=== PATIENT | female | born 1965 | race Caucasian/White ===

== ENCOUNTER 2021-01-04 12:08 | Inpatient (IN) | payer OTHER, SELFPAY ==
[2021-01-04] VITALS (13 sets, daily range): BP systolic 118–205; BP diastolic 65–98; PULSE 63–96; RESP 17–22; TEMP 35.6–36.6; O2SAT 94–100; BMI 44.4
--- NOTE | 2021-01-04 | ECHO_ITS ---
Patient Info Name: Romina Dick Age: 55 years : 1965 Gender: Female Ht: 60 in Wt: 230 lbs BSA: 2.17 m2 HR: 67 bpm BP: 139 / 75 mmHg Heart Rhythm: Sinus Rhythm Technical Quality: Fair Exam Date: 01/04/2021 3:13 PM Exam Location: [facility] Patient Status: Inpatient Admit Date: 01/04/2021 Staff Ordering Physician: Kwan Orona DO [employer] Records Clerk: Jerry Hess RDCS Attending Provider: Ana María Sommers PA-C Referring Physician: Yeyo SOLANO; Exam Type: CA echo dop color flow w con Study Info Indications R07.9 - Chest pain, unspecified Complete two-dimensional, color flow and Doppler transthoracic echocardiogram is performed with contrast to opacify the left ventricle and to improve the deliniation of the left ventricle endocardial borders. Contrast/Agitated Saline Contrast/Ag. Saline: Definity Amount: 2.00 ml Administered By: Nohemy Arevalo RN Existing IV Access: Yes History/Risk Factors Chest pain w/ elevated trops; HTN, DM, SOB. Summary 1. Left ventricular chamber dimension is normal. 2. Definity contrast administered improved wall motion interpretation. 3. Basal to mid lateral wall is hypokinetic. 4. Left ventricular systolic function is normal, estimated at 55-60%. 5. The left ventricular diastolic function is abnormal. 6. E/e' 12 is mildly elevated. 7. No pulmonary hypertension, estimated pulmonary arterial systolic pressure is 25 mmHg. Left Ventricle Definity contrast administered improved wall motion interpretation. Basal to mid lateral wall is hypokinetic. E/e' 12 is mildly elevated. Left ventricular chamber dimension is normal. Left ventricular systolic function is normal, estimated at 55-60%. The left ventricular diastolic function is abnormal. Right Ventricle Right ventricular chamber dimension is not well visualized. Left Atria Left atrial chamber dimension is normal. Right Atria Right atrial chamber dimension is normal. Aortic Valve The aortic valve is trileaflet. There is no aortic valve stenosis. There is no aortic valve regurgitation. Pulmonic Valve There is no pulmonic regurgitation. Mitral Valve There is no mitral valve stenosis. There is no mitral valve regurgitation. Tricuspid Valve There is no tricuspid valve regurgitation. No pulmonary hypertension, estimated pulmonary arterial systolic pressure is 25 mmHg. Pericardium/Pleural There is no pericardial effusion. Inferior Vena Cava Normal inferior vena cava with >50% collapse upon inspiration consistent with normal right atrial pressure, 5 mmHg. Aorta The aortic root size at the sinus of Valsalva is normal. Left Ventricular Outflow Tract Name Value Normal LVOT 2D LVOT Diameter 1.81 cm LVOT Doppler LVOT Peak Gradient 5 mmHg LVOT Mean Gradient 2 mmHg LVOT VTI 22.16 cm LVOT VTI/AV VTI Ratio 0.49 LVOT Stroke Volume 57.17 ml LVOT CO 4.
--- NOTE | ~2021-01-04 | XR_ITS ---
EXAMINATION: XR chest 2V 01/04/2021 12:36 INDICATION: Left-sided chest pain PROCEDURE: 2 view chest COMPARISON: No prior studies for comparison. FINDINGS: The lungs are clear. The cardiomediastinal silhouette is within normal limits. There are no pleural effusions. There is no pneumothorax suspected. There are cholecystectomy clips. IMPRESSION: 1: NO ACUTE CARDIOPULMONARY DISEASE. Reviewed, dictated and finalized at location [facility]
--- NOTE | 2021-01-04 12:11 | ECG_ITS ---
Measurements Intervals Ranger Rate: 87 P: 31 NE: 146 QRS: 6 QRSD: 86 T: 84 QT: 360 QTc: 435 Interpretive Statements SINUS RHYTHM LOW QRS VOLTAGE IN PRECORDIAL LEADS NONSPECIFIC ST & T-WAVE ABNORMALITY- HIGH LATERAL LEADS BORDERLINE ECG Electronically Signed On 01-04-2021 12:26:57 VICE PRESIDENT SALES by Kwan Orona D.O.
--- NOTE | 2021-01-04 12:22 | ED.CHESTPAIN ---
HPI - Chest Pain General Chief Complaint: Chest Pain Stated Complaint: chest pain Time Seen by Provider: 01/04/21 12:14 Source: patient Mode of arrival: ambulatory Limitations: no limitations History of Present Illness HPI narrative: Patient is a 55-year-old female complaining of midsternal chest pain, 7 out of 10, radiating to left upper extremity accompanied by shortness of breath started approximately 1 week ago. Patient denies any abdominal pain, nausea, vomiting, diaphoresis, fever or chills. Related Data Allergies Allergy/AdvReac Type Severity Reaction Status Date / Time No Known Allergies Allergy Verified 01/04/21 13:35 Review of Systems Review of Systems: All systems reviewed & are unremarkable except as noted in HPI and below Constitutional: Constitutional: Denies body ache(s), Denies chills, Denies excessive sweating, Denies fatigue, Denies fever(s), Denies headache(s), Denies lethargy, Denies malaise, Denies weakness and Denies weight loss Eyes: Eyes: Denies blurry vision, Denies change in vision and Denies loss of vision ENT: Denies dizziness, Denies ear discharge, Denies headache(s), Denies lip swelling, Denies epistaxis, Denies nasal congestion, Denies neck pain, Denies throat swelling and Denies tongue swelling Cardiovascular: Cardiovascular: Denies diaphoresis, Denies rapid heart rate, Denies edema, Denies irregular heart rhythm, Denies lightheadedness, Denies palpitations, Denies dyspnea and Denies dyspnea on exertion Respiratory: Respiratory: Denies chest congestion, Denies cough, Denies hemoptysis, Denies dyspnea and Denies dyspnea on exertion Gastrointestinal: Gastrointestinal: Denies abdominal pain, Denies melena, Denies hematochezia, Denies diarrhea, Denies nausea, Denies vomiting and Denies hematemesis Musculoskeletal: Musculoskeletal: Denies abnormal gait, Denies deformity, Denies joint swelling, Denies limited range of motion, Denies neck pain and Denies numbness Neurologic: Denies Abnormal speech present, Denies abnormal gait, Denies confusion, Denies dizziness, Denies headache(s), Denies focal weakness, Denies loss of vision, Denies numbness, Denies Other visual disturbances, Denies Sensory deficit (Neuro) and Denies weakness Psychiatric: Psychiatric: Denies confusion, Denies depression, Denies auditory hallucinations, Denies homicidal ideation and Denies suicidal ideation Endocrine: Endocrine: Denies cold intolerance, Denies excessive sweating, Denies fatigue, Denies heat intolerance and Denies palpitations Hematologic/Lymphatic: Hematologic/Lymphatic: Denies easy bleeding and Denies easy bruising Allergic/Immunologic: Allergic/Immunologic: Denies lip swelling, Denies throat swelling and Denies tongue swelling Exam Const: General: cooperative, healthy appearing, comfortable, no acute distress, well developed, alert and awake; No confusion Orientation/consciousness: oriented to person, oriented to place, oriented to time, patient oriented x3 and No confusion Limitations: no limitations HENMT: Head: normal to inspection, normocephalic and atraumatic Ears: hearing grossly normal bilaterally, TM normal on the right and TM normal on the left General nose exam: Normal external nose present, Normal nares present and No nasal discharge present Face and sinus: normal facial exam Mouth: Yes Normal oral and palatal mucosa present, Yes lip normal, Yes tongue normal and Yes oropharynx normal Throat: posterior oropharynx normal, tonsils normal and uvula midline Eyes: General: appearance normal, both eyes and all related structures Pupils: Equal, round and reactive pupils present EOM: EOMs intact bilaterally Neck: Neck: normal visual inspection, full ROM, no lymphadenopathy and no meningeal signs Chest: Chest palpation & inspection: normal inspection of the chest Resp: Effort & Inspection: normal respiratory effort, able to speak in complete sentences, no respiratory distress and not tachypneic Auscultation: cl
[2021-01-04] MEDS: ASPIRIN 81 MG CHEWABLE TABLET 324 MG PO (12:26)
[2021-01-04 13:05] LABS: Basophils Percent Auto 0.4 % (0.2-1.2); Eosinophils Absolute Auto 0.1 K/mm3 (0-0.3); Eosinophils Percent Auto 1.5 % (0-4.4); Hemoglobin 12.4 g/dL (12.0-15.0); Immature Granulocyte Absolute 0.06 K/mm3 (0.00-0.031); Immature Granulocyte Percent A 0.8 % (0-0.5); Lymphocytes Absolute Auto 2.06 K/mm3 (0.9-3.2); Lymphocytes Percent Auto 27.2 % (18.3-44.2); Mean Corpuscular HGB Conc 31.8 g/dl (32-36); Mean Corpuscular Hemoglobin 29.2 pg (26-34); Mean Platelet Volume 11.3 fl (7.4-10.4); Monocytes Absolute Auto 0.6 K/mm3 (0.1-0.6); Monocytes Percent Auto 7.5 % (2.6-8.5); Neutrophils Absolute Auto 4.8 K/mm3 (1.3-6.7); Neutrophils Percent Auto 62.6 % (45.5-73.1); Platelet Count Result 193 k/mm3 (150-375); Red Blood Count 4.24 M/mm3 (4.2-5.4); Red Cell Distribution Width 14.3 % (11.5-14.5); White Blood Count 7.6 K/mm3 (4.5-10.0)
[2021-01-04 13:11] LABS: INR 0.8; Prothrombin Time 11.9 Seconds (11.1-14.7)
[2021-01-04 13:12] LABS: Anion Gap 7 mmol/L (8-16); Blood Urea Nitrogen 12 mg/dL (7-17); Calcium 9.2 mg/dL (8.4-10.2); Carbon Dioxide 33 mmol/L (22-30); Chloride 99 mmol/L (98-107); Estimated CRCL calculation 85 ml/min; Estimated Glomerular Filt Rate > 60; Glucose 228 mg/dL (65-105); Partial Thromboplastin Time 25.3 SECONDS (22.3-36.8); Potassium 3.7 mmol/L (3.4-5.0); Sodium 139 mmol/L (137-145)
[2021-01-04 13:32] LABS: Troponin I 0.054 ng/mL (0.000-0.034)
[2021-01-04] MEDS: ENOXAPARIN 100 MG/ML SYRINGE SUB-Q (13:38)
[2021-01-04] MEDS: NITROGLYCERIN OINTMENT 1 INCH DOSE TRANSDERM (13:52)
--- NOTE | 2021-01-04 14:32 | PM.CNCAR ---
Assessment and Plan Assessment and plan (1) Chest pain: Code(s): R07.9 - Chest pain, unspecified Status: Acute (2) Non-ST elevation AR (NSTEMI): Code(s): I21.4 - Non-ST elevation (NSTEMI) myocardial infarction Status: Acute Assessment and Plan: Chest pain free now with NTG. Aspirin daily, Lovenox 1 mg/kq SQ q 12 hours. Trend troponins. Obtain echo. Start Toprol XL 25 mg daily. Obtain lipid panel. Continue home statin, Irbesartan. Stop Amlodipine unless BP is high despite starting Toprol. Discussed left heart cath with patient including risks/benefits/alternative treatment and she is agreeable for it. Will plan for tomorrow unless becomes clinically or hemodynamically unstable. I will let HCG know as they will perform cath. (3) Hypertension: Code(s): I10 - Essential (primary) hypertension Status: Acute (4) Dyslipidemia: Code(s): E78.5 - Hyperlipidemia, unspecified Status: Acute Assessment and Plan: Continue statin. (5) Diabetes: Code(s): E11.9 - Type 2 diabetes mellitus without complications Status: Acute Assessment and Plan: Management per hospitalist. (6) Obesity: Code(s): E66.9 - Obesity, unspecified Status: Acute (7) MARISELA (obstructive sleep apnea): Code(s): G47.33 - Obstructive sleep apnea (adult) (pediatric) Status: Acute Assessment and Plan: Advised she need to use CPAP regularly for sleep. History of Present Illness History of Present Illness Consult date/time: 01/04/21 14:32 Reason for consult: chest pain. 55 yr old woman presents to ER with chest pains. She has a history of DM type II (requiring insulin), hypertension, dyslipidemia, MARISELA and she uses CPAP occasionally, obesity. Reports that pressure like chest pain started about a week ago and has been happening daily. It radiates to left arm and left side of neck and associated with sob. She went to see her PCP yesterday, Dr. Shine in [place] who did an EKG and referred her to video systems engineer in [place], [place] which she has an appointment for this Saturday. She was given Nitro and her pain subsided. Her BP was over 200 systolic when she arrived to ER but is OK after NTG. She also received Lovenox in ER. She can walk about 1/2 block before she has ERVIN. EKG shows Sinus rhythm with borderline ST-T wave abnormality in high lateral leads. CXR is normal. CBC, BMP, INR are normal. Troponin first one is 0.054 which is slightly elevated. Reason For Visit: chest pain Review of Systems Review of Systems: All systems reviewed & are unremarkable except as noted in HPI and below Constitutional: Constitutional: Reports as per HPI, Denies chills and Denies fatigue Cardiovascular: Cardiovascular: Reports as per HPI, Reports chest pain, Denies leg edema, Denies lightheadedness, Reports dyspnea and Reports dyspnea on exertion Respiratory: Respiratory: Reports as per HPI and Reports dyspnea on exertion Gastrointestinal: Gastrointestinal: Reports as per HPI and Denies abdominal pain Genitourinary: Genitourinary: Reports as per HPI and Denies urinary frequency Meds Home Medications and Allergies Allergies Allergy/AdvReac Type Severity Reaction Status Date / Time No Known Allergies Allergy Verified 01/04/21 13:35 Vital Signs Vital Signs - 24 hr 01/04/21 12:11 01/04/21 12:57 Temperature 97.8 F Pulse Rate 88 67 Respiratory Rate 17 18 Blood Pressure 205/94 H 129/98 H Pulse Oximetry 99 96 Exam Const: General: cooperative, healthy appearing and comfortable Nutritional Appearance: obese Resp: Auscultation: clear to auscultation bilaterally, no crackles, no rales, no rhonchi and no wheezes Cardio: Jugular venous distension: no JVD Rate: regular rate Rhythm: regular rhythm Heart sounds: no murmurs GI: GI Palp: No abdominal tenderness and Yes Soft to palpation Neuro: General: oriented to person, oriented to place and oriented to ti
[2021-01-04 15:13] LABS: Cholesterol 189 mg/dL (0-200); HDL Direct 66 mg/dL; Triglycerides 119 mg/dL (<150)
[2021-01-04 15:24] LABS: LDL Cholesterol Direct 90 mg/dL
[2021-01-04] MEDS: PERFLUTREN LIPID MICROSPHERES 1.5 ML VIAL DILUTED TO 10 ML TOTAL VOLUME IV PUSH (15:34)
[2021-01-04 15:40] LABS: Troponin I 0.072 ng/mL (0.000-0.034)
[2021-01-04] MEDS: METOPROLOL SUCCINATE EXT REL 25 MG TABCR PO (15:40)
--- NOTE | 2021-01-04 16:03 | ADMGEN ---
This patient, Romina Dick, was admitted to IMU Room 206-01 at 1603. Patient/family oriented to hospital policies and general routines including ID bracelet, bed and alarms, visiting hours, pain management, procedures, bathroom and other care routines, personal items, smoking policy, room service/diet, and visiting hours. Information on how to activate the Rapid Response Team has been discussed. Patient/Family are encouraged to report perceived risks to care and to ask questions if they do not understand what they are told or what they should do.
--- NOTE | 2021-01-04 16:53 | ECG_ITS ---
SINUS RHYTHM WITH SHOR TN INTERVAL ATRIAL PREMATURE COMPLEX NONSPECIFIC ST & T-WAVE ABNORMALITY- HIGH LATERAL LEADS BASELINE WANDER- I, II, AVR, V2-V3 BORDERLINE ECG Electronically Signed On 01-04-2021 19:37:18 WELFARE SPECIALIST by Kwan Orona D.O. COMPARED TO ECG 01/04/2021 12:15:50 NO SIGNIFICANT CHANGES MTDD
--- NOTE | 2021-01-04 17:22 | PM.IMHP ---
H&P: HPI History of Present Illness Date/Time: 01/04/21 17:00 Chief Complaint: Chest Pain Narrative: Date of Service/ Time Seen is 01/04/21 at 1700 The collaborating physician for this history and physical is Dr Lianet Arreola. Ms. Dick is a very pleasant 55yo F with history of hypertension, dyslipidemia, insulin-dependent type 2 diabetes mellitus, sleep apnea, and fibromyalgia who presented to the ED for evaluation of chest pain. She described pressure/squeezing pain to her left chest that will radiate to left arm and up to left jaw with associated shortness of breath. She denies nausea, vomiting, or diaphoresis. These pains had been intermittent first starting one week ago, initially lasting around 10 minutes at a time occurring multiple times per day. She cannot identify real relieving or aggravating factors. She saw PCP regarding these symptoms, EKG was obtained, and she was scheduled for cardiology outpatient referral in [place], [place] on Saturday. Yesterday, her episodes of chest pain were increasing in duration and intensity, now lasting around 45 minutes to an hour before subsiding, and PCP advised her to present to ED. She rated her pain 7/10 severity in ED, and now is chest pain free after receiving nitroglycerin. Blood pressures elevated to 205/94 on arrival and have improved now. Troponins are elevated and slightly trending up. Cardiology has been consulted and she has already been seen by both Dr Orona and Dr Parnell prior to my encounter. She has been started on beta blockade and scheduled for left heart catheterization in the morning. She is admitted to the hospitalist service inpatient status for evaluation of chest pain and management of other comorbidities. Review of Systems Review of Systems: Narrative: Chest pain with associated SOB described above, she is having neither at this time and feels improved. She denies nausea, vomiting, or abdominal pain. Denies diarrhea or constipation. Denies cough or exposure to known COVID positive persons. Denies headaches, weakness or vision changes. Twelve systems were reviewed with pertinent positives and negatives as per HPI. Except as documented, all other systems were reviewed and are negative. [facility] Past Medical History Medical History (Updated 01/05/21 @ 05:54 by Ana María Sommers PA-C) Diabetes Dyslipidemia Fibromyalgia Hypertension MARISELA (obstructive sleep apnea) Restless leg syndrome Surgical History Surgical History (Updated 01/05/21 @ 05:37 by Ana María Sommers PA-C) H/O: hysterectomy 1989 Hx of cholecystectomy 1983 Family History Family History (Updated 01/05/21 @ 05:39 by Ana María Sommers PA-C) Mother Heart disease Heart attack in 50s, passed in age 70s. Father Heart disease Heart attacks in early 60s, passed in age 70s. Sibling Lung cancer Brother Social History Social History (Updated 01/05/21 @ 05:41 by Ana María Sommers PA-C) Social History: Ms. Dick is retired from working for [employer] and working in [employer] in the past. She lives at home in [place], [place] with her , Ceferino. She denies alcohol, tobacco, or other substance use. She designates Ceferino to be her surrogate decision maker and wishes to be full code status. Her PCP is Dr Sam Shine in [place], [place]. Smoking status: Never smoker Alcohol intake: never Substance use: never Gender identity (if verbalized by the patient): Female Spiritual care concerns: No Meds Home Medications and Allergies Home Medications Medication Instructions Recorded Confirmed Type amlodipine 5 mg PO DAILY 01/04/21 01/04/21 History duloxetine 60 mg PO DAILY 01/04/21 01/04/21 History empagliflozin [Jardiance] 25 mg PO DAILY 01/04/21 01/04/21 History insulin lispro [Humalog U-100 17 unit SUBCUT TIDWM 01/04/21 01/04/21 History Insulin] omeprazole 40 mg PO BID 01/04/21 01/04/21 History pravastatin 40 mg PO HS 01/04/21 01/04/21 History pregabali
[2021-01-04 17:30] LABS: Glucose Point of Care 86 (65-105)
[2021-01-04 18:21] LABS: Troponin I 0.083 ng/mL (0.000-0.034)
[2021-01-04] MEDS: PREGABALIN (*CRX) 50 MG CAPSULE 200 MG PO (18:25)
--- NOTE | 2021-01-04 19:14 | PM.CNCAR ---
Assessment and Plan Assessment and plan (1) Non-ST elevation ID (NSTEMI): Code(s): I21.4 - Non-ST elevation (NSTEMI) myocardial infarction Status: Acute Assessment and Plan: Patient presents with acute coronary syndrome and non-STEMI. She has been free of discomfort since arrival. She does appear a good candidate for invasive evaluation with cardiac catheterization and possible PCI. Reviewed the procedure with the patient and need for dual anti-platelet therapy if a stent is placed. Patient desires to proceed. 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 Cardiac catheterization is scheduled for around noon on . Additional Plan Thank you for asking us to participate in the care of this nice lady. History of Present Illness History of Present Illness Consult date/time: 01/04/21 19:14 Consult reason: chest pain Reason For Visit: NSTEMI Narrative: 01/04/2021 Romina Dick is a pleasant 55-year-old female admitted with a non-STEMI, whom we were asked to see at the request of Dr. Orona for our opinion about possible cardiac catheterization. The patient has been having chest pain radiating to left arm and neck for about a week. In her trip to the emergency room today. Her chest discomfort was relieved with nitroglycerin and she has been given. She remains pain-free but she has elevated troponins consistent with a non-STEMI. She has hypertension, diabetes and hyperlipidemia. No history of any bleeding or ulcers. She is not anticipating any surgeries in the next few months. Review of Systems Constitutional: Constitutional: Reports no additional constitutional complaints Eyes: Eyes: Reports no additional eye complaints ENT: Denies epistaxis Cardiovascular: Cardiovascular: Reports chest pain and Denies pedal edema Respiratory: Respiratory: Reports dyspnea and Reports dyspnea on exertion Gastrointestinal: Gastrointestinal: Denies melena, Denies hematochezia and Denies vomiting Genitourinary: Genitourinary: Denies hematuria Integumentary/Breasts: Skin/Breast: Denies rash Neurologic: Denies confusion Psychiatric: Psychiatric: Denies no additional psychiatric complaints [facility] Past Medical History Medical History (Updated 01/04/21 @ 19:18 by Claribel Parnell MD) Diabetes Dyslipidemia Hypertension MARISELA (obstructive sleep apnea) Family History Family History (Updated 01/04/21 @ 19:41 by Claribel Parnell MD) Mother Heart disease Heart attack in her early to mid 50's Father Heart disease Heart attacks Social History Social History Smoking status: Never smoker Alcohol intake: never Substance use: never Gender identity (if verbalized by the patient): Female Spiritual care concerns: No Meds Home Medications and Allergies Home Medications Medication Instructions Recorded Confirmed Type amlodipine 5 mg PO DAILY 01/04/21 01/04/21 History duloxetine 60 mg PO DAILY 01/04/21 01/04/21 History empagliflozin [Jardiance] 25 mg PO DAILY 01/04/21 01/04/21 History insulin lispro [Humalog U-100 17 unit SUBCUT TIDWM 01/04/21 01/04/21 History Insulin] omeprazole 40 mg PO BID 01/04/21 01/04/21 History pravastatin 40 mg PO HS 01/04/21 01/04/21 History pregabalin 200 mg PO BID 01/04/21 01/04/21 History ropinirole 0.25 mg PO HS 01/04/21 01/04/21 History Allergies Allergy/AdvReac Type Severity Reaction Status Date / Time No Known Allergies Allergy Verified 01/04/21 13:35 Vital Signs Vital Signs - 24 hr 01/04/21 12:11 01/04/21 12:57 01/04/21 14:50 Temperature 97.8 F Pulse Rate 88 67 67 Respiratory Rate 17 18 18 Blood Pressure 205/94 H 129/98 H 139/71 Pulse Oximetry 99 96 98 01/04/21 15:40 01/04/21 15:49 01/04/21 16:18 Tempera
[2021-01-04 20:24] LABS: Glucose Point of Care 223 (65-105)
[2021-01-04 20:39] LABS: Troponin I 0.071 ng/mL (0.000-0.034)
[2021-01-04] MEDS: rOPINIRole HCL 0.25 MG TABLET PO (21:39)
[2021-01-05] VITALS (34 sets, daily range): BP systolic 109–189; BP diastolic 49–83; PULSE 49–79; RESP 14–20; TEMP 36–36.6; O2SAT 90–100
[2021-01-05 05:27] LABS: Basophils Absolute Auto 0.1 K/mm3 (0.0-0.1); Basophils Percent Auto 0.7 % (0.2-1.2); Eosinophils Absolute Auto 0.1 K/mm3 (0-0.3); Eosinophils Percent Auto 1.8 % (0-4.4); Hematocrit 33.8 % (37.0-47.0); Hemoglobin 10.7 g/dL (12.0-15.0); Immature Granulocyte Absolute 0.03 K/mm3 (0.00-0.031); Immature Granulocyte Percent A 0.4 % (0-0.5); Mean Corpuscular HGB Conc 31.7 g/dl (32-36); Mean Corpuscular Hemoglobin 28.8 pg (26-34); Mean Corpuscular Volume 90.9 fl (80-100); Mean Platelet Volume 11.6 fl (7.4-10.4); Monocytes Absolute Auto 0.7 K/mm3 (0.1-0.6); Monocytes Percent Auto 8.6 % (2.6-8.5); Neutrophils Absolute Auto 3.5 K/mm3 (1.3-6.7); Neutrophils Percent Auto 45.5 % (45.5-73.1); Platelet Count Result 186 k/mm3 (150-375); Red Blood Count 3.72 M/mm3 (4.2-5.4); Red Cell Distribution Width 14.4 % (11.5-14.5); White Blood Count 7.7 K/mm3 (4.5-10.0)
[2021-01-05] MEDS: ACETAMINOPHEN 325 MG TABLET 650 MG PO (05:28)
[2021-01-05 05:36] LABS: Anion Gap 3 mmol/L (8-16); Blood Urea Nitrogen 13 mg/dL (7-17); Calcium 8.5 mg/dL (8.4-10.2); Carbon Dioxide 34 mmol/L (22-30); Chloride 102 mmol/L (98-107); Estimated CRCL calculation 89 ml/min; Estimated Glomerular Filt Rate > 60; Glucose 174 mg/dL (65-105); Magnesium 1.6 mg/dL (1.6-2.3); Sodium 139 mmol/L (137-145)
[2021-01-05] MEDS: ATORVASTATIN 40 MG TABLET 80 MG PO (08:20)
[2021-01-05] MEDS: MAGNESIUM SULF 2 GM/WATER 50ML 2 GM/50 ML BAG IVPB (08:20)
[2021-01-05] MEDS: ASPIRIN 81 MG CHEWABLE TABLET PO (08:20)
[2021-01-05] MEDS: PREGABALIN (*CRX) 50 MG CAPSULE 200 MG PO ×2 (08:20→17:45)
[2021-01-05] MEDS: DULoxetine HCL 60 MG CAPSULE.DR PO (08:20)
[2021-01-05 08:54] LABS: Glucose Point of Care 162 (65-105)
[2021-01-05] MEDS: METOPROLOL SUCCINATE EXT REL 50 MG TABCR PO (08:56)
[2021-01-05] MEDS: IRBESARTAN 150 MG TABLET 300 MG PO (08:56)
--- NOTE | 2021-01-05 10:17 | PM.IMPN ---
Progress Note: A&P Assessment and Plan (1) Non-ST elevation DC (NSTEMI): Code(s): I21.4 - Non-ST elevation (NSTEMI) myocardial infarction Status: Acute Assessment and Plan: Management per cardiology - appreciate recommendations. No further chest pain overnight or this morning. Plan is for cardiac catheterization this afternoon. Metoprolol and aspirin were started. Amlodipine held. She was started on therapeutic lovenox initially which was discontinued in light of cath. (2) Hypertension: Code(s): I10 - Essential (primary) hypertension Status: Chronic Assessment and Plan: Home norvasc stopped in light of new metoprolol added. Appreciate cardiology recommendations. Monitor BP and adjust treatment as needed. (3) Diabetes: Code(s): E11.9 - Type 2 diabetes mellitus without complications Status: Chronic Assessment and Plan: She was told Hgb A1c 13% by her PCP this week. She has continuous glucose monitoring with Dexcom and describes her blood sugars have been in 300s lately. Hold mealtime insulin for now since she is NPO. Monitor accu-cheks q6h while she is NPO and cover with sliding scale. Home Jardiance is nonformulary and will be held. Glucoses will be monitored and treatment adjusted as appropriate. (4) MARISELA (obstructive sleep apnea): Code(s): G47.33 - Obstructive sleep apnea (adult) (pediatric) Status: Chronic Assessment and Plan: Has been wearing CPAP nightly around 7 years per patient. Continue CPAP. (5) Dyslipidemia: Code(s): E78.5 - Hyperlipidemia, unspecified Status: Chronic Assessment and Plan: Continue statin therapy. (6) Restless leg syndrome: Code(s): G25.81 - Restless legs syndrome Status: Acute Assessment and Plan: Continue her home Lyrica and Requip for RLS and fibromyalgia. Stable, no acute issues. Subjective Date/time seen: 01/05/21 0945 Interval history: Ms. Dick is a 55yo F admitted for NSTEMI. She is resting comfortably in bed and denies chest pain or shortness of breath. Was able to rest a bit last night. No acute events overnight. Denies abdominal pain, nausea or vomiting. Review of Systems Review of Systems: All systems reviewed & are unremarkable except as noted in HPI and below Exam Narrative: Exam Narrative: General: Female resting comfortably supine in bed in no acute distress. HEENT: Normocephalic, atraumatic, EOMI, oral mucosa moist. Neck: Supple. Chest: Lungs clear to auscultation KRYSTYNA. Respirations even and nonlabored, tolerating room air. Heart: Rate and rhythm regular with S1 and S2. Abdomen: Soft, nontender, nondistended, bowel sounds present. Skin: Warm, dry without rashes or lesions noted. Extremities: Peripheral pulses intact, no edema. Neurologic: Alert and oriented. No focal neurologic deficits noted. Speech is clear. Objective Data Vital Signs Vital Signs: Last Vital Signs Temp 96.9 F L 01/05/21 08:00 Pulse 65 01/05/21 08:56 Resp 18 01/05/21 08:00 BP 180/80 H 01/05/21 08:00 Pulse Ox 94 01/05/21 08:00 Intake/Output Intake/Output: Intake & Output 01/02/21 01/03/21 01/04/21 01/05/21 23:59 23:59 23:59 23:59 Intake Total 440 300 Balance 440 300 Meds/Results Medications: Active Medications Generic Name Dose Route Start Last Admin Trade Name Freq PRN Reason Stop Dose Admin Acetaminophen 650 mg 01/04/21 13:52 01/05/21 05:28 Acetaminophen 325 Mg Tablet PO 650 mg Q4H PRN Administration Mild Pain (1-3) Al Hydrox/Mg Hydrox/Simethicone 30 ml 01/04/21 13:52 Mag Hydrox/Al Hydrox/Simeth 30 Ml Udc PO Q6H PRN Indigestion Aspirin 81 mg 12/26
--- NOTE | 2021-01-05 10:20 | PM.PNCARD ---
Progress Note: A&P Assessment and Plan (1) Chest pain: Code(s): R07.9 - Chest pain, unspecified Status: Acute (2) Non-ST elevation [place] (NSTEMI): Code(s): I21.4 - Non-ST elevation (NSTEMI) myocardial infarction Status: Acute Assessment and Plan: Chest pain free now with NTG. Aspirin daily, did get Lovenox in ED. Troponins peaked at 0.08. Echo shows normal EF with lateral wall hypokinesis. Increase Toprol XL 50 mg daily. On Atorvastastatin, increase Irbesartan 300 mg daily. Stop Amlodipine unless BP is high despite starting Toprol. Discussed left heart cath with patient including risks/benefits/alternative treatment and she is agreeable for it. Will plan for it later today. (3) Hypertension: Code(s): I10 - Essential (primary) hypertension Status: Chronic Assessment and Plan: High. Increase Irbesartan 300 mg daily and Toprol 50 mg daily. (4) Dyslipidemia: Code(s): E78.5 - Hyperlipidemia, unspecified Status: Chronic Assessment and Plan: Continue statin. (5) Diabetes: Code(s): E11.9 - Type 2 diabetes mellitus without complications Status: Chronic Assessment and Plan: Management per hospitalist. (6) Obesity: Code(s): E66.9 - Obesity, unspecified Status: Acute (7) MARISELA (obstructive sleep apnea): Code(s): G47.33 - Obstructive sleep apnea (adult) (pediatric) Status: Chronic Assessment and Plan: Advised she need to use CPAP regularly for sleep. Subjective Date/time seen: 01/05/21 10:20 Patient did not have any more chest pains overnight. No sob. Exam Const: General: cooperative, healthy appearing and comfortable Nutritional Appearance: obese Resp: Auscultation: clear to auscultation bilaterally, no crackles, no rales, no rhonchi and no wheezes Cardio: Jugular venous distension: no JVD Rate: regular rate Rhythm: regular rhythm Heart sounds: no murmurs GI: GI Palp: No abdominal tenderness and Yes Soft to palpation Neuro: General: oriented to person, oriented to place and oriented to time Extrem: Right lower extremity: no edema Left lower extremity: no edema Objective Data Vital Signs Vital Signs: Vital Signs - 24 hr 01/04/21 12:11 01/04/21 12:57 01/04/21 14:50 Temperature 97.8 F Pulse Rate 88 67 67 Respiratory Rate 17 18 18 Blood Pressure 205/94 H 129/98 H 139/71 Pulse Oximetry 99 96 98 01/04/21 15:40 01/04/21 15:49 01/04/21 16:18 Temperature 96.1 F L Pulse Rate 63 70 76 Respiratory Rate 18 22 H Blood Pressure 118/65 148/79 H Pulse Oximetry 100 100 01/04/21 16:31 01/04/21 17:39 01/04/21 18:42 Temperature 96.7 F L Pulse Rate 67 84 73 Respiratory Rate 20 Blood Pressure 135/66 Pulse Oximetry 96 01/04/21 20:00 01/04/21 22:00 01/04/21 23:30 Temperature Pulse Rate 72 72 76 Respiratory Rate 20 20 Blood Pressure Pulse Oximetry 96 94 01/04/21 23:36 01/05/21 00:00 01/05/21 02:00 Temperature 97.0 F L Pulse Rate 74 72 72 Respiratory Rate 20 18 Blood Pressure 153/72 H Pulse Oximetry 96 95 01/05/21 04:00 01/05/21 04:04 01/05/21 06:00 Temperature 97.9 F Pulse Rate 65 69 74 Respiratory Rate 20 18 Blood Pressure 189/83 H Pulse Oximetry 93 95 01/05/21 08:00 01/05/21 08:56 Temperature 96.9 F L Pulse Rate 65 65 Respiratory Rate 18 Blood Pressure 180/80 H Pulse Oximetry 94 Intake/Output Intake/Output: Intake & Output 01/02/21 01/03/21 01/04/21 01/05/21 23:59 23:59 23:59 23:59 Intake Total 440 300 Balance 440 300 Meds/Results Medications: Active Medications Generic Name Dose Route Start Last Admin Trade Name Freq PRN Reason Stop Dose Admin Acetaminophen 650 mg 01/04/21 13:52 01/05/21 05:28 Acetaminophen 325 Mg Tablet PO 650 mg Q4H PRN Administration Mild Pain (1-3) Al Hydrox/Mg Hydrox/Simethicone 30 ml 01/04/21 13:52 Mag Hydrox/Al Hydrox/Simeth 30 Ml Udc PO Q6H PRN
--- NOTE | 2021-01-05 11:49 | PC.NURSE ---
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
--- NOTE | 2021-01-05 12:04 | WPDMODSED ---
Moderate Sedation Note-Pt Data Patient Data Diagnosis: Chest pain suspected acute coronary syndrome Present Complaint: intermittent chest pain Procedure to be performed/Plan: left heart catheterization Allergies Allergy/AdvReac Type Severity Reaction Status Date / Time No Known Allergies Allergy Verified 01/04/21 13:35 Home Medications Medication Instructions Recorded Confirmed Type amlodipine 5 mg PO DAILY 01/04/21 01/04/21 History duloxetine 60 mg PO DAILY 01/04/21 01/04/21 History empagliflozin [Jardiance] 25 mg PO DAILY 01/04/21 01/04/21 History insulin lispro [Humalog U-100 17 unit SUBCUT TIDWM 01/04/21 01/04/21 History Insulin] omeprazole 40 mg PO BID 01/04/21 01/04/21 History pravastatin 40 mg PO HS 01/04/21 01/04/21 History pregabalin 200 mg PO BID 01/04/21 01/04/21 History ropinirole 0.25 mg PO HS 01/04/21 01/04/21 History Current Medications: Active Medications Acetaminophen (Acetaminophen 325 Mg Tablet) 650 mg PO Q4H PRN PRN Reason: Mild Pain (1-3) Last Admin: 01/05/21 05:28 Dose: 650 mg Documented by: Al Hydrox/Mg Hydrox/Simethicone (Mag Hydrox/Al Hydrox/Simeth 30 Ml Udc) 30 ml PO Q6H PRN PRN Reason: Indigestion Aspirin (Aspirin 81 Mg Chewable Tablet) 81 mg PO DAILY@0800 [facility] Last Admin: 01/05/21 08:20 Dose: 81 mg Documented by: Atorvastatin Calcium (Atorvastatin 40 Mg Tablet) 80 mg PO DAILY [facility] Last Admin: 01/05/21 08:20 Dose: 80 mg Documented by: Dextrose (Dextrose 50% 25 Gm/50 Ml Syringe) 12.5 gm IV PUSH PRN PRN; Protocol PRN Reason: Hypoglycemia Duloxetine HCl (Duloxetine Hcl 60 Mg Capsule.Dr) 60 mg PO DAILY [facility] Last Admin: 01/05/21 08:20 Dose: 60 mg Documented by: Glucagon (Glucagon For Inj 1 Mg Vial) 1 mg IM PRN PRN; Protocol PRN Reason: Hypoglycemia Glucose (Glucose Oral Gel 15 Gm Of Glucse In 37.5 Gm Tube) 15 gm PO PRN PRN; Protocol PRN Reason: Hypoglycemia Dextrose (Dextrose 5% 1,000 Ml) 1,000 mls @ 100 mls/hr IVPB PRN PRN; Protocol PRN Reason: Hypoglycemia Insulin Aspart (Insulin Aspart (*Bkc) 100 Units/Ml) 3 - 6 units SUB-Q Q6H [facility]; Protocol Last Admin: 01/05/21 11:45 Dose: Not Given Documented by: Irbesartan (Irbesartan 150 Mg Tablet) 300 mg PO [facility] Last Admin: 01/05/21 08:56 Dose: 300 mg Documented by: Metoprolol Succinate (Metoprolol Succinate Ext Rel 50 Mg Tabcr) 50 mg PO [facility] Last Admin: 01/05/21 08:56 Dose: 50 mg Documented by: Metoprolol Tartrate (Metoprolol Tartrate Inj 5 Mg/5 Ml Vial) 5 mg IV PUSH Q6HR PRN PRN Reason: Hypertension Nitroglycerin (Nitroglycerin Sl 0.4 Mg Tablet) 0.4 mg SUBLINGUAL Q5MIN PRN PRN Reason: Chest Pain Ondansetron HCl (Ondansetron Inj 4 Mg/2 Ml Vial) 4 mg IV PUSH Q6H PRN PRN Reason: Nausea And Vomiting Pregabalin (Pregabalin (*Crx) 50 Mg Capsule) 200 mg PO BID [facility] Last Admin: 01/05/21 08:20 Dose: 200 mg Documented by: Ropinirole HCl (Ropinirole Hcl 0.25 Mg Tablet) 0.25 mg PO HS [facility] Last Admin: 01/04/21 21:39 Dose: 0.25 mg Documented by: Sedation/Anesthesia: No previous sedation/anesthesia problems (including family history). [facility] Past Medical History Medical History (Updated 01/05/21 @ 05:54 by Ana María Sommers PA-C) Diabetes Dyslipidemia Fibromyalgia Hypertension MARISELA (obstructive sleep apnea) Restless leg syndrome Surgical History Surgical History (Updated 01/05/21 @ 05:37 by Ana María Sommers PA-C) H/O: hysterectomy 1989 Hx of cholecystectomy 1983 Family History Family History (Updated 01/05/21 @ 05:39 by Ana María Sommers PA-C) Mother Heart disease Heart attack in 50s, passed in age 70s. Father Heart disease Heart attacks in early 60s, passed in age 70s. 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 She lives at home in [place], [place] with her
--- NOTE | 2021-01-05 12:39 | ECG_ITS ---
Measurements Intervals [place] Rate: 50 P: 4 TX: 150 QRS: 7 QRSD: 75 T: 81 QT: 460 QTc: 421 Interpretive Statements SINUS BRADYCARDIA INCOMPLETE RIGHT BUNDLE BRANCH BLOCK BORDERLINE ST-T WAVE ABNORMALITY- HIGH LATERAL LEADS BASELINE ARTIFACT- III, AVL, AVF, V4 BORDERLINE ECG Electronically Signed On 01-05-2021 13:13:12 SENIOR PROPERTY MANAGER by Kwan Orona D.O.
--- NOTE | 2021-01-05 12:41 | WPDCARDPROC ---
Cardiac Cath Procedure Note Date of procedure:: 01/05/21 Performing physician:: Clarence Saavedra MD Indication:: acute coronary syndrome Brief clinical history:: this is a 55-year-old woman without prior history of coronary disease presenting with intermittent chest pain modest troponin elevation. Patient is morbidly obese. Procedure Procedure performed:: Left ventriculography coronary angiography PCI(MARION) to circumflex Sedation/Medication given:: fentanyl 50 mg Versed 2 mg case start time 12:09 p.m. case end time 12:36 p.m. sedation provided by Sonja Ramires RN, trained observer Access site:: right femoral artery Estimated blood loss:: 10-15 cc Procedure note:: patient was brought to the cardiac catheterization lab in the postabsorptive state the right femoral triangle was prepared and draped in the usual fashion. Anesthesia was provided with 1% lidocaine infiltrated locally. Using the modified Seldinger technique a 5 English sheath was placed into the right femoral artery. After this left heart catheterization was carried out. A 5 English angled pigtail catheter was used to measure left-sided hemodynamics and to injected LV g in the FAUSTIN projection. After this utilized a 5 English FL4 catheter to engage inject the left coronary artery and then a 5 English JR4 catheter to engage inject the right coronary artery. Following this the cineangiograms were reviewed after this PCI of the circumflex was recommended and carried out as detailed below. Prior to PCI the 5 English sheath was changed over a guidewire for 6 English sheath. Patient was systemically anticoagulated with Angiomax and received 600 mg of clopidogrel orally prior to starting PCI. At the end of the procedure the sheath was sutured in position the catheters were removed she was taken to the holding area for recovery there were no signs of any procedural complications procedure was well tolerated and she left the brush clearing laborer with no evidence of a groin hematoma. Findings:: Hemodynamics: Central aortic pressure is 149/64, left ventricle 150/12 end-diastolic 24. There is no gradient across the aortic valve upon pullback. Left ventricle: The LV is normal in size all segments contract appropriately the global ejection fraction appeared to be 50% by visual estimation left main coronary artery is large and widely patent the left anterior descending is a moderate caliber artery extending down to around the apex the LAD and its branches are smooth and angiographically normal in appearance. The circumflex is a medium caliber vessel giving rise to marginal branches and has a discrete 95% stenosis in the midportion. A very small marginal branch is located at this high-grade stenosis. Right coronary artery is large in caliber dominant to the posterior circulation and smooth and angiographically normal in appearance. Intervention: The left coronary artery was engaged using a 6 English CLS 3.5 guiding catheter. I used a 0.014 BMW coronary guidewire to traverse the lesion in the circumflex and this was done easily. The lesion was pre-dilated using a 2 x 15 mm emerge PTCA balloon at 8 atmospheres. Following this angiographically the lesion was nicely patent but there was a discrete dissection at the site of the high-grade stenosis. After lastly a 3 x 22 mm Orsiro drug-eluting stent was deployed overlapping the site of the original stenosis deployed at 8 atmospheres with an excellent anatomic result. The vessel was widely patent at this point with ED 3 flow no residual stenosis dissection or distal embolization. Conclusion:: 1. Single-vessel coronary artery disease with high-grade 95% stenosis in the medium-sized circumflex. 2. Normal left ventricular systolic function 3. successful revascularization performed using a 3 x 22 mm Orsiro a drug-eluting stent with an excellent anatomical result as described above. Clarence Saavedra MD [facility]
[2021-01-05] MEDS: SODIUM CHLORIDE 0.9% IV 1,000 ML 125 ML IV CONT (14:23)
--- NOTE | 2021-01-05 17:10 | SUR.PHASEII ---
REPORT CALLED TO JENIFER BRUCE IN IMU BY HARMONY De La Rosa RN AT 1650. PT. RETURNED TO IMU 206.1 VIA BED FROM [facility] 4 S/P PHASE II RECOVERY FROM [facility] W/ PCI W/ DR. BHATT. R. GROIN SITE REMAINS SOFT, NONTENDER. NO BLEEDING OR HEMATOMA NOTED. DRESSING C/D/I. R. PEDAL PULSE STRONG. BEDREST CONTINUES UNTIL 2200. R. GROIN SITE VIEWED W/ JENIFER BRUCE ON ARRIVAL TO 206.1. MEAL SERVED.
[2021-01-05 17:53] LABS: Glucose Point of Care 113 (65-105)
[2021-01-05 19:00] LABS: Glucose Point of Care 136 (65-105)
[2021-01-05 20:44] LABS: Glucose Point of Care 252 (65-105)
[2021-01-05] MEDS: rOPINIRole HCL 0.25 MG TABLET PO (20:51)
[2021-01-06] VITALS (8 sets, daily range): BP systolic 138–149; BP diastolic 62–69; PULSE 53–68; RESP 12–18; TEMP 36.5–36.7; O2SAT 93–99
--- NOTE | 2021-01-06 05:11 | ECG_ITS ---
Measurements Intervals [place] Rate: 57 P: 19 NE: 155 QRS: 7 QRSD: 80 T: 92 QT: 452 QTc: 443 Interpretive Statements SINUS BRADYCARDIA LOW QRS VOLTAGE IN PRECORDIAL LEADS BORDERLINE ST-T WAVE ABNORMALITY- HIGH LATERAL LEADS BORDERLINE ECG Electronically Signed On 01-06-2021 10:10:34 BANANA RIPENING ROOM SUPERVISOR by Kwan Orona D.O.
[2021-01-06 05:20] LABS: Basophils Percent Auto 0.5 % (0.2-1.2); Eosinophils Absolute Auto 0.1 K/mm3 (0-0.3); Eosinophils Percent Auto 1.5 % (0-4.4); Hematocrit 35.1 % (37.0-47.0); Immature Granulocyte Absolute 0.04 K/mm3 (0.00-0.031); Immature Granulocyte Percent A 0.5 % (0-0.5); Lymphocytes Absolute Auto 2.97 K/mm3 (0.9-3.2); Lymphocytes Percent Auto 36.8 % (18.3-44.2); Mean Corpuscular HGB Conc 31.3 g/dl (32-36); Mean Corpuscular Hemoglobin 28.6 pg (26-34); Mean Corpuscular Volume 91.4 fl (80-100); Mean Platelet Volume 11.1 fl (7.4-10.4); Monocytes Absolute Auto 0.7 K/mm3 (0.1-0.6); Neutrophils Absolute Auto 4.2 K/mm3 (1.3-6.7); Neutrophils Percent Auto 51.7 % (45.5-73.1); Platelet Count Result 196 k/mm3 (150-375); Red Blood Count 3.84 M/mm3 (4.2-5.4); Red Cell Distribution Width 14.5 % (11.5-14.5); White Blood Count 8.1 K/mm3 (4.5-10.0)
[2021-01-06 05:33] LABS: Anion Gap 0 mmol/L (8-16); Blood Urea Nitrogen 13 mg/dL (7-17); Calcium 8.4 mg/dL (8.4-10.2); Carbon Dioxide 37 mmol/L (22-30); Chloride 102 mmol/L (98-107); Estimated CRCL calculation 89 ml/min; Estimated Glomerular Filt Rate > 60; Glucose 130 mg/dL (65-105); Magnesium 1.8 mg/dL (1.6-2.3); Potassium 3.8 mmol/L (3.4-5.0); Sodium 139 mmol/L (137-145)
--- NOTE | 2021-01-06 08:07 | PM.PNCARD ---
Progress Note: A&P Assessment and Plan (1) Non-ST elevation [place] (NSTEMI): Code(s): I21.4 - Non-ST elevation (NSTEMI) myocardial infarction Status: Acute Assessment and Plan: Left heart cath with Dr. Saavedra 01/05/21 shows LCx 95% stenosis; PCI with MARION to LCx with good results. Troponins peaked at 0.08. Echo shows normal EF with lateral wall hypokinesis. Continue Aspirin daily, Plavix daily,Toprol XL 50 mg daily, Atorvastatin 80, increase Irbesartan 300 mg daily. Stop Amlodipine unless BP is high despite starting Toprol. Will order phase II cardiac rehab at outpatient f/u appointment. May d/c home from cardiology standpoint and f/u with me in 1 week. (2) Hypertension: Code(s): I10 - Essential (primary) hypertension Status: Chronic Assessment and Plan: Stable, fluctuates. (3) Dyslipidemia: Code(s): E78.5 - Hyperlipidemia, unspecified Status: Chronic Assessment and Plan: Continue statin. (4) Diabetes: Code(s): E11.9 - Type 2 diabetes mellitus without complications Status: Chronic Assessment and Plan: Management per hospitalist. (5) Obesity: Code(s): E66.9 - Obesity, unspecified Status: Acute (6) MARISELA (obstructive sleep apnea): Code(s): G47.33 - Obstructive sleep apnea (adult) (pediatric) Status: Chronic Assessment and Plan: Advised she need to use CPAP regularly for sleep. Subjective Date/time seen: 01/06/21 08:07 Denies any more chest pain or sob. Right groin cath access site without pain/tenderness. Exam Const: General: cooperative, healthy appearing and comfortable Nutritional Appearance: obese Resp: Auscultation: clear to auscultation bilaterally, no crackles, no rales, no rhonchi and no wheezes Cardio: Jugular venous distension: no JVD Rate: regular rate Rhythm: regular rhythm Heart sounds: no murmurs GI: GI Palp: No abdominal tenderness and Yes Soft to palpation Neuro: General: oriented to person, oriented to place and oriented to time Extrem: Right lower extremity: no edema Left lower extremity: no edema Other: Right groin without hematoma, tenderness, bruit. Objective Data Vital Signs Vital Signs: Vital Signs - 24 hr 01/05/21 08:56 01/05/21 10:00 01/05/21 11:45 Temperature Pulse Rate 65 61 65 Pulse Rate [Bilateral Pedal (Dorsalis Pedis) Palpation] Respiratory Rate 18 Blood Pressure Pulse Oximetry 94 01/05/21 12:00 01/05/21 12:39 01/05/21 13:00 Temperature 97.2 F L 96.9 F L Pulse Rate 54 L 79 52 L Pulse Rate [Bilateral Pedal (Dorsalis Pedis) Palpation] 51 L Respiratory Rate 16 18 15 Blood Pressure 171/74 H 109/78 148/69 H Pulse Oximetry 93 97 92 01/05/21 13:15 01/05/21 13:30 01/05/21 13:45 Temperature 97.3 F L Pulse Rate 50 L 50 L 50 L Pulse Rate [Bilateral Pedal (Dorsalis Pedis) Palpation] 51 L 51 L 51 L Respiratory Rate 15 15 14 Blood Pressure 140/76 139/61 156/73 H Pulse Oximetry 92 90 100 01/05/21 14:00 01/05/21 14:30 01/05/21 15:00 Temperature Pulse Rate 55 L 52 L 52 L Pulse Rate [Bilateral Pedal (Dorsalis Pedis) Palpation] 55 L 52 L 52 L Respiratory Rate 15 14 16 Blood Pressure 169/70 H 155/71 H 155/70 H Pulse Oximetry 96 96 95 01/05/21 15:25 01/05/21 15:35 01/05/21 15:45 Temperature Pulse Rate 53 L 57 L 54 L Pulse Rate [Bilateral Pedal (Dorsalis Pedis) Palpation] Respiratory Rate 16 16 15 Blood Pressure 139/73 145/73 H 133/70 Pulse Oximetry 95 94 95 01/05/21 15:55 01/05/21 16:00 01/05/21 16:15 Temperature Pulse Rate 50 L 51 L 54 L Pulse Rate [Bilateral Pedal (Dorsalis Pedis) Palpation] Respiratory Rate 14 16 16 Blood Pressure 138/72 117/62 133/63 Pulse Oximetry 93 93 93 01/05/21 16:30 01/05/21 16:45 01/05/21 17:00 Temperature Pulse Rate 51 L 53 L 53 L Pulse Rate [Bilateral Pedal (Dorsalis Pedis) Palpation] Respiratory Rate 16 16 16 Blood Pressure 133/67 135/68 132/69 Pulse Oximetry 92 93 9
[2021-01-06] MEDS: METOPROLOL SUCCINATE EXT REL 50 MG TABCR PO (08:24)
[2021-01-06] MEDS: IRBESARTAN 150 MG TABLET 300 MG PO (08:24)
[2021-01-06] MEDS: PREGABALIN (*CRX) 50 MG CAPSULE 200 MG PO (08:24)
[2021-01-06] MEDS: ASPIRIN 81 MG CHEWABLE TABLET PO (08:24)
[2021-01-06] MEDS: ATORVASTATIN 40 MG TABLET 80 MG PO (08:24)
[2021-01-06] MEDS: DULoxetine HCL 60 MG CAPSULE.DR PO (08:24)
[2021-01-06] MEDS: CLOPIDOGREL BISULFATE 75 MG TABLET PO (08:24)
[2021-01-06 08:49] LABS: Glucose Point of Care 110 (65-105)
--- NOTE | 2021-01-06 11:34 | PM.DS ---
DS: Admitting Diagnosis Admitting Diagnosis Admitting Diagnosis: NSTEMI DS: Discharge Diagnosis Discharge Diagnosis (1) Non-ST elevation [place] (NSTEMI): Code(s): I21.4 - Non-ST elevation (NSTEMI) myocardial infarction Status: Acute Assessment and Plan: Date of Admission 01/04/21 Date of Discharge/DOS 01/06/21 Ms. Dick is a very pleasant 55yo female with history of hypertension, dyslipidemia, insulin-dependent type 2 diabetes mellitus, sleep apnea, fibromyalgia who presented to the ED for evaluation of chest pain. She described a pressure/squeezing to left chest radiating to left arm and up to left neck with associated shortness of breath. On arrival to the ED, she rated her chest pain as 7/10 severity, which resolved after receiving nitroglycerin. Blood pressure was elevated up to 205/94 on arrival and improved with nitroglycerin and initiation of new antihypertensives. Troponins were slightly elevated and trending up, Cardiology was consulted and she was seen by Dr. Orona. She was started on metoprolol and irbesartan, aspirin. She was briefly treated with Lovenox which was then discontinued in light of upcoming left heart catheterization. She underwent left heart catheterization by Dr. Saavedra on 01/05/21 which demonstrated single-vessel coronary disease with high-grade 95% stenosis in the circumflex, revascularization was successful and a drug-eluting stent was placed to the circumflex. She was started on dual anti-platelet therapy with aspirin and Plavix. She tolerated the procedure well and had no further recurrence of chest pain. Blood pressures were improved and stable. She was hemodynamically stable for discharge on 01/06/2021 with instructions to follow-up with Dr. Orona. He mentioned plans for arranging phase II cardiac rehab as an outpatient at her follow-up appointment next week. Medication changes: Her Norvasc was stopped in light of starting new metoprolol succinate 50 mg daily. Her home pravastatin was stopped in light of starting atorvastatin 80 mg daily. She was started on irbesartan 300 mg daily, ASA 81 mg daily, clopidogrel 75 mg daily. She tells me her PCP mentioned her A1c was around 13% last week. She has dex com in place for continuous glucose monitoring. She will continue her home insulin regimen and is encouraged to follow-up with her PCP regarding diabetes management. (2) Hypertension: Code(s): I10 - Essential (primary) hypertension Status: Chronic Assessment and Plan: See medication changes above. (3) Diabetes: Code(s): E11.9 - Type 2 diabetes mellitus without complications Status: Chronic Assessment and Plan: She was told Hgb A1c 13% by her PCP this week. She has continuous glucose monitoring with Dexcom and describes her blood sugars have been in 300s lately. Continue home insulin regimen, follow-up with PCP. (4) MARISELA (obstructive sleep apnea): Code(s): G47.33 - Obstructive sleep apnea (adult) (pediatric) Status: Chronic Assessment and Plan: Has been wearing CPAP nightly around 7 years per patient. Continue CPAP. (5) Dyslipidemia: Code(s): E78.5 - Hyperlipidemia, unspecified Status: Chronic Assessment and Plan: Continue statin therapy. Pravastatin switched to atorvastatin by cardiology. (6) Restless leg syndrome: Code(s): G25.81 - Restless legs syndrome Status: Acute Assessment and Plan: Continue her home Lyrica and Requip for RLS and fibromyalgia. Stable, no acute issues. DS: Summary Hospital Course Hospital Course: See above Time Spent with Patient Time attestation: Total time spent providing and/or coordinating discharge serv
== END 2021-01-06 13:16 | disposition home or self-care (01) | DRG 247 ==
LOC: ANHED 13:44 → ANHIMU 15:23
PROVIDERS: Emergency Medicine; Specialist; Admitting Provider Internal Medicine; Emergency Provider Emergency Medicine; PCP Family Medicine; Visit Provider Physician Assistant
PROC: 4A023N7 Measurement of Cardiac Sampling and Pressure, Left Heart, Percutaneous Approach (ICD-10-PCS; CPT 93452; principal; 2021-01-05 12:00)
PROC: 027034Z Dilation of Coronary Artery, One Artery with Drug-eluting Intraluminal Device, Percutaneous Approach (ICD-10-PCS; CPT 92928; 2021-01-05 12:00)
DX: I21.4 Non-ST elevation (NSTEMI) myocardial infarction (principal); Z68.41 Body mass index [BMI] 40.0-44.9, adult; I25.10 Atherosclerotic heart disease of native coronary artery without angina pectoris; E66.01 Morbid (severe) obesity due to excess calories; I10 Essential (primary) hypertension; E78.5 Hyperlipidemia, unspecified; E11.9 Type 2 diabetes mellitus without complications; G47.33 Obstructive sleep apnea (adult) (pediatric); G25.81 Restless legs syndrome; M79.7 Fibromyalgia; Z28.21 Immunization not carried out because of patient refusal; Z79.4 Long term (current) use of insulin; Z79.899 Other long term (current) drug therapy
CPT/HCPCS: 36415; 71046; 80048; 80061; 82948; 83735; 84484; 85025; 85610; 85730; 93005; 93458; 96372; 96374; 99291; A9270; C1725; C1769; C1874; C1887; C1894; C8929; C9600; G0378; J0583; J1644; J1650; J2250; J3010; J3475; J7030; J7040; Q9957

== ENCOUNTER 2021-02-09 04:05 | Emergency (ER) | payer OTHER, SELFPAY ==
--- NOTE | ~2021-02-09 | XR_ITS ---
EXAMINATION: XR foot LT min 3V DATE: 02/09/2021 04:40 INDICATION: Left foot pain. TECHNIQUE: 4 views of left foot were obtained. COMPARISON: None. FINDINGS: There is moderate hallux valgus. No fracture. There is mild osteoarthritis of first metatar sophalangeal joint and some of the interphalangeal joints and midfoot joints. There are enthesophytes at the posterior and plantar aspects of calcaneal tuberosity. IMPRESSION: 1. Moderate hallux valgus. 2. Mild polyarticular osteoarthritis. Reviewed, dictated and finalized at location A.
--- NOTE | ~2021-02-09 | XR_ITS ---
EXAMINATION: XR ankle LT min 3V DATE: 02/09/2021 04:40 INDICATION: Left ankle pain. Fall. TECHNIQUE: 4 views of left ankle were obtained. COMPARISON: None. FINDINGS: Bone alignment is normal. No acute fracture. There is chronic heterotopic ossification dist al to medial malleolus. The talar dome is normal. There are enthesophytes at the posterior and planta r aspects of calcaneal tuberosity. There is ankle soft tissue swelling. IMPRESSION: 1. No fracture. Reviewed, dictated and finalized at location A. IMPRESSION: 1. No fracture.
[2021-02-09 04:16] VITALS: BP 157/60; PULSE 62; RESP 20; TEMP 36.7; O2SAT 97
[2021-02-09] MEDS: HYDROcodone/acetaminophen (*CRX) 5-325 MG TABLET 1 TAB PO (04:31)
--- NOTE | 2021-02-09 04:43 | ED.GENADULT ---
HPI - General Adult General Chief complaint: Extremity Injury, Lower Stated complaint: GLF 0 - left ankle injury Time Seen by Provider: 02/09/21 04:19 History of Present Illness HPI narrative: Patient is a 56-year-old female that presents to emergency department with chief complaint of ankle pain. Patient reports that she fell down the stairs and twisted her ankle and fell on her ankle. The patient denies head injury denies loss of consciousness. Patient reports she has pain in the ankle with movement. There is also pain reported at the base of the fifth metatarsal. Related Data Home Medications Medication Instructions Recorded Confirmed Jardiance 25 mg PO DAILY 01/04/21 02/06/21 duloxetine 60 mg PO DAILY 01/04/21 02/06/21 insulin lispro [Humalog U-100 17 unit SUBCUT TIDWM 01/04/21 02/06/21 Insulin] omeprazole 40 mg PO BID 01/04/21 02/06/21 pregabalin 200 mg PO BID 01/04/21 02/06/21 ropinirole 0.25 mg PO HS 01/04/21 02/06/21 insulin glargine U-300 conc 300 58 unit SUBCUT DAILY ml 01/16/21 02/06/21 unit/mL (3 mL) subcutaneous pen cholecalciferol (vitamin D3) 50 mcg PO DAILY 02/06/21 02/06/21 [Vitamin D3] exenatide microspheres [Bydureon] 2 mg SUBCUT WEEKLY 02/06/21 02/06/21 Allergies Allergy/AdvReac Type Severity Reaction Status Date / Time No Known Allergies Allergy Verified 02/09/21 04:22 Review of Systems Review of Systems: Narrative: A 10 system review of systems was completed on the patient and is negative except for what is stated in the HPI. Nursing and ancillary documentation was reviewed. [facility] Past Medical History Medical History Diabetes Dyslipidemia Fibromyalgia Hypertension MARISELA (obstructive sleep apnea) Restless leg syndrome Surgical History Surgical History H/O: hysterectomy 1989 Hx of cholecystectomy 1983 Family History Family History Mother Heart disease Heart attack in 50s, passed in age 70s. Hypercholesterolemia Hypertension Cerebrovascular accident Diabetes mellitus Father Heart disease Heart attacks in early 60s, passed in age 70s. 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 She lives at home in [place], [place] with her , Ceferino. She denies alcohol, tobacco, or other substance use. She designates Ceferino to be her surrogate decision maker and wishes to be full code status. Her PCP is Dr Sam Shine in [place], [place]. Smoking status: Never smoker Alcohol intake: never Substance use: never Gender identity (if verbalized by the patient): Female Spiritual care concerns: No Exam Narrative: Exam Narrative: GENERAL: Well-appearing, well-nourished, and in no acute distress. HEAD: Normocephalic, atraumatic. EYES: PERRLA and EOMI. ENT: Nares clear, no rhinorrhea or epistaxis. Mucous membranes moist. NECK: Supple. CHEST: Clear to auscultation. No respiratory distress. HEART: Regular rate and rhythm. No murmur heard. Normal peripheral pulses. ABDOMEN: Soft, nontender, nondistended, normal active bowel sounds. EXTREMITIES: Normal range of motion. No edema. There is tenderness to palpation of the base of the fifth metatarsal there is also tenderness to palpation on the lateral aspect of the left ankle SKIN: Warm, dry, no rash. NEURO: No focal deficits. Alert and oriented x3. PSYCH: Normal mood and affect. Course Vital Signs Vital signs: Vital Signs
== END 2021-02-09 05:40 | disposition home or self-care (01) ==
PROVIDERS: Emergency Provider Emergency Medicine; PCP Family Medicine
DX: S93.402A Sprain of unspecified ligament of left ankle, initial encounter (principal); S96.912A Strain of unspecified muscle and tendon at ankle and foot level, left foot, initial encounter; E78.5 Hyperlipidemia, unspecified; M79.7 Fibromyalgia; E11.9 Type 2 diabetes mellitus without complications; I10 Essential (primary) hypertension; G47.33 Obstructive sleep apnea (adult) (pediatric); G25.81 Restless legs syndrome; Z79.4 Long term (current) use of insulin; W10.9XXA Fall (on) (from) unspecified stairs and steps, initial encounter
CPT/HCPCS: 73610; 73630; 99283; A9270

== ENCOUNTER 2021-04-26 10:30 | Outpatient (RCR) | payer OTHER, SELFPAY ==
[2021-02-06 12:25] VITALS: PULSE 66
--- NOTE | 2021-02-09 14:12 | PCCPR ---
Absent-Pt fell off a step last night. States she went to the ED bc she thought her ankle was broken. They xrayed it and it was just a sprain. She is on crutches bc she cannot put pressure on it. They told her to start walking on it as tolerated. She isn't sure when she will return but will keep us posted. Encouraged her to reach out to her primary for further orders!
--- NOTE | 2021-03-09 10:44 | PCCPR ---
Romina absent today, not feeling well.
--- NOTE | 2021-03-20 10:52 | PCCPR ---
Patient informed us that she'll be absent the week of March 20 - . She'll be visiting her new grand baby.
--- NOTE | 2021-04-10 10:44 | PCCPR ---
Patient unable to make phase II session due to illness.
--- NOTE | 2021-04-13 08:05 | PCCPR ---
Romina absent today, continues to not feel well and now having flare of fibromyalgia. Romina is making an appointment to see her doctor.
--- NOTE | 2021-04-20 10:48 | PCCPR ---
Absent today, not feeling well.
--- NOTE | 2021-05-05 09:43 | PCCPR ---
Addendum entered by Kristie Dc RN 05/10/21 09:48: Thom Vanegas inquiring her plans for return. Original Note: THOM Vanegas inquiring about all week absence Asked she give us an update on her plan for return.
--- NOTE | 2021-05-11 10:52 | PCCPR ---
Romina has not returned our call, reached out to today, left message asking to return our call.
== END 2021-05-15 17:16 | disposition home or self-care (01) ==
LOC: ANHCPREHAB 10:30
PROVIDERS: PCP Family Medicine; Visit Provider Internal Medicine Cardiovascular Disease
DX: Z95.5 Presence of coronary angioplasty implant and graft (principal)
CPT/HCPCS: 93798

== ENCOUNTER 2021-09-01 07:09 | Outpatient (CLI) | payer OTHER, SELFPAY ==
--- NOTE | ~2021-09-01 | CT_ITS ---
EXAMINATION: CTA neck DATE: 09/01/2021 07:37 INDICATION: Occlusion and stenosis of unspecified carotid artery. TECHNIQUE: Computed tomographic angiography (CTA) of the neck was performed with 100 mL Omnipaque-350 intravenous contrast. Automated exposure control and iterative reconstruction technique were employe d. The dose-length product was 464.11 mGy-cm. Maximum intensity projection 3D-reconstructions were cr eated by the technologist on a separate workstation. COMPARISON: None. FINDINGS: There are no pathologically enlarged lymph nodes. The vertebral arteries are codominant. Th ere is plaque in the proximal internal carotid arteries. There is 15% stenosis of the proximal right internal carotid artery relative to normal distal artery lumen diameter (NASCET criteria). There is 4 8% stenosis of the proximal left internal carotid artery relative to normal distal artery lumen diame ter. There is severe cervical spondylosis. IMPRESSION: 1. 15% stenosis of the proximal right internal carotid artery relative to normal distal artery lumen diameter (NASCET criteria). 2. 48% stenosis of the proximal left internal carotid artery relative to normal distal artery lumen d iameter. Reviewed, dictated and finalized at location A. IMPRESSION: 1. 15% stenosis of the proximal right internal carotid artery relative to pieter l distal artery lumen diameter (NASCET criteria). 2. 48% stenosis of the proximal left internal carotid artery relative to normal distal artery lumen diameter.
[2021-09-01 07:33] LABS: Estimated Glomerular Filt Rate > 60
== END 2021-09-01 07:10 | disposition home or self-care (01) ==
LOC: ANHIMG 07:12
PROVIDERS: PCP Family Medicine; Visit Provider Internal Medicine Cardiovascular Disease
DX: I65.23 Occlusion and stenosis of bilateral carotid arteries (principal)
CPT/HCPCS: 70498; Q9967

== ENCOUNTER 2021-09-08 21:34 | Emergency (ER) | payer OTHER, SELFPAY ==
[2021-09-08 21:48] VITALS: BP 129/74; PULSE 95; RESP 18; TEMP 35.9; O2SAT 97
--- NOTE | 2021-09-08 22:07 | PC.NURSE ---
Pt ambulatory toward intake desk and stated I feel like I'm going to pass out. This RN advised pt she might feel better sitting down, as concern for pt fall present if she felt like she was going to pass out . Pt ambualated back to seat unassisted with slow, steady gait.
[2021-09-09 01:07] VITALS: BP 180/82; PULSE 80; RESP 20; O2SAT 95
[2021-09-09] MEDS: oxyCODONE/ACETAMINOPHEN (*CRX) 5-325 MG TABLET 1 TABLET PO (01:09)
[2021-09-09] MEDS: ONDANSETRON HCL ODT 4 MG TABLET PO (01:09)
[2021-09-09] MEDS: LIDOCAINE HCL 2% JELLY 5 ML TUBE 1 APPLIC MUCOUS MEM (01:09)
--- NOTE | 2021-09-09 01:59 | ED.FEMALEGU ---
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 Patient states she started developing wounds due to herpes outbreak 3 days ago. Her doctor prescribed her Valtrex today. She reports she is having severe pain due to lesions. She reports has been been using delsum without relief. She has been taking ibuprofen as . She denies nausea, vomiting or fever. Related Data Home Medications Medication Instructions Recorded Confirmed Jardiance 25 mg PO DAILY 01/04/21 04/17/21 duloxetine 60 mg PO DAILY 01/04/21 04/17/21 insulin lispro [Humalog U-100 17 unit SUBCUT TIDWM 01/04/21 04/17/21 Insulin] omeprazole 40 mg PO BID 01/04/21 04/17/21 pregabalin 200 mg PO BID 01/04/21 04/17/21 ropinirole 0.25 mg PO HS 01/04/21 04/17/21 insulin glargine U-300 conc 300 58 unit SUBCUT DAILY ml 01/16/21 04/17/21 unit/mL (3 mL) subcutaneous pen cholecalciferol (vitamin D3) 50 mcg PO DAILY 02/06/21 04/17/21 [Vitamin D3] exenatide microspheres [Bydureon] 2 mg SUBCUT WEEKLY 02/06/21 04/17/21 rosuvastatin 40 mg tablet 40 mg PO DAILY 04/17/21 04/17/21 Allergies Allergy/AdvReac Type Severity Reaction Status Date / Time metformin AdvReac Diarrhea Verified 09/09/21 01:08 Review of Systems Review of Systems: All systems reviewed & are unremarkable except as noted in HPI and below PMFSH Past Medical History Medical History Diabetes Dyslipidemia Fibromyalgia Hypertension MARISELA (obstructive sleep apnea) Restless leg syndrome Surgical History Surgical History H/O: hysterectomy 1989 Hx of cholecystectomy 1983 Family History Family History Mother Heart disease Heart attack in 50s, passed in age 70s. Hypercholesterolemia Hypertension Cerebrovascular accident Diabetes mellitus Father Heart disease Heart attacks in early 60s, passed in age 70s. 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 She lives at home in [place], [place] with her , Ceferino. She denies alcohol, tobacco, or other substance use. She designates Ceferino to be her surrogate decision maker and wishes to be full code status. Her PCP is Dr Sam Shine in [place], [place]. Smoking status: Never smoker Alcohol intake: never Substance use: never Gender identity (if verbalized by the patient): Female Spiritual care concerns: No Exam Const: General: no acute distress and alert Orientation/consciousness: patient oriented x3 Eyes: EOM: EOMs intact bilaterally Resp: Effort & Inspection: normal respiratory effort and no retractions Auscultation: clear to auscultation bilaterally Cardio: Rate: regular rate Rhythm: regular rhythm Heart sounds: no murmurs GI: GI Palp: Yes Soft to palpation, No Tenderness to palpation present (GI) and No Guarding due to palpation present (GI) Auscultation: normal bowel sounds : External Female Exam: externally tender and lesion Other: multiple ulcerations to vulva /labial, Skin: General skin exam: normal color Neuro: General: patient oriented x3, moves all extremities and CN's II-XI intact bilaterally Psych
[2021-09-09 02:33] VITALS: PULSE 78; RESP 16; O2SAT 98
== END 2021-09-09 02:34 | disposition home or self-care (01) ==
PROVIDERS: Emergency Provider General Practice; PCP Family Medicine
DX: A60.00 Herpesviral infection of urogenital system, unspecified (principal); E11.9 Type 2 diabetes mellitus without complications; E78.5 Hyperlipidemia, unspecified; I10 Essential (primary) hypertension; M79.7 Fibromyalgia; Z79.84 Long term (current) use of oral hypoglycemic drugs; Z79.4 Long term (current) use of insulin; G47.33 Obstructive sleep apnea (adult) (pediatric); G25.81 Restless legs syndrome
CPT/HCPCS: 99283; A9270

== ENCOUNTER 2022-10-01 12:19 | Outpatient (CLI) | payer OTHER, SELFPAY ==
--- NOTE | ~2022-10-01 | MR_ITS ---
EXAMINATION: MR brain/brain stem wo con DATE: 10/01/2022 13:21 INDICATION: Dizziness. TECHNIQUE: Magnetic resonance imaging (MRI) of the brain and brainstem was performed without intraven ous contrast. COMPARISON: Neck CT 09/01/2021 FINDINGS: There is an old lacunar infarct in right thalamus. There are areas of increased T2-weighted signal intensity in the sabrina. There is no intracranial hemorrhage, acute infarction, or abnormal int racranial mass lesion. The ventricles are normal in size. There are likely changes of ocular lens rep lacement surgeries. There is mild mucosal thickening in the paranasal sinuses. The mastoid air cells are normal. IMPRESSION: 1. Old lacunar infarct in right thalamus. 2. Pontine disease, likely chronic small vessel ischemic disease. Reviewed, dictated and finalized at location A. D RECORDER
== END 2022-10-01 12:20 | disposition home or self-care (01) ==
PROVIDERS: PCP Family Medicine; Visit Provider Family Medicine
DX: R42 Dizziness and giddiness (principal)
CPT/HCPCS: 70551

== ENCOUNTER 2022-11-02 07:54 | Outpatient (CLI) | payer OTHER, SELFPAY ==
--- NOTE | ~2022-11-02 | NM_ITS ---
EXAMINATION: NM soni stress w perfusion DATE: 11/02/2022 10:43 INDICATION: Chest pain TECHNIQUE: Rest images were obtained following intravenous administration of 10.9 mCi Tc99m tetrofosm in (Myoview). The patient was infused intravenously with Lexiscan (Regadenoson). Then, 33.58 mCi Tc99 m tetrofosmin (Myoview) was administered intravenously, and stress images were obtained in both supin e and prone positions. Data was reconstructed into short axis and horizontal and vertical long axis S PECT images. Gated SPECT images were also obtained. COMPARISON: None. FINDINGS: Prominent breast attenuation artifact on supine imaging along the anterior wall of the left ventricle which completely normalizes with no perfusion defects evident on the post stress imaging p erformed in prone position. There is no definite reversible or fixed perfusion abnormality to suggest ischemia or infarction. There is normal left ventricular chamber size, wall motion and ejection fra ction. Left ventricular ejection fraction measures 63%. IMPRESSION: 1. Normal myocardial perfusion at rest and during stress. 2. Left ventricular ejection fraction measuring 63%. Reviewed, dictated and finalized at location A. BALL SEWER HAND
--- NOTE | 2022-11-02 08:28 | EST_ITS ---
Patient Info Name: Romina Dick Age: 57 years : 1965 Gender: Female Ht: 62 in Wt: 250 lbs BSA: 2.30 m2 Exam Date: 11/02/2022 8:58 AM Exam Location: [facility] Stress Patient Status: Outpatient Admit Date: 11/02/2022 Staff Ordering Physician: Kwan Orona DO Attending Provider: Kwan Orona DO Exercise Technologist: Radha Romo RDCS Exercise Physician: Kwan Orona DO Exam Type: CA stress soni w NM Study Info Indications R07.9 - Chest pain, unspecified A regadenoson stress test was performed. Summary 1. 1. Negative lexiscan stress test for ischemic ST changes by ECG criteria. 2. 2. Baseline hypertension. 3. 3. Nuclear scan to follow and will be reported separately. Please correlate with it. 4. 4. Patient informed of the above results. Protocol: Lexiscan Stress ECG Details Stage: REST Duration (min): 2 min : 22 sec HR (bpm): 67 SBP (mmHg): 191 DBP (mmHg): 78 Stage: REST Duration (min): 5 min : 13 sec HR (bpm): 64 SBP (mmHg): 191 DBP (mmHg): 78 Stage: STAGE 1 Duration (min): 0 min : 59 sec HR (bpm): 87 SBP (mmHg): 191 DBP (mmHg): 78 Stage: RECOVERY Duration (min): 1 min : 0 sec HR (bpm): 80 SBP (mmHg): 145 DBP (mmHg): 67 Stage: RECOVERY Duration (min): 2 min : 0 sec HR (bpm): 75 SBP (mmHg): 171 DBP (mmHg): 69 Stage: RECOVERY Duration (min): 3 min : 0 sec HR (bpm): 74 SBP (mmHg): 164 DBP (mmHg): 68 Stage: RECOVERY Duration (min): 3 min : 4 sec HR (bpm): 74 SBP (mmHg): 164 DBP (mmHg): 68 Rest HR: 64 bpm Peak HR: 89 bpm Rest Sys BP: 191 mmHg Peak Sys BP: 171 mmHg Max Pred HR: 163 bpm % Max Pred HR: 55 % Target HR: 139 bpm Max RPP: 15,219 bpm*mmHg Termination Reason: Completed protocol Total Time: 1 min : 0 sec Rest Norris BP: 78 mmHg Peak Norris BP: 69 mmHg Total Dose: 0.4 mg Resting ECG Sinus rhythm. Stress ECG No ST changes. Arrhythmias None. Report Signatures
== END 2022-11-02 07:55 | disposition home or self-care (01) ==
LOC: ANHCARD 07:57
PROVIDERS: PCP Family Medicine; Visit Provider Internal Medicine Cardiovascular Disease
DX: R07.9 Chest pain, unspecified (principal)
CPT/HCPCS: 78452; 93017; A9502

== ENCOUNTER 2023-07-31 20:57 | Emergency (ER) | payer OTHER, SELFPAY ==
--- NOTE | ~2023-07-31 | XR_ITS ---
EXAMINATION: XR chest 2V Exam Date/Time: 07/31/2023 21:54 CDT HISTORY: chest pain Comparison: 01/04/2021. RESULT: Lines, tubes, and devices: Surgical clips over the right upper quadrant. Lungs and pleura: Clear. Cardiomediastinal silhouette: Stable. Other: No acute osseous or upper abdominal finding. IMPRESSION: No acute cardiopulmonary process. Reviewed, dictated and finalized at location K.
[2023-07-31 21:37] VITALS: BP 159/85; PULSE 74; RESP 16; TEMP 36.3; O2SAT 97
--- NOTE | 2023-07-31 21:46 | ECG_ITS ---
Measurements Intervals Whigham Rate: 83 P: 22 MO: 150 QRS: -19 QRSD: 76 T: 46 QT: 364 QTc: 429 Interpretive Statements SINUS RHYTHM LOW QRS VOLTAGE IN PRECORDIAL LEADS ANTERIOR INFARCT, AGE INDETERMINATE INFERIOR INFARCT, AGE INDETERMINATE BORDERLINE ST ABNORMALITY- HIGH LATERAL LEADS BASELINE ARTIFACT- I, V6 ABNORMAL ECG COMPARED TO ECG 01/06/2021 09:47:56 SINUS RHYTHM NOW PRESENT MYOCARDIAL INFARCT FINDING NOW PRESENT Electronically Signed On 08-01-2023 7:03:50 CDT by Kwan Orona D.O.
[2023-08-01 00:14] LABS: Basophils Absolute Auto 0.1 K/mm3 (0.0-0.1); Basophils Percent Auto 0.4 % (0.2-1.2); Eosinophils Absolute Auto 0.1 K/mm3 (0-0.3); Eosinophils Percent Auto 1.1 % (0-4.4); Hematocrit 43.7 % (37.0-47.0); Hemoglobin 13.7 g/dL (12.0-15.0); Immature Granulocyte Absolute 0.04 K/mm3 (0.00-0.031); Immature Granulocyte Percent A 0.3 % (0-0.5); Lymphocytes Absolute Auto 2.95 K/mm3 (0.9-3.2); Lymphocytes Percent Auto 24.3 % (18.3-44.2); Mean Corpuscular HGB Conc 31.4 g/dl (32-36); Mean Corpuscular Hemoglobin 28.5 pg (26-34); Mean Platelet Volume 11.2 fl (7.4-10.4); Monocytes Absolute Auto 0.9 K/mm3 (0.1-0.6); Monocytes Percent Auto 7.2 % (2.6-8.5); Neutrophils Absolute Auto 8.1 K/mm3 (1.3-6.7); Neutrophils Percent Auto 66.7 % (45.5-73.1); Platelet Count Result 222 k/mm3 (150-375); White Blood Count 12.1 K/mm3 (4.5-10.0)
[2023-08-01 00:23] LABS: Alanine Aminotransferase 17 U/L (6-35); Albumin Level 4.2 g/dL (3.5-5.1); Alkaline Phosphatase 110 U/L (38-126); Anion Gap 5 mmol/L (8-16); Aspartate Amino Transferase 22 U/L (14-36); Bilirubin,Total 0.5 mg/dL (0.2-1.3); Blood Urea Nitrogen 17 mg/dL (7-17); Calcium 9.1 mg/dL (8.4-10.2); Carbon Dioxide 35 mmol/L (22-30); Chloride 95 mmol/L (98-107); Estimated CRCL calculation 61 ml/min; Estimated Glomerular Filt Rate 51; Glucose 286 mg/dL (65-110); Lipase 82 U/L (23-300); Potassium 3.9 mmol/L (3.4-5.0); Sodium 135 mmol/L (137-145)
[2023-08-01 00:24] LABS: INR 0.9; Prothrombin Time 12.7 Seconds (11.1-14.7)
[2023-08-01 00:25] LABS: Partial Thromboplastin Time 28.9 SECONDS (22.3-36.8)
[2023-08-01 00:35] LABS: Troponin I < 0.012 ng/mL (0.000-0.034)
[2023-08-01 01:50] LABS: Troponin I < 0.012 ng/mL (0.000-0.034)
[2023-08-01 02:09] VITALS: PULSE 66
[2023-08-01 02:13] VITALS: O2SAT 96; O2SAT 97
[2023-08-01 02:16] VITALS: BP 171/74; PULSE 66; RESP 17; O2SAT 97
--- NOTE | 2023-08-01 02:45 | ED.CHESTPAIN ---
HPI - Chest Pain General Chief Complaint: Chest Pain Stated Complaint: i think i am having a heart attack Time Seen by Provider: 08/01/23 02:08 Source: patient and family (significant other) Limitations: no limitations History of Present Illness HPI narrative: Patient presents to the ED complaining of left neck and arm pain. Pain is shooting and started Saturday gradually, history of this pain in the past without a diagnosis. Radiates from the left posterior neck to the left arm along the lateral aspect and into all of her fingers. Hasn't tried anything for the pain, denies history of MRIs. Denies physical therapy. Denies recent injuries, strenuous activity, recent illness, cough, shortness of breath, diarrhea, sore throat, melena, abdominal pain, nausea, vomiting. Patient became concerned today when she gradually developed an intermittent left chest tightness and being that she had a heart attack status post stent one time in the past and it radiated to her neck at that time she sought evaluation. Patient denies anything rapidly getting worse and the pain was present all day. Denies anything making the pains better or worse. Denies urinary incontinence or stool incontinence. Related Data Home Medications Medication Instructions Recorded Confirmed duloxetine 60 mg capsule,delayed 60 mg PO DAILY 01/04/21 06/27/23 release omeprazole 40 mg capsule,delayed 40 mg PO BID 01/04/21 06/27/23 release pregabalin 200 mg capsule 200 mg PO BID 01/04/21 06/27/23 ropinirole 0.25 mg tablet 0.25 mg PO HS 01/04/21 06/27/23 cholecalciferol (vitamin D3) 50 50 mcg PO DAILY 02/06/21 06/27/23 mcg (2,000 unit) capsule (Vitamin D3) rosuvastatin 40 mg tablet 40 mg PO DAILY 04/17/21 06/27/23 Allergies Allergy/AdvReac Type Severity Reaction Status Date / Time metformin AdvReac Diarrhea Verified 08/01/23 02:07 Review of Systems Review of Systems: A 10 system review of systems was completed on the patient and is negative except for what is stated in the HPI. Nursing and ancillary documentation was reviewed. [facility] Past Medical History Medical History Diabetes Dyslipidemia Fibromyalgia Hypertension MARISELA (obstructive sleep apnea) Restless leg syndrome Surgical History Surgical History H/O: hysterectomy 1989 Hx of cholecystectomy 1983 Family History Family History Mother Heart disease Heart attack in 50s, passed in age 70s. Hypercholesterolemia Hypertension Cerebrovascular accident Diabetes mellitus Father Heart disease Heart attacks in early 60s, passed in age 70s. 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 She lives at home in [place], [place] with her , Ceferino. She denies alcohol, tobacco, or other substance use. She designates Ceferino to be her surrogate decision maker and wishes to be full code status. Her PCP is Dr Sam Shine in [place], [place]. Smoking status: Never smoker Alcohol intake: never Substance use: never Lack of Transportation: No Lack of Food: Never True Current Housing: I Have Housing Concerned About Future Housing: No Difficulty Paying Gas/Electric Bills: No Difficulty Paying for Meds: No Currently Unemployed: No Education: High School Diploma/GED Gender identity (if verbalized by the patient): Female Spiritual care concerns: No Comments At time of signature, I have reviewed and agr
[2023-08-01 03:31] VITALS: BP 161/105; PULSE 63; RESP 19; O2SAT 99
[2023-08-01] MEDS: ACETAMINOPHEN 500 MG TABLET 1000 MG PO (03:32)
[2023-08-01] MEDS: diazePAM (*CRX) 5 MG TABLET PO (03:32)
[2023-08-01 03:42] VITALS: BP 161/105; PULSE 63; RESP 13; O2SAT 99
== END 2023-08-01 03:35 | disposition home or self-care (01) ==
LOC: ANHED 08-01 03:02
PROVIDERS: Emergency Medicine; Emergency Provider Student in an Organized Health Care Education/Training Program; PCP Family Medicine
DX: M54.12 Radiculopathy, cervical region (principal); R07.89 Other chest pain; E78.5 Hyperlipidemia, unspecified; E11.9 Type 2 diabetes mellitus without complications; I10 Essential (primary) hypertension; M79.7 Fibromyalgia; G47.33 Obstructive sleep apnea (adult) (pediatric); G25.81 Restless legs syndrome; Z90.49 Acquired absence of other specified parts of digestive tract; Z90.710 Acquired absence of both cervix and uterus; Z79.85 Long-term (current) use of injectable non-insulin antidiabetic drugs; Z79.4 Long term (current) use of insulin; Z79.82 Long term (current) use of aspirin; R94.31 Abnormal electrocardiogram [ECG] [EKG]
CPT/HCPCS: 36415; 71046; 80053; 83690; 84484; 85025; 85610; 85730; 93005; 99284; A9270

== ENCOUNTER 2024-01-15 11:54 | Emergency (ER) | payer MEDICARE, OTHER, SELFPAY ==
--- NOTE | ~2024-01-15 | CT_ITS ---
EXAMINATION: CT ankle RT wo con DATE: 01/15/2024 13:43 INDICATION: Possible avulsion fracture. TECHNIQUE: High resolution computed tomography (CT) of the right ankle was performed without intraven ous contrast. Additional sagittal and coronal reconstructions were performed. Automated exposure cont rol and iterative reconstruction technique were employed. The dose-length product was 450.98 mGy-cm. COMPARISON: Radiographs dated 01/15/2024 FINDINGS: Bone alignment is normal. No fracture. Heterotopic ossicles along the anterior margin of the tip of t he medial malleolus without evident donor site likely sequela of a chronic anterior superior deltoid ligament sprain. Additional tiny chronic corticated heterotopic ossicle along the anterior margin of the thickened anterior talofibular ligament also likely sequela of chronic sprain. There is some over lying subcutaneous edema suggesting recurrent sprain. Mild osteoarthritis at the right ankle and mult iple joints in the mid and hindfoot. No ankle joint effusion. Moderate-sized plantar calcaneal spur w ith tiny enthesophyte and a few tiny enthesopathic ossicles at the calcaneal insertion of the distal Achilles tendon. IMPRESSION: 1. Chronic corticated heterotopic ossicles at the medial lateral malleoli likely sequela of chronic s prain with soft tissue swelling and subcutaneous edema overlying the lateral malleolus suggesting pos sible recurrent sprain. No acute osseous abnormality. 2. Degenerative skeletal changes including mild polyarticular osteoarthritis at the right ankle, mid and hindfoot and posterior calcaneal enthesophytes. Reviewed, dictated and finalized at location A. RVISOR SKI PRODUCTION IMPRESSION: 1. Chronic corticated heterotopic ossicles at the medial lateral malleoli likel y sequela of chronic sprain with soft tissue swelling and subcutaneous edema ov erlying the lateral malleolus suggesting possible recurrent sprain. No acute os seous abnormality. 2. Degenerative skeletal changes including mild polyarticular osteoarthritis at the right ankle, mid and hindfoot and posterior calcaneal enthesophytes.
--- NOTE | ~2024-01-15 | XR_ITS ---
EXAMINATION: XR ankle RT min 3V INDICATION: Right ankle pain TECHNIQUE: Four views of the right ankle are obtained. COMPARISON: None available FINDINGS: There is soft tissue swelling of ankle. Subtle heterotopic ossification is seen near the la teral malleolus. There appears to be an old avulsion injury of the medial malleolus. Bone alignment i s normal. No osteochondral lesion is identified. There are posterior and plantar calcaneal enthesophy elie. IMPRESSION: 1. Subtle heterotopic ossification near the lateral malleolus which could reflect avulsion injury. Reviewed, dictated and finalized at location B. NICAL ARTIST IMPRESSION: 1. Subtle heterotopic ossification near the lateral malleolus which could refle ct avulsion injury.
--- NOTE | ~2024-01-15 | XR_ITS ---
EXAMINATION: XR knee RT 3V DATE: 01/15/2024 12:38 INDICATION: Right knee pain TECHNIQUE: Three views of the right knee were obtained. COMPARISON: None. FINDINGS: Alignment is normal. No fracture or osteochondral lesion. There is mild tricompartmental os teoarthritis characterized by tiny marginal osteophytes. No joint effusion/synovitis. Soft tissues a re unremarkable. IMPRESSION: 1. No acute osseous abnormality. Reviewed, dictated and finalized at location B. TEACHER
[2024-01-15 11:55] VITALS: BP 141/66; PULSE 65; RESP 16; TEMP 36.6; O2SAT 96
--- NOTE | 2024-01-15 12:22 | ED.LOWEXIN ---
HPI - Extremity Injury (Lower) General Chief Complaint: Extremity Injury, Lower Stated Complaint: fall with right lower extremity pain Time Seen by Provider: 01/15/24 12:21 History of Present Illness HPI Narrative: 58 years old white female came to the emergency room with right knee and right ankle pain after losing her footage and falling out of the truck. She denies other injuries. Last night Related Data Home Medications Medication Instructions Recorded Confirmed duloxetine 60 mg capsule,delayed 60 mg PO DAILY 01/04/21 10/31/23 release omeprazole 40 mg capsule,delayed 40 mg PO BID 01/04/21 10/31/23 release pregabalin 200 mg capsule 200 mg PO BID 01/04/21 10/31/23 ropinirole 0.25 mg tablet 0.25 mg PO HS 01/04/21 10/31/23 cholecalciferol (vitamin D3) 50 50 mcg PO DAILY 02/06/21 10/31/23 mcg (2,000 unit) capsule (Vitamin D3) rosuvastatin 40 mg tablet 40 mg PO DAILY 04/17/21 10/31/23 Allergies Allergy/AdvReac Type Severity Reaction Status Date / Time metformin AdvReac Diarrhea Verified 10/31/23 11:03 Review of Systems Review of Systems: All systems reviewed & are unremarkable except as noted in HPI and below PMFSH Past Medical History Medical History Diabetes Dyslipidemia Fibromyalgia Hypertension MARISELA (obstructive sleep apnea) Restless leg syndrome Surgical History Surgical History H/O: hysterectomy 1989 Hx of cholecystectomy 1983 Family History Family History Mother Heart disease Heart attack in 50s, passed in age 70s. Hypercholesterolemia Hypertension Cerebrovascular accident Diabetes mellitus Father Heart disease Heart attacks in early 60s, passed in age 70s. 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 She lives at home in [place], [place] with her , Ceferino. She denies alcohol, tobacco, or other substance use. She designates Ceferino to be her surrogate decision maker and wishes to be full code status. Her PCP is Dr Sam Shine in [place], [place]. Smoking status: Never smoker Alcohol intake: never Substance use: never Lack of Transportation: No Lack of Food: Never True Current Housing: I Have Housing Concerned About Future Housing: No Difficulty Paying Gas/Electric Bills: No Difficulty Paying for Meds: No Currently Unemployed: No Education: High School Diploma/GED Gender identity (if verbalized by the patient): Female Spiritual care concerns: No Exam Narrative: General appearance: Well-developed, well-nourished Skin: Normal color Head: Normocephalic, nontraumatic Eyes: Clear conjunctiva ENT: Oropharynx normal, ears normal, nose normal Neck: Supple, nontender Chest and respiratory: Airway patent, no respiratory distress, no accessory muscle use Heart: Regular rate/rhythm Abdomen: Soft, nontender, no organomegaly, quiet bowel sounds Vascular: Normal peripheral pulses, normal capillary refill. Musculoskeletal: Diffuse tenderness of the right knee, no bruises, no swelling, no deformity, right ankle exam showed diffuse tenderness or lateral malleolus, limited range of motion, no deformity, no bruises. Neurologic: Alert and oriented ?3, AGENCY OPERATOR is normal as tested, no gross motor deficit
[2024-01-15] MEDS: HYDROcodone/acetaminophen (*CRX) 5-325 MG TABLET 1 TAB PO (13:31)
[2024-01-15] MEDS: IBUPROFEN 600 MG TABLET PO (13:31)
--- NOTE | 2024-01-15 15:08 | PC.NURSE ---
Vlad bandage applied to R ankle.
== END 2024-01-15 15:18 | disposition home or self-care (01) ==
PROVIDERS: Emergency Provider Emergency Medicine; PCP Family Medicine
DX: S93.401A Sprain of unspecified ligament of right ankle, initial encounter (principal); S80.01XA Contusion of right knee, initial encounter; I10 Essential (primary) hypertension; E11.9 Type 2 diabetes mellitus without complications; E78.5 Hyperlipidemia, unspecified; M79.7 Fibromyalgia; G47.30 Sleep apnea, unspecified; G25.81 Restless legs syndrome; V58.4XXA Person boarding or alighting a pick-up truck or van injured in noncollision transport accident, initial encounter
CPT/HCPCS: 73562; 73610; 73700; 99284; A9270

== ENCOUNTER 2025-11-15 22:50 | Inpatient (IN) | payer MEDICARE, SELFPAY ==
--- NOTE | ~2025-11-15 | CT_ITS ---
EXAMINATION: CT abdomen pelvis wo con DATE: 11/16/2025 03:25 INDICATION: Abdominal pain. Constipation. TECHNIQUE: Computed tomography (CT) of the abdomen and pelvis was performed without intravenous contrast. Automated exposure control and iterative reconstruction technique were employed. The dose-length product was 1477.05 mGy-cm. COMPARISON: None. FINDINGS: The visualized portions of the lung bases demonstrate mild atelectasis. No pleural effusion. The heart size is normal. There are coronary artery calcifications. No pericardial effusion. There is diffuse hepatic steatosis. There are changes of cholecystectomy. Calcifications in the spleen are consistent with old granulomatous disease. The pancreas, adrenal glands, and left kidney are normal. There is a 3.2 cm cyst in right kidney. There is no urolithiasis. There are changes of appendectomy. There is wall thickening of the transverse and descending colon. There are no pathologically enlarged lymph nodes. There is no free intraperitoneal fluid. There is moderate thoracic spondylosis and mild lumbar spondylosis. IMPRESSION: 1. Wall thickening of the transverse and descending colon, consistent with colitis. Reviewed, dictated and finalized at location E. ETING AUTOMATION MANAGER IMPRESSION: 1. Wall thickening of the transverse and descending colon, consistent with coli tis.
--- NOTE | ~2025-11-15 | US_ITS ---
EXAMINATION: US venous doppler [facility] DATE: 11/17/2025 10:04 INDICATION: Bilateral lower limb swelling TECHNIQUE: Grayscale ultrasound images without and with compression and Doppler ultrasound images of the bilateral lower extremity veins were obtained. COMPARISON: None. FINDINGS: The visualized portions of right common femoral vein, profunda (deep) femoral vein, femoral vein, popliteal vein, posterior tibial veins, peroneal veins, gastrocnemius vein and greater saphenous vein outflow are patent. The visualized portions of left common femoral vein, profunda femoral vein, femoral vein, popliteal vein, posterior tibial veins, peroneal veins, gastrocnemius vein and greater saphenous vein outflow are patent. IMPRESSION: 1. No deep venous thrombosis in either lower limb. Reviewed, dictated and finalized at location A. EGE SPORTS ASSISTANT
--- NOTE | ~2025-11-15 | NM_ITS ---
EXAMINATION: NM renal flow and function DATE: 11/22/2025 13:51 INDICATION: Persistent acute renal insufficiency TECHNIQUE: 8.2 mCi Tc-99m MAG3 was administered IV. The patient was scanned in the supine position. A posterior abdominal radionuclide angiogram was obtained. A subsequent time course of static images of the kidneys, ureters, and bladder was obtained. COMPARISON: CT dated 11/16/2025 FINDINGS: The posterior abdominal radionuclide angiogram and sequential static images show normal position of the kidneys. Both kidneys appear small, particularly on the right which corresponds to a horizontal orientation of the kidneys as seen on the prior CT. Peak renal parenchymal uptake was 5.5 min in left kidney and 8.5 min in right kidney (normal peak 3-5 minutes). The relative early renal uptake was 59% on the left and 41% on the right (<40% is abnormal). No abnormalities of the ureters or bladder are seen. T1/2 for clearance of activity from the left kidney and proximal collecting system was >30 minutes. T1/2 for clearance of activity from the right kidney and proximal collecting system was >30 minutes. IMPRESSION: 1. Asymmetric renal function with left kidney contributing 59% and right kidney 41% to total renal function. 2. Delayed activity clearance from both kidneys without evident hydronephrosis likely related to poor renal function in both kidneys. Reviewed, dictated and finalized at location A. ISIONING SPECIALIST IMPRESSION: 1. Asymmetric renal function with left kidney contributing 59% and right kidne y 41% to total renal function. 2. Delayed activity clearance from both kidneys without evident hydronephrosis likely related to poor renal function in both kidneys.
--- NOTE | ~2025-11-15 | US_ITS ---
US renal BI 11/16/2025 18:54 Procedure: Realtime transabdominal ultrasound of the kidneys and bladder. Indication: Elevated creatinine Comparison: No prior studies for comparison. Findings: Renal echotexture is normal bilaterally without hydronephrosis, contour deforming mass or renal calculus. The right kidney measures 11.2 cm and left kidney measures 12.7 cm. There is a Dickinson catheter in the bladder. Impression: 1: Unremarkable renal ultrasound. No stones, masses or hydronephrosis. Reviewed, dictated and finalized at location O. TMENT MANAGER Impression: 1: Unremarkable renal ultrasound. No stones, masses or hydronephrosis.
[2025-11-15 23:28] VITALS: BP 143/58; PULSE 86; RESP 16; TEMP 36.6; O2SAT 96
[2025-11-16] VITALS (16 sets, daily range): BP systolic 79–160; BP diastolic 39–80; PULSE 71–80; RESP 12–20; TEMP 36.4–37; O2SAT 97–100; BMI 47.3
--- OUTSIDE RECORDS SUMMARY | 2025-11-16 02:12 | XMS_ITS | Encounter Summary ---
Author Organization [facility] Address [address] [place] [id number] Care Team Providers Care Skin Specialist Name Role Phone Sam Shine MD Primary Care Provider Jas Dash MD Unavailable Unavailab James Medrano MD Unavailable Unavailable Encounter Details Date Type Department Care Team (Late st Contact Info) Description 03/14/2016 Abstract [facility] AT [address] [place] [address] Jas Dash MD Social History Tobacco Use Types Packs/Day Years Used Date Smoking Tobacco: Never Alcohol Use Standard Drinks/Week Comments No 0 (1 standard drink = 0.6 oz pur e alcohol) Comments Unknown Sex and Gender Information Value Date Recorded Sex Assigned at Not on file Legal Sex Female 8:35 PM CDT Gender Identity Not on file Sexual Orientation Not on file 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 Not on file Not on file documented as of this encounter Plan of Treatment Not on file documented as of this encounter Visit Diagnoses Not on filedocumented in this encounter Additional Health Concerns Infection Onset Date Last Indicated Resolved Time COVID-19 Rule Out 2022 2022 2022 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
--- OUTSIDE RECORDS SUMMARY | 2025-11-16 02:12 | XMS_ITS | Clinical Summary ---
Author Organization [facility] [address] Address [address] [place] [address] Care Team Providers Care Can Worker Name Role Phone Sam Shine MD Primary Care Provider [phone] Allergies Active Allergy Reactions Criticality Noted Date Comments Vlad Inhibitors Stomach upset Medium 02/02/2020 Empagliflozin Unknown 12/18/2022 Metformin Diarrhea High 02/02/2020 Medications aspirin 81 mg enteric coated tablet Take 1 tablet (81 mg total) by mouth daily Active bisacodyl EC (DULCOLAX EC) 5 mg EC tablet TAKE 2 TABLETS BY MOUTH DIRECTED 5 Active Dexcom G6 Sensor device CHANGE EVERY 10 DAYS DIRECTED Active Dexcom G6 Transmitter device as directed Active DULoxetine DR (CYMBALTA) 60 mg capsule Take by mouth daily Active ezetimibe (ZETIA) 10 mg tablet Take 1 tablet (10 mg total) by mouth daily 3 Active TOUJEO 300 unit/mL (1.5 mL) pen for injection INJECT 65 UNITS SUBCUTANEOUS EVERY EVENING DIRECTED Active Omnipod 5 G6-G7 Pods, Gen 5, cartridge CHANGE pod every THREE DAYS as directed. 5 Active HumuLIN R U-500 500 unit/mL (3 mL) CONCENTRATED pen for injection 4 Active insulin regular U-500 (HumuLIN R) 500 unit/mL CONCENTRATED vial for injection 2 Active loratadine (Claritin) 10 mg tablet Take 1 tablet (10 mg total) by mouth daily Active omeprazole (PriLOSEC) 40 mg capsule Take 1 tablet by mouth 2 (two) times a day 6 Active polyethylene glycol (MIRALAX) 17 gram/dose bulk powder as directed 5 Active pravastatin (PRAVACHOL) 80 mg tablet Take 1 tablet (80 mg total) by mouth daily 0 Active pregabalin (LYRICA) 200 mg capsule Take 1 capsule (200 mg total) by mouth 2 (two) times a day Active rOPINIRole (REQUIP) 0.25 mg tablet Take 1 tablet (0.25 mg total) by mouth nightly 5 Active rosuvastatin (CRESTOR) 40 mg tablet Take 1 tablet (40 mg total) by mouth daily Active semaglutide (Ozempic) 2 mg/dose (8 mg/3 mL) pen injector injection Inject under the skin once a week 4 Active valsartan (DIOVAN) 80 mg tablet Take 1 tablet (80 mg total) by mouth daily Active traMADoL (ULTRAM) 50 mg tablet Take 1 tablet (50 mg total) by mouth every 8 (eight) hours as needed for pain 40 tablet 5 Active pregabalin (LYRICA) 100 mg capsule TAKE 1 CAPSULE BY MOUTH DAILY EARLY AFTERNOON FOR 1 WEEK WITH YOUR USUAL DOSEOF 200MG TWICE DAILY TO UPTITRATE TO 600MG A DAY AFTER ONE WEEK 5 Active tolterodine LA (DETROL LA) 4 mg 24 hr capsule Take 1 capsule (4 mg total) by mouth daily 5 Active valsartan (DIOVAN) 160 mg tablet Take 1 tablet (160 mg total) by mouth daily 5 Active Active Problems Problem Noted Date Diagnosed Date CAD (coronary artery disease) 09/09/2025 Chest pain 09/09/2025 Dyslipidemia 09/09/2025 Low vitamin D level 09/09/2025 Non-ST elevation IA (NSTEMI) 09/09/2025 Obesity 09/09/2025 Restless leg syndrome 09/09/2025 Uncontrolled type 2 diabetes mellitus with hyper glycemia 09/09/2025 Closed nondisplaced fracture of fifth left metat arsal bone 05/25/2025 Diabetes 05/17/2025 Hyperlipidemia LDL goal <100 05/17/2025 Hypertension 05/17/2025 MARISELA (obstructive sleep apnea) 05/17/2025 Bilateral carotid artery stenosis 01/10/2023 Fibromyalgia 09/27/2022 Pneumonia 2022 Encounters Date Type Department Care Team Description 09/09/2025 10:00 AM CDT Office Visit [facility] [address] [place] [phone] Kenrick uLnd DO Closed nondisplaced fracture of fifth metatarsal bone of left foot with routine healing, subsequent encounter (Primary Dx) 09/09/2025 9:47 AM CDT - 09/09/2025 11:59 PM CDT Hospital Encounter [facility] [address] [place] [address] Closed nondisplaced fracture of fifth metatarsal bone of left foot with routine healing, subsequent encounter Discharge Disposition: Discharge to home or self care 09/07/2025 Orders Only [facility] [address] [place] [phone] Juliette Brooks PA Closed nondisplaced fracture of fifth metatarsal bone of left foot with routine healing, subsequent encounter (Primary Dx) 09/07/2025 Results Follow-Up [facility] [address] [place] [phone] [address] Foot Right WO Contrast 09/07/2025 Telephone [facility] [address] [place] [phone] results 09/07/2025 Telephone [facility] [address] [place] [phone] Juliette Brooks PA mri results 09/03/2025 1:40 PM CDT - 09/03/2025 11:59 PM CDT Hospital Encounter 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 Gender Identity Not on file Sexual Orientation Not on file Last Filed Vital Signs Vital Sign Reading Time Taken Comments Blood Pressure 112/64 05/17/2025 12:37 PM CDT Pulse 88 05/17/2025 12:37 PM CDT Temperature 36.4 C (97.5 F) 05/17/2025 12:37 PM CDT Respiratory Rate 20 05/17/2025 12:37 PM CDT Oxygen Saturation 94% 05/17/2025 12:37 PM CDT Inhaled Oxygen Concentration - - Weight 113.4 kg (250 lb) 09/09/2025 10:04 AM CDT Height 157.5 cm (5' 2) 09/09/2025 10:04 AM CDT Body Mass Index 45.73 09/09/2025 10:04 AM CDT Plan of Treatment Health Maintenance Due Date Last Done Comments Albumin Creatinine Ratio, Urine 1965 Cervical Cancer Screening 1965 Colon Cancer Screening-Colonoscopy 1965 Depression Screening 1965 Hemoglobin A1C 1965 Hepatitis C Screening 1965 eGFR 1965 Dilated Eye Exam 1965 Foot Exam 1965 Lipid Panel 1965 DTaP/Tdap/Td Vaccine (1 - Tdap) 1976 Hepatitis B Screening 1983 Regular Well Visit/Exam 18-64 1983 Pneumococcal vaccine <65 (1 of 2 - PCV) 1984 Zoster Vaccine (1 of 2) 2015 Covid-19 Vaccine (4 - 2024-2 6 season) 2025 02/08/2022, 05/12/2021, 04/14/2021 Influenza Vaccine (#1) 2025 Breast Cancer Screening-Mammogram 03/29/2026 03/29/2025, 03/29/2025, 06/03/2023, Additional history exists Procedures Procedure Name Priority Date/Time Associated Diagnosis Comments XR FOOT RIGHT 3 OR MORE VIEWS Schedule Routine, Read Routine (OP Routine) 09/09/2025 9:51 AM CDT Closed nondisplaced fracture of fifth metatarsal bone of left foot with routine healing, subsequent encounter CT FOOT RIGHT WO CONTRAST Schedule Routine, Read Routine (OP Routine) 09/03/2025 2:07 PM CDT Closed nondisplaced fracture of fifth metatarsal bone of left foot with routine healing, subsequent encounter from Last 3 Months Results * XR Foot Right 3 or More Views (09/09/2025 9:51 AM CDT) Anatomical Region Laterality Modality Lower Extremities, Foot Right Computed Radiography 09/11/2025 6:34 PM CDT Narrative 09/11/2025 6:35 PM CDT EXAM DESCRIPTION: XR FOOT RIGHT 3 OR MORE VIEWS REASON FOR STUDY: pain Mild lateral foot pain since injury/fx 05/17/2025 TECHNIQUE: 3 radiographic view(s) of the right foot . COMPARISON: 09/03/2025 FINDINGS: There is redemonstration of the intra-articular fracture involving the right 5th metatarsal base. There is grossly stable alignment. No new fractures or dislocations are identified. There are mild degenerative changes of the tarsal tarsal, tarsometatarsal, metatarsophalangeal, and interphalangeal joints. There are calcaneal enthesophytes noted insertion of the Achilles and plantar tendons. There is mild soft tissue swelling. IMPRESSION: 1. Grossly stable alignment of previously visualized right 5th metatarsal base fracture. THIS IS AN ELECTRONICALLY VERIFIED FINAL REPORT 09/11/2025 6:35 PM - Electronically signed by Kaveh Michael D.O. PS T: Report ID: [id number] Reading Location: [id number] Procedure Note Kaveh Michael DO - 09/11/2025 EXAM DESCRIPTION: XR FOOT RIGHT 3 OR MORE VIEWS REASON FOR STUDY: pain Mild lateral foot pain since injury/fx 05/17/2025 TECHNIQUE: 3 radiographic view(s) of the right foot . COMPARISON: 09/03/2025 FINDINGS: There is redemonstration of the intra-articular fractureinvolving the right 5th metatarsal base. There is grossly stable alignment. No new fractures or dislocations are identified. There are mild degenerativechanges of the tarsal tarsal, tarsometatarsal, metatarsophalangeal, and interphalangeal joints. There are calcaneal enthesophytes noted insertionof the Achilles and plantar tendons. There is mild soft tissue swelling. IMPRESSION: 1. Grossly stable alignment of previously visualized right 5thmetatarsal base fracture. THIS IS AN ELECTRONICALLY VERIFIED FINAL REPORT 09/11/2025 6:35 PM - Electronically signed by Kaveh Michael D.O. PS T: Report ID: [id number] Reading Location: [id number] Kenrick Lund DO IMG XR PROCEDURES Final Result * CT Foot Right WO Contrast (09/03/2025 2:07 PM CDT) Anatomical Region Laterality Modality Lower Extremities Right Computed Tomog kenny 09/03/2025 2:55 PM CDT Narrative 09/03/2025 3:00 PM CDT EXAM DESCRIPTION: CT FOOT RIGHT WO CONTRAST REASON FOR STUDY: foot pain F/u right foot fracture in April, not healing TECHNIQUE: Multidetector CT scan of the right foot was performed. coronal and sagittal images were reconstructed. Dose modulation adjustment of the mA and/or kV has been performed per [facility] protocols according to patient size and indication. COMPARISON: Radiographs 07/28/2025 FINDINGS: There is a healing intra-articular 5th metatarsal base fracture. Old healed distal fibular fracture. Heterotopic ossification beneath the medial malleolus is consistent with a prior deltoid ligament sprain/avulsion injury. Mild ankle osteoarthritis is present. A physiologic amount of fluid is present within the joint space. Mild subtalar joint osteoarthritis. Achilles enthesophyte is present. Large heel spur with mild to moderate chronic plantar fasciitis. Limited evaluation of the tendons about the ankle appear intact. Polyarticular midfoot osteoarthritis. Mild 1st metatarsophalangeal and 1st metatarsosesamoid joint osteoarthritis. The intrinsic foot muscle bulk is within normal limits. IMPRESSION: 1. Healing intra-articular right 5th metatarsal base fracture. THIS IS AN ELECTRONICALLY VERIFIED FINAL REPORT 09/03/2025 3:00 PM - Electronically signed by Clarence Barcenas M.D. T: Report ID: [id number] Reading Location: [id number] Procedure Note Clarence Barcenas MD - 09/03/2025 EXAM DESCRIPTION: CT FOOT RIGHT WO CONTRAST REASON FOR STUDY: foot pain F/u right foot fracture in April, not healing TECHNIQUE: Multidetector CT scan of the right foot was performed. coronal and sagittal images were reconstructed. Dose modulation adjustment of the mA and/or kV has been performed per [facility] protocols according to patient size and indication. COMPARISON: Radiographs 07/28/2025 FINDINGS: There is a healing intra-articular 5th metatarsal base fracture. Old healed distal fibular fracture. Heterotopic ossification beneath the medial malleolus is consistent with a prior deltoid ligamentsprain/avulsion injury. Mild ankle osteoarthritis is present. A physiologic amount offluid is present within the joint space. Mild subtalar joint osteoarthritis. Achilles enthesophyte is present. Large heel spur with mild to moderate chronic plantar fasciitis. Limited evaluation of the tendons about theankle appear intact. Polyarticular midfoot osteoarthritis. Mild 1st metatarsophalangeal and1st metatarsosesamoid joint osteoarthritis. The intrinsic foot muscle bulk is within normal limits. IMPRESSION: 1. Healing intra-articular right 5th metatarsal base fracture. THIS IS AN ELECTRONICALLY VERIFIED FINAL REPORT 09/03/2025 3:00 PM - Electronically signed by Clarence Barcenas M.D. T: Report ID: [id number] Reading Location: [id number] us Juliette DOHERTY IM CT PROCEDURES Final R esult from Last 3 Months Insurance [employer] MEDICARE Care Teams Can Worker Relationship Specialty Start Date End Date Sam Shine MD [address] [place] [place] [id number] PCP - General Family Medicine 08/20/25
--- OUTSIDE RECORDS SUMMARY | 2025-11-16 02:12 | XMS_ITS | Clinical Summary ---
Author Organization [facility] Address [address] [place] [id number] Care Team Providers Care Slasher Runner Name Role Phone Ena Rowe MD Primary Care Provider Jas Dash MD Unavailable Unavailab James Medrano MD Unavailable Unavailable Allergies Active Allergy Reactions Criticality Noted Date Comments Vlad Inhibitors GI Upset Medium 02/02/2020 Empagliflozin Unknown 12/18/2022 Metformin Diarrhea High 02/02/2020 Medications omeprazole 40 MG capsule Take 1 tablet by mouth 2 (two) times daily. 6 Active DULoxetine 60 MG capsule Take 60 mg by mouth daily. 0 Active pregabalin 200 MG capsule Take 200 mg by mouth 2 (two) times daily. 1 Active pravastatin 80 MG tablet Take 80 mg by mouth nightly at bedtime. at bedtime. 0 Active rOPINIRole 0.25 MG tablet Take 0.25 mg by mouth nightly at bedtime. 0 Active aspirin EC (ASPIRIN EC) 81 MG tablet Take 1 tablet (81 mg total) by mouth daily. Active Continuous Blood Gluc Sensor (DEXCOM G6 SENSOR) Misc see administration instructions. 2 Active Continuous Blood Gluc Transmit (DEXCOM G6 TRANSMITTER) Misc see administration instructions. 2 Active ezetimibe (ZETIA) 10 MG tablet Take 1 tablet by mouth daily. 3 Active insulin regular, CONCENTRATED, (HUMULIN R) 500 UNIT/ML patient supplied PUMP 2 Active rosuvastatin (CRESTOR) 40 MG tablet Take 1 tablet by mouth daily. 2 Active tolterodine LA (DETROL LA) 2 MG 24 hr capsule 3 Active Active Problems Problem Noted Date Diagnosed Date Bilateral carotid artery stenosis 01/10/2023 Fibromyalgia 09/27/2022 Pneumonia 2022 Hypertension Hyperlipidemia Diabetes Sleep apnea Resolved Problems Problem Noted Date Diagnosed Date Resolved Date COPD (chronic obstructive pulmonary disease) 2 2022 Encounters Date Type Department Care Team Description 09/22/2025 Travel 09/16/2025 11:59 PM CDT Anesthesia [facility] [address] [place] [address] Ranjit Mcfarlane CRNA from Last 3 Months Family History Medical History Relation Comments Diabetes Brother Lung Cancer Brother throat cancer Brother Heart Attack Father Had myocardial i nfarction Stent Cardiac Father Had PTCA/stent Stroke Father Had stroke metastatic stomach cancer Father Heart Attack Maternal Grandmother Had myocard ial infarction Diabetes Mother Heart Attack Mother Had myocardial i nfarction Had CABG Paternal Grandfather Heart Attack Paternal Grandfather Had myocard ial infarction Diabetes Sister Relation Status Comments Brother Father (Age 73) Maternal Grandmother Mother (Age 62) Paternal Grandfather Sister Social History Tobacco Use Types Packs/Day Years Used Date Smoking Tobacco: Never Smokeless Tobacco: Never Alcohol Use Standard Drinks/Week Comments Yes 0 (1 standard drink = 0.6 oz pur e alcohol) occasional Comments No Sex and Gender Information Value Date Recorded Sex Assigned at Not on file Legal Sex Female 8:35 PM CDT Gender Identity Not on file Sexual Orientation Not on file 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 Not on file Not on file Not on file Not on file Not on file Not on file Last Filed Vital Signs Vital Sign Reading Time Taken Comments Blood Pressure 140/56 01/10/2023 10:36 AM [facility] Pulse 83 01/25/2022 5:32 AM [facility] Temperature 36.2 C (97.2 F) 01/25/2022 5:32 AM [facility] Respiratory Rate 16 01/25/2022 5:32 AM [facility] Oxygen Saturation 93% 01/25/2022 5:32 AM [facility] Inhaled Oxygen Concentration - - Weight 124.7 kg (275 lb) 09/22/2025 3:05 PM CDT Height 157.5 cm (5' 2) 09/22/2025 3:05 PM CDT Body Mass Index 50.3 09/22/2025 3:05 PM CDT Plan of Treatment Health Maintenance Due Date Last Done Comments Colorectal Cancer Screening Colonoscopy (10 Years) 1965 Kidney Health Evaluation 1965 Lipid Panel 1965 Annual Physical 1968 Diabetes: Retinopathy Eye Exam 1983 Hepatitis C 1983 DTaP, Tdap and Td Vaccines (1 - Tdap) 1984 Pneumococcal Vaccine: 50+ Years (1 of 2 - PCV) 1984 Zoster Vaccines (1 of 2) 2015 Hemoglobin A1C 07/21/2022 01/21/2022 RSV Immunization or 60+ Years (1 - Risk 60-74 years 1-dose series) 2025 COVID-19 Vaccine (3 - season) 2025 05/12/2021, 04/14/2021 Influenza Adult (#1) 2025 Mammogram Screening 03/29/2027 03/29/2025, 05/11/2024, 07/15/2023, Additional history exists Hepatitis A Vaccines Aged Out No long er eligible based on patient's age to complete this topic Meningococcal B Vaccine Aged Out No l onger eligible based on patient's age to complete this topic Meningococcal Vaccine Aged Out No mercy trung eligible based on patient's age to complete this topic RSV Immunizations Under 20 Months Aged Out No longer eligible based on patient's age to complete this topic Goals Goal Patient Goal Type Associated Problems Recent Progress Patient-Stated? Author Patient will return to prior living situation and remain independent in ADLs upon discharge from hospital General Dorcas Tinajero RN Procedures Procedure Name Priority Date/Time Associated Diagnosis Comments MG ZOEG Tanner TIM BILAT DIGI Routine 03/29/2025 9:07 AM CDT Breast pain, left HEMOGLOBIN, GLYCOSYLATED Routine 01/21/2022 6:45 AM [facility] from Last 3 Months or Most Recently Relevant to Health Maintenance Results * MG DIAG W TIM BILAT DIGI (03/29/2025 9:07 AM CDT) Anatomical Region Laterality Modality Breast Bilateral Mammography, Rad iographic Imaging 03/29/2025 1:10 PM CDT Narrative 03/29/2025 1:12 PM [address]T [address] [place] [address] Examination(s): BILATERAL DIGITAL DIAGNOSTIC MAMMOGRAM WITH TOMOSYNTHESIS LEFT BREAST [employer]ician [employer] [id number] Exam Date: 03/29/2025 8:30 AM Clinical Indication: Female 60 years of age here for a left breast symptom of pain and/or lump. Worried; rule out a breast cancer. Screening evaluation of right breast for cancer. Comparison: Dating back to 02/08/2022 screening mammogram Technique: A bilateral diagnostic mammogram with dedicated additional views. Tomosynthesis imaging acquisition. Study supplemented with computer aided detection program. Static left breast and axilla sonographic grayscale images obtained supplemented with Doppler. Tissue density: The breast tissue is heterogeneously dense, which may obscure small masses. MAMMOGRAM FINDINGS: A bilateral diagnostic mammogram was done. Dense tissue with nodular pattern is stable. No mass, distortion, or abnormal calcifications. LEFT BREAST AND AXILLA ULTRASOUND FINDINGS: Normal tissues. No mass. No dilated ducts. No cysts. No axilla adenopathy. IMPRESSION No evidence of breast cancer. Normal tissue at the site of clinical concern in the left breast/axilla. RECOMMENDATION: 1: Routine Screening Mammogram Bilateral in 1 Year ASSESSMENT: ACR BI-RADS CATEGORY 2 - BENIGN FINDING(S) Today, I spent 2-3 minutes in [id number] discussion with the patient about the finding(s), impression(s), and recommendation(s). I answered her questions, and she understands today's imaging results. Ordered By: ENA ROWE Interpreted By: Kush Barboza MD, 03/29/2025 1:10 PM Ena Rowe MD MAMMO Final Resul t * (ABNORMAL) HEMOGLOBIN, GLYCOSYLATED (01/21/2022 6:45 AM [facility]) HGB A1C 11.2(H) <5.7 % 01/21/2022 10:34 AM [facility] Comment: 5.7 TO 6.4% INCREASED RISK OF DIABETES > OR = 6.5% CONSISTENT WITH DIABETES PER ADA GUIDELINES ESTIMATED AVG GLUCOSE 275(H) 70 - 140 MG/DL 01/21/2022 10:34 AM [facility] 01/21/2022 6:45 AM [facility] Paula Solis [facility] Final Resu lt [facility] [address] [place] [address], from Last 3 Months or Most Recently Relevant to Health Maintenance [place] [address] [address] [place] [address] MEDICARE Advance Directives * Full Code (Latest Code Status on File) Date Activated Date Inactivated Comments 2022 4:37 PM 01/25/2022 7:39 PM Care Teams Slasher Runner Relationship Specialty Start Date End Date Ena Rowe MD [address] [place] [id number] PCP - General FAMILY PRACTICE 06/06/16 Jas Dash MD [address] [id number] CARDIOVASCULAR DISEASE 06/06/16 James Pappas MD [address] [place] [id number] Consulting Physician INTERVENTIONAL CARDIOLOGY 01/03/21
[2025-11-16 02:59] LABS: Hematocrit 36.6 % (37.0-47.0); Hemoglobin 12.0 g/dL (12.0-15.0); Immature Granulocyte Percent A 4.4 % (0-0.5); Lymphocytes Absolute Auto 1.28 K/mm3 (0.9-3.2); Mean Corpuscular HGB Conc 32.8 g/dl (32-36); Mean Corpuscular Hemoglobin 27.8 pg (26-34); Mean Corpuscular Volume 84.9 fl (80-100); Nucleated Red Blood Cells Absolute Auto 0.000 K/mm3 (0.0-0.012); Nucleated Red Blood Cells Perc 0.0 % (0.0-0.2); Platelet Count Result 198 k/mm3 (150-375); Red Blood Count 4.31 M/mm3 (4.2-5.4); White Blood Count 12.9 K/mm3 (4.5-10.0)
[2025-11-16 03:11] LABS: Alanine Aminotransferase 55 U/L (6-35); Albumin Level 3.1 g/dL (3.5-5.1); Alkaline Phosphatase 265 U/L (38-126); Anion Gap 17 mmol/L (4-12); Aspartate Amino Transferase 67 U/L (14-36); Bilirubin,Total 0.8 mg/dL (0.2-1.3); Blood Urea Nitrogen 75 mg/dL (7-17); Calcium 7.4 mg/dL (8.4-10.2); Carbon Dioxide 17 mmol/L (22-30); Chloride 95 mmol/L (98-107); Estimated Glomerular Filt Rate 5; Glucose 396 mg/dL (65-110); Lipase 101 U/L (23-300); Magnesium 2.5 mg/dL (1.6-2.3); Potassium 4.8 mmol/L (3.4-5.0); Sodium 129 mmol/L (137-145); Total Protein 6.3 g/dL (6.3-8.2)
--- NOTE | 2025-11-16 03:32 | ED.GENADULT ---
HPI - General Adult General Chief complaint: Abdominal Pain <Jose Bernal MD - Last Filed: 11/16/25 06:41> Stated complaint: constipation <Jose Bernal MD - Last Filed: 11/16/25 06:41> Time Seen by Provider: 11/16/25 01:59 <Jose Bernal MD - Last Filed: 11/16/25 06:41> History of Present Illness HPI narrative: Patient is 60-year-old female presents emergency department chief complaint of discomfort in patient the patient reports that she has not had a bowel movement in several days reports that she has been taking MiraLax for 2 doses and has not had a bowel movement <Jose Bernal MD - Last Filed: 11/16/25 06:41> Related Data Home medications: Home Medications ?Medication ?Instructions ?Recorded ?Confirmed ?Last Taken ?Type duloxetine 60 mg capsule,delayed 60 mg PO DAILY 01/04/21 11/16/25 11/15/25 History release omeprazole 40 mg capsule,delayed 40 mg PO BID 01/04/21 11/16/25 11/15/25 History release pregabalin 200 mg capsule 200 mg PO BID 01/04/21 11/16/25 11/15/25 History ropinirole 0.25 mg tablet 0.25 mg PO HS 01/04/21 11/16/25 11/15/25 History insulin glargine U-300 conc 300 30 unit subcut HS 01/04/25 11/16/25 11/15/25 History unit/mL (3 mL) subcutaneous pen (Toujeo Max U-300 SoloStar) insulin regular hum U-500 conc 500 See Rx Instructions .Route .COMPLEX 01/04/25 11/16/25 11/15/25 History unit/mL(3 mL) subcut pen (Humulin R U-500 (Conc) Insulin Kwikpen) aspirin 81 mg capsule 81 mg PO DAILY 11/16/25 11/16/25 11/15/25 History tolterodine 4 mg capsule,extended 4 mg PO Q24H 11/16/25 11/16/25 11/15/25 History release 24 hr valsartan 80 mg tablet 80 mg PO DAILY 11/16/25 11/16/25 11/15/25 History <Jose Bernal MD - Last Filed: 11/16/25 06:41> Allergies/adverse reactions: Allergies Allergy/AdvReac Type Severity Reaction Status Date / Time KAYCEE Inhibitors AdvReac Mild Unknown Verified 11/16/25 10:56 metformin AdvReac Diarrhea Verified 11/16/25 10:56 <Jose Bernal MD - Last Filed: 11/16/25 06:41> Review of Systems Review of Systems: A 10 system review of systems was completed on the patient and is negative except for what is stated in the HPI. Nursing and ancillary documentation was reviewed. <Jose Bernal MD - Last Filed: 11/16/25 06:41> [facility] Past Medical History Medical History: Medical History Right knee DJD Injury of right knee Right knee pain Low vitamin D level Chest pain Dietary counseling and surveillance Hyperlipidemia LDL goal <100 Uncontrolled type 2 diabetes mellitus with hyperglycemia CAD (coronary artery disease) Restless leg syndrome Fibromyalgia MARISELA (obstructive sleep apnea) Diabetes Dyslipidemia Hypertension <Jose Bernal MD - Last Filed: 11/16/25 06:41> Surgical History Surgical History: Surgical History Status post YAG capsulotomy History of heart artery stent Hx of cholecystectomy 1983 H/O: hysterectomy 1989 <Jose Bernal MD - Last Filed: 11/16/25 06:41> Family History Family History: Family History Mother Diabetes mellitus Heart disease Heart attack in 50s, passed in age 70s. Hypercholesterolemia Hypertension Cerebrovascular accident Father Diabetes mellitus Heart disease Heart attacks in early 60s, passed in age 70s. Hypercholesterolemia Hypertension Cerebrovascular accident Stomach cancer Sibling Diabetes mellitus Hypercholesterolemia Lung cancer Brother Hypertension Grandparent Heart disease Hypercholesterolemia Hypertension <Jose Bernal MD - Last Filed: 11/16/25 06:41> Social History Social History: Social History Social History: Ms. 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 She lives at home in [place], [place] with her , Ceferino. She denies alcohol, tobacco, or other substance use. She designates Ceferino to be her surrogate decision maker and wishes to be full code status. Her PCP is Dr Sam Shine in [place], [place]. CAFFEINE USE Smoking status: Never smoker Alcohol intake: never Substance use: never Lack of Transportation: No Lack of Food: Never True Current Housing: I Have Housing Concerned About Future Housing: No Difficulty Paying Gas/Electric Bills: No Difficulty Paying for Meds: No Currently Unemployed: No Education: High School Diploma/GED Difficulty w/ Childcare or Family Care: No Living arrangements: with family Occupation/Education: retired Gender identity (if verbalized by the patient): Female Spiritual care concerns: No <Jose Bernal MD - Last Filed: 11/16/25 06:41> Exam Narrative: GENERAL: Well-appearing, well-nourished, and in no acute distress. HEAD: Normocephalic, atraumatic. EYES: PERRLA and EOMI. ENT: Nares clear, no rhinorrhea or epistaxis. Mucous membranes moist. NECK: Supple. CHEST: Clear to auscultation. No respiratory distress. HEART: Regular rate and rhythm. No murmur heard. Normal peripheral pulses. ABDOMEN: Soft, diffuse tenderness, nondistended, normal active bowel sounds. EXTREMITIES: Normal range of motion. No edema. SKIN: Warm, dry, no rash. NEURO: No focal deficits. Alert and oriented x3. PSYCH: Normal mood and affect. <Jose Bernal MD - Last Filed: 11/16/25 06:41> Course Vital Signs Vital signs: Vital Signs Temperature 97.8 F 11/15/25 23:28 Pulse Rate 86 11/15/25 23:28 Respiratory Rate 16 11/15/25 23:28 Blood Pressure 143/58 H 11/15/25 23:28 Pulse Oximetry 96 11/15/25 23:28 Oxygen Delivery Room Air 11/15/25 23:28 Temperature 97.5 F L 11/16/25 13:00 Pulse Rate 73 11/16/25 13:00 Respiratory Rate 12 11/16/25 13:00 Blood Pressure 94/62 L 11/16/25 13:00 Pulse Oximetry 98 11/16/25 13:00 Oxygen Delivery Room Air 11/16/25 11:55 <Jose Bernal MD - Last Filed: 11/16/25 06:41> Vital Signs Temperature 97.8 F 11/15/25 23:28 Pulse Rate 86 11/15/25 23:28 Respiratory Rate 16 11/15/25 23:28 Blood Pressure 143/58 H 11/15/25 23:28 Pulse Oximetry 96 11/15/25 23:28 Oxygen Delivery Room Air 11/15/25 23:28 Temperature 97.5 F L 11/16/25 13:00 Pulse Rate 73 11/16/25 13:00 Respiratory Rate 12 11/16/25 13:00 Blood Pressure 94/62 L 11/16/25 13:00 Pulse Oximetry 98 11/16/25 13:00 Oxygen Delivery Room Air 11/16/25 11:55 <Oumar Corrales MD - Last Filed: 11/16/25 13:49> MDM MDM Narrative Medical decision making narrative: scar patient care was signed out to me by the overnight physician. Patient does have a history of poorly controlled diabetes. Patient has had decreased urinary output. Patient was found to be retaining urine. Patient did have a Dickinson catheter placed and patient had approximately 800 mL of urinary output. Patient is an DKA and patient was started on insulin bolus insulin infusion. Patient is currently afebrile but does have a leukocytosis of 12.9 hemoglobin of 12.0. Patient does have significantly worsened kidney function with a baseline closer to 1 and a current creatinine of 7.74. Patient's potassium is 4.8. Patient does have mild elevation of AST ALT and alk phos. Patient's beta hydroxybutyrate was elevated. UA was negative for infection. CT scan did show evidence of colitis, blood cultures were ordered and patient was started on Flagyl and Rocephin. Due to the DKA and requirement of the insulin bolus and infusion patient will be admitted to the ICU and intense this was consulted. I also discussed the case with Nephrology due to the suspected obstructive uropathy and MADELINE. Patient and family are updated on the results of the workup and plan for admission. All questions concerns were addressed. <Oumar Corrales MD - Last Filed: 11/16/25 13:49> Differential Diagnosis Differential Diagnosis: Colitis, diverticulitis, UTI, COVID, RSV, influenza, hyperglycemia, DKA, obstructive uropathy, acute kidney injury <Oumar Corrales MD - Last Filed: 11/16/25 13:49> Lab Data [facility] Lab Attestation statement: I personally reviewed the patient's lab results. <Oumar Corrales MD - Last Filed: 11/16/25 13:49> Result diagrams: 11/16/25 02:54 11/16/25 12:23 <Jose Bernal MD - Last Filed: 11/16/25 06:41> Labs: Lab Results 11/16/25 11/16/25 11/16/25 Range/Units 02:54 04:49 09:10 WBC 12.9 H (4.5-10.0) K/mm3 RBC 4.31 (4.2-5.4) M/mm3 Hgb 12.0 (12.0-15.0) g/dL Hct 36.6 L (37.0-47.0) % MCV 84.9 (80-100) fl MCH 27.8 (26-34) pg MCHC 32.8 (32-36) g/dl RDW 16.1 H (11.5-14.5) % Plt Count 198 (150-375) k/mm3 MPV 12.2 H (7.4-10.4) fl Immature Gran % (Auto) 4.4 H (0-0.5) % Neut % (Auto) 73.7 H (45.5-73.1) % Lymph % (Auto) 10.0 L (18.3-44.2) % [place] % (Auto) 11.1 H (2.6-8.5) % Eos % (Auto) 0.3 (0-4.4) % Baso % (Auto) 0.5 (0.2-1.2) % Lymph # (Auto) 1.28 (0.9-3.2) K/mm3 [place] # (Auto) 1.4 H (0.1-0.6) K/mm3 Eos # (Auto) 0.0 (0-0.3) K/mm3 Baso # (Auto) 0.1 (0.0-0.1) K/mm3 Abs Immat Gran (auto) 0.56 H (0.00-0.031) K/mm3 Absolute Neuts (auto) 9.5 H (1.3-6.7) K/mm3 Absolute Nucleated RBC 0.000 (0.0-0.012) K/mm3 Nucleated RBC % 0.0 (0.0-0.2) % Sodium 129 L 131 L (137-145) mmol/L Potassium 4.8 4.7 (3.4-5.0) mmol/L Chloride 95 L 99 (98-107) mmol/L Carbon Dioxide 17 L 16 L (22-30) mmol/L Anion Gap 17 H 16 H (4-12) mmol/L BUN 75 H D 72 H (7-17) mg/dL Creatinine 7.74 H 6.95 H (0.7-1.0) mg/dL Estim Creat Clear Calc Not Reportable Not Reportable Estimated GFR 5 L 6 L (59 - ) Glucose 396 H 411 H (65-110) mg/dL POC Capillary Glucose (65-105) mg/dl Hemoglobin A1c 11.8 H (<5.7) % Lactic Acid 0.8 (0.7-2.0) mmol/L Calcium 7.4 L 7.0 L (8.4-10.2) mg/dL Phosphorus 5.4 H (2.5-4.5) mg/dL Magnesium 2.5 H (1.6-2.3) mg/dL Total Bilirubin 0.8 (0.2-1.3) mg/dL AST 67 H (14-36) U/L ALT 55 H (6-35) U/L Alkaline Phosphatase 265 H (38-126) U/L Total Protein 6.3 (6.3-8.2) g/dL Albumin 3.1 L (3.5-5.1) g/dL Lipase 101 (23-300) U/L Beta-Hydroxybutyrate/Acetoacetate 2.14 H (0.02-0.27) mmol/L Urine Color Yellow (Yellow) Urine Appearance Clear (Clear) Urine pH 5.5 (5.0-9.0) Ur Specific Arion 1.010 (1.001-1.035) Urine Protein 2+ H (Negative) mg/dL Urine Glucose (UA) 2+ H (Negative) mg/dL Urine Ketones Trace H (Negative) mg/dL Ur Blood (Man) Trace (Negative) Urine Nitrate Negative (Negative) Urine Bilirubin Negative (Negative) Urine Urobilinogen 0.2 (<2.0) mg/dL Leukocyte Esterase Rfl Negative (Negative) MASHA/UL Urine RBC 0-2 (0-2) /hpf Urine WBC 0-5 (0-3) /hpf Ur Squamous Epith Cells None seen (Few) /hpf Urine Bacteria None seen /hpf Urine Casts 3-5 11/16/25 Range/Units 09:18 WBC (4.5-10.0) K/mm3 RBC (4.2-5.4) M/mm3 Hgb (12.0-15.0) g/dL Hct (37.0-47.0) % MCV (80-100) fl MCH (26-34) pg MCHC (32-36) g/dl RDW (11.5-14.5) % Plt Count (150-375) k/mm3 MPV (7.4-10.4) fl Immature Gran % (Auto) (0-0.5) % Neut % (Auto) (45.5-73.1) % Lymph % (Auto) (18.3-44.2) % Erath % (Auto) (2.6-8.5) % Eos % (Auto) (0-4.4) % Baso % (Auto) (0.2-1.2) % Lymph # (Auto) (0.9-3.2) K/mm3 Erath # (Auto) (0.1-0.6) K/mm3 Eos # (Auto) (0-0.3) K/mm3 Baso # (Auto) (0.0-0.1) K/mm3 Abs Immat Gran (auto) (0.00-0.031) K/mm3 Absolute Neuts (auto) (1.3-6.7) K/mm3 Absolute Nucleated RBC (0.0-0.012) K/mm3 Nucleated RBC % (0.0-0.2) % Sodium (137-145) mmol/L Potassium (3.4-5.0) mmol/L Chloride (98-107) mmol/L Carbon Dioxide (22-30) mmol/L Anion Gap (4-12) mmol/L BUN (7-17) mg/dL Creatinine (0.7-1.0) mg/dL Estim Creat Clear Calc Estimated GFR (59 - ) Glucose (65-110) mg/dL POC Capillary Glucose 398 H (65-105) mg/dl Hemoglobin A1c (<5.7) % Lactic Acid (0.7-2.0) mmol/L Calcium (8.4-10.2) mg/dL Phosphorus (2.5-4.5) mg/dL Magnesium (1.6-2.3) mg/dL Total Bilirubin (0.2-1.3) mg/dL AST (14-36) U/L ALT (6-35) U/L Alkaline Phosphatase (38-126) U/L Total Protein (6.3-8.2) g/dL Albumin (3.5-5.1) g/dL Lipase (23-300) U/L Beta-Hydroxybutyrate/Acetoacetate (0.02-0.27) mmol/L Urine Color (Yellow) Urine Appearance (Clear) Urine pH (5.0-9.0) Ur Specific Arion (1.001-1.035) Urine Protein (Negative) mg/dL Urine Glucose (UA) (Negative) mg/dL Urine Ketones (Negative) mg/dL Ur Blood (Man) (Negative) Urine Nitrate (Negative) Urine Bilirubin (Negative) Urine Urobilinogen (<2.0) mg/dL Leukocyte Esterase Rfl (Negative) MASHA/UL Urine RBC (0-2) /hpf Urine WBC (0-3) /hpf Ur Squamous Epith Cells (Few) /hpf Urine Bacteria /hpf Urine Casts <Jose Bernal MD - Last Filed: 11/16/25 06:41> Lab Results 11/16/25 11/16/25 11/16/25 Range/Units 02:54 04:49 09:10 WBC 12.9 H (4.5-10.0) K/mm3 RBC 4.31 (4.2-5.4) M/mm3 Hgb 12.0 (12.0-15.0) g/dL Hct 36.6 L (37.0-47.0) % MCV 84.9 (80-100) fl MCH 27.8 (26-34) pg MCHC 32.8 (32-36) g/dl RDW 16.1 H (11.5-14.5) % Plt Count 198 (150-375) k/mm3 MPV 12.2 H (7.4-10.4) fl Immature Gran % (Auto) 4.4 H (0-0.5) % Neut % (Auto) 73.7 H (45.5-73.1) % Lymph % (Auto) 10.0 L (18.3-44.2) % Erath % (Auto) 11.1 H (2.6-8.5) % Eos % (Auto) 0.3 (0-4.4) % Baso % (Auto) 0.5 (0.2-1.2) % Lymph # (Auto) 1.28 (0.9-3.2) K/mm3 [place]ath # (Auto) 1.4 H (0.1-0.6) K/mm3 Eos # (Auto) 0.0 (0-0.3) K/mm3 Baso # (Auto) 0.1 (0.0-0.1) K/mm3 Abs Immat Gran (auto) 0.56 H (0.00-0.031) K/mm3 Absolute Neuts (auto) 9.5 H (1.3-6.7) K/mm3 Absolute Nucleated RBC 0.000 (0.0-0.012) K/mm3 Nucleated RBC % 0.0 (0.0-0.2) % Sodium 129 L 131 L (137-145) mmol/L Potassium 4.8 4.7 (3.4-5.0) mmol/L Chloride 95 L 99 (98-107) mmol/L Carbon Dioxide 17 L 16 L (22-30) mmol/L Anion Gap 17 H 16 H (4-12) mmol/L BUN 75 H D 72 H (7-17) mg/dL Creatinine 7.74 H 6.95 H (0.7-1.0) mg/dL Estim Creat Clear Calc Not Reportable Not Reportable Estimated GFR 5 L 6 L (59 - ) Glucose 396 H 411 H (65-110) mg/dL POC Capillary Glucose (65-105) mg/dl Hemoglobin A1c 11.8 H (<5.7) % Lactic Acid 0.8 (0.7-2.0) mmol/L Calcium 7.4 L 7.0 L (8.4-10.2) mg/dL Phosphorus 5.4 H (2.5-4.5) mg/dL Magnesium 2.5 H (1.6-2.3) mg/dL Total Bilirubin 0.8 (0.2-1.3) mg/dL AST 67 H (14-36) U/L ALT 55 H (6-35) U/L Alkaline Phosphatase 265 H (38-126) U/L Total Protein 6.3 (6.3-8.2) g/dL Albumin 3.1 L (3.5-5.1) g/dL Lipase 101 (23-300) U/L Beta-Hydroxybutyrate/Acetoacetate 2.14 H (0.02-0.27) mmol/L Urine Color Yellow (Yellow) Urine Appearance Clear (Clear) Urine pH 5.5 (5.0-9.0) Ur Specific Arion 1.010 (1.001-1.035) Urine Protein 2+ H (Negative) mg/dL Urine Glucose (UA) 2+ H (Negative) mg/dL Urine Ketones Trace H (Negative) mg/dL Ur Blood (Man) Trace (Negative) Urine Nitrate Negative (Negative) Urine Bilirubin Negative (Negative) Urine Urobilinogen 0.2 (<2.0) mg/dL Leukocyte Esterase Rfl Negative (Negative) MASHA/UL Urine RBC 0-2 (0-2) /hpf Urine WBC 0-5 (0-3) /hpf Ur Squamous Epith Cells None seen (Few) /hpf Urine Bacteria None seen /hpf Urine Casts 3-5 11/16/25 Range/Units 09:18 WBC (4.5-10.0) K/mm3 RBC (4.2-5.4) M/mm3 Hgb (12.0-15.0) g/dL Hct (37.0-47.0) % MCV (80-100) fl MCH (26-34) pg MCHC (32-36) g/dl RDW (11.5-14.5) % Plt Count (150-375) k/mm3 MPV (7.4-10.4) fl Immature Gran % (Auto) (0-0.5) % Neut % (Auto) (45.5-73.1) % Lymph % (Auto) (18.3-44.2) % [place] % (Auto) (2.6-8.5) % Eos % (Auto) (0-4.4) % Baso % (Auto) (0.2-1.2) % Lymph # (Auto) (0.9-3.2) K/mm3 [place] # (Auto) (0.1-0.6) K/mm3 Eos # (Auto) (0-0.3) K/mm3 Baso # (Auto) (0.0-0.1) K/mm3 Abs Immat Gran (auto) (0.00-0.031) K/mm3 Absolute Neuts (auto) (1.3-6.7) K/mm3 Absolute Nucleated RBC (0.0-0.012) K/mm3 Nucleated RBC % (0.0-0.2) % Sodium (137-145) mmol/L Potassium (3.4-5.0) mmol/L Chloride (98-107) mmol/L Carbon Dioxide (22-30) mmol/L Anion Gap (4-12) mmol/L BUN (7-17) mg/dL Creatinine (0.7-1.0) mg/dL Estim Creat Clear Calc Estimated GFR (59 - ) Glucose (65-110) mg/dL POC Capillary Glucose 398 H (65-105) mg/dl Hemoglobin A1c (<5.7) % Lactic Acid (0.7-2.0) mmol/L Calcium (8.4-10.2) mg/dL Phosphorus (2.5-4.5) mg/dL Magnesium (1.6-2.3) mg/dL Total Bilirubin (0.2-1.3) mg/dL AST (14-36) U/L ALT (6-35) U/L Alkaline Phosphatase (38-126) U/L Total Protein (6.3-8.2) g/dL Albumin (3.5-5.1) g/dL Lipase (23-300) U/L Beta-Hydroxybutyrate/Acetoacetate (0.02-0.27) mmol/L Urine Color (Yellow) Urine Appearance (Clear) Urine pH (5.0-9.0) Ur Specific Arion (1.001-1.035) Urine Protein (Negative) mg/dL Urine Glucose (UA) (Negative) mg/dL Urine Ketones (Negative) mg/dL Ur Blood (Man) (Negative) Urine Nitrate (Negative) Urine Bilirubin (Negative) Urine Urobilinogen (<2.0) mg/dL Leukocyte Esterase Rfl (Negative) MASHA/UL Urine RBC (0-2) /hpf Urine WBC (0-3) /hpf Ur Squamous Epith Cells (Few) /hpf Urine Bacteria /hpf Urine Casts <Oumar Corrales MD - Last Filed: 11/16/25 13:49> ABG Data ABG results: 11/16/25 07:28 Puncture Site Right brachial ABG pH 7.268 L* ABG pCO2 32.9 L ABG pO2 79.4 L ABG PO2/FiO2 Ratio 3.78 ABG HCO3 14.7 L ABG O2 Saturation 94.3 L ABG O2 Content 16.0 ABG Base Excess -11.1 A-a Gradient 30.9 Oxyhemoglobin 93.6 Total Hemoglobin 12.1 O2 Delivery Device Not Reportable O2 Liters/Min Not Reportable FiO2 21 <Jose Bernal MD - Last Filed: 11/16/25 06:41> 11/16/25 07:28 Puncture Site Right brachial ABG pH 7.268 L* ABG pCO2 32.9 L ABG pO2 79.4 L ABG PO2/FiO2 Ratio 3.78 ABG HCO3 14.7 L ABG O2 Saturation 94.3 L ABG O2 Content 16.0 ABG Base Excess -11.1 A-a Gradient 30.9 Oxyhemoglobin 93.6 Total Hemoglobin 12.1 O2 Delivery Device Not Reportable O2 Liters/Min Not Reportable FiO2 21 <Oumar Corrales MD - Last Filed: 11/16/25 13:49> Imaging Data Radiologist's impression: ITS Impressions Abdomen/Pelvis CT 11/16/25 07:54 IMPRESSION: 1. Wall thickening of the transverse and descending colon, consistent with colitis. <Jose Bernal MD - Last Filed: 11/16/25 06:41> ITS Impressions Abdomen/Pelvis CT 11/16/25 07:54 IMPRESSION: 1. Wall thickening of the transverse and descending colon, consistent with colitis. <Oumar Corrales MD - Last Filed: 11/16/25 13:49> Critical Care Time Critical Care Time Critical Care Time: Yes <Oumar Corrales MD - Last Filed: 11/16/25 13:49> Time Type: Intermittent <Oumar Corrales MD - Last Filed: 11/16/25 13:49> Initial evaluation, discuss w/ involved parties, attempting to gather old records: 10 minutes <Oumar Corrales MD - Last Filed: 11/16/25 13:49> Documenting medical record: 5 minutes <Oumar Corrales MD - Last Filed: 11/16/25 13:49> Review of results (EKG's, labs, imaging): 5 minutes <Oumar Corrales MD - Last Filed: 11/16/25 13:49> Serial repeat bedside evaluation: 10 minutes <Oumar Corrales MD - Last Filed: 11/16/25 13:49> Discussing case with multiple memebers of the care team and consultants: 10 minutes <Oumar Corrales MD - Last Filed: 11/16/25 13:49> Total Critical Care Time: 40 <Oumar Corrales MD - Last Filed: 11/16/25 13:49> Discharge Plan Discharge Clinical Impression: Acute kidney injury, Acute urinary retention, Abdominal pain, DKA (diabetic ketoacidosis), Colitis <Jose Bernal MD - Last Filed: 11/16/25 06:41> Patient Disposition: Still a Patient <Jose Bernal MD - Last Filed: 11/16/25 06:41> Condition: Serious <Jose Bernal MD - Last Filed: 11/16/25 06:41>
[2025-11-16 04:57] LABS: Add Urine Microscopic? YES; Appearance Urine Clear (Clear); Glucose Urine UA 2+ mg/dL (Negative); Leukocyte Esterase Ur Negative LEU/UL (Negative); Nitrate Urine Negative (Negative); Specific Grav Ur 1.010 (1.001-1.035)
[2025-11-16] MEDS: SODIUM CHLORIDE 0.9% IV 1,000 ML 999 ML IV CONT ×2 (05:09→07:18)
[2025-11-16 07:32] LABS: Beta-Hydroxybutyrate/Acetoace. 2.14 mmol/L (0.02-0.27)
[2025-11-16 07:42] LABS: Alveolar/Arterial O2 Gradient 30.9 mmHg; Fractional Inspired Oxygen 21 %; HCO3 ABG 14.7 mEq/l (22.0-26.0); Oxygen Content ABG 16.0 %vol (16.0-22.0); Oxygen Saturation ABG 94.3 % (95.0-100.0); PCO2 ABG 32.9 mmHg (35.0-45.0); PO2 ABG 79.4 mmHg (80.0-100.0); PO2 FiO2 Ratio Arterial Blood 3.78 %
[2025-11-16 07:48] LABS: Modified Allen's Test Pass; Site Drawn RIGHT BRACHIAL
[2025-11-16 09:33] LABS: Hemoglobin A1C 11.8 % (<5.7)
[2025-11-16] MEDS: INSULIN HUMAN REGULAR (*BKC) 100 UNITS/ML 19.5 UNITS IV PUSH (09:33)
[2025-11-16] MEDS: INSULIN HUMAN REGULAR (*BKC) 100 UNITS in SODIUM CHLORIDE 0.9% IV 99 ML 13 UNITS IV CONT (09:35)
[2025-11-16] MEDS: SODIUM CHLORIDE 0.9% IV 1,000 ML 150 ML IV CONT (09:37)
[2025-11-16 09:39] LABS: Anion Gap 16 mmol/L (4-12); Calcium 7.0 mg/dL (8.4-10.2); Carbon Dioxide 16 mmol/L (22-30); Chloride 99 mmol/L (98-107); Glucose 411 mg/dL (65-110); Sodium 131 mmol/L (137-145)
[2025-11-16] MEDS: cefTRIAXone 1 GM in SODIUM CHLORIDE 0.9% IV 50 ML 100 ML IVPB (09:39)
[2025-11-16] MEDS: metroNIDAZOLE 500 MG/ISO 100ML 500 MG/100 ML BAG 100 MG IVPB ×2 (09:47→17:05)
[2025-11-16 09:50] LABS: Blood Urea Nitrogen 72 mg/dL (7-17); Estimated Glomerular Filt Rate 6; Potassium 4.7 mmol/L (3.4-5.0)
--- NOTE | 2025-11-16 09:51 | WPCEDHO ---
ED Hand Off Checklist All vitals saved:yes IV Site documented:yes All med administrations documented:yes Triage Note Triage Note Pt states has been constipated 11/16/25 03:27 and taking 1 capful of miralax x 2 days every 2 hours (x 3 today). States has not helped and has not had a BM in days. Denies any vomiting. States pain originates to LLQ and radiates to L shoulder. Agree with triage assessment Allergies KAYCEE Inhibitors Adverse Reaction (Mild, Verified 11/15/25 22:51) Unknown metformin Adverse Reaction (Verified 11/15/25 22:51) Diarrhea Family History (Last Reviewed 11/16/25 @ 03:33 by Jose Bernal MD) Mother Heart disease Hypercholesterolemia Hypertension Cerebrovascular accident Diabetes mellitus Father Heart disease Hypercholesterolemia Hypertension Cerebrovascular accident Diabetes mellitus Sibling Lung cancer Hypercholesterolemia Hypertension Diabetes mellitus Grandparent Hypercholesterolemia Hypertension Heart disease Active Medications including assessments/comments Insulin Human Regular 100 (units/ Sodium Chloride) 100 mls @ 13 mls/hr IV CONT .Q7H42M JACINTO; Protocol Last Admin: 11/16/25 09:35 Dose: 13 units/hr, 13 mls/hr Documented By: MLI Co-signed By: MCO Infusion/Titration Document 11/16/25 09:35 MLI (Rec: 11/16/25 09:35 MLI [id number]) Co-signed By Carlin Arguelles RN Intake IV Site Peripheral Access Left Antecubital Container Volume 100 Waste Amount 0 Dosing Dose Rate 13 Infusion Rate 13 Increase/Decrease Started Elapsed Time Elapsed Time ( 0m minutes) MAR IV Insulin Pump Document 11/16/25 09:35 MLI (Rec: 11/16/25 09:35 MLI [id number]) Co-signed By Carlin Arguelles RN MAR IV Insulin Pump Patient Has an No Insulin Pump MAR IV Insulin Document 11/16/25 09:35 MLI (Rec: 11/16/25 09:35 MLI [id number]) Co-signed By Carlin Arguelles RN Reason for Administration IV Insulin Infusion DKA Protocol - Reason for Administration Blood Glucose Random Glucose Yes Ordered IV Insulin Action/Checks IV Insulin Action Initiated Sodium Chloride (Normal Saline Iv) 1,000 mls @ 150 mls/hr IV CONT .Q6H40M JACINTO Last Admin: 11/16/25 09:37 Dose: 150 mls/hr Documented By: DEEDEE Infusion/Titration Document 11/16/25 09:37 ELLIEI (Rec: 11/16/25 09:37 MLI [id number]) Intake IV Site Peripheral Access Left Antecubital Container Volume 1,000 Waste Amount 0 Dosing Infusion Rate 150 Cumulative Dose Not Applicable Increase/Decrease Started Elapsed Time Elapsed Time ( 0m minutes) Administered/Completed Medications Discontinued Medications Sodium Chloride (Normal Saline Iv) 1,000 mls @ 999 mls/hr IV CONT .Q1H1M STA Stop: 11/16/25 04:31 Last Infusion: 11/16/25 06:20 Dose: Infused Documented By: Admin: 11/16/25 05:09 Dose: 999 mls/hr Documented By: GIULIANA Sodium Chloride (Normal Saline Iv) 1,000 mls @ 999 mls/hr IV CONT .Q1H1M STA Stop: 11/16/25 07:41 Last Infusion: 11/16/25 09:06 Dose: Infused Documented By: Admin: 11/16/25 07:18 Dose: 999 mls/hr Documented By: DEEDEE Ceftriaxone Sodium 1 gm/ (Sodium Chloride) 50 mls @ 100 mls/hr IVPB ONCE STA Stop: 11/16/25 09:03 Last Infusion: 11/16/25 09:47 Dose: Infused Documented By: Admin: 11/16/25 09:39 Dose: 100 mls/hr Documented By: DEEDEE Metronidazole (Flagyl 500 Mg/Iso Soln 100 Ml) 500 mg in 100 mls @ 100 mls/hr IVPB ONCE STA Stop: 11/16/25 09:33 Last Admin: 11/16/25 09:47 Dose: 100 mls/hr Documented By: DEEDEE Insulin Human Regular (Insulin Human Regular (*Bkc) 100 Units/Ml) 19.5 units 0.15 units/kg (19.5 units) IV PUSH ONCE ONE Stop: 11/16/25 07:52 Last Admin: 11/16/25 09:33 Dose: 19.5 units Documented By: DEEDEE Co-signed By: MARIA EUGENIA Interventions/Assessments IV / Saline Lock, Insert Start: 11/15/25 22:51 Freq: Status: Active Protocol: Document 11/16/25 09:38 DEEDEE (Rec: 11/16/25 09:38 MLI [id number]) IV Assessment Peripheral Access Right Antecubital IV Catheter Access Initiated IV Insertion Date 11/16/25 IV Insertion Time 09:38 Catheter Gauge 18 IV Insertion 1 Attempts Ultrasound Used for Yes Placement IV Site Assessment WNL IV Care and WNL Maintenance Additional IV initiated by Finesse BRUCE Comments PA: Gastrointestinal Assessment Start: 11/15/25 22:51 Freq: Status: Active Protocol: Document 11/16/25 03:29 DJW (Rec: 11/16/25 03:29 DJW [id number]) GI Assessment Gastrointestinal Constipation Symptoms Description Round,Tender Pattern Constipated Last Vital Signs Temperature 97.8 F 11/15/25 23:28 Pulse Rate 80 11/16/25 09:38 Respiratory Rate 16 11/16/25 09:38 Pulse Oximetry 97 11/16/25 09:38 Blood Pressure 160/71 H 11/16/25 09:38 Blood Pressure Mean 100 11/16/25 09:38 Blood Pressure Position Sitting 11/15/25 23:28 Oxygen Delivery Room Air 11/15/25 23:28 Weight 129.9 kg 11/16/25 07:51 Last Result - Abnormals Only WBC 12.9 K/mm3 (4.5-10.0) H 11/16/25 02:54 Hct 36.6 % (37.0-47.0) L 11/16/25 02:54 RDW 16.1 % (11.5-14.5) H 11/16/25 02:54 MPV 12.2 fl (7.4-10.4) H 11/16/25 02:54 Immature Gran % (Auto) 4.4 % (0-0.5) H 11/16/25 02:54 Neut % (Auto) 73.7 % (45.5-73.1) H 11/16/25 02:54 Lymph % (Auto) 10.0 % (18.3-44.2) L 11/16/25 02:54 [place] % (Auto) 11.1 % (2.6-8.5) H 11/16/25 02:54 [place] # (Auto) 1.4 K/mm3 (0.1-0.6) H 11/16/25 02:54 Abs Immat Gran (auto) 0.56 K/mm3 (0.00-0.031) H 11/16/25 02:54 Absolute Neuts (auto) 9.5 K/mm3 (1.3-6.7) H 11/16/25 02:54 ABG pH 7.268 (7.350-7.450) L* 11/16/25 07:28 ABG pCO2 32.9 mmHg (35.0-45.0) L 11/16/25 07:28 ABG pO2 79.4 mmHg (80.0-100.0) L 11/16/25 07:28 ABG HCO3 14.7 mEq/l (22.0-26.0) L 11/16/25 07:28 ABG O2 Saturation 94.3 % (95.0-100.0) L 11/16/25 07:28 Sodium 131 mmol/L (137-145) L 11/16/25 09:10 Chloride 95 mmol/L (98-107) L 11/16/25 02:54 Carbon Dioxide 16 mmol/L (22-30) L 11/16/25 09:10 Anion Gap 16 mmol/L (4-12) H 11/16/25 09:10 BUN 72 mg/dL (7-17) H 11/16/25 09:10 Creatinine 6.95 mg/dL (0.7-1.0) H 11/16/25 09:10 Estimated GFR 6 (59-) L 11/16/25 09:10 Glucose 411 mg/dL (65-110) H 11/16/25 09:10 POC Capillary Glucose 398 mg/dl (65-105) H 11/16/25 09:18 Hemoglobin A1c 11.8 % (<5.7) H 11/16/25 09:10 Calcium 7.0 mg/dL (8.4-10.2) L 11/16/25 09:10 Phosphorus 5.4 mg/dL (2.5-4.5) H 11/16/25 09:10 Magnesium 2.5 mg/dL (1.6-2.3) H 11/16/25 02:54 AST 67 U/L (14-36) H 11/16/25 02:54 ALT 55 U/L (6-35) H 11/16/25 02:54 Alkaline Phosphatase 265 U/L (38-126) H 11/16/25 02:54 Albumin 3.1 g/dL (3.5-5.1) L 11/16/25 02:54 Beta-Hydroxybutyrate/Acetoacetate 2.14 mmol/L (0.02-0.27) H 11/16/25 02:54 Urine Protein 2+ mg/dL (Negative) H 11/16/25 04:49 Urine Glucose (UA) 2+ mg/dL (Negative) H 11/16/25 04:49 Urine Ketones Trace mg/dL (Negative) H 11/16/25 04:49 Most Recent Suicide Severity Rating Suicide Severity Rating NO RISK INDICATED 11/16/25 03:27
[2025-11-16 11:18] LABS: MRSA (PCR) NOT DETECTED (NOT DETECTE)
--- NOTE | 2025-11-16 11:20 | ADMGEN ---
This patient, Romina Dick, was admitted to Intensive Care Unit-9 at 1030. Patient/family oriented to hospital policies and general routines including ID bracelet, bed and alarms, visiting hours, pain management, procedures, bathroom and other care routines, personal items, smoking policy, room service/diet, and visiting hours. Information on how to activate the Rapid Response Team has been discussed. Patient/Family are encouraged to report perceived risks to care and to ask questions if they do not understand what they are told or what they should do.
--- NOTE | 2025-11-16 11:58 | WPDCNINT2 ---
Assessment and Plan Assessment and plan (1) Acute renal failure: Qualifiers: Acute renal failure type: with acute tubular necrosis Qualified Code(s): N17.0 - Acute kidney failure with tubular necrosis Code(s): N17.9 - Acute kidney failure, unspecified Status: Acute (2) Colitis: Code(s): K52.9 - Noninfective gastroenteritis and colitis, unspecified Status: Acute (3) DKA (diabetic ketoacidosis): Code(s): E11.10 - Type 2 diabetes mellitus with ketoacidosis without coma Status: Acute (4) Abdominal pain: Code(s): R10.9 - Unspecified abdominal pain Status: Acute (5) Acute urinary retention: Code(s): R33.8 - Other retention of urine Status: Acute Plan 1. Neurologically: The patient is awake and following commands. Nonfocal 2. Cardiovascular: No acute cardiac decompensation. Blood pressure on the lower side therefore will hold antihypertensive medications which include valsartan. 3. Respiratory: No symptoms no history of asthma or tobacco abuse. No cough or shortness of breath 4. GI: Patient has been suffering from constipation chronically but recently has had a bowel movement for 1 week causing abdominal pain and the main reason why she came to the emergency room. Her presentation is not consistent with infectious colitis however kidney colitis is a possibility in the setting of severe constipation. Abdominal examination is overall benign with some distention and tympanism. Mainly she is severely constipated. Will start her on MiraLax and lactulose as well as Dulcolax suppository. We will give her a clear liquid diet. 5. GI or renal: Acute kidney injury most likely due to volume depletion and urinary retention. Constipation might have something to do with it. Patient now has a Dickinson and draining appropriately. She also is on valsartan and her blood pressure is on the low side start combination of MADELINE associated with volume depletion and hypotension. Will continue to monitor labs frequently has less urine output. Will hydrate. 6. Endocrine: The metabolic acidosis mostly related to acute kidney injury probably with a small component of DKA. I agree with insulin drip for now. Her hemoglobin A1c was over 11 which gave her a high baseline of glucose. 7. Hematologically: White blood cell count is slightly elevated with a hemoglobin of 12 and a platelet count of 198. 8. DVT prophylaxis: Heparin 9. Id: Urine is mildly abnormal but not consistent with infection. No evidence of respiratory infection. She was empirically started on Rocephin and Flagyl in the ER which I will continue for now. Time Spent with Patient Time with patient: 45 - 74 minutes Patrol Supervisor Consult Note Consult date: 11/16/25 Time Seen: 11:58 Reason for consult: Diabetes ketoacidosis, acute kidney failure, severe constipation, volume depletion HPI: Romina Dick is a 60 year old female with history of diabetes mellitus on long-acting and short-acting insulins, obesity, fibromyalgia, hypertension, hyperlipidemia who he has been having severe constipation with no bowel movements for about a week. Her abdomen became more distended and tender for the recent skin to the emergency room. CT scan of the abdomen and pelvis show evidence of thickening of the colonic wall possibly consistent with colitis. Patient denies any vomiting. Last bowel movement was approximately 1 week ago. In the emergency room she was found to have evidence of urinary retention for which she had a Dickinson placed at her chemistry show a creatinine of 6.95 with a BUN of 72 and a total CO2 of 16. Hemoglobin A1c was 11.8 and beta hydroxybutyrate was elevated at 2.4. She was started on insulin drip in order to control her sugar and treat her mild DKA. Patient denies any fever chills, nausea vomiting. Urine has been dark for several days. Review of Systems Constitutional: Constitutional: Reports lethargy Eyes: Eyes: Reports no additional eye complaints ENT: Reports system reviewed and no additional complaints, except as documented Cardiovascular: Cardiovascular: Reports no additional cardiovascular complaints Respiratory: Respiratory: Reports no additional respiratory complaints Gastrointestinal: Gastrointestinal: Reports as per HPI, Reports abdominal pain, Reports bloating and Reports constipation Genitourinary: Genitourinary: Reports no additional female genitourinary complaints Comments: Dark urine Musculoskeletal: Musculoskeletal: Reports myalgias Comments: Which are chronic Neurologic: Reports system reviewed and no additional complaints, except as documented Psychiatric: Psychiatric: Reports no additional psychiatric complaints [facility] Past Medical History Medical History Right knee DJD Injury of right knee Right knee pain Low vitamin D level Chest pain Dietary counseling and surveillance Hyperlipidemia LDL goal <100 Uncontrolled type 2 diabetes mellitus with hyperglycemia CAD (coronary artery disease) Restless leg syndrome Fibromyalgia MARISELA (obstructive sleep apnea) Diabetes Dyslipidemia Hypertension Surgical History Surgical History Status post YAG capsulotomy History of heart artery stent Hx of cholecystectomy 1983 H/O: hysterectomy 1989 Family History Family History Mother Diabetes mellitus Heart disease Heart attack in 50s, passed in age 70s. Hypercholesterolemia Hypertension Cerebrovascular accident Father Diabetes mellitus Heart disease Heart attacks in early 60s, passed in age 70s. Hypercholesterolemia Hypertension Cerebrovascular accident Stomach cancer Sibling Diabetes mellitus Hypercholesterolemia Lung cancer Brother Hypertension Grandparent Heart disease Hypercholesterolemia Hypertension Social History Social History Social History: Ms. Dick is retired from working for [employer] and working in [employer] in the past. She lives at home in [place], [place] with her , Ceferino. She denies alcohol, tobacco, or other substance use. She designates Ceferino to be her surrogate decision maker and wishes to be full code status. Her PCP is Dr Sam Shine in [place], [place]. CAFFEINE USE Smoking status: Never smoker Alcohol intake: never Substance use: never Lack of Transportation: No Lack of Food: Never True Current Housing: I Have Housing Concerned About Future Housing: No Difficulty Paying Gas/Electric Bills: No Difficulty Paying for Meds: No Currently Unemployed: No Education: High School Diploma/GED Difficulty w/ Childcare or Family Care: No Living arrangements: with family Occupation/Education: retired Gender identity (if verbalized by the patient): Female Spiritual care concerns: No Meds Home Medications and Allergies Home Medications ?Medication ?Instructions ?Recorded ?Confirmed ?Type duloxetine 60 mg capsule,delayed 60 mg PO DAILY 01/04/21 11/16/25 History release omeprazole 40 mg capsule,delayed 40 mg PO BID 01/04/21 11/16/25 History release pregabalin 200 mg capsule 200 mg PO BID 01/04/21 11/16/25 History ropinirole 0.25 mg tablet 0.25 mg PO HS 01/04/21 11/16/25 History blood-glucose sensor (Dexcom G6 #9 ea 08/03/24 11/16/25 Rx Sensor device) blood-glucose transmitter (Dexcom #1 ea 08/03/24 11/16/25 Rx G6 Transmitter device) semaglutide 2 mg/dose (8 mg/3 mL) 2 mg (0.75 mL) subcut WEEKLY #6 mL 08/03/24 11/16/25 Rx subcutaneous pen injector (Ozempic) insulin glargine U-300 conc 300 30 unit subcut HS 01/04/25 11/16/25 History unit/mL (3 mL) subcutaneous pen (Toujeo Max U-300 SoloStar) insulin regular hum U-500 conc 500 See Rx Instructions .Route .COMPLEX 01/04/25 11/16/25 History unit/mL(3 mL) subcut pen (Humulin R U-500 (Conc) Insulin Kwikpen) rosuvastatin 40 mg tablet 40 mg PO DAILY #90 tabs 01/04/25 11/16/25 Rx aspirin 81 mg capsule 81 mg PO DAILY 11/16/25 11/16/25 History tolterodine 4 mg capsule,extended 4 mg PO Q24H 11/16/25 11/16/25 History release 24 hr valsartan 80 mg tablet 80 mg PO DAILY 11/16/25 11/16/25 History Allergies Allergy/AdvReac Type Severity Reaction Status Date / Time KAYCEE Inhibitors AdvReac Mild Unknown Verified 11/16/25 10:56 metformin AdvReac Diarrhea Verified 11/16/25 10:56 Vital Signs Vital Signs - 24 hr 11/15/25 23:28 11/16/25 07:18 11/16/25 09:38 Temperature 97.8 F Pulse Rate 86 80 80 Respiratory Rate 16 13 16 Blood Pressure 143/58 H 122/66 160/71 H Pulse Oximetry 96 100 97 Oxygen Delivery Room Air 11/16/25 11:00 11/16/25 11:55 Temperature Pulse Rate 73 73 Respiratory Rate 15 20 Blood Pressure 93/48 L Pulse Oximetry 99 99 Oxygen Delivery Room Air Exam Narrative: She is awake and following commands in no distress Const: General: no acute distress HENMT: Face/Nose/Sinus: Normal nares present Mouth: Yes dry mucous membranes Eyes: General: appearance normal, both eyes and all related structures Pupils: Equal, round and reactive pupils present Neck: Neck: supple and no JVD Resp: Effort & Inspection: normal respiratory effort Cardio: Rate: regular rate GI: Inspection: distended GI Palp: Yes Soft to palpation Other: Mild diffuse tenderness with tympanism Skin: General skin exam: normal color Neuro: Speech: normal speech Motor exam (neuro): 5/5 motor strength present throughout Extrem: General: edema Other: 2+ edema in the lower extremities Psych: Mental Status: mental status grossly normal Results Labs 11/16/25 02:54 11/16/25 09:10 Labs: Short CBC 11/16/25 Range/Units 02:54 WBC 12.9 H (4.5-10.0) K/mm3 Hgb 12.0 (12.0-15.0) g/dL Hct 36.6 L (37.0-47.0) % Plt Count 198 (150-375) k/mm3 BMP 11/16/25 11/16/25 02:54 09:10 Sodium 129 L 131 L Potassium 4.8 4.7 Chloride 95 L 99 Carbon Dioxide 17 L 16 L BUN 75 H D 72 H Creatinine 7.74 H 6.95 H Glucose 396 H 411 H Calcium 7.4 L 7.0 L Liver Function 11/16/25 Range/Units 02:54 Total Bilirubin 0.8 (0.2-1.3) mg/dL AST 67 H (14-36) U/L ALT 55 H (6-35) U/L Alkaline Phosphatase 265 H (38-126) U/L Albumin 3.1 L (3.5-5.1) g/dL Urine 11/16/25 Range/Units 04:49 Urine Color Yellow (Yellow) Urine Appearance Clear (Clear) Urine pH 5.5 (5.0-9.0) Ur Specific [place] 1.010 (1.001-1.035) Urine Protein 2+ H (Negative) mg/dL Urine Glucose (UA) 2+ H (Negative) mg/dL Critical Care Time Critical Care Time Initial evaluation, discuss w/ involved parties, attempting to gather old records: 20 minutes Documenting medical record: 15 minutes Review of results (EKG's, labs, imaging): 10 minutes Serial repeat bedside evaluation: 10 minutes Discussing case with multiple memebers of the care team and consultants: 15 minutes Total Critical Care Time: 70
--- NOTE | 2025-11-16 12:05 | PM.IMHP2 ---
H&P: HPI History of Present Illness Date/Time: 11/16/25 12:05 Chief Complaint: Abdominal pain Narrative: 60 years old female with history of multiple medical problems including insulin-dependent diabetes, chronic depression, fibromyalgia, high cholesterol, hypertension and overactive urinary bladder on multiple medications was admitted to the emergency room with complaints of having and left abdominal pain going on for last 1 week. Patient also severe constipation. Last bowel movement was 1 week ago. Patient denies any nausea or vomiting. Patient denies any shortness of breath or chest pain. In the ER patient was found to have severe diabetic ketoacidosis. With pH of 7.2. Patient was also found to have colitis and possible UTI. Blood cultures were done and patient was started on IV antibiotics. DKA protocol was also initiated. Due to rounds patient was transferred to ICU for the management. At present time patient is lying comfortably in the bed. Patient still have mentioned abdominal pain. No fever, no shortness of breath or chest pain. Review of Systems Review of Systems: All systems reviewed & are unremarkable except as noted in HPI and below (the history and physical examination.) [facility] Past Medical History Medical History Right knee DJD Injury of right knee Right knee pain Low vitamin D level Chest pain Dietary counseling and surveillance Hyperlipidemia LDL goal <100 Uncontrolled type 2 diabetes mellitus with hyperglycemia CAD (coronary artery disease) Restless leg syndrome Fibromyalgia MARISELA (obstructive sleep apnea) Diabetes Dyslipidemia Hypertension Surgical History Surgical History Status post YAG capsulotomy History of heart artery stent Hx of cholecystectomy 1983 H/O: hysterectomy 1989 Family History Family History Mother Diabetes mellitus Heart disease Heart attack in 50s, passed in age 70s. Hypercholesterolemia Hypertension Cerebrovascular accident Father Diabetes mellitus Heart disease Heart attacks in early 60s, passed in age 70s. Hypercholesterolemia Hypertension Cerebrovascular accident Stomach cancer Sibling Diabetes mellitus Hypercholesterolemia Lung cancer Brother Hypertension Grandparent Heart disease Hypercholesterolemia Hypertension Social History Social History Social History: Ms. 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 She lives at home in [place], [place] with her , Ceferino. She denies alcohol, tobacco, or other substance use. She designates Ceferino to be her surrogate decision maker and wishes to be full code status. Her PCP is Dr Sam Shine in [place], [place]. CAFFEINE USE Smoking status: Never smoker Alcohol intake: never Substance use: never Lack of Transportation: No Lack of Food: Never True Current Housing: I Have Housing Concerned About Future Housing: No Difficulty Paying Gas/Electric Bills: No Difficulty Paying for Meds: No Currently Unemployed: No Education: High School Diploma/GED Difficulty w/ Childcare or Family Care: No Living arrangements: with family Occupation/Education: retired Gender identity (if verbalized by the patient): Female Spiritual care concerns: No Meds Home Medications and Allergies Home Medications ?Medication ?Instructions ?Recorded ?Confirmed ?Type duloxetine 60 mg capsule,delayed 60 mg PO DAILY 01/04/21 11/16/25 History release omeprazole 40 mg capsule,delayed 40 mg PO BID 01/04/21 11/16/25 History release pregabalin 200 mg capsule 200 mg PO BID 01/04/21 11/16/25 History ropinirole 0.25 mg tablet 0.25 mg PO HS 01/04/21 11/16/25 History blood-glucose sensor (Dexcom G6 #9 ea 08/03/24 11/16/25 Rx Sensor device) blood-glucose transmitter (Dexcom #1 ea 08/03/24 11/16/25 Rx G6 Transmitter device) semaglutide 2 mg/dose (8 mg/3 mL) 2 mg (0.75 mL) subcut WEEKLY #6 mL 08/03/24 11/16/25 Rx subcutaneous pen injector (Ozempic) insulin glargine U-300 conc 300 30 unit subcut HS 01/04/25 11/16/25 History unit/mL (3 mL) subcutaneous pen (Toujeo Max U-300 SoloStar) insulin regular hum U-500 conc 500 See Rx Instructions .Route .COMPLEX 01/04/25 11/16/25 History unit/mL(3 mL) subcut pen (Humulin R U-500 (Conc) Insulin Kwikpen) rosuvastatin 40 mg tablet 40 mg PO DAILY #90 tabs 01/04/25 11/16/25 Rx aspirin 81 mg capsule 81 mg PO DAILY 11/16/25 11/16/25 History tolterodine 4 mg capsule,extended 4 mg PO Q24H 11/16/25 11/16/25 History release 24 hr valsartan 80 mg tablet 80 mg PO DAILY 11/16/25 11/16/25 History Allergies Allergy/AdvReac Type Severity Reaction Status Date / Time KAYCEE Inhibitors AdvReac Mild Unknown Verified 11/16/25 10:56 metformin AdvReac Diarrhea Verified 11/16/25 10:56 Vital Signs Vital Signs - 24 hr 11/15/25 23:28 11/16/25 07:18 11/16/25 09:38 Temperature 36.6 C Pulse Rate 86 80 80 Respiratory Rate 16 13 16 Blood Pressure 143/58 H 122/66 160/71 H Pulse Oximetry 96 100 97 Oxygen Delivery Room Air 11/16/25 11:00 11/16/25 11:55 Temperature Pulse Rate 73 73 Respiratory Rate 15 20 Blood Pressure 93/48 L Pulse Oximetry 99 99 Oxygen Delivery Room Air Exam Narrative: GENERAL: Well-appearing, well-nourished, and in no acute distress. HEAD: Normocephalic, atraumatic. EYES: PERRLA and EOMI. ENT: Nares clear, no rhinorrhea or epistaxis. Mucous membranes moist. NECK: Supple. CHEST: Clear to auscultation. No respiratory distress. HEART: Regular rate and rhythm. No murmur heard. Normal peripheral pulses. ABDOMEN: Soft, diffuse tenderness, nondistended, normal active bowel sounds. EXTREMITIES: Normal range of motion. No edema. SKIN: Warm, dry, no rash. NEURO: No focal deficits. Alert and oriented x3. PSYCH: Normal mood and affect. Results Labs Labs: Short CBC 11/16/25 Range/Units 02:54 WBC 12.9 H (4.5-10.0) K/mm3 Hgb 12.0 (12.0-15.0) g/dL Hct 36.6 L (37.0-47.0) % Plt Count 198 (150-375) k/mm3 [facility] 11/16/25 11/16/25 02:54 09:10 Sodium 129 L 131 L Potassium 4.8 4.7 Chloride 95 L 99 Carbon Dioxide 17 L 16 L BUN 75 H D 72 H Creatinine 7.74 H 6.95 H Glucose 396 H 411 H Calcium 7.4 L 7.0 L Liver Function 11/16/25 Range/Units 02:54 Total Bilirubin 0.8 (0.2-1.3) mg/dL AST 67 H (14-36) U/L ALT 55 H (6-35) U/L Alkaline Phosphatase 265 H (38-126) U/L Albumin 3.1 L (3.5-5.1) g/dL Urine 11/16/25 Range/Units 04:49 Urine Color Yellow (Yellow) Urine Appearance Clear (Clear) Urine pH 5.5 (5.0-9.0) Ur Specific [place] 1.010 (1.001-1.035) Urine Protein 2+ H (Negative) mg/dL Urine Glucose (UA) 2+ H (Negative) mg/dL Assessment and Plan Assessment and plan (1) DKA (diabetic ketoacidosis): Code(s): E11.10 - Type 2 diabetes mellitus with ketoacidosis without coma Status: Acute Assessment and Plan: Continue with IV fluids and DKA protocol. Monitor sugar closely. (2) UTI (urinary tract infection): Code(s): N39.0 - Urinary tract infection, site not specified Status: Acute Assessment and Plan: Blood and urine culture. IV antibiotics (3) Acute renal failure: Code(s): N17.9 - Acute kidney failure, unspecified Status: Acute Assessment and Plan: Patient has full be in place now.. Will monitor creatinine closely. Continue with IV hydration. (4) Hypertension: Code(s): I10 - Essential (primary) hypertension Status: Chronic Assessment and Plan: Stable on medications, will continue current treatment. (5) Dyslipidemia: Code(s): E78.5 - Hyperlipidemia, unspecified Status: Chronic Assessment and Plan: Stable on medications, will continue current treatment. (6) Fibromyalgia: Code(s): M79.7 - Fibromyalgia Status: Acute Assessment and Plan: Stable on medications, will continue current treatment. Plan Patient is admitted as a full admission ICU. Critical Care consult ordered. Full code. DVT prophylaxis heparin.
[2025-11-16 13:05] LABS: Anion Gap 14 mmol/L (4-12); Blood Urea Nitrogen 72 mg/dL (7-17); Calcium 6.8 mg/dL (8.4-10.2); Carbon Dioxide 16 mmol/L (22-30); Chloride 103 mmol/L (98-107); Estimated CRCL calculation 9 ml/min; Estimated Glomerular Filt Rate 6; Glucose 280 mg/dL (65-110); Potassium 3.9 mmol/L (3.4-5.0); Sodium 133 mmol/L (137-145)
[2025-11-16] MEDS: KCL 20 MEQ/D5/0.45% SOD CHL 1,000 ML 150 ML IV CONT ×2 (14:03→21:02)
--- NOTE | 2025-11-16 14:07 | PM.CNNEP ---
Assessment and Plan Assessment and plan (1) Acute renal failure: Qualifiers: Acute renal failure type: with acute tubular necrosis Qualified Code(s): N17.0 - Acute kidney failure with tubular necrosis Code(s): N17.9 - Acute kidney failure, unspecified Status: Acute Assessment and Plan: The patient has acute kidney injury. This is on top of basically normal renal function. The patient says that she has never seen a receptionist/telephone operator. She has never been told of protein in the urine or had any kidney issues in the past. urinalysis shows 2+ protein and 2+ glucose with trace ketones. Latter 2 issues are of course because of her diabetes. The former issue is hard to interpret in the current clinical scenario. However based on her A1c etc. I would not be surprised if she had some protein in the urine. Will try to get some old records. Her doctor is in [place]. Etiology of Renal failure could be multifactorial. She has not been eating or drinking very well in the last week with her constipation. Also she has DKA so is likely dehydrated. The patient did have urinary retention. It is unclear whether this is acute or chronic. She does have neuropathy and so could have a hypotonic bladder and have chronic retention. Whether acute or chronic it clearly needs to be treated but I am not sure if it is contributing to her renal failure. Usually if someone has acute retention, then once the catheter goes in lots of urine results. She does not have very much urine in the Dickinson bag, however she is also dehydrated so this may slow down the postobstructive diuresis. Will leave the Dickinson catheter in and see what develops down the line. Other causes of renal failure include ureteral obstruction ( however CT scan does not show any hydronephrosis), rhabdomyolysis ( will check a CK) , allergic interstitial nephritis ( but no new meds are on board) glomerulonephritis ( unusual in this clinical scenario). At this point will get urine electrolytes, CPK, and a renal ultrasound to assess renal size and echogenicity. (2) Colitis: Code(s): K52.9 - Noninfective gastroenteritis and colitis, unspecified Status: Acute Assessment and Plan: the patient is getting antibiotics (3) DKA (diabetic ketoacidosis): Code(s): E11.10 - Type 2 diabetes mellitus with ketoacidosis without coma Status: Acute Assessment and Plan: getting insulin and fluids on the DKA protocol (4) Acute urinary retention: Code(s): R33.8 - Other retention of urine Status: Acute Assessment and Plan: see above (5) Hyperlipidemia LDL goal <100: Code(s): E78.5 - Hyperlipidemia, unspecified Status: Acute Assessment and Plan: on rosuvastatin (6) CAD (coronary artery disease): Code(s): I25.10 - Atherosclerotic heart disease of [place] coronary artery without angina pectoris Status: Acute Assessment and Plan: no chest pain (7) MARISELA (obstructive sleep apnea): Code(s): G47.33 - Obstructive sleep apnea (adult) (pediatric) Status: Chronic (8) Hypertension: Code(s): I10 - Essential (primary) hypertension Status: Chronic Assessment and Plan: blood pressure okay earlier but dropped some now. Will hold antihypertensives. History of Present Illness Reason for Consult Consult date: 11/16/25 Chief Complaint Chief complaint: obstructive uropathy dka,colitis History of Present Illness Narrative: Romina is a very pleasant 60-year-old lady who has multiple medical problems including diabetes, sleep apnea, hyperlipidemia, hypertension, coronary disease status post MO and a stent, TIA without sequela, vitamin-D deficiency, restless legs, and fibromyalgia. The patient has had constipation for a few days. She tried MiraLax a couple of times but it did not really do much. In the meantime her sugars have been high and recently higher than usual. Because of the discomfort she had from her constipation she decided to come into the ER. In the ER she was evaluated. Her belly was a bit tender. Her sugars were very high and other test showed DKA. She was found to have a large amount of urine in her bladder. Dickinson catheter was placed and she had 650cc of urine. The patient says that she does have urinary frequency as a rule. However she says for the last couple of days she has not made much urine at all. The patient was put on insulin drip and given IV fluids. The patient generally feels crummy right now. She does not have any chest pain or shortness of breath. No nausea or vomiting. Review of Systems Constitutional: Constitutional: Reports no additional constitutional complaints Eyes: Eyes: Reports no additional eye complaints ENT: Reports system reviewed and no additional complaints, except as documented Cardiovascular: Cardiovascular: Reports no additional cardiovascular complaints Respiratory: Respiratory: Reports no additional respiratory complaints Gastrointestinal: Gastrointestinal: Reports no additional gastrointestinal complaints Genitourinary: Genitourinary: Reports no additional female genitourinary complaints Musculoskeletal: Musculoskeletal: Reports no additional musculoskeletal complaints Integumentary/Breasts: Skin/Breast: Reports system reviewed and no additional complaints, except as docu Neurologic: Reports system reviewed and no additional complaints, except as documented Psychiatric: Psychiatric: Reports no additional psychiatric complaints Endocrine: Endocrine: Reports no additional endocrine complaints [facility] Past Medical History Medical History Right knee DJD Injury of right knee Right knee pain Low vitamin D level Chest pain Dietary counseling and surveillance Hyperlipidemia LDL goal <100 Uncontrolled type 2 diabetes mellitus with hyperglycemia CAD (coronary artery disease) Restless leg syndrome Fibromyalgia MARISELA (obstructive sleep apnea) Diabetes Dyslipidemia Hypertension Surgical History Surgical History Status post YAG capsulotomy History of heart artery stent Hx of cholecystectomy 1983 H/O: hysterectomy 1989 Family History Family History Mother Diabetes mellitus Heart disease Heart attack in 50s, passed in age 70s. Hypercholesterolemia Hypertension Cerebrovascular accident Father Diabetes mellitus Heart disease Heart attacks in early 60s, passed in age 70s. 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 She lives at home in [place], [place] with her , Ceferino. She denies alcohol, tobacco, or other substance use. She designates Ceferino to be her surrogate decision maker and wishes to be full code status. Her PCP is Dr Sam Shine in [place], [place]. CAFFEINE USE Smoking status: Never smoker Alcohol intake: never Substance use: never Lack of Transportation: No Lack of Food: Never True Current Housing: I Have Housing Concerned About Future Housing: No Difficulty Paying Gas/Electric Bills: No Difficulty Paying for Meds: No Currently Unemployed: No Education: High School Diploma/GED Difficulty w/ Childcare or Family Care: No Living arrangements: with family Occupation/Education: retired Gender identity (if verbalized by the patient): Female Spiritual care concerns: No Meds Home Medications and Allergies Home Medications ?Medication ?Instructions ?Recorded ?Confirmed ?Type duloxetine 60 mg capsule,delayed 60 mg PO DAILY 01/04/21 11/16/25 History release omeprazole 40 mg capsule,delayed 40 mg PO BID 01/04/21 11/16/25 History release pregabalin 200 mg capsule 200 mg PO BID 01/04/21 11/16/25 History ropinirole 0.25 mg tablet 0.25 mg PO HS 01/04/21 11/16/25 History blood-glucose sensor (Dexcom G6 #9 ea 08/03/24 11/16/25 Rx Sensor device) blood-glucose transmitter (Dexcom #1 ea 08/03/24 11/16/25 Rx G6 Transmitter device) semaglutide 2 mg/dose (8 mg/3 mL) 2 mg (0.75 mL) subcut WEEKLY #6 mL 08/03/24 11/16/25 Rx subcutaneous pen injector (Ozempic) insulin glargine U-300 conc 300 30 unit subcut HS 01/04/25 11/16/25 History unit/mL (3 mL) subcutaneous pen (Toujeo Max U-300 SoloStar) insulin regular hum U-500 conc 500 See Rx Instructions .Route .COMPLEX 01/04/25 11/16/25 History unit/mL(3 mL) subcut pen (Humulin R U-500 (Conc) Insulin Kwikpen) rosuvastatin 40 mg tablet 40 mg PO DAILY #90 tabs 01/04/25 11/16/25 Rx aspirin 81 mg capsule 81 mg PO DAILY 11/16/25 11/16/25 History tolterodine 4 mg capsule,extended 4 mg PO Q24H 11/16/25 11/16/25 History release 24 hr valsartan 80 mg tablet 80 mg PO DAILY 11/16/25 11/16/25 History Allergies Allergy/AdvReac Type Severity Reaction Status Date / Time KAYCEE Inhibitors AdvReac Mild Unknown Verified 11/16/25 10:56 metformin AdvReac Diarrhea Verified 11/16/25 10:56 Vital Signs Vital Signs - 24 hr 11/15/25 23:28 11/16/25 07:18 11/16/25 09:38 Temperature 97.8 F Pulse Rate 86 80 80 Respiratory Rate 16 13 16 Blood Pressure 143/58 H 122/66 160/71 H Pulse Oximetry 96 100 97 Oxygen Delivery Room Air 11/16/25 11:00 11/16/25 11:55 11/16/25 12:00 Temperature Pulse Rate 73 73 73 Respiratory Rate 15 20 Blood Pressure 93/48 L Pulse Oximetry 99 99 Oxygen Delivery Room Air 11/16/25 12:00 11/16/25 13:00 Temperature 97.5 F L 97.5 F L Pulse Rate 72 73 Respiratory Rate 14 12 Blood Pressure 79/39 L 94/62 L Pulse Oximetry 98 98 Oxygen Delivery Exam Narrative: Exam Narrative: Well developed well-nourished female in no acute distress Skin is warm and dry without rash Head normocephalic atraumatic Eyes normal sclerae and conjunctivae Mouth normal lips teeth and gums Neck no nodes no thyromegaly no carotid bruits Axillae no nodes Back no CVA tenderness Lungs symmetric and clear to auscultation and percussion Heart regular rate and rhythm without rub or gallop Abdomen bowel sounds positive soft mildly and diffuse tender without rebound, no HSM, masses, or bruits. Extremities no cyanosis, clubbing, and 1+ bilateral edema in legs and presacral Pulses 2+ equal in radial arteries Psychological not anxious or depressed Neuro alert and oriented x3 motor 5/5 cranial nerves 2-12 intact reflexes 2+ and equal in the biceps and patellar tendons cerebellar normal rapid alternating movements Results Lab Results 11/16/25 02:54 11/16/25 12:23 Lab results: Most recent lab results ABG pH 7.268 (7.350-7.450) L* 11/16/25 07:28 ABG pCO2 32.9 mmHg (35.0-45.0) L 11/16/25 07:28 ABG pO2 79.4 mmHg (80.0-100.0) L 11/16/25 07:28 ABG HCO3 14.7 mEq/l (22.0-26.0) L 11/16/25 07:28 ABG O2 Saturation 94.3 % (95.0-100.0) L 11/16/25 07:28 Calcium 6.8 mg/dL (8.4-10.2) L 11/16/25 12:23 Phosphorus 5.4 mg/dL (2.5-4.5) H 11/16/25 09:10 Magnesium 2.5 mg/dL (1.6-2.3) H 11/16/25 02:54
[2025-11-16] MEDS: INSULIN HUMAN REGULAR (*BKC) 100 UNITS in SODIUM CHLORIDE 0.9% IV 99 ML IV CONT (14:50)
[2025-11-16 16:04] LABS: Total Protein Urine Random 87 mg/dL; Ur Ttl Prot Creatinine Ratio 2.33 mg/mg (0-0.20)
[2025-11-16 16:06] LABS: Urea Random Urine 221 MG/DL
[2025-11-16 17:00] LABS: Anion Gap 12 mmol/L (4-12); Blood Urea Nitrogen 72 mg/dL (7-17); Calcium 6.7 mg/dL (8.4-10.2); Carbon Dioxide 16 mmol/L (22-30); Chloride 103 mmol/L (98-107); Estimated CRCL calculation 9 ml/min; Estimated Glomerular Filt Rate 6; Glucose 159 mg/dL (65-110); Potassium 4.3 mmol/L (3.4-5.0); Sodium 131 mmol/L (137-145)
[2025-11-16] MEDS: LACTULOSE 20 GM/30 ML UDC PO (17:06)
[2025-11-16 17:32] LABS: Creatine Kinase 52 U/L (30-135)
[2025-11-16 21:03] LABS: Anion Gap 15 mmol/L (4-12); Blood Urea Nitrogen 69 mg/dL (7-17); Calcium 6.6 mg/dL (8.4-10.2); Carbon Dioxide 13 mmol/L (22-30); Chloride 104 mmol/L (98-107); Estimated CRCL calculation 9 ml/min; Estimated Glomerular Filt Rate 6; Glucose 249 mg/dL (65-110); Potassium 4.3 mmol/L (3.4-5.0); Sodium 132 mmol/L (137-145)
[2025-11-16] MEDS: TOLTERODINE TARTRATE LA 4 MG CAP.ER.24H PO (21:03)
[2025-11-16] MEDS: PANTOPRAZOLE 40 MG TABLET PO (21:03)
[2025-11-17] VITALS (27 sets, daily range): BP systolic 88–169; BP diastolic 53–97; PULSE 71–80; RESP 9–21; TEMP 36.4–36.6; O2SAT 21–100; BMI 47.2
--- NOTE | 2025-11-17 | ECHO_ITS ---
Patient Info Name: Romina Dick Age: 60 years : 1965 Gender: Female Ht: 62 in Wt: 258 lbs BSA: 2.33 m2 HR: 74 bpm BP: 138 / 68 mmHg Heart Rhythm: Sinus Rhythm Technical Quality: Fair Exam Date: 11/17/2025 11:07 AM Patient Status: I Admit Date: 11/17/2025 Exam Type: CA echo dop color flow w con Complete two-dimensional, color flow and Doppler transthoracic echocardiogram is performed with contrast to opacify the left ventricle and to improve the deliniation of the left ventricle endocardial borders. Staff Referring Physician: Sidney Gil Animal Care Taker: Carolina Issa Attending Provider: Jose Mancera MD Contrast/Agitated Saline Contrast/Ag. Saline: Definity Amount: 2.00 ml Administered By: Carolina Issa Existing IV Access: Yes IV Access Condition: patent with no signs of infiltration Summary 1. Suboptimal image quality. Echo contrast was used. Normal LV size and wall thickness, hyperdynamic LV systolic function, EF more than 70%. Normal diastolic function. Normal RV size and systolic function. Normal mitral valve structure, no significant MR. Aortic valve is not well visualized, maximum velocity 2 m/sec, mean gradient 10 mmHg, aortic valve area 1.9 cm2. RVSP 30 mmHg. Left Ventricle Left ventricular chamber dimension is normal. Left ventricular systolic function is hyperdynamic, estimated at >70. There is no increased left ventricular wall thickness. The left ventricular diastolic function is normal. Right Ventricle Right ventricular chamber dimension is normal. Right ventricular systolic function is normal. Left Atria Left atrial chamber dimension is mildly enlarged. Right Atria Right atrial chamber dimension is normal. Aortic Valve The aortic valve is not well visualized. Pulmonic Valve The pulmonic valve is normal. Mitral Valve The mitral valve has normal leaflets. Tricuspid Valve The tricuspid valve leaflets are normal. Pericardium/Pleural The pericardium appears normal. Left Ventricular Outflow Tract Name Value Normal LVOT 2D LVOT Diameter 2.0 cm LVOT Doppler LVOT Peak Velocity 115 cm/s LVOT Peak Gradient 5 mmHg LVOT Mean Gradient 2 mmHg LVOT VTI 23 cm LVOT VTI/AV VTI Ratio 0.6 LVOT Stroke Volume 72 ml LVOT CO 5.2 l/min LVOT CI 2.2 l/min/m2 Pulmonic Valve Name Value Normal RVOT Doppler RVOT Peak Velocity 87 cm/s RVOT Peak Gradient 3 mmHg PV Doppler PV Peak Velocity 109 cm/s PV Peak Gradient 5 mmHg Mitral Valve Name Value Normal MV Diastolic Function MV E Peak Velocity 95 cm/s MV A Peak Velocity 103 cm/s MV E/A 0.9 MV Decel Time (PW) 286 ms MV Annular TDI MV E/e' (Septal) 9.4 MV E/e' (Lateral) 13.3 MV E/e' (Average) 11.3 Tricuspid Valve Name Value Normal TV Regurgitation Doppler TR Peak Velocity 224 cm/s TR Peak Gradient 20 mmHg Estimated PAP/RSVP RA Pressure 10 mmHg <=5 PA Systolic Pressure 30 mmHg <36 RV Systolic Pressure 30 mmHg <36 TV Annular TDI TV Lateral Yecenia s' Velocity 16.4 cm/s >=9.5 Aortic Valve Name Value Normal AV Doppler AV Peak Velocity 207 cm/s AV Peak Gradient 17 mmHg AV Mean Gradient 9 mmHg AV VTI 38 cm AV Area (Cont Eq VTI) 1.9 cm2 >=3.0 AV Area (Cont Eq Efren) 1.7 cm2 AV DI (Efren) 0.56 AV Regurgitation 2D LVOT Area 3.1 cm2 Ventricles Name Value Normal LV Dimensions 2D/MM IVS Diastolic Thickness (2D) 0.9 cm 0.6-1.0 LVID Diastole (2D) 3.8 cm 3.8-5.2 LVIW Diastolic Thickness (2D) 0.9 cm 0.6-0.9 LVID Systole (2D) 2.4 cm 2.2-3.5 LVOT Diameter 2.0 cm LV Mass (2D Cubed) 102.24 g 67.00-162.00 LV Mass Index (2D Cubed) 44 g/m2 43-95 Relative Wall Thickness (2D) 0.47 <=0.42 LV Fractional Shortening/Ejection Fraction 2D/MM LV Fractional Shortening (2D) 37 % 27-45 LV EF (2D Teichholz) 68 % LV Diastolic Volume (4C MOD) 63 ml LV EF (4C MOD) 76 % LV Diastolic Volume (2C MOD) 57 ml LV EF (2C MOD) 73 % LV Diastolic Volume (BP MOD) 61 ml 46-106 LV Diastolic Volume Index (BP MOD) 26 ml/m2 29-61 LV Systolic Volume (BP MOD) 15 ml 14-42 LV Systolic Volume Index (BP MOD) 7 ml/m2 8-24 LV EF (BP MOD) 75 % 54-74 LV Diastolic Length (4C) 7.5 cm LV Systolic Length (4C) 6.2 cm LV Stroke Volume (4C MOD) 48 ml Atria Name Value Normal LA Dimensions LA Volume (4C A-L) 68 ml LA Volume (BP A-L) 58 ml RA Dimensions RA Area (4C) 16.8 cm2 <=18.0 Report Signatures
[2025-11-17 00:40] LABS: Anion Gap 10 mmol/L (4-12); Blood Urea Nitrogen 69 mg/dL (7-17); Calcium 6.6 mg/dL (8.4-10.2); Carbon Dioxide 17 mmol/L (22-30); Chloride 104 mmol/L (98-107); Estimated CRCL calculation 9 ml/min; Estimated Glomerular Filt Rate 6; Glucose 258 mg/dL (65-110); Potassium 4.3 mmol/L (3.4-5.0); Sodium 131 mmol/L (137-145)
[2025-11-17] MEDS: SODIUM CHLORIDE 0.9% IV 1,000 ML 150 ML IV CONT (01:01)
[2025-11-17] MEDS: metroNIDAZOLE 500 MG/ISO 100ML 500 MG/100 ML BAG 100 MG IVPB ×3 (01:55→17:30)
[2025-11-17 04:25] LABS: Hematocrit 32.9 % (37.0-47.0); Hemoglobin 10.8 g/dL (12.0-15.0); Mean Corpuscular HGB Conc 32.8 g/dl (32-36); Mean Corpuscular Hemoglobin 28.1 pg (26-34); Mean Corpuscular Volume 85.7 fl (80-100); Platelet Count Result 184 k/mm3 (150-375); Red Blood Count 3.84 M/mm3 (4.2-5.4); White Blood Count 9.2 K/mm3 (4.5-10.0)
[2025-11-17 04:49] LABS: Albumin Level 2.7 g/dL (3.5-5.1); Anion Gap 11 mmol/L (4-12); Blood Urea Nitrogen 69 mg/dL (7-17); Calcium 6.5 mg/dL (8.4-10.2); Carbon Dioxide 17 mmol/L (22-30); Chloride 105 mmol/L (98-107); Estimated CRCL calculation 9 ml/min; Estimated Glomerular Filt Rate 6; Glucose 204 mg/dL (65-110); Magnesium 2.3 mg/dL (1.6-2.3); Potassium 4.2 mmol/L (3.4-5.0); Sodium 133 mmol/L (137-145)
[2025-11-17] MEDS: KCL 20 MEQ/D5/0.45% SOD CHL 1,000 ML 150 ML IV CONT (08:14)
[2025-11-17 08:43] LABS: Anion Gap 14 mmol/L (4-12); Blood Urea Nitrogen 68 mg/dL (7-17); Calcium 6.4 mg/dL (8.4-10.2); Carbon Dioxide 13 mmol/L (22-30); Chloride 105 mmol/L (98-107); Estimated CRCL calculation 9 ml/min; Estimated Glomerular Filt Rate 6; Glucose 223 mg/dL (65-110); Potassium 4.4 mmol/L (3.4-5.0); Sodium 132 mmol/L (137-145)
[2025-11-17] MEDS: cefTRIAXone 1 GM in SODIUM CHLORIDE 0.9% IV 50 ML 100 ML IVPB (08:48)
[2025-11-17] MEDS: BISACODYL 10 MG SUPPOSITORY RECTAL (08:48)
[2025-11-17] MEDS: ROSUVASTATIN 20 MG TABLET 40 MG PO (08:49)
[2025-11-17] MEDS: DULoxetine HCL 60 MG CAPSULE.DR PO (08:49)
[2025-11-17] MEDS: PANTOPRAZOLE 40 MG TABLET PO (08:49)
[2025-11-17] MEDS: LACTULOSE 20 GM/30 ML UDC PO ×3 (08:49→17:30)
--- NOTE | 2025-11-17 09:06 | WPDINTPN2 ---
Assessment and Plan Assessment and Plan (1) Acute renal failure: Qualifiers: Acute renal failure type: with acute tubular necrosis Qualified Code(s): N17.0 - Acute kidney failure with tubular necrosis Code(s): N17.9 - Acute kidney failure, unspecified Status: Acute (2) Colitis: Code(s): K52.9 - Noninfective gastroenteritis and colitis, unspecified Status: Acute (3) DKA (diabetic ketoacidosis): Code(s): E11.10 - Type 2 diabetes mellitus with ketoacidosis without coma Status: Acute (4) Constipation: Code(s): K59.00 - Constipation, unspecified Status: Acute Plan 1. Neurologically: Patient is awake and interactive 2. Cardiovascular sinus rhythm without any dysrhythmic events. She still has swelling of the lower extremities. Will obtain venous ultrasound although the swelling is probably more related to renal insufficiency. No echocardiogram in the system, will obtain 1. 3. Respiratory: She is asymptomatic. Denies any cough or shortness of breath. 4. GI still constipated despite of lactulose, MiraLax, Dulcolax suppository. Abdomen is benign if she does have bowel sounds. 5. and Renal: Patient is producing some urine. Her BUN and creatinine remains about the same. Hyponatremia persists, would change IV fluids. 6. Endocrine: Anion gap acidosis has worsened. Will check lactic acid. Continue insulin drip for now. Patient does not smell like ketones. Check her beta hydroxybutyrate 7. Hematologically: Similar to yesterday except for the hemoglobin which has dropped most likely related to fluid. 8. DVT prophylaxis on heparin. 9. Id: She was empirically started on antibiotics which I will continue for now. Subjective Date/time seen: 11/17/25 09:06 Interval history: Patient is still constipated. Denies any nausea, vomiting or abdominal pain. She remains on low insulin drip with blood sugars in the low 200s. Exam Const: General: comfortable HENMT: Mouth: Yes moist mucous membranes Eyes: General: appearance normal, both eyes and all related structures Neck: Neck: no JVD Resp: Effort & Inspection: normal respiratory effort Cardio: Rate: regular rate GI: Inspection: distended GI Palp: Yes Soft to palpation Urinary Catheter: Urinary Catheter: patent and draining Skin: General skin exam: normal color Neuro: Speech: normal speech Other: Awake alert oriented and nonfocal Extrem: Other: 2+ edema in lower extremities Psych: Mental Status: mental status grossly normal Objective Data Vital Signs Vital Signs: Vital Signs - 24 hr 11/16/25 09:38 11/16/25 11:00 11/16/25 11:55 Temperature Pulse Rate 80 73 73 Respiratory Rate 16 15 20 Blood Pressure 160/71 H 93/48 L Pulse Oximetry 97 99 99 Oxygen Delivery Room Air 11/16/25 12:00 11/16/25 12:00 11/16/25 13:00 Temperature 97.5 F L 97.5 F L Pulse Rate 73 72 73 Respiratory Rate 14 12 Blood Pressure 79/39 L 94/62 L Pulse Oximetry 98 98 Oxygen Delivery 11/16/25 14:00 11/16/25 14:00 11/16/25 15:00 Temperature 97.6 F Pulse Rate 75 74 73 Respiratory Rate 14 12 Blood Pressure 95/54 L 84/56 L Pulse Oximetry 100 99 Oxygen Delivery 11/16/25 16:00 11/16/25 16:00 11/16/25 17:00 Temperature 97.6 F Pulse Rate 73 74 78 Respiratory Rate 15 20 Blood Pressure 100/55 L 120/76 Pulse Oximetry 99 99 Oxygen Delivery 11/16/25 18:00 11/16/25 18:00 11/16/25 19:00 Temperature 97.7 F Pulse Rate 79 80 80 Respiratory Rate 18 16 Blood Pressure 114/60 121/58 L Pulse Oximetry 100 99 Oxygen Delivery 11/16/25 20:00 11/16/25 20:00 11/16/25 20:00 Temperature 98.6 F Pulse Rate 74 75 77 Respiratory Rate 14 14 Blood Pressure 90/69 L Pulse Oximetry 98 98 Oxygen Delivery Room Air 11/16/25 21:00 11/16/25 22:00 11/16/25 22:00 Temperature Pulse Rate 71 74 74 Respiratory Rate 12 16 Blood Pressure 93/80 L 127/59 L Pulse Oximetry 98 98 Oxygen Delivery 11/16/25 23:00 11/17/25 00:00 11/17/25 00:00 Temperature 97.6 F Pulse Rate 75 76 74 Respiratory Rate 13 12 Blood Pressure 98/59 L 92/53 L Pulse Oximetry 99 97 Oxygen Delivery 11/17/25 00:05 11/17/25 01:00 11/17/25 02:00 Temperature Pulse Rate 76 76 76 Respiratory Rate 12 16 Blood Pressure 103/64 Pulse Oximetry 99 99 Oxygen Delivery Room Air 11/17/25 02:00 11/17/25 03:00 11/17/25 04:00 Temperature 98 F Pulse Rate 76 75 74 Respiratory Rate 15 18 15 Blood Pressure 88/64 L 98/61 L 119/68 Pulse Oximetry 95 96 96 Oxygen Delivery 11/17/25 04:00 11/17/25 04:00 11/17/25 05:00 Temperature Pulse Rate 74 74 72 Respiratory Rate 15 15 Blood Pressure 99/58 L Pulse Oximetry 96 94 Oxygen Delivery Room Air 11/17/25 06:00 11/17/25 06:00 11/17/25 07:00 Temperature Pulse Rate 72 71 75 Respiratory Rate 15 14 Blood Pressure 113/60 109/58 L Pulse Oximetry 96 97 Oxygen Delivery 11/17/25 08:00 11/17/25 08:00 11/17/25 08:00 Temperature 97.7 F Pulse Rate 73 73 73 Respiratory Rate 12 12 Blood Pressure 120/62 Pulse Oximetry 97 97 Oxygen Delivery Room Air Intake/Output Intake/Output: Intake & Output 11/14/25 11/15/25 11/16/25 11/17/25 23:59 23:59 23:59 23:59 Intake Total 4151.5 1357.3 Output Total 950 450 Balance 3201.5 907.3 Meds/Results Medications: Active Medications Generic Name Dose Route Start Last Admin Trade Name Freq PRN Reason Stop Dose Admin Bisacodyl 10 mg 11/17/25 09:00 11/17/25 08:48 Bisacodyl 10 Mg Suppository RECTAL 10 mg DAILY JACINTO Administration Dextrose 12.5 gm 11/16/25 07:49 Dextrose 50% 25 Gm/50 Ml Syringe IV PUSH PRN PRN Hypoglycemia Protocol Duloxetine HCl 60 mg 11/17/25 09:00 11/17/25 08:49 Duloxetine Hcl 60 Mg Capsule.Dr PO 60 mg DAILY JACINTO Administration Glucagon 1 mg 11/16/25 07:49 Glucagon For Inj 1 Mg Vial IM PRN PRN Hypoglycemia Protocol Glucose 15 gm 11/16/25 07:49 Glucose Oral Gel 15 Gm Of Glucse In 37.5 Gm Tube PO PRN PRN Hypoglycemia Protocol Heparin Sodium (Porcine) 5,000 units 11/16/25 14:00 11/17/25 05:57 Heparin Sodium 5,000 Units/Ml Vial SUB-Q Not Given Q8HR JACINTO Dextrose 1,000 mls @ 100 mls/hr 11/16/25 07:49 Dextrose 5% 1,000 Ml IVPB PRN PRN Hypoglycemia Protocol Insulin Human Regular 100 100 mls @ 2 mls/hr 11/16/25 08:00 11/17/25 08:00 units/ Sodium Chloride IV CONT 2 units/hr .Q24H JACINTO 2 mls/hr Protocol Titration 2 UNITS/HR Ceftriaxone Sodium 1 gm/ 50 mls @ 100 mls/hr 11/17/25 09:00 11/17/25 08:48 Sodium Chloride IVPB 100 mls/hr Q24H JACINTO Administration Metronidazole 500 mg in 100 mls @ 100 mls/hr 11/16/25 18:00 11/17/25 02:55 Flagyl 500 Mg/Iso Soln 100 Ml IVPB Infused Q8H JACINTO Infusion Sodium Chloride 1,000 mls @ 150 mls/hr 11/16/25 09:00 11/17/25 06:56 Normal Saline Iv IV CONT 150 mls/hr .Q6H40M JACINTO Infusion Potassium Chloride/Dextrose/Sod Cl 1,000 mls @ 150 mls/hr 11/16/25 09:00 11/17/25 08:14 Kcl 20 Meq/D5/0.45% Sod Chl IV CONT 150 mls/hr .Q6H40M JACINTO Administration Dextrose/Sodium Chloride 1,000 mls @ 100 mls/hr 11/17/25 09:05 Dextrose 5% Sodium Chloride 0.9% IV CONT .Q10H JACINTO Lactulose 20 gm 11/16/25 17:00 11/17/25 08:49 Lactulose 20 Gm/30 Ml Udc PO 20 gm BID JACINTO Administration Pantoprazole Sodium 40 mg 11/16/25 21:00 11/17/25 08:49 Pantoprazole 40 Mg Tablet PO 40 mg Q12HR JACINTO Administration Polyethylene Glycol 17 gm 11/16/25 17:00 11/17/25 08:49 Polyethylene Glycol 3350 17 Gm Powd.Pack PO 17 gm BID JACINTO Administration Ropinirole HCl 0.25 mg 11/16/25 21:00 11/16/25 21:03 Ropinirole Hcl 0.25 Mg Tablet PO 0.25 mg HS JACINTO Administration Rosuvastatin Calcium 40 mg 12/24/25 09:00 11/17/25 08:49 Rosuvastatin 20 Mg Tablet PO 40 mg DAILY JACINTO Administration Tolterodine Tartrate 4 mg 11/16/25 21:00 11/16/25 21:03 Tolterodine Tartrate La 4 Mg Cap.Er.24h PO 4 mg Q24H JACINTO Administration Radiology Results: ITS Impressions Abdomen/Pelvis CT 11/16/25 07:54 IMPRESSION: 1. Wall thickening of the transverse and descending colon, consistent with colitis. Renal Ultrasound 11/16/25 19:28 Impression: 1: Unremarkable renal ultrasound. No stones, masses or hydronephrosis. Labs Labs: Laboratory Results - last 24 hr 11/16/25 11/16/25 11/16/25 09:10 09:18 09:47 WBC RBC Hgb Hct MCV MCH MCHC RDW Plt Count MPV Sodium 131 L Potassium 4.7 Chloride 99 Carbon Dioxide 16 L Anion Gap 16 H BUN 72 H Creatinine 6.95 H Estim Creat Clear Calc Not Reportable Estimated GFR 6 L Glucose 411 H POC Capillary Glucose 398 H Hemoglobin A1c 11.8 H Calcium 7.0 L Phosphorus 5.4 H Magnesium Total Creatine Kinase Albumin U Random Total Protein Ur Random Sodium Ur Random Urea Urine Creatinine Protein/Creat Ratio 2 Nasal MRSA (PCR) Not detected 11/16/25 11/16/25 11/16/25 10:44 11:49 12:23 WBC RBC Hgb Hct MCV MCH MCHC RDW Plt Count MPV Sodium 133 L Potassium 3.9 Chloride 103 Carbon Dioxide 16 L Anion Gap 14 H BUN 72 H Creatinine 7.44 H Estim Creat Clear Calc 9 Estimated GFR 6 L Glucose 280 H POC Capillary Glucose 404 H 323 H Hemoglobin A1c Calcium 6.8 L Phosphorus Magnesium Total Creatine Kinase Albumin U Random Total Protein Ur Random Sodium Ur Random Urea Urine Creatinine Protein/Creat Ratio 2 Nasal MRSA (PCR) 11/16/25 11/16/25 11/16/25 12:52 13:59 14:47 WBC RBC Hgb Hct MCV MCH MCHC RDW Plt Count MPV Sodium Potassium Chloride Carbon Dioxide Anion Gap BUN Creatinine Estim Creat Clear Calc Estimated GFR Glucose POC Capillary Glucose 260 H 189 H 152 H Hemoglobin A1c Calcium Phosphorus Magnesium Total Creatine Kinase Albumin U Random Total Protein Ur Random Sodium Ur Random Urea Urine Creatinine Protein/Creat Ratio 2 Nasal MRSA (PCR) 11/16/25 11/16/25 11/16/25 15:36 15:51 16:36 WBC RBC Hgb Hct MCV MCH MCHC RDW Plt Count MPV Sodium Potassium Chloride Carbon Dioxide Anion Gap BUN Creatinine Estim Creat Clear Calc Estimated GFR Glucose POC Capillary Glucose 150 H Hemoglobin A1c Calcium Phosphorus Magnesium Total Creatine Kinase 52 Albumin U Random Total Protein 87 Ur Random Sodium 53 Ur Random Urea 221 Urine Creatinine 37.3 Protein/Creat Ratio 2 2.33 H Nasal MRSA (PCR) 11/16/25 11/16/25 11/16/25 16:46 16:50 18:06 WBC RBC Hgb Hct MCV MCH MCHC RDW Plt Count MPV Sodium 131 L Potassium 4.3 Chloride 103 Carbon Dioxide 16 L Anion Gap 12 BUN 72 H Creatinine 7.21 H Estim Creat Clear Calc 9 Estimated GFR 6 L Glucose 159 H POC Capillary Glucose 159 H 163 H Hemoglobin A1c Calcium 6.7 L Phosphorus Magnesium Total Creatine Kinase Albumin U Random Total Protein Ur Random Sodium Ur Random Urea Urine Creatinine Protein/Creat Ratio 2 Nasal MRSA (PCR) 11/16/25 11/16/25 11/16/25 18:52 20:04 20:35 WBC RBC Hgb Hct MCV MCH MCHC RDW Plt Count MPV Sodium 132 L Potassium 4.3 Chloride 104 Carbon Dioxide 13 L Anion Gap 15 H BUN 69 H Creatinine 7.51 H Estim Creat Clear Calc 9 Estimated GFR 6 L Glucose 249 H POC Capillary Glucose 182 H 228 H Hemoglobin A1c Calcium 6.6 L Phosphorus Magnesium Total Creatine Kinase Albumin U Random Total Protein Ur Random Sodium Ur Random Urea Urine Creatinine Protein/Creat Ratio 2 Nasal MRSA (PCR) 11/16/25 11/16/25 11/16/25 21:02 22:01 23:02 WBC RBC Hgb Hct MCV MCH MCHC RDW Plt Count MPV Sodium Potassium Chloride Carbon Dioxide Anion Gap BUN Creatinine Estim Creat Clear Calc Estimated GFR Glucose POC Capillary Glucose 226 H 266 H 282 H Hemoglobin A1c Calcium Phosphorus Magnesium Total Creatine Kinase Albumin U Random Total Protein Ur Random Sodium Ur Random Urea Urine Creatinine Protein/Creat Ratio 2 Nasal MRSA (PCR) 11/17/25 11/17/25 11/17/25 00:00 00:18 01:00 WBC RBC Hgb Hct MCV MCH MCHC RDW Plt Count MPV Sodium 131 L Potassium 4.3 Chloride 104 Carbon Dioxide 17 L Anion Gap 10 BUN 69 H Creatinine 7.27 H Estim Creat Clear Calc 9 Estimated GFR 6 L Glucose 258 H POC Capillary Glucose 247 H 273 H Hemoglobin A1c Calcium 6.6 L Phosphorus Magnesium Total Creatine Kinase Albumin U Random Total Protein Ur Random Sodium Ur Random Urea Urine Creatinine Protein/Creat Ratio 2 Nasal MRSA (PCR) 11/17/25 11/17/25 11/17/25 01:58 02:59 03:51 WBC 9.2 RBC 3.84 L Hgb 10.8 L Hct 32.9 L MCV 85.7 MCH 28.1 MCHC 32.8 RDW 16.9 H Plt Count 184 MPV 11.7 H Sodium 133 L Potassium 4.2 Chloride 105 Carbon Dioxide 17 L Anion Gap 11 BUN 69 H Creatinine 7.19 H Estim Creat Clear Calc 9 Estimated GFR 6 L Glucose 204 H POC Capillary Glucose 263 H 212 H Hemoglobin A1c Calcium 6.5 L Phosphorus 4.6 H Magnesium 2.3 Total Creatine Kinase Albumin 2.7 L U Random Total Protein Ur Random Sodium Ur Random Urea Urine Creatinine Protein/Creat Ratio 2 Nasal MRSA (PCR) 11/17/25 11/17/25 11/17/25 03:54 04:58 05:50 WBC RBC Hgb Hct MCV MCH MCHC RDW Plt Count MPV Sodium Potassium Chloride Carbon Dioxide Anion Gap BUN Creatinine Estim Creat Clear Calc Estimated GFR Glucose POC Capillary Glucose 226 H 191 H 204 H Hemoglobin A1c Calcium Phosphorus Magnesium Total Creatine Kinase Albumin U Random Total Protein Ur Random Sodium Ur Random Urea Urine Creatinine Protein/Creat Ratio 2 Nasal MRSA (PCR) 11/17/25 11/17/25 11/17/25 06:55 07:51 08:05 WBC RBC Hgb Hct MCV MCH MCHC RDW Plt Count MPV Sodium 132 L Potassium 4.4 Chloride 105 Carbon Dioxide 13 L Anion Gap 14 H BUN 68 H Creatinine 7.26 H Estim Creat Clear Calc 9 Estimated GFR 6 L Glucose 223 H POC Capillary Glucose 264 H 233 H Hemoglobin A1c Calcium 6.4 L Phosphorus Magnesium Total Creatine Kinase Albumin U Random Total Protein Ur Random Sodium Ur Random Urea Urine Creatinine Protein/Creat Ratio 2 Nasal MRSA (PCR) 11/17/25 09:02 WBC RBC Hgb Hct MCV MCH MCHC RDW Plt Count MPV Sodium Potassium Chloride Carbon Dioxide Anion Gap BUN Creatinine Estim Creat Clear Calc Estimated GFR Glucose POC Capillary Glucose 248 H Hemoglobin A1c Calcium Phosphorus Magnesium Total Creatine Kinase Albumin U Random Total Protein Ur Random Sodium Ur Random Urea Urine Creatinine Protein/Creat Ratio 2 Nasal MRSA (PCR) Critical Care Time Critical Care Time Time Type: Intermittent Initial evaluation, discuss w/ involved parties, attempting to gather old records: 15 minutes Documenting medical record: 10 minutes Review of results (EKG's, labs, imaging): 10 minutes Serial repeat bedside evaluation: 10 minutes Total Critical Care Time: 45
[2025-11-17 10:07] LABS: Beta-Hydroxybutyrate/Acetoace. 0.41 mmol/L (0.02-0.27)
[2025-11-17] MEDS: DEXTROSE 5%/0.9% SOD CHL 1,000 ML 100 ML IV CONT (10:47)
[2025-11-17] MEDS: PERFLUTREN LIPID MICROSPHERES 1.5 ML VIAL DILUTED TO 10 ML TOTAL VOLUME IV PUSH (11:00)
--- NOTE | 2025-11-17 11:48 | IVDEFINITY ---
Prior to administration of IV Definity the patient was educated on the risks and benefits of the imaging enhancing agent including potential adverse side effects. The patient verbalized understanding. Allergies were verified. No exclusion criteria were identified and at least one of the following inclusion criteria were met: 1) physician request, 2) patient technically difficult to image (per the [place] [employer] guidelines of two or more segments not discernable within the apical view), or 3) questionable left ventricular function. ?
[2025-11-17 12:15] LABS: Anion Gap 13 mmol/L (4-12); Blood Urea Nitrogen 65 mg/dL (7-17); Calcium 6.6 mg/dL (8.4-10.2); Carbon Dioxide 16 mmol/L (22-30); Chloride 104 mmol/L (98-107); Estimated CRCL calculation 9 ml/min; Estimated Glomerular Filt Rate 6; Glucose 267 mg/dL (65-110); Potassium 4.4 mmol/L (3.4-5.0); Sodium 133 mmol/L (137-145)
--- NOTE | 2025-11-17 12:45 | P.PNNP_ITS ---
Progress Note: A&P Assessment and Plan (1) Acute renal failure: Qualifiers: Acute renal failure type: with acute tubular necrosis Qualified Code(s): N17.0 - Acute kidney failure with tubular necrosis Code(s): N17.9 - Acute kidney failure, unspecified Status: Acute Assessment and Plan: * no significant change noted since admission * normal baseline kidney function from available records * suspect multifactorial: * prerenal factors * DKA * urinary retention * relative hypotension * valsartan use [employer] * other(?) * evaluation to date: * renal ultrasound unremarkable * urine electrolytes non-prerenal * CPK normal * 2.3 grams of protein * UA w/o evidence of infection * reasonable urine output noted * given poorly controlled DM and proteinuria, suspect a degree/component of diabetic nephropathy * follow trend of repeat labs abd UOP (2) DKA (diabetic ketoacidosis): Code(s): E11.10 - Type 2 diabetes mellitus with ketoacidosis without coma Status: Acute Assessment and Plan: * as noted by admission testing * on IVFs and insulin gtt * follow trend of blood sugars (3) Colitis: Code(s): K52.9 - Noninfective gastroenteritis and colitis, unspecified Status: Acute Assessment and Plan: * as noted by admission CT scan * on empiric antibiotics (4) Acute urinary retention: Code(s): R33.8 - Other retention of urine Status: Acute Assessment and Plan: * as noted by bladder scan in ER * hunt catheter in place * continue supportive therapy (5) Hypertension: Code(s): I10 - Essential (primary) hypertension Status: Chronic Assessment and Plan: * soft BPs at this time * holding antihypertensive medications (6) Constipation: Code(s): K59.00 - Constipation, unspecified Status: Acute Assessment and Plan: * reported on admission and currently * on aggressive bowel regiment * continue current therapy Will continue to follow. Subjective Date/time seen: 11/17/25 12:45 Interval history: Follow-up for acute kidney injury/acute renal failure. Chart reviewed -- assuming care from Dr. Aguilar; renal function/creatinine about the same if not slightly better in the last 24 hours but making reasonable urine output; however, acidosis persists; no apparent distress noted at the time of my visit; sleepy but awakens with stimulation. Exam Narrative: General: large female in NAD Heart: normal S1 and S2; no rub Lungs: clear anteriorly Abdomen: soft, mild TTP, nondistended, positive bowel sounds Extremities: no cyanosis or clubbing; 1 - 2+edema Skin: warm and dry Objective Data Vital Signs Vital Signs: Vital Signs Temp Pulse Resp BP Pulse Ox O2 Del Method 11/17/25 12:00 97.9 F 74 16 125/78 97 11/17/25 12:00 73 11/17/25 12:00 73 14 100 Room Air 11/17/25 11:00 75 14 104/89 97 11/17/25 11:00 75 18 104/89 97 11/17/25 10:00 74 18 138/68 99 11/17/25 10:00 74 11/17/25 09:00 75 14 120/76 99 11/17/25 08:00 73 11/17/25 08:00 73 12 97 Room Air 11/17/25 08:00 97.7 F 73 12 120/62 97 11/17/25 07:00 75 14 109/58 L 97 11/17/25 06:00 71 15 113/60 96 11/17/25 06:00 72 11/17/25 05:00 72 15 99/58 L 94 11/17/25 04:00 74 15 96 Room Air 11/17/25 04:00 74 11/17/25 04:00 98 F 74 15 119/68 96 11/17/25 03:00 75 18 98/61 L 96 11/17/25 02:00 76 15 88/64 L 95 11/17/25 02:00 76 11/17/25 01:00 76 16 103/64 99 11/17/25 00:05 76 12 99 Room Air 11/17/25 00:00 74 11/17/25 00:00 97.6 F 76 12 92/53 L 97 11/16/25 23:00 75 13 98/59 L 99 11/16/25 22:00 74 16 127/59 L 98 11/16/25 22:00 74 11/16/25 21:00 71 12 93/80 L 98 11/16/25 20:00 77 11/16/25 20:00 98.6 F 75 14 90/69 L 98 11/16/25 20:00 74 14 98 Room Air 11/16/25 19:00 97.7 F 80 16 121/58 L 99 Intake/Output Intake/Output: Intake & Output 11/14/25 11/15/25 11/16/25 11/17/25 23:59 23:59 23:59 23:59 Intake Total 4151.5 2840.0 Output Total 950 1050 Balance 3201.5 1790.0 Meds/Results Medications: Active Medications Generic Name Dose Route Start Last Admin Trade Name Freq PRN Reason Stop Dose Admin Bisacodyl 10 mg 11/17/25 09:00 11/17/25 08:48 Bisacodyl 10 Mg Suppository RECTAL 10 mg DAILY JACINTO Administration Dextrose 12.5 gm 11/16/25 07:49 Dextrose 50% 25 Gm/50 Ml Syringe IV PUSH PRN PRN Hypoglycemia Protocol Duloxetine HCl 60 mg 11/17/25 09:00 11/17/25 08:49 Duloxetine Hcl 60 Mg Capsule.Dr PO 60 mg DAILY JACINTO Administration Glucagon 1 mg 11/16/25 07:49 Glucagon For Inj 1 Mg Vial IM PRN PRN Hypoglycemia Protocol Glucose 15 gm 11/16/25 07:49 Glucose Oral Gel 15 Gm Of Glucse In 37.5 Gm Tube PO PRN PRN Hypoglycemia Protocol Heparin Sodium (Porcine) 5,000 units 11/16/25 14:00 11/17/25 14:19 Heparin Sodium 5,000 Units/Ml Vial SUB-Q 5,000 units Q8HR JACINTO Administration Dextrose 1,000 mls @ 100 mls/hr 11/16/25 07:49 Dextrose 5% 1,000 Ml IVPB PRN PRN Hypoglycemia Protocol Insulin Human Regular 100 100 mls @ 6 mls/hr 11/16/25 08:00 11/17/25 17:00 units/ Sodium Chloride IV CONT 6 units/hr .[id number] JACINTO 6 mls/hr Protocol Titration 6 UNITS/HR Ceftriaxone Sodium 1 gm/ 50 mls @ 100 mls/hr 11/17/25 09:00 11/17/25 09:18 Sodium Chloride IVPB Infused Q24H JACINTO Infusion Metronidazole 500 mg in 100 mls @ 100 mls/hr 11/16/25 18:00 11/17/25 17:30 Flagyl 500 Mg/Iso Soln 100 Ml IVPB 100 mls/hr Q8H JACINTO Administration Sodium Chloride 1,000 mls @ 100 mls/hr 11/16/25 09:00 11/17/25 14:18 Normal Saline Iv IV CONT 100 mls/hr .Q10H JACINTO Administration Lactulose 20 gm 11/17/25 14:15 11/17/25 17:30 Lactulose 20 Gm/30 Ml Udc PO 20 gm TID JACINTO Administration Pantoprazole Sodium 40 mg 11/18/25 09:00 Pantoprazole 40 Mg Tablet PO QAM JACINTO Polyethylene Glycol 17 gm 11/16/25 17:00 11/17/25 17:30 Polyethylene Glycol 3350 17 Gm Powd.Pack PO 17 gm BID JACINTO Administration Ropinirole HCl 0.25 mg 11/16/25 21:00 11/16/25 21:03 Ropinirole Hcl 0.25 Mg Tablet PO 0.25 mg HS JACINTO Administration Rosuvastatin Calcium 40 mg 11/17/25 09:00 11/17/25 08:49 Rosuvastatin 20 Mg Tablet PO 40 mg DAILY JACINTO Administration Tolterodine Tartrate 4 mg 11/16/25 21:00 11/16/25 21:03 Tolterodine Tartrate La 4 Mg Cap.Er.24h PO 4 mg Q24H JACINTO Administration Radiology Results: ITS Impressions Abdomen/Pelvis CT 11/16/25 07:54 IMPRESSION: 1. Wall thickening of the transverse and descending colon, consistent with colitis. Renal Ultrasound 11/16/25 19:28 Impression: 1: Unremarkable renal ultrasound. No stones, masses or hydronephrosis. Venous Doppler Study 11/17/25 10:13 IMPRESSION: 1. No deep venous thrombosis in either lower limb. Labs Labs: Laboratory Tests 11/17/25 11/17/25 11/17/25 03:51 07:51 11:44 WBC 9.2 Hgb 10.8 L Hct 32.9 L Plt Count 184 Sodium 133 L 132 L 133 L Potassium 4.2 4.4 4.4 Chloride 105 105 104 Carbon Dioxide 17 L 13 L 16 L BUN 69 H 68 H 65 H Creatinine 7.19 H 7.26 H 7.37 H Glucose 204 H 223 H 267 H Calcium 6.5 L 6.4 L 6.6 L Phosphorus 4.6 H Magnesium 2.3 Albumin 2.7 L
[2025-11-17] MEDS: SODIUM CHLORIDE 0.9% IV 1,000 ML 100 ML IV CONT (14:18)
[2025-11-17 16:41] LABS: Anion Gap 13 mmol/L (4-12); Blood Urea Nitrogen 62 mg/dL (7-17); Calcium 6.4 mg/dL (8.4-10.2); Carbon Dioxide 14 mmol/L (22-30); Chloride 107 mmol/L (98-107); Estimated CRCL calculation 10 ml/min; Estimated Glomerular Filt Rate 6; Glucose 257 mg/dL (65-110); Potassium 4.5 mmol/L (3.4-5.0); Sodium 134 mmol/L (137-145)
[2025-11-17] MEDS: TOLTERODINE TARTRATE LA 4 MG CAP.ER.24H PO (20:04)
[2025-11-17 21:13] LABS: Anion Gap 12 mmol/L (4-12); Blood Urea Nitrogen 65 mg/dL (7-17); Calcium 6.8 mg/dL (8.4-10.2); Carbon Dioxide 14 mmol/L (22-30); Chloride 109 mmol/L (98-107); Estimated CRCL calculation 9 ml/min; Estimated Glomerular Filt Rate 6; Glucose 190 mg/dL (65-110); Potassium 4.5 mmol/L (3.4-5.0); Sodium 135 mmol/L (137-145)
[2025-11-18] VITALS (43 sets, daily range): BP systolic 112–169; BP diastolic 54–76; PULSE 75–89; RESP 11–25; TEMP 36.4–36.6; O2SAT 92–99
[2025-11-18] MEDS: SODIUM CHLORIDE 0.9% IV 1,000 ML 100 ML IV CONT ×2 (00:23→08:22)
[2025-11-18 01:17] LABS: Anion Gap 16 mmol/L (4-12); Blood Urea Nitrogen 60 mg/dL (7-17); Calcium 6.7 mg/dL (8.4-10.2); Carbon Dioxide 8 mmol/L (22-30); Chloride 111 mmol/L (98-107); Estimated CRCL calculation 10 ml/min; Estimated Glomerular Filt Rate 6; Glucose 208 mg/dL (65-110); Potassium 4.5 mmol/L (3.4-5.0); Sodium 135 mmol/L (137-145)
[2025-11-18] MEDS: metroNIDAZOLE 500 MG/ISO 100ML 500 MG/100 ML BAG 100 MG IVPB ×3 (02:39→17:07)
[2025-11-18] MEDS: ACETAMINOPHEN 500 MG TABLET 1000 MG PO (05:40)
[2025-11-18 05:51] LABS: Hematocrit 34.1 % (37.0-47.0); Hemoglobin 11.1 g/dL (12.0-15.0); Mean Corpuscular HGB Conc 32.6 g/dl (32-36); Mean Corpuscular Hemoglobin 28.2 pg (26-34); Mean Corpuscular Volume 86.5 fl (80-100); Platelet Count Result 216 k/mm3 (150-375); Red Blood Count 3.94 M/mm3 (4.2-5.4); White Blood Count 11.3 K/mm3 (4.5-10.0)
[2025-11-18 06:17] LABS: Alanine Aminotransferase 40 U/L (6-35); Albumin Level 2.8 g/dL (3.5-5.1); Alkaline Phosphatase 287 U/L (38-126); Anion Gap 18 mmol/L (4-12); Aspartate Amino Transferase 34 U/L (14-36); Bilirubin,Total 0.6 mg/dL (0.2-1.3); Blood Urea Nitrogen 61 mg/dL (7-17); Calcium 6.8 mg/dL (8.4-10.2); Carbon Dioxide 11 mmol/L (22-30); Chloride 109 mmol/L (98-107); Estimated CRCL calculation 9 ml/min; Estimated Glomerular Filt Rate 6; Glucose 216 mg/dL (65-110); Potassium 4.4 mmol/L (3.4-5.0); Sodium 138 mmol/L (137-145); Total Protein 5.9 g/dL (6.3-8.2)
[2025-11-18] MEDS: cefTRIAXone 1 GM in SODIUM CHLORIDE 0.9% IV 50 ML 100 ML IVPB (08:21)
[2025-11-18] MEDS: LACTULOSE 20 GM/30 ML UDC PO ×3 (08:21→17:07)
[2025-11-18] MEDS: ROSUVASTATIN 20 MG TABLET 40 MG PO (08:22)
[2025-11-18] MEDS: PANTOPRAZOLE 40 MG TABLET PO (08:22)
[2025-11-18] MEDS: SODIUM BICARBONATE TAB 650 MG TABLET 1300 MG PO ×2 (08:22→17:07)
[2025-11-18] MEDS: BISACODYL 10 MG SUPPOSITORY RECTAL (08:22)
[2025-11-18] MEDS: DULoxetine HCL 60 MG CAPSULE.DR PO (08:22)
[2025-11-18 09:39] LABS: Anion Gap 17 mmol/L (4-12); Blood Urea Nitrogen 61 mg/dL (7-17); Calcium 6.8 mg/dL (8.4-10.2); Carbon Dioxide 10 mmol/L (22-30); Chloride 110 mmol/L (98-107); Estimated CRCL calculation 10 ml/min; Estimated Glomerular Filt Rate 6; Glucose 223 mg/dL (65-110); Potassium 4.5 mmol/L (3.4-5.0); Sodium 137 mmol/L (137-145)
--- NOTE | 2025-11-18 09:52 | ECG_ITS ---
Test Date: 2025-11-18 09:52:03 Measurements Intervals [place] Rate: 76 P: -26 [place]: 118 QRS: -23 QRSD: 86 T: -9 QT: 397 QTc: 448 Interpretive Statements SINUS RHYTHM WITH SHORT NH INTERVAL CONSIDER RIGHT VENTRICULAR CONDUCTION DELAY LOW QRS VOLTAGE IN PRECORDIAL LEADS ANTEROLATERAL INFARCT, AGE INDETERMINATE INFERIOR INFARCT, AGE INDETERMINATE BASELINE ARTIFACT- I, III, AVL ABNORMAL ECG No previous ECG available for comparison Electronically Signed On 11-18-2025 16:43:55 BILINGUAL HR GENERALIST by Kwan Orona D.O.
--- NOTE | 2025-11-18 12:16 | P.PNNP_ITS ---
Progress Note: A&P Assessment and Plan (1) Acute renal failure: Qualifiers: Acute renal failure type: with acute tubular necrosis Qualified Code(s): N17.0 - Acute kidney failure with tubular necrosis Code(s): N17.9 - Acute kidney failure, unspecified Status: Acute Assessment and Plan: * no significant change noted since admission * normal baseline kidney function from available records * suspect multifactorial: * prerenal factors * DKA * urinary retention * relative hypotension * valsartan use [employer] * other(?) * evaluation to date: * renal ultrasound unremarkable * urine electrolytes non-prerenal * CPK normal * 2.3 grams of protein * UA w/o evidence of infection * reasonable urine output noted * given poorly controlled DM and proteinuria, suspect a degree/component of diabetic nephropathy * follow trend of repeat labs abd UOP (2) DKA (diabetic ketoacidosis): Code(s): E11.10 - Type 2 diabetes mellitus with ketoacidosis without coma Status: Acute Assessment and Plan: * as noted by admission testing * on IVFs and insulin gtt with ongoing weaning * follow trend of blood sugars (3) Colitis: Code(s): K52.9 - Noninfective gastroenteritis and colitis, unspecified Status: Acute Assessment and Plan: * as noted by admission CT scan * on empiric antibiotics (4) Acute urinary retention: Code(s): R33.8 - Other retention of urine Status: Acute Assessment and Plan: * as noted by bladder scan in ER * hunt catheter in place * continue supportive therapy (5) Hypertension: Code(s): I10 - Essential (primary) hypertension Status: Chronic Assessment and Plan: * soft BPs at this time * holding antihypertensive medications (6) Constipation: Code(s): K59.00 - Constipation, unspecified Status: Acute Assessment and Plan: * reported on admission and currently * on aggressive bowel regiment * continue current therapy Long extensive discussion (greater than 20 minutes) with both the patient as well as her at bedside regarding her significant renal dysfunction and extremely slow improvement as noted by the trend of her labs. I suppose she could have suffered a significant bout of acute tubular necrosis and hence her slow recovery although the fact that she is making urine is a favorable prognostic sign. I did discuss with both of them the possibility that she may require renal replacement therapy/dialysis if she runs into issues/problems with fluid overload, worsening/severe metabolic acidosis, critical electrolyte abnormalities, or uremia. They are both hopeful that ongoing conservative therapy will continue to improve her kidney function. Will continue to follow. L Subjective Date/time seen: 11/18/25 12:16 Interval history: Follow-up for acute kidney injury/acute renal failure. Renal function/creatinine continues to fluctuate as noted by serial labs with only marginal improvement; however, continues to have reasonable urine output; some improvement in abdomnal pain after having a bowel movement; worsening acidosis apparent by serial labs as well; no apparent distress noted when seen; at bedside and we discussed the situation. Exam 2 Narrative: General: large female in NAD Heart: normal S1 and S2; no rub Lungs: clear anteriorly Abdomen: soft, mild TTP, nondistended, positive bowel sounds Extremities: no cyanosis or clubbing; 2+edema Skin: warm and intact Objective Data Vital Signs Vital Signs: Vital Signs Temp Pulse Resp BP Pulse Ox O2 Del Method 11/18/25 12:00 76 12 119/61 97 11/18/25 11:52 97.7 F 11/18/25 11:00 76 11 L 134/59 L 96 11/18/25 10:00 77 11/18/25 10:00 97.8 F 79 12 147/65 H 95 11/18/25 09:00 78 17 169/75 H 95 11/18/25 08:00 79 11/18/25 08:00 97.9 F 81 16 126/65 97 11/18/25 07:00 82 12 140/58 L 95 11/18/25 06:00 82 17 149/63 H 96 11/18/25 06:00 81 11/18/25 05:00 80 15 150/63 H 95 11/18/25 04:30 78 14 96 11/18/25 04:00 97.9 F 76 14 124/65 94 11/18/25 04:00 76 11/18/25 04:00 76 14 97 Room Air 11/18/25 03:00 75 14 132/65 96 11/18/25 02:02 77 12 130/69 97 11/18/25 02:00 77 11/18/25 01:00 78 14 156/68 H 97 11/18/25 00:00 79 13 97 Room Air 11/18/25 00:00 79 11/18/25 00:00 98 F 79 17 140/67 98 11/17/25 23:08 79 19 157/67 H 99 11/17/25 22:45 97 Room Air 11/17/25 22:01 78 16 169/70 H 97 11/17/25 22:00 80 11/17/25 21:00 75 9 L 169/78 H 99 11/17/25 20:00 76 14 99 Room Air 11/17/25 20:00 75 11/17/25 20:00 97.6 F 73 18 161/74 H 99 11/17/25 19:00 74 16 100 11/17/25 19:00 97.8 F 79 18 156/70 H 100 Intake/Output Intake/Output: Intake & Output 11/15/25 11/16/25 11/17/25 11/18/25 23:59 23:59 23:59 23:59 Intake Total 4151.5 3198.0 2958.0 Output Total 950 1050 2425 Balance 3201.5 2148.0 533.0 Meds/Results Medications: Active Medications Generic Name Dose Route Start Last Admin Trade Name Freq PRN Reason Stop Dose Admin Acetaminophen 1,000 mg 11/18/25 05:41 11/18/25 05:40 Acetaminophen 500 Mg Tablet PO 1,000 mg Q6H PRN Administration Pain or Fever Bisacodyl 10 mg 11/17/25 09:00 11/18/25 08:22 Bisacodyl 10 Mg Suppository RECTAL 10 mg DAILY JACINTO Administration Dextrose 12.5 gm 11/16/25 07:49 Dextrose 50% 25 Gm/50 Ml Syringe IV PUSH PRN PRN Hypoglycemia Protocol Duloxetine HCl 60 mg 11/17/25 09:00 11/18/25 08:22 Duloxetine Hcl 60 Mg Capsule.Dr PO 60 mg DAILY JACINTO Administration Glucagon 1 mg 11/16/25 07:49 Glucagon For Inj 1 Mg Vial IM PRN PRN Hypoglycemia Protocol Glucose 15 gm 11/16/25 07:49 Glucose Oral Gel 15 Gm Of Glucse In 37.5 Gm Tube PO PRN PRN Hypoglycemia Protocol Heparin Sodium (Porcine) 5,000 units 11/16/25 14:00 11/18/25 13:01 Heparin Sodium 5,000 Units/Ml Vial SUB-Q 5,000 units Q8HR JACINTO Administration Dextrose 1,000 mls @ 100 mls/hr 11/16/25 07:49 Dextrose 5% 1,000 Ml IVPB PRN PRN Hypoglycemia Protocol Ceftriaxone Sodium 1 gm/ 50 mls @ 100 mls/hr 11/17/25 09:00 11/18/25 08:51 Sodium Chloride IVPB Infused Q24H JACINTO Infusion Metronidazole 500 mg in 100 mls @ 100 mls/hr 11/16/25 18:00 11/18/25 17:07 Flagyl 500 Mg/Iso Soln 100 Ml IVPB 100 mls/hr Q8H JACINTO Administration Insulin Aspart 4 - 8 units 11/18/25 17:00 11/18/25 17:06 Insulin Aspart (*Bkc) 100 Units/Ml SUB-Q 5 units TIDWM JACINTO Administration Protocol Insulin Aspart 2 - 4 units 11/18/25 21:00 Insulin Aspart (*Bkc) 100 Units/Ml SUB-Q HS JACINTO Protocol Insulin Aspart 3 units 11/18/25 17:00 11/18/25 17:06 Insulin Aspart (*Bkc) 100 Units/Ml SUB-Q 3 units TIDWM JACINTO Administration Insulin Glargine 25 units 11/19/25 09:00 Insulin Glargine (*Bkc) 100 Units/Ml SUB-Q DAILY JACINTO Lactulose 20 gm 11/17/25 14:15 11/18/25 17:07 Lactulose 20 Gm/30 Ml Udc PO 20 gm TID JACINTO Administration Pantoprazole Sodium 40 mg 11/18/25 09:00 11/18/25 08:22 Pantoprazole 40 Mg Tablet PO 40 mg QAM JACINTO Administration Polyethylene Glycol 17 gm 11/16/25 17:00 11/18/25 17:07 Polyethylene Glycol 3350 17 Gm Powd.Pack PO 17 gm BID JACINTO Administration Ropinirole HCl 0.25 mg 11/16/25 21:00 11/17/25 20:04 Ropinirole Hcl 0.25 Mg Tablet PO 0.25 mg HS JACINTO Administration Rosuvastatin Calcium 40 mg 11/17/25 09:00 11/18/25 08:22 Rosuvastatin 20 Mg Tablet PO 40 mg DAILY JACINTO Administration Sodium Bicarbonate 1,300 mg 11/18/25 09:00 11/18/25 17:07 Sodium Bicarbonate Tab 650 Mg Tablet PO 1,300 mg BID JACINTO Administration Tolterodine Tartrate 4 mg 11/16/25 21:00 11/17/25 20:04 Tolterodine Tartrate La 4 Mg Cap.Er.24h PO 4 mg Q24H JACINTO Administration Radiology Results: ITS Impressions Abdomen/Pelvis CT 11/16/25 07:54 IMPRESSION: 1. Wall thickening of the transverse and descending colon, consistent with colitis. Renal Ultrasound 11/16/25 19:28 Impression: 1: Unremarkable renal ultrasound. No stones, masses or hydronephrosis. Venous Doppler Study 11/17/25 10:13 IMPRESSION: 1. No deep venous thrombosis in either lower limb. Labs Labs: Laboratory Tests 11/18/25 05:35 11/18/25 09:12 11/18/25 05:35 Sodium 138 Potassium 4.4 Chloride 109 H Carbon Dioxide 11 L Anion Gap 18 H BUN 61 H Creatinine 7.23 H Estim Creat Clear Calc 9 Estimated GFR 6 L Glucose 216 H Calcium 6.8 L Total Bilirubin 0.6 AST 34 ALT 40 H Alkaline Phosphatase 287 H Total Protein 5.9 L Albumin 2.8 L
--- NOTE | 2025-11-18 12:49 | P.PNINT_ITS ---
Assessment and Plan Assessment and Plan (1) Constipation: Code(s): K59.00 - Constipation, unspecified Status: Acute (2) Acute renal failure: Qualifiers: Acute renal failure type: with acute tubular necrosis Qualified Code(s): N17.0 - Acute kidney failure with tubular necrosis Code(s): N17.9 - Acute kidney failure, unspecified Status: Acute (3) Colitis: Code(s): K52.9 - Noninfective gastroenteritis and colitis, unspecified Status: Acute Plan 1. Neurologically: Patient is awake and interactive. She is weak we will get PT to see. 2. Cardiovascular: Blood pressure heart rate overall stable. 3. Respiratory: No distress on room air. Clear lungs on exam. 4. GI: She finally had bowel movement yesterday. Will continue with aggressive bowel regimen. Abdomen is still somewhat distended. As expected she is anorexic. Her lactic acid was low yesterday therefore not consistent with ischemic bowel. We have been treating her for possible colitis with Flagyl and Rocephin. 5. and Renal: The patient is having adequate urine output per her BUN and creatinine continued to be fairly elevated. She has social worsening metabolic acidosis with a low beta hydroxybutyrate ascites related to renal insufficiency. Lactic acid was also low. Patient is volume overloaded with significant swelling of the lower extremities and negative venous Dopplers. Will try low- dose diuretics. 6. Endocrine: Will switch her to Lantus and sliding scale insulin with scheduled short-acting insulin during meals. 7. DVT prophylaxis: On heparin 8. Hematologically: While his low count is 11.3 with stable hemoglobin. 9. Id: Admission cultures are negative the patient is afebrile. Will consider short course of antibiotics. Subjective Date/time seen: 11/18/25 12:49 Interval history: Patient complained of some abdominal pain today. She finally had a bowel movement yesterday. She has been on insulin drip to control her sugar with persistent worsening of her carbon dioxide and a low beta hydroxybutyrate also likely consistent with renal insufficiency. Exam Narrative: She is awake following commands, complains of diffuse muscle skeletal discomfort Const: General: no acute distress HENMT: Mouth: Yes moist mucous membranes Eyes: General: appearance normal, both eyes and all related structures Neck: Neck: no JVD Resp: Auscultation: clear to auscultation bilaterally Cardio: Rhythm: regular rhythm GI: Inspection: distended GI Palp: Yes Soft to palpation Other: Some tympanism, mild diffuse tenderness no rebound or guarding Skin: General skin exam: normal color Neuro: Speech: normal speech Other: Awake and interactive. Grossly nonfocal Extrem: General: edema Other: Significant edema persist Objective Data Vital Signs Vital Signs: Vital Signs - 24 hr 11/17/25 13:00 11/17/25 14:00 11/17/25 14:00 Temperature 97.9 F Pulse Rate 74 74 74 Respiratory Rate 10 L 12 Blood Pressure 155/69 H 139/65 Pulse Oximetry 96 98 Oxygen Delivery 11/17/25 14:00 11/17/25 15:00 11/17/25 16:00 Temperature 97.7 F 97.7 F 97.7 F Pulse Rate 74 74 72 Respiratory Rate 15 12 16 Blood Pressure 139/65 104/60 121/66 Pulse Oximetry 98 96 97 Oxygen Delivery 11/17/25 16:00 11/17/25 16:00 11/17/25 17:00 Temperature Pulse Rate 74 72 77 Respiratory Rate 16 21 H Blood Pressure 119/97 H Pulse Oximetry 97 97 Oxygen Delivery Room Air 11/17/25 18:00 11/17/25 18:00 11/17/25 19:00 Temperature 97.7 F 97.8 F Pulse Rate 79 79 79 Respiratory Rate 21 H 18 Blood Pressure 165/71 H 156/70 H Pulse Oximetry 21 L 100 Oxygen Delivery 11/17/25 19:00 11/17/25 20:00 11/17/25 20:00 Temperature 97.6 F Pulse Rate 74 73 75 Respiratory Rate 16 18 Blood Pressure 161/74 H Pulse Oximetry 100 99 Oxygen Delivery 11/17/25 20:00 11/17/25 21:00 11/17/25 22:00 Temperature Pulse Rate 76 75 80 Respiratory Rate 14 9 L Blood Pressure 169/78 H Pulse Oximetry 99 99 Oxygen Delivery Room Air 11/17/25 22:01 11/17/25 22:45 11/17/25 23:08 Temperature Pulse Rate 78 79 Respiratory Rate 16 19 Blood Pressure 169/70 H 157/67 H Pulse Oximetry 97 97 99 Oxygen Delivery Room Air 11/18/25 00:00 11/18/25 00:00 11/18/25 00:00 Temperature 98 F Pulse Rate 79 79 79 Respiratory Rate 17 13 Blood Pressure 140/67 Pulse Oximetry 98 97 Oxygen Delivery Room Air 11/18/25 01:00 11/18/25 02:00 11/18/25 02:02 Temperature Pulse Rate 78 77 77 Respiratory Rate 14 12 Blood Pressure 156/68 H 130/69 Pulse Oximetry 97 97 Oxygen Delivery 11/18/25 03:00 11/18/25 04:00 11/18/25 04:00 Temperature Pulse Rate 75 76 76 Respiratory Rate 14 14 Blood Pressure 132/65 Pulse Oximetry 96 97 Oxygen Delivery Room Air 11/18/25 04:00 11/18/25 04:30 11/18/25 05:00 Temperature 97.9 F Pulse Rate 76 78 80 Respiratory Rate 14 14 15 Blood Pressure 124/65 150/63 H Pulse Oximetry 94 96 95 Oxygen Delivery 11/18/25 06:00 11/18/25 06:00 11/18/25 07:00 Temperature Pulse Rate 81 82 82 Respiratory Rate 17 12 Blood Pressure 149/63 H 140/58 L Pulse Oximetry 96 95 Oxygen Delivery 11/18/25 08:00 11/18/25 08:00 11/18/25 09:00 Temperature 97.9 F Pulse Rate 81 79 78 Respiratory Rate 16 17 Blood Pressure 126/65 169/75 H Pulse Oximetry 97 95 Oxygen Delivery 11/18/25 10:00 11/18/25 10:00 11/18/25 11:00 Temperature 97.8 F Pulse Rate 79 77 76 Respiratory Rate 12 11 L Blood Pressure 147/65 H 134/59 L Pulse Oximetry 95 96 Oxygen Delivery 11/18/25 11:52 11/18/25 12:00 11/18/25 12:00 Temperature 97.7 F Pulse Rate 76 75 Respiratory Rate 12 Blood Pressure 119/61 Pulse Oximetry 97 Oxygen Delivery Intake/Output Intake/Output: Intake & Output 11/15/25 11/16/25 11/17/25 11/18/25 23:59 23:59 23:59 23:59 Intake Total 4151.5 3198.0 2231.3 Output Total 950 1050 925 Balance 3201.5 2148.0 1306.3 Meds/Results Medications: Active Medications Generic Name Dose Route Start Last Admin Trade Name Freq PRN Reason Stop Dose Admin Acetaminophen 1,000 mg 11/18/25 05:41 11/18/25 05:40 Acetaminophen 500 Mg Tablet PO 1,000 mg Q6H PRN Administration Pain or Fever Bisacodyl 10 mg 11/17/25 09:00 11/18/25 08:22 Bisacodyl 10 Mg Suppository RECTAL 10 mg DAILY JACINTO Administration Dextrose 12.5 gm 11/16/25 07:49 Dextrose 50% 25 Gm/50 Ml Syringe IV PUSH PRN PRN Hypoglycemia Protocol Duloxetine HCl 60 mg 11/17/25 09:00 11/18/25 08:22 Duloxetine Hcl 60 Mg Capsule.Dr PO 60 mg DAILY JACINTO Administration Glucagon 1 mg 11/16/25 07:49 Glucagon For Inj 1 Mg Vial IM PRN PRN Hypoglycemia Protocol Glucose 15 gm 11/16/25 07:49 Glucose Oral Gel 15 Gm Of Glucse In 37.5 Gm Tube PO PRN PRN Hypoglycemia Protocol Heparin Sodium (Porcine) 5,000 units 11/16/25 14:00 11/18/25 05:46 Heparin Sodium 5,000 Units/Ml Vial SUB-Q 5,000 units Q8HR JACINTO Administration Dextrose 1,000 mls @ 100 mls/hr 11/16/25 07:49 Dextrose 5% 1,000 Ml IVPB PRN PRN Hypoglycemia Protocol Ceftriaxone Sodium 1 gm/ 50 mls @ 100 mls/hr 11/17/25 09:00 11/18/25 08:21 Sodium Chloride IVPB 100 mls/hr Q24H JACINTO Administration Metronidazole 500 mg in 100 mls @ 100 mls/hr 11/16/25 18:00 11/18/25 10:41 Flagyl 500 Mg/Iso Soln 100 Ml IVPB 100 mls/hr Q8H JACINTO Administration Insulin Aspart 4 - 8 units 11/18/25 17:00 Insulin Aspart (*Bkc) 100 Units/Ml SUB-Q TIDWM JACINTO Protocol Insulin Aspart 2 - 4 units 11/18/25 21:00 Insulin Aspart (*Bkc) 100 Units/Ml SUB-Q HS JACINTO Protocol Insulin Aspart 3 units 11/18/25 17:00 Insulin Aspart (*Bkc) 100 Units/Ml SUB-Q TIDWM JACINTO Insulin Glargine 25 units 11/19/25 09:00 Insulin Glargine (*Bkc) 100 Units/Ml SUB-Q DAILY JACINTO Lactulose 20 gm 11/17/25 14:15 11/18/25 12:27 Lactulose 20 Gm/30 Ml Udc PO 20 gm TID JACINTO Administration Pantoprazole Sodium 40 mg 11/18/25 09:00 11/18/25 08:22 Pantoprazole 40 Mg Tablet PO 40 mg QAM JACINTO Administration Polyethylene Glycol 17 gm 11/16/25 17:00 11/18/25 08:21 Polyethylene Glycol 3350 17 Gm Powd.Pack PO 17 gm BID JACINTO Administration Ropinirole HCl 0.25 mg 11/16/25 21:00 11/17/25 20:04 Ropinirole Hcl 0.25 Mg Tablet PO 0.25 mg HS JACINTO Administration Rosuvastatin Calcium 40 mg 11/17/25 09:00 11/18/25 08:22 Rosuvastatin 20 Mg Tablet PO 40 mg DAILY JACINTO Administration Sodium Bicarbonate 1,300 mg 11/18/25 09:00 11/18/25 08:22 Sodium Bicarbonate Tab 650 Mg Tablet PO 1,300 mg BID JACINTO Administration Tolterodine Tartrate 4 mg 11/16/25 21:00 11/17/25 20:04 Tolterodine Tartrate La 4 Mg Cap.Er.24h PO 4 mg Q24H JACINTO Administration Radiology Results: ITS Impressions Abdomen/Pelvis CT 11/16/25 07:54 IMPRESSION: 1. Wall thickening of the transverse and descending colon, consistent with colitis. Renal Ultrasound 11/16/25 19:28 Impression: 1: Unremarkable renal ultrasound. No stones, masses or hydronephrosis. Venous Doppler Study 11/17/25 10:13 IMPRESSION: 1. No deep venous thrombosis in either lower limb. Labs Labs: Laboratory Results - last 24 hr 11/17/25 11/17/25 11/17/25 13:04 13:56 15:04 WBC RBC Hgb Hct MCV MCH MCHC RDW Plt Count MPV Sodium Potassium Chloride Carbon Dioxide Anion Gap BUN Creatinine Estim Creat Clear Calc Estimated GFR Glucose POC Capillary Glucose 231 H 301 H 261 H Calcium Total Bilirubin AST ALT Alkaline Phosphatase Total Protein Albumin 11/17/25 11/17/25 11/17/25 16:02 16:24 17:11 WBC RBC Hgb Hct MCV MCH MCHC RDW Plt Count MPV Sodium 134 L Potassium 4.5 Chloride 107 Carbon Dioxide 14 L Anion Gap 13 H BUN 62 H Creatinine 6.79 H Estim Creat Clear Calc 10 Estimated GFR 6 L Glucose 257 H POC Capillary Glucose 259 H 214 H Calcium 6.4 L Total Bilirubin AST ALT Alkaline Phosphatase Total Protein Albumin 11/17/25 11/17/25 11/17/25 18:12 18:56 20:03 WBC RBC Hgb Hct MCV MCH MCHC RDW Plt Count MPV Sodium Potassium Chloride Carbon Dioxide Anion Gap BUN Creatinine Estim Creat Clear Calc Estimated GFR Glucose POC Capillary Glucose 203 H 176 H 186 H Calcium Total Bilirubin AST ALT Alkaline Phosphatase Total Protein Albumin 11/17/25 11/17/25 11/17/25 20:59 22:21 23:07 WBC RBC Hgb Hct MCV MCH MCHC RDW Plt Count MPV Sodium 135 L Potassium 4.5 Chloride 109 H Carbon Dioxide 14 L Anion Gap 12 BUN 65 H Creatinine 7.23 H Estim Creat Clear Calc 9 Estimated GFR 6 L Glucose 190 H POC Capillary Glucose 186 H 200 H Calcium 6.8 L Total Bilirubin AST ALT Alkaline Phosphatase Total Protein Albumin 11/18/25 11/18/25 11/18/25 00:21 00:57 02:28 WBC RBC Hgb Hct MCV MCH MCHC RDW Plt Count MPV Sodium 135 L Potassium 4.5 Chloride 111 H Carbon Dioxide 8 L Anion Gap 16 H BUN 60 H Creatinine 6.98 H Estim Creat Clear Calc 10 Estimated GFR 6 L Glucose 208 H POC Capillary Glucose 178 H 236 H Calcium 6.7 L Total Bilirubin AST ALT Alkaline Phosphatase Total Protein Albumin 11/18/25 11/18/25 11/18/25 03:26 04:32 05:33 WBC RBC Hgb Hct MCV MCH MCHC RDW Plt Count MPV Sodium Potassium Chloride Carbon Dioxide Anion Gap BUN Creatinine Estim Creat Clear Calc Estimated GFR Glucose POC Capillary Glucose 212 H 219 H 215 H Calcium Total Bilirubin AST ALT Alkaline Phosphatase Total Protein Albumin 11/18/25 11/18/25 11/18/25 05:35 07:33 08:19 WBC 11.3 H RBC 3.94 L Hgb 11.1 L Hct 34.1 L MCV 86.5 MCH 28.2 MCHC 32.6 RDW 17.0 H Plt Count 216 MPV 12.0 H Sodium 138 Potassium 4.4 Chloride 109 H Carbon Dioxide 11 L Anion Gap 18 H BUN 61 H Creatinine 7.23 H Estim Creat Clear Calc 9 Estimated GFR 6 L Glucose 216 H POC Capillary Glucose 249 H 243 H Calcium 6.8 L Total Bilirubin 0.6 AST 34 ALT 40 H Alkaline Phosphatase 287 H Total Protein 5.9 L Albumin 2.8 L 11/18/25 11/18/25 11/18/25 09:12 09:37 10:40 WBC RBC Hgb Hct MCV MCH MCHC RDW Plt Count MPV Sodium 137 Potassium 4.5 Chloride 110 H Carbon Dioxide 10 L Anion Gap 17 H BUN 61 H Creatinine 7.00 H Estim Creat Clear Calc 10 Estimated GFR 6 L Glucose 223 H POC Capillary Glucose 234 H 253 H Calcium 6.8 L Total Bilirubin AST ALT Alkaline Phosphatase Total Protein Albumin 11/18/25 11/18/25 11:40 12:25 WBC RBC Hgb Hct MCV MCH MCHC RDW Plt Count MPV Sodium Potassium Chloride Carbon Dioxide Anion Gap BUN Creatinine Estim Creat Clear Calc Estimated GFR Glucose POC Capillary Glucose 260 H 273 H Calcium Total Bilirubin AST ALT Alkaline Phosphatase Total Protein Albumin
[2025-11-18] MEDS: INSULIN GLARGINE (*BKC) 100 UNITS/ML 25 UNITS SUB-Q (13:01)
[2025-11-18] MEDS: FUROSEMIDE INJ 40 MG/4 ML VIAL IV PUSH (13:09)
[2025-11-18 13:26] LABS: Beta-Hydroxybutyrate/Acetoace. 1.26 mmol/L (0.02-0.27)
[2025-11-18] MEDS: INSULIN ASPART (*BKC) 100 UNITS/ML SUB-Q ×3 (17:06→20:24)
[2025-11-18] MEDS: TOLTERODINE TARTRATE LA 4 MG CAP.ER.24H PO (20:41)
[2025-11-19] VITALS (46 sets, daily range): BP systolic 90–147; BP diastolic 58–80; PULSE 74–83; RESP 9–22; TEMP 36.5–36.6; O2SAT 93–98
[2025-11-19] MEDS: metroNIDAZOLE 500 MG/ISO 100ML 500 MG/100 ML BAG 100 MG IVPB ×2 (02:57→09:48)
[2025-11-19 04:09] LABS: Hematocrit 33.3 % (37.0-47.0); Hemoglobin 10.9 g/dL (12.0-15.0); Mean Corpuscular HGB Conc 32.7 g/dl (32-36); Mean Corpuscular Hemoglobin 28.2 pg (26-34); Mean Corpuscular Volume 86.0 fl (80-100); Platelet Count Result 211 k/mm3 (150-375); Red Blood Count 3.87 M/mm3 (4.2-5.4); White Blood Count 11.3 K/mm3 (4.5-10.0)
[2025-11-19 04:26] LABS: Albumin Level 2.7 g/dL (3.5-5.1); Anion Gap 14 mmol/L (4-12); Blood Urea Nitrogen 61 mg/dL (7-17); Calcium 6.8 mg/dL (8.4-10.2); Carbon Dioxide 15 mmol/L (22-30); Chloride 110 mmol/L (98-107); Estimated CRCL calculation 11 ml/min; Estimated Glomerular Filt Rate 7; Glucose 312 mg/dL (65-110); Potassium 4.2 mmol/L (3.4-5.0); Sodium 139 mmol/L (137-145)
[2025-11-19] MEDS: INSULIN ASPART (*BKC) 100 UNITS/ML SUB-Q ×5 (07:53→20:38)
[2025-11-19] MEDS: INSULIN GLARGINE (*BKC) 100 UNITS/ML 25 UNITS SUB-Q ×2 (07:54→20:39)
[2025-11-19] MEDS: PANTOPRAZOLE 40 MG TABLET PO (07:58)
[2025-11-19] MEDS: SODIUM BICARBONATE TAB 650 MG TABLET 1300 MG PO ×2 (07:58→17:08)
[2025-11-19] MEDS: ROSUVASTATIN 20 MG TABLET 40 MG PO (07:58)
[2025-11-19] MEDS: DULoxetine HCL 60 MG CAPSULE.DR PO (07:58)
[2025-11-19] MEDS: FUROSEMIDE INJ 40 MG/4 ML VIAL IV PUSH ×2 (07:59→17:09)
[2025-11-19] MEDS: cefTRIAXone 1 GM in SODIUM CHLORIDE 0.9% IV 50 ML 100 ML IVPB (07:59)
[2025-11-19] MEDS: LACTULOSE 20 GM/30 ML UDC PO ×3 (07:59→17:09)
--- NOTE | 2025-11-19 11:30 | PCFNICU ---
ICU Rounding Note: Pt current nutrition is Diabetic consistent carb diet. Nutrition recommendation: No new recommendations. Pt was seen by registered dietitian and declined further nutrition education. Last recorded weight is 122.2 kg. Bowel Motility: +1 BM 11/19 Labs Reviewed: Glu 312, Hgb 10.9, Hct 33.3, Alb 2.7, BUN 61, Cre 6.23 Meds Noted: Insulin Skin: No skin issues Additional Notes: Pt tolerating PO diet, transitioned off drip. To be downgraded today. Following daily in ICU rounds. .
[2025-11-19] MEDS: INSULIN ASPART (*BKC) 100 UNITS/ML 6 UNITS SUB-Q ×2 (11:36→17:19)
--- NOTE | 2025-11-19 12:32 | WPDINTPN2 ---
Assessment and Plan Assessment and Plan (1) Constipation: Code(s): K59.00 - Constipation, unspecified Status: Acute (2) Acute renal failure: Qualifiers: Acute renal failure type: with acute tubular necrosis Qualified Code(s): N17.0 - Acute kidney failure with tubular necrosis Code(s): N17.9 - Acute kidney failure, unspecified Status: Acute (3) Colitis: Code(s): K52.9 - Noninfective gastroenteritis and colitis, unspecified Status: Acute (4) Abdominal pain: Code(s): R10.9 - Unspecified abdominal pain Status: Acute (5) Uncontrolled type 2 diabetes mellitus with hyperglycemia: Code(s): E11.65 - Type 2 diabetes mellitus with hyperglycemia Status: Acute Plan 1. Neurologically: Awake alert and following commands. 2. Cardiovascular: Blood pressure overall stable. 3. Respiratory: On room air no distress no cough or sputum production. 4. GI: She has had multiple bowel movements and her abdomen is less distended. Will continue with present bowel regimen. Will consider discontinuation of lactulose if she develops diarrhea. 5. and Renal: Acute kidney injury: She is producing good urine with Lasix. Creatinine has gone down to will continue to monitor. She will get 2 more dose of Lasix today 6. Endocrine: Blood sugar still out of adequate control but improving and most recent 1 was under 200. He is now getting higher doses of Lantus twice a day. 7. DVT prophylaxis: Heparin. Venous Dopplers of lower extremities were negative. 8. Id: She concluded 5 days of antibiotics for possible colitis seen on CT scan however she never had diarrhea or definite evidence of ischemic colitis. 9. Hematologically: Right distal count remains mildly elevated with stable hemoglobin and platelet count. 10. Disposition: Stable to move out of the ICU to medical floor. Subjective Date/time seen: 11/19/25 12:32 Interval history: Patient feels much better today. She had excellent urine output with 1 dose of Lasix yesterday and 2 more doses are planned for today. Her creatinine decreased today. Blood sugar still elevated and for that reason her long-acting insulin has been increased Exam Narrative: She is awake and following commands no distress HENMT: Mouth: Yes moist mucous membranes Eyes: General: appearance normal, both eyes and all related structures Neck: Neck: no JVD Resp: Effort & Inspection: normal respiratory effort Cardio: Rate: regular rate GI: GI Palp: Yes Soft to palpation Auscultation: normal bowel sounds Urinary Catheter: Urinary Catheter: patent and draining Skin: General skin exam: normal color Neuro: Speech: normal speech Other: Awake oriented and following commands nonfocal Extrem: General: edema Other: Edema of the lower extremities persist Psych: Mental Status: mental status grossly normal Objective Data Vital Signs Vital Signs: Vital Signs - 24 hr 11/18/25 13:00 11/18/25 14:00 11/18/25 14:00 Temperature 97.6 F Pulse Rate 77 79 79 Respiratory Rate 17 13 Blood Pressure 113/71 155/76 H Pulse Oximetry 99 95 Oxygen Delivery 11/18/25 15:00 11/18/25 16:00 11/18/25 16:00 Temperature 97.8 F Pulse Rate 85 84 83 Respiratory Rate 17 19 Blood Pressure 144/60 H 156/67 H Pulse Oximetry 97 98 Oxygen Delivery 11/18/25 17:00 11/18/25 18:00 11/18/25 18:00 Temperature 97.8 F Pulse Rate 83 85 86 Respiratory Rate 17 13 Blood Pressure 157/71 H 141/76 H Pulse Oximetry 98 96 Oxygen Delivery 11/18/25 19:00 11/18/25 20:00 11/18/25 20:00 Temperature Pulse Rate 83 88 Respiratory Rate 17 Blood Pressure 155/69 H Pulse Oximetry 96 95 Oxygen Delivery Room Air 11/18/25 20:00 11/18/25 20:15 11/18/25 20:30 Temperature Pulse Rate 89 89 89 Respiratory Rate 25 H 19 18 Blood Pressure Pulse Oximetry 94 95 92 Oxygen Delivery 11/18/25 20:45 11/18/25 20:49 11/18/25 21:00 Temperature Pulse Rate 85 83 82 Respiratory Rate 18 16 17 Blood Pressure 133/54 L Pulse Oximetry 95 97 97 Oxygen Delivery 11/18/25 21:01 11/18/25 21:15 11/18/25 21:30 Temperature Pulse Rate 82 81 81 Respiratory Rate 19 13 21 H Blood Pressure 134/60 Pulse Oximetry 97 96 95 Oxygen Delivery 11/18/25 21:45 11/18/25 22:00 11/18/25 22:00 Temperature Pulse Rate 79 79 79 Respiratory Rate 15 13 Blood Pressure Pulse Oximetry 95 95 Oxygen Delivery 11/18/25 22:02 11/18/25 22:15 11/18/25 22:30 Temperature Pulse Rate 78 79 79 Respiratory Rate 12 14 11 L Blood Pressure 112/57 L Pulse Oximetry 95 95 96 Oxygen Delivery 11/18/25 22:45 11/18/25 23:00 11/18/25 23:03 Temperature Pulse Rate 78 79 80 Respiratory Rate 11 L 12 12 Blood Pressure 145/70 H Pulse Oximetry 96 95 96 Oxygen Delivery 11/18/25 23:15 11/18/25 23:30 11/18/25 23:45 Temperature Pulse Rate 79 80 81 Respiratory Rate 17 16 15 Blood Pressure Pulse Oximetry 95 96 96 Oxygen Delivery 11/19/25 00:00 11/19/25 00:00 11/19/25 00:01 Temperature Pulse Rate 81 80 79 Respiratory Rate 14 12 Blood Pressure 134/72 Pulse Oximetry 95 96 Oxygen Delivery 11/19/25 00:02 11/19/25 00:15 11/19/25 00:30 Temperature Pulse Rate 80 79 Respiratory Rate 12 12 Blood Pressure Pulse Oximetry 95 96 97 Oxygen Delivery Room Air 11/19/25 00:30 11/19/25 00:45 11/19/25 01:00 Temperature Pulse Rate 79 79 77 Respiratory Rate 14 12 20 Blood Pressure 133/67 Pulse Oximetry 96 96 97 Oxygen Delivery 11/19/25 01:02 11/19/25 01:15 11/19/25 01:30 Temperature Pulse Rate 78 77 78 Respiratory Rate 21 H 15 12 Blood Pressure Pulse Oximetry 96 96 96 Oxygen Delivery 11/19/25 01:45 11/19/25 02:00 11/19/25 02:00 Temperature Pulse Rate 78 78 78 Respiratory Rate 13 11 L Blood Pressure 133/70 Pulse Oximetry 96 96 Oxygen Delivery 11/19/25 02:01 11/19/25 02:15 11/19/25 02:30 Temperature Pulse Rate 77 79 79 Respiratory Rate 11 L 15 12 Blood Pressure Pulse Oximetry 96 96 96 Oxygen Delivery 11/19/25 02:45 11/19/25 03:00 11/19/25 03:01 Temperature Pulse Rate 79 79 78 Respiratory Rate 11 L 15 14 Blood Pressure 139/66 Pulse Oximetry 96 96 96 Oxygen Delivery 11/19/25 03:15 11/19/25 03:30 11/19/25 03:45 Temperature Pulse Rate 77 76 79 Respiratory Rate 13 13 15 Blood Pressure Pulse Oximetry 96 95 97 Oxygen Delivery 11/19/25 04:00 11/19/25 04:00 11/19/25 04:00 Temperature Pulse Rate 76 74 Respiratory Rate 11 L Blood Pressure 126/66 Pulse Oximetry 96 96 Oxygen Delivery Room Air 11/19/25 04:01 11/19/25 04:15 11/19/25 04:30 Temperature Pulse Rate 75 76 75 Respiratory Rate 14 11 L 13 Blood Pressure Pulse Oximetry 97 96 96 Oxygen Delivery 11/19/25 04:45 11/19/25 05:00 11/19/25 05:01 Temperature Pulse Rate 77 78 79 Respiratory Rate 11 L 9 L 11 L Blood Pressure 123/64 Pulse Oximetry 95 96 96 Oxygen Delivery 11/19/25 05:15 11/19/25 05:30 11/19/25 05:45 Temperature Pulse Rate 78 78 79 Respiratory Rate 10 L 12 12 Blood Pressure Pulse Oximetry 96 95 95 Oxygen Delivery 11/19/25 06:00 11/19/25 06:00 11/19/25 06:01 Temperature Pulse Rate 79 79 80 Respiratory Rate 15 11 L Blood Pressure 134/71 Pulse Oximetry 95 96 Oxygen Delivery 11/19/25 06:15 11/19/25 06:30 11/19/25 06:45 Temperature Pulse Rate 79 78 78 Respiratory Rate 12 16 12 Blood Pressure Pulse Oximetry 96 97 96 Oxygen Delivery 11/19/25 07:00 11/19/25 07:01 11/19/25 07:15 Temperature Pulse Rate 79 80 76 Respiratory Rate 10 L 13 11 L Blood Pressure 133/65 Pulse Oximetry 95 95 95 Oxygen Delivery 11/19/25 08:00 11/19/25 08:00 11/19/25 08:00 Temperature 97.7 F Pulse Rate 83 83 82 Respiratory Rate 22 H 16 Blood Pressure 147/80 H Pulse Oximetry 96 96 Oxygen Delivery Room Air 11/19/25 09:00 11/19/25 10:00 11/19/25 10:00 Temperature Pulse Rate 81 78 79 Respiratory Rate 11 L 12 Blood Pressure 107/69 108/74 Pulse Oximetry 93 94 Oxygen Delivery 11/19/25 10:23 11/19/25 11:00 11/19/25 12:00 Temperature Pulse Rate 77 77 Respiratory Rate 12 17 Blood Pressure 90/59 L Pulse Oximetry 97 98 Oxygen Delivery Room Air Room Air 11/19/25 12:00 11/19/25 12:00 Temperature 97.8 F Pulse Rate 79 79 Respiratory Rate 15 Blood Pressure 125/58 L Pulse Oximetry 96 Oxygen Delivery Intake/Output Intake/Output: Intake & Output 11/16/25 11/17/25 11/18/25 11/19/25 23:59 23:59 23:59 23:59 Intake Total 4151.5 3198.0 3058.0 670 Output Total 950 1050 2425 1500 Balance 3201.5 2148.0 633.0 -830 Meds/Results Medications: Active Medications Generic Name Dose Route Start Last Admin Trade Name Freq PRN Reason Stop Dose Admin Acetaminophen 1,000 mg 11/18/25 05:41 11/18/25 05:40 Acetaminophen 500 Mg Tablet PO 1,000 mg Q6H PRN Administration Pain or Fever Bisacodyl 10 mg 11/17/25 09:00 11/19/25 09:30 Bisacodyl 10 Mg Suppository RECTAL Not Given DAILY JACINTO Dextrose 12.5 gm 11/16/25 07:49 Dextrose 50% 25 Gm/50 Ml Syringe IV PUSH PRN PRN Hypoglycemia Protocol Duloxetine HCl 60 mg 11/17/25 09:00 11/19/25 07:58 Duloxetine Hcl 60 Mg Capsule.Dr PO 60 mg DAILY JACINTO Administration Furosemide 40 mg 11/19/25 09:00 11/19/25 07:59 Furosemide Inj 40 Mg/4 Ml Vial IV PUSH 11/19/25 17:01 40 mg BID JACINTO Administration Glucagon 1 mg 11/16/25 07:49 Glucagon For Inj 1 Mg Vial IM PRN PRN Hypoglycemia Protocol Glucose 15 gm 11/16/25 07:49 Glucose Oral Gel 15 Gm Of Glucse In 37.5 Gm Tube PO PRN PRN Hypoglycemia Protocol Heparin Sodium (Porcine) 5,000 units 11/16/25 14:00 11/19/25 06:25 Heparin Sodium 5,000 Units/Ml Vial SUB-Q 5,000 units Q8HR JACINTO Administration Dextrose 1,000 mls @ 100 mls/hr 11/16/25 07:49 Dextrose 5% 1,000 Ml IVPB PRN PRN Hypoglycemia Protocol Insulin Aspart 4 - 8 units 11/18/25 17:00 11/19/25 11:36 Insulin Aspart (*Bkc) 100 Units/Ml SUB-Q 5 units TIDWM JACINTO Administration Protocol Insulin Aspart 2 - 4 units 11/18/25 21:00 11/18/25 20:24 Insulin Aspart (*Bkc) 100 Units/Ml SUB-Q 3 units HS JACINTO Administration Protocol Insulin Aspart 6 units 11/19/25 12:00 11/19/25 11:36 Insulin Aspart (*Bkc) 100 Units/Ml SUB-Q 6 units TIDWM JACINTO Administration Insulin Glargine 25 units 11/19/25 09:00 11/19/25 07:54 Insulin Glargine (*Bkc) 100 Units/Ml SUB-Q 25 units Q12HR JACINTO Administration Lactulose 20 gm 11/17/25 14:15 11/19/25 11:36 Lactulose 20 Gm/30 Ml Udc PO 20 gm TID JACINTO Administration Ondansetron HCl 4 mg 11/18/25 18:58 Ondansetron Inj 4 Mg/2 Ml Vial IV PUSH Q6H PRN Nausea And Vomiting Pantoprazole Sodium 40 mg 11/18/25 09:00 11/19/25 07:58 Pantoprazole 40 Mg Tablet PO 40 mg QAM JACINTO Administration Polyethylene Glycol 17 gm 11/16/25 17:00 11/19/25 07:59 Polyethylene Glycol 3350 17 Gm Powd.Pack PO 17 gm BID JACINTO Administration Ropinirole HCl 0.25 mg 11/16/25 21:00 11/18/25 20:41 Ropinirole Hcl 0.25 Mg Tablet PO 0.25 mg HS JACINTO Administration Rosuvastatin Calcium 40 mg 11/17/25 09:00 11/19/25 07:58 Rosuvastatin 20 Mg Tablet PO 40 mg DAILY JACINTO Administration Sodium Bicarbonate 1,300 mg 11/18/25 09:00 11/19/25 07:58 Sodium Bicarbonate Tab 650 Mg Tablet PO 1,300 mg BID JACINTO Administration Tolterodine Tartrate 4 mg 11/16/25 21:00 11/18/25 20:41 Tolterodine Tartrate La 4 Mg Cap.Er.24h PO 4 mg Q24H JACINTO Administration Radiology Results: ITS Impressions Abdomen/Pelvis CT 11/16/25 07:54 IMPRESSION: 1. Wall thickening of the transverse and descending colon, consistent with colitis. Renal Ultrasound 11/16/25 19:28 Impression: 1: Unremarkable renal ultrasound. No stones, masses or hydronephrosis. Venous Doppler Study 11/17/25 10:13 IMPRESSION: 1. No deep venous thrombosis in either lower limb. Labs Labs: Laboratory Results - last 24 hr 11/18/25 11/18/25 11/18/25 05:35 12:25 13:00 WBC RBC Hgb Hct MCV MCH MCHC RDW Plt Count MPV Sodium Potassium Chloride Carbon Dioxide Anion Gap BUN Creatinine Estim Creat Clear Calc Estimated GFR Glucose POC Capillary Glucose 273 H 250 H Calcium Phosphorus Albumin Beta-Hydroxybutyrate/Acetoacetate 1.26 H 11/18/25 11/18/25 11/18/25 13:34 17:05 20:22 WBC RBC Hgb Hct MCV MCH MCHC RDW Plt Count MPV Sodium Potassium Chloride Carbon Dioxide Anion Gap BUN Creatinine Estim Creat Clear Calc Estimated GFR Glucose POC Capillary Glucose 263 H 282 H 331 H Calcium Phosphorus Albumin Beta-Hydroxybutyrate/Acetoacetate 11/19/25 11/19/25 11/19/25 03:44 07:53 11:35 WBC 11.3 H RBC 3.87 L Hgb 10.9 L Hct 33.3 L MCV 86.0 MCH 28.2 MCHC 32.7 RDW 17.5 H Plt Count 211 MPV 11.3 H Sodium 139 Potassium 4.2 Chloride 110 H Carbon Dioxide 15 L Anion Gap 14 H BUN 61 H Creatinine 6.32 H Estim Creat Clear Calc 11 Estimated GFR 7 L Glucose 312 H POC Capillary Glucose 315 H 282 H Calcium 6.8 L Phosphorus 6.4 H Albumin 2.7 L Beta-Hydroxybutyrate/Acetoacetate
--- NOTE | 2025-11-19 12:48 | P.PNNP_ITS ---
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 * other(?) * evaluation to date: * renal ultrasound unremarkable * urine electrolytes non-prerenal * CPK normal * 2.3 grams of protein * UA w/o evidence of infection * reasonable urine output noted * given poorly controlled DM and proteinuria, suspect a degree/component of diabetic nephropathy * will consider further testing if no improvement by tomorrow * follow trend of repeat labs and UOP (2) DKA (diabetic ketoacidosis): Code(s): E11.10 - Type 2 diabetes mellitus with ketoacidosis without coma Status: Acute Assessment and Plan: * resolved * as noted by admission testing * off IVFs and insulin gtt * follow trend of blood sugars (3) Colitis: Code(s): K52.9 - Noninfective gastroenteritis and colitis, unspecified Status: Acute Assessment and Plan: * as noted by admission CT scan * completed course of antibiotics (4) Acute urinary retention: Code(s): R33.8 - Other retention of urine Status: Acute Assessment and Plan: * as noted by bladder scan in ER * hunt catheter in place * continue supportive therapy (5) Hypertension: Code(s): I10 - Essential (primary) hypertension Status: Chronic Assessment and Plan: * soft BPs on admission * holding antihypertensive medications * follow trend of hemodynamics (6) Constipation: Code(s): K59.00 - Constipation, unspecified Status: Acute Assessment and Plan: * reported on admission and currently * on aggressive bowel regiment * continue current therapy Will continue to follow. L Subjective Date/time seen: 11/19/25 12:48 Interval history: Follow-up for acute kidney injury/acute renal failure. Renal function/creatinine remains about the same (only mild improvement) but continues to make good urine output in response to IV diuretic therapy; she states that she feels better today in general; off insulin gtt and transitioned to SQ insulin therapy; noted plans for transfer out of the ICU. Exam 2 Narrative: General: large female in NAD Heart: normal S1 and S2; no rub Lungs: clear anteriorly Abdomen: soft, mild TTP, nondistended, positive bowel sounds Extremities: no cyanosis or clubbing; 2+edema Skin: no rash Objective Data Vital Signs Vital Signs: Vital Signs Temp Pulse Resp BP Pulse Ox O2 Del Method 11/19/25 12:00 97.8 F 79 15 125/58 L 96 11/19/25 12:00 77 17 98 Room Air 11/19/25 11:00 77 12 90/59 L 97 11/19/25 10:23 Room Air 11/19/25 10:00 79 12 108/74 94 11/19/25 10:00 78 11/19/25 09:00 81 11 L 107/69 93 11/19/25 08:00 82 11/19/25 08:00 83 16 96 Room Air 11/19/25 08:00 97.7 F 83 22 H 147/80 H 96 11/19/25 07:15 76 11 L 95 11/19/25 07:01 80 13 95 11/19/25 07:00 79 10 L 133/65 95 11/19/25 06:45 78 12 96 11/19/25 06:30 78 16 97 11/19/25 06:15 79 12 96 11/19/25 06:01 80 11 L 96 11/19/25 06:00 79 15 134/71 95 11/19/25 06:00 79 11/19/25 05:45 79 12 95 11/19/25 05:30 78 12 95 11/19/25 05:15 78 10 L 96 11/19/25 05:01 79 11 L 96 11/19/25 05:00 78 9 L 123/64 96 11/19/25 04:45 77 11 L 95 11/19/25 04:30 75 13 96 11/19/25 04:15 76 11 L 96 11/19/25 04:01 75 14 97 11/19/25 04:00 74 11 L 126/66 96 11/19/25 04:00 76 11/19/25 04:00 96 Room Air 11/19/25 03:45 79 15 97 11/19/25 03:30 76 13 95 11/19/25 03:15 77 13 96 11/19/25 03:01 78 14 96 11/19/25 03:00 79 15 139/66 96 11/19/25 02:45 79 11 L 96 11/19/25 02:30 79 12 96 11/19/25 02:15 79 15 96 11/19/25 02:01 77 11 L 96 11/19/25 02:00 78 11 L 133/70 96 11/19/25 02:00 78 11/19/25 01:45 78 13 96 11/19/25 01:30 78 12 96 11/19/25 01:15 77 15 96 11/19/25 01:02 78 21 H 96 11/19/25 01:00 77 20 133/67 97 11/19/25 00:45 79 12 96 11/19/25 00:30 79 14 96 11/19/25 00:30 97 Room Air 11/19/25 00:15 79 12 96 11/19/25 00:02 80 12 95 11/19/25 00:01 79 12 134/72 96 11/19/25 00:00 80 14 95 11/19/25 00:00 81 11/18/25 23:45 81 15 96 11/18/25 23:30 80 16 96 11/18/25 23:15 79 17 95 11/18/25 23:03 80 12 145/70 H 96 11/18/25 23:00 79 12 95 11/18/25 22:45 78 11 L 96 11/18/25 22:30 79 11 L 96 11/18/25 22:15 79 14 95 11/18/25 22:02 78 12 112/57 L 95 11/18/25 22:00 79 11/18/25 22:00 79 13 95 11/18/25 21:45 79 15 95 11/18/25 21:30 81 21 H 95 11/18/25 21:15 81 13 96 11/18/25 21:01 82 19 134/60 97 11/18/25 21:00 82 17 97 11/18/25 20:49 83 16 133/54 L 97 11/18/25 20:45 85 18 95 11/18/25 20:30 89 18 92 11/18/25 20:15 89 19 95 11/18/25 20:00 89 25 H 94 11/18/25 20:00 95 Room Air 11/18/25 20:00 88 11/18/25 19:00 83 17 155/69 H 96 Intake/Output Intake/Output: Intake & Output 11/16/25 11/17/25 11/18/25 11/19/25 23:59 23:59 23:59 23:59 Intake Total 4151.5 3198.0 3058.0 1040 Output Total 950 1050 2425 2800 Balance 3201.5 2148.0 633.0 -1760 Meds/Results Medications: Active Medications Generic Name Dose Route Start Last Admin Trade Name Freq PRN Reason Stop Dose Admin Acetaminophen 1,000 mg 11/18/25 05:41 11/18/25 05:40 Acetaminophen 500 Mg Tablet PO 1,000 mg Q6H PRN Administration Pain or Fever Bisacodyl 10 mg 11/17/25 09:00 11/19/25 09:30 Bisacodyl 10 Mg Suppository RECTAL Not Given DAILY JACINTO Dextrose 12.5 gm 11/16/25 07:49 Dextrose 50% 25 Gm/50 Ml Syringe IV PUSH PRN PRN Hypoglycemia Protocol Duloxetine HCl 60 mg 11/17/25 09:00 11/19/25 07:58 Duloxetine Hcl 60 Mg Capsule.Dr PO 60 mg DAILY JACINTO Administration Glucagon 1 mg 11/16/25 07:49 Glucagon For Inj 1 Mg Vial IM PRN PRN Hypoglycemia Protocol Glucose 15 gm 11/16/25 07:49 Glucose Oral Gel 15 Gm Of Glucse In 37.5 Gm Tube PO PRN PRN Hypoglycemia Protocol Heparin Sodium (Porcine) 5,000 units 11/16/25 14:00 11/19/25 13:53 Heparin Sodium 5,000 Units/Ml Vial SUB-Q 5,000 units Q8HR JACINTO Administration Insulin Aspart 4 - 8 units 11/18/25 17:00 11/19/25 17:19 Insulin Aspart (*Bkc) 100 Units/Ml SUB-Q 4 units TIDWM JACINTO Administration Protocol Insulin Aspart 2 - 4 units 11/18/25 21:00 11/18/25 20:24 Insulin Aspart (*Bkc) 100 Units/Ml SUB-Q 3 units HS JACINTO Administration Protocol Insulin Aspart 6 units 11/19/25 12:00 11/19/25 17:19 Insulin Aspart (*Bkc) 100 Units/Ml SUB-Q 6 units TIDWM JACINTO Administration Insulin Glargine 25 units 11/19/25 09:00 11/19/25 07:54 Insulin Glargine (*Bkc) 100 Units/Ml SUB-Q 25 units Q12HR JACINTO Administration Lactulose 20 gm 11/17/25 14:15 11/19/25 17:09 Lactulose 20 Gm/30 Ml Udc PO 20 gm TID JACINTO Administration Ondansetron HCl 4 mg 11/18/25 18:58 Ondansetron Inj 4 Mg/2 Ml Vial IV PUSH Q6H PRN Nausea And Vomiting Pantoprazole Sodium 40 mg 11/18/25 09:00 11/19/25 07:58 Pantoprazole 40 Mg Tablet PO 40 mg QAM JACINTO Administration Polyethylene Glycol 17 gm 11/16/25 17:00 11/19/25 17:09 Polyethylene Glycol 3350 17 Gm Powd.Pack PO Not Given BID JACINTO Ropinirole HCl 0.25 mg 11/16/25 21:00 11/18/25 20:41 Ropinirole Hcl 0.25 Mg Tablet PO 0.25 mg HS JACINTO Administration Rosuvastatin Calcium 40 mg 11/17/25 09:00 11/19/25 07:58 Rosuvastatin 20 Mg Tablet PO 40 mg DAILY JACINTO Administration Sodium Bicarbonate 1,300 mg 11/18/25 09:00 11/19/25 17:08 Sodium Bicarbonate Tab 650 Mg Tablet PO 1,300 mg BID JACINTO Administration Tolterodine Tartrate 4 mg 11/16/25 21:00 11/18/25 20:41 Tolterodine Tartrate La 4 Mg Cap.Er.24h PO 4 mg Q24H JACINTO Administration Radiology Results: ITS Impressions Abdomen/Pelvis CT 11/16/25 07:54 IMPRESSION: 1. Wall thickening of the transverse and descending colon, consistent with colitis. Renal Ultrasound 11/16/25 19:28 Impression: 1: Unremarkable renal ultrasound. No stones, masses or hydronephrosis. Venous Doppler Study 11/17/25 10:13 IMPRESSION: 1. No deep venous thrombosis in either lower limb. Labs Labs: Laboratory Tests 11/19/25 03:44 11/19/25 03:44 Calcium 6.8 L Phosphorus 6.4 H Albumin 2.7 L Microbiology 11/16/25 09:45 Blood Blood Culture - Preliminary 11/16/25 09:12 Blood Blood Culture - Preliminary
--- NOTE | 2025-11-19 14:45 | PC.NURSE ---
This patient, Romina Dick, was transferred to [[id number] ] on 11/19/25 at 1446. Personal belongings sent with patient. Report given to [TEO Delgadillo ]. Appropriate documentation sent with patient.
--- NOTE | 2025-11-19 14:55 | PC.NURSE ---
This patient, Romina Dick, was received from ICU on 11/19/25 at 1455. Patient/family oriented to unit policies and routines
[2025-11-19] MEDS: TOLTERODINE TARTRATE LA 4 MG CAP.ER.24H PO (20:39)
[2025-11-20] VITALS: BP 151/63; PULSE 78; RESP 20; TEMP 36.1; O2SAT 99
[2025-11-20 06:00] VITALS: BP 148/58; PULSE 87; RESP 16; TEMP 36.2; O2SAT 95
[2025-11-20 06:54] LABS: Alanine Aminotransferase 28 U/L (6-35); Albumin Level 2.9 g/dL (3.5-5.1); Alkaline Phosphatase 270 U/L (38-126); Anion Gap 11 mmol/L (4-12); Aspartate Amino Transferase 23 U/L (14-36); Bilirubin,Total 0.5 mg/dL (0.2-1.3); Blood Urea Nitrogen 55 mg/dL (7-17); Calcium 7.5 mg/dL (8.4-10.2); Carbon Dioxide 23 mmol/L (22-30); Chloride 109 mmol/L (98-107); Estimated CRCL calculation 10 ml/min; Estimated Glomerular Filt Rate 6; Glucose 231 mg/dL (65-110); Magnesium 1.8 mg/dL (1.6-2.3); Potassium 3.8 mmol/L (3.4-5.0); Sodium 143 mmol/L (137-145); Total Protein 5.9 g/dL (6.3-8.2)
[2025-11-20] MEDS: LACTULOSE 20 GM/30 ML UDC PO ×2 (09:04→12:47)
[2025-11-20] MEDS: PANTOPRAZOLE 40 MG TABLET PO (09:04)
[2025-11-20] MEDS: DULoxetine HCL 60 MG CAPSULE.DR PO (09:04)
[2025-11-20] MEDS: ROSUVASTATIN 20 MG TABLET 40 MG PO (09:05)
[2025-11-20] MEDS: SODIUM BICARBONATE TAB 650 MG TABLET 1300 MG PO ×2 (09:05→17:36)
[2025-11-20] MEDS: INSULIN ASPART (*BKC) 100 UNITS/ML SUB-Q ×4 (09:05→21:33)
[2025-11-20] MEDS: INSULIN ASPART (*BKC) 100 UNITS/ML 6 UNITS SUB-Q ×3 (09:06→17:35)
[2025-11-20] MEDS: INSULIN GLARGINE (*BKC) 100 UNITS/ML 25 UNITS SUB-Q ×2 (09:07→21:33)
[2025-11-20 13:00] VITALS: BP 138/67; PULSE 95; RESP 16; TEMP 36.6; O2SAT 95
--- NOTE | 2025-11-20 13:15 | P.PNNP_ITS ---
Progress Note: A&P Assessment and Plan (1) Acute renal failure: Qualifiers: Acute renal failure type: with acute tubular necrosis Qualified Code(s): N17.0 - Acute kidney failure with tubular necrosis Code(s): N17.9 - Acute kidney failure, unspecified Status: Acute Assessment and Plan: * only mild improvement noted since admission * protracted ATN? * another issue playing a role? 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 * other(?) * evaluation to date: * renal ultrasound unremarkable * urine electrolytes non-prerenal * CPK normal * 2.3 grams of protein * UA w/o evidence of infection * reasonable urine output noted * given poorly controlled DM and proteinuria, suspect a degree/component of diabetic nephropathy * check serologies given minimal improvement in renal function * follow trend of repeat labs and UOP (2) Colitis: Code(s): K52.9 - Noninfective gastroenteritis and colitis, unspecified Status: Acute Assessment and Plan: * as noted by admission CT scan * completed course of antibiotics (3) Acute urinary retention: Code(s): R33.8 - Other retention of urine Status: Acute Assessment and Plan: * as noted by bladder scan in ER * hunt catheter in place * continue supportive therapy (4) Hypertension: Code(s): I10 - Essential (primary) hypertension Status: Chronic Assessment and Plan: * soft BPs on admission * holding antihypertensive medications at this time * restart as needed * follow trend of hemodynamics (5) Constipation: Code(s): K59.00 - Constipation, unspecified Status: Acute Assessment and Plan: * reported on admission and currently * on aggressive bowel regiment * continue current therapy (6) DKA (diabetic ketoacidosis): Code(s): E11.10 - Type 2 diabetes mellitus with ketoacidosis without coma Status: Acute Assessment and Plan: * resolved * as noted by admission testing * off IVFs and insulin gtt * follow trend of accu-checks * on Lantus and SSI * glycemic control per hospitalist Will continue to follow. L Subjective Date/time seen: 11/20/25 13:15 Interval history: Follow-up for acute kidney injury/acute renal failure. Transferred out of the ICU yesterday; continues to have good urine output with trial dosing of IV lasix; now with diarrhea so lactulose has since been discontinued; renal function/creatinine continues to fluctuate but no critical electrolytes and improved acidosis noted as well; no other events overnight or earlier this morning. Exam 2 Narrative: General: large female in NAD Heart: normal S1 and S2; no rub Lungs: clear anteriorly Abdomen: soft, mild TTP, nondistended, positive bowel sounds Extremities: no cyanosis or clubbing; 2+edema Skin: no nodules Objective Data Vital Signs Vital Signs: Vital Signs Temp Pulse Resp BP Pulse Ox O2 Del Method 11/20/25 13:00 97.8 F 95 16 138/67 95 11/20/25 10:40 Room Air 11/20/25 06:00 97.2 F L 87 16 148/58 H 95 11/20/25 00:00 97 F L 78 20 151/63 H 99 11/19/25 20:41 98 Room Air 11/19/25 20:00 Room Air Intake/Output Intake/Output: Intake & Output 11/17/25 11/18/25 11/19/25 11/20/25 23:59 23:59 23:59 23:59 Intake Total 3198.0 3058.0 1160 990 Output Total 1050 2425 2800 2900 Balance 2148.0 633.0 -1640 -1910 Meds/Results Medications: Active Medications Generic Name Dose Route Start Last Admin Trade Name Freq PRN Reason Stop Dose Admin Acetaminophen 1,000 mg 11/18/25 05:41 11/18/25 05:40 Acetaminophen 500 Mg Tablet PO 1,000 mg Q6H PRN Administration Pain or Fever Dextrose 12.5 gm 11/16/25 07:49 Dextrose 50% 25 Gm/50 Ml Syringe IV PUSH PRN PRN Hypoglycemia Protocol Duloxetine HCl 60 mg 11/17/25 09:00 11/20/25 09:04 Duloxetine Hcl 60 Mg Capsule.Dr PO 60 mg DAILY JACINTO Administration Glucagon 1 mg 11/16/25 07:49 Glucagon For Inj 1 Mg Vial IM PRN PRN Hypoglycemia Protocol Glucose 15 gm 11/16/25 07:49 Glucose Oral Gel 15 Gm Of Glucse In 37.5 Gm Tube PO PRN PRN Hypoglycemia Protocol Heparin Sodium (Porcine) 5,000 units 11/20/25 21:00 Heparin Sodium 5,000 Units/Ml Vial SUB-Q Q12HR JACINTO Insulin Aspart 4 - 8 units 11/18/25 17:00 11/20/25 17:34 Insulin Aspart (*Bkc) 100 Units/Ml SUB-Q 5 units TIDWM JACINTO Administration Protocol Insulin Aspart 2 - 4 units 11/18/25 21:00 11/19/25 20:38 Insulin Aspart (*Bkc) 100 Units/Ml SUB-Q 2 units HS JACINTO Administration Protocol Insulin Aspart 6 units 11/19/25 12:00 11/20/25 17:35 Insulin Aspart (*Bkc) 100 Units/Ml SUB-Q 6 units TIDWM JACINTO Administration Insulin Glargine 25 units 11/19/25 09:00 11/20/25 09:07 Insulin Glargine (*Bkc) 100 Units/Ml SUB-Q 25 units Q12HR JACINTO Administration Ondansetron HCl 4 mg 11/18/25 18:58 Ondansetron Inj 4 Mg/2 Ml Vial IV PUSH Q6H PRN Nausea And Vomiting Pantoprazole Sodium 40 mg 11/18/25 09:00 11/20/25 09:04 Pantoprazole 40 Mg Tablet PO 40 mg QAM JACINTO Administration Ropinirole HCl 0.25 mg 11/16/25 21:00 11/19/25 20:39 Ropinirole Hcl 0.25 Mg Tablet PO 0.25 mg HS JACINTO Administration Rosuvastatin Calcium 40 mg 11/17/25 09:00 11/20/25 09:05 Rosuvastatin 20 Mg Tablet PO 40 mg DAILY JACINTO Administration Sodium Bicarbonate 1,300 mg 11/18/25 09:00 11/20/25 17:36 Sodium Bicarbonate Tab 650 Mg Tablet PO 1,300 mg BID JACINTO Administration Radiology Results: ITS Impressions Abdomen/Pelvis CT 11/16/25 07:54 IMPRESSION: 1. Wall thickening of the transverse and descending colon, consistent with colitis. Renal Ultrasound 11/16/25 19:28 Impression: 1: Unremarkable renal ultrasound. No stones, masses or hydronephrosis. Venous Doppler Study 11/17/25 10:13 IMPRESSION: 1. No deep venous thrombosis in either lower limb. Labs Labs: Laboratory Tests 11/19/25 03:44 11/20/25 06:06 Calcium 7.5 L Magnesium 1.8 Total Bilirubin 0.5 AST 23 ALT 28 Alkaline Phosphatase 270 H Total Protein 5.9 L Albumin 2.9 L Microbiology 11/16/25 09:45 Blood Blood Culture - Preliminary 11/16/25 09:12 Blood Blood Culture - Preliminary
--- NOTE | 2025-11-20 18:12 | PM.IMPN2 ---
Assessment and Plan Assessment and Plan (1) Obesity: Code(s): E66.9 - Obesity, unspecified Status: Acute (2) Colitis: Code(s): K52.9 - Noninfective gastroenteritis and colitis, unspecified Status: Acute (3) Constipation: Code(s): K59.00 - Constipation, unspecified Status: Acute (4) Acute kidney injury: Code(s): N17.9 - Acute kidney failure, unspecified Status: Acute (5) Uncontrolled type 2 diabetes mellitus with hyperglycemia: Code(s): E11.65 - Type 2 diabetes mellitus with hyperglycemia Status: Acute Plan A pleasant 60-year-old female with [facility] obesity class 3, insulin-dependent diabetes mellitus, chronic depression, fibromyalgia, hypercholesterolemia, hypertension, overactive urinary bladder, admitted to [facility] on 11/16/2025 complaining of severe constipation with no bowel movements for about a week. Presented with a distended and tender abdomen. CT of abdomen and pelvis showed thickening of the colonic wall possibly consistent with colitis. Patient on no vomiting. She had urinary retention and a Dickinson catheter was placed and her serum creatinine 6.95 with a BUN 72. Bicarb level 16. Hydroxybutyrate level 2.4. Patient admitted to ICU, treated for DKA. ----- Blood sugars are improving but still high. She is receiving glargine 25 units q.12 hours and aspart 6 units t.i.d. with meals with sliding scale. At this time will not increase her dose, fearing the complication of hypoglycemia with her severely decreased GFR. Continue Accu-Cheks a.c. HS. Acute renal failure. Urinary retention on admission. History of overactive bladder, tolterodine was continued. Discontinue that on 11/20/2025. Nephrology following. Received Lasix. Patient has adequate urine output but serum creatinine has not improved below 6. Continue to monitor and appreciate Nephrology recommendations. Patient is amenable to dialysis if needed. Currently on sodium bicarb 1300 mg p.o. b.i.d.. Patient is now having diarrhea, on 11/20/2025 discontinue lactulose 20 g p.o. t.i.d., MiraLax 17 g p.o. b.i.d. and bisacodyl 10 mg rectal daily. Monitor frequency of bowel movements. Received antibiotics as colitis was seen on presentation. Was possibly stercolal colitis. ----- Dickinson placed on 11/16/2025. Patient wishes to be full code. Decreased heparin from 5000 units t.i.d. to 5000 units b.i.d. on 11/20/2025. Time Spent With Patient Time with patient: Greater than 35 minutes Subjective Date/time seen: 11/20/25 18:12 Interval history: No major acute overnight events. Patient's spouse is at bedside. Patient is doing much better, alert and oriented at her baseline. She reports diarrhea brown in color otherwise has a poor appetite but no nausea or vomiting or abdominal pain. Review of Systems Review of Systems: All systems reviewed & are unremarkable except as noted in HPI and below (Subjective) Exam Const: General: comfortable and no acute distress HENMT: Mouth: Yes moist mucous membranes Eyes: Pupils: Equal, round and reactive pupils present Neck: Neck: supple Resp: Effort & Inspection: normal respiratory effort Auscultation: clear to auscultation bilaterally Cardio: Rate: regular rate Rhythm: regular rhythm GI: Other: Mild distention, no tenderness, bowel sounds active. Neuro: Motor exam (neuro): 5/5 motor strength present throughout Extrem: Other: 1+ pitting edema bilateral lower extremities below the knees Objective Data Vital Signs Vital Signs: Vital Signs - 24 hr 11/19/25 20:00 11/19/25 20:41 11/20/25 00:00 Temperature 97 F L Pulse Rate 78 Respiratory Rate 20 Blood Pressure 151/63 H Pulse Oximetry 98 99 Oxygen Delivery Room Air Room Air 11/20/25 06:00 11/20/25 10:40 11/20/25 13:00 Temperature 97.2 F L 97.8 F Pulse Rate 87 95 Respiratory Rate 16 16 Blood Pressure 148/58 H 138/67 Pulse Oximetry 95 95 Oxygen Delivery Room Air Intake/Output Intake/Output: Intake & Output 11/17/25 11/18/25 11/19/25 11/20/25 23:59 23:59 23:59 23:59 Intake Total 3198.0 3058.0 1160 990 Output Total 1050 2425 2800 2900 Balance 2148.0 633.0 -1640 -1910 Meds/Results Medications: Active Medications Generic Name Dose Route Start Last Admin Trade Name Freq PRN Reason Stop Dose Admin Acetaminophen 1,000 mg 11/18/25 05:41 11/18/25 05:40 Acetaminophen 500 Mg Tablet PO 1,000 mg Q6H PRN Administration Pain or Fever Bisacodyl 10 mg 11/17/25 09:00 11/20/25 09:07 Bisacodyl 10 Mg Suppository RECTAL Not Given DAILY JACINTO Dextrose 12.5 gm 11/16/25 07:49 Dextrose 50% 25 Gm/50 Ml Syringe IV PUSH PRN PRN Hypoglycemia Protocol Duloxetine HCl 60 mg 11/17/25 09:00 11/20/25 09:04 Duloxetine Hcl 60 Mg Capsule.Dr PO 60 mg DAILY JACINTO Administration Glucagon 1 mg 11/16/25 07:49 Glucagon For Inj 1 Mg Vial IM PRN PRN Hypoglycemia Protocol Glucose 15 gm 11/16/25 07:49 Glucose Oral Gel 15 Gm Of Glucse In 37.5 Gm Tube PO PRN PRN Hypoglycemia Protocol Heparin Sodium (Porcine) 5,000 units 11/16/25 14:00 11/20/25 14:50 Heparin Sodium 5,000 Units/Ml Vial SUB-Q 5,000 units Q8HR JACINTO Administration Insulin Aspart 4 - 8 units 11/18/25 17:00 11/20/25 17:34 Insulin Aspart (*Bkc) 100 Units/Ml SUB-Q 5 units TIDWM JACINTO Administration Protocol Insulin Aspart 2 - 4 units 11/18/25 21:00 11/19/25 20:38 Insulin Aspart (*Bkc) 100 Units/Ml SUB-Q 2 units HS JACINTO Administration Protocol Insulin Aspart 6 units 11/19/25 12:00 11/20/25 17:35 Insulin Aspart (*Bkc) 100 Units/Ml SUB-Q 6 units TIDWM JACINTO Administration Insulin Glargine 25 units 11/19/25 09:00 11/20/25 09:07 Insulin Glargine (*Bkc) 100 Units/Ml SUB-Q 25 units Q12HR JACINTO Administration Lactulose 20 gm 11/17/25 14:15 11/20/25 17:35 Lactulose 20 Gm/30 Ml Udc PO Not Given TID JACINTO Ondansetron HCl 4 mg 11/18/25 18:58 Ondansetron Inj 4 Mg/2 Ml Vial IV PUSH Q6H PRN Nausea And Vomiting Pantoprazole Sodium 40 mg 11/18/25 09:00 11/20/25 09:04 Pantoprazole 40 Mg Tablet PO 40 mg QAM JACINTO Administration Polyethylene Glycol 17 gm 11/16/25 17:00 11/20/25 17:35 Polyethylene Glycol 3350 17 Gm Powd.Pack PO Not Given BID JACINTO Ropinirole HCl 0.25 mg 11/16/25 21:00 11/19/25 20:39 Ropinirole Hcl 0.25 Mg Tablet PO 0.25 mg HS JACINTO Administration Rosuvastatin Calcium 40 mg 11/17/25 09:00 11/20/25 09:05 Rosuvastatin 20 Mg Tablet PO 40 mg DAILY JACINTO Administration Sodium Bicarbonate 1,300 mg 11/18/25 09:00 11/20/25 17:36 Sodium Bicarbonate Tab 650 Mg Tablet PO 1,300 mg BID JACINTO Administration Tolterodine Tartrate 4 mg 11/16/25 21:00 11/19/25 20:39 Tolterodine Tartrate La 4 Mg Cap.Er.24h PO 4 mg Q24H JACINTO Administration Radiology Results: ITS Impressions Abdomen/Pelvis CT 11/16/25 07:54 IMPRESSION: 1. Wall thickening of the transverse and descending colon, consistent with colitis. Renal Ultrasound 11/16/25 19:28 Impression: 1: Unremarkable renal ultrasound. No stones, masses or hydronephrosis. Venous Doppler Study 11/17/25 10:13 IMPRESSION: 1. No deep venous thrombosis in either lower limb. Labs Labs: Laboratory Results - last 24 hr 11/19/25 11/20/25 11/20/25 20:33 06:06 07:42 Sodium 143 Potassium 3.8 Chloride 109 H Carbon Dioxide 23 Anion Gap 11 BUN 55 H Creatinine 6.98 H Estim Creat Clear Calc 10 Estimated GFR 6 L Glucose 231 H POC Capillary Glucose 246 H 251 H Calcium 7.5 L Magnesium 1.8 Total Bilirubin 0.5 AST 23 ALT 28 Alkaline Phosphatase 270 H Total Protein 5.9 L Albumin 2.9 L 11/20/25 11/20/25 11:52 16:49 Sodium Potassium Chloride Carbon Dioxide Anion Gap BUN Creatinine Estim Creat Clear Calc Estimated GFR Glucose POC Capillary Glucose 244 H 258 H Calcium Magnesium Total Bilirubin AST ALT Alkaline Phosphatase Total Protein Albumin
[2025-11-20 21:44] VITALS: O2SAT 95
[2025-11-20 22:00] VITALS: BP 125/64; PULSE 74; RESP 18; TEMP 37.1; O2SAT 96
[2025-11-21 06:00] VITALS: BP 125/71; PULSE 79; RESP 18; TEMP 36.9; O2SAT 95
[2025-11-21 06:02] LABS: Hematocrit 34.7 % (37.0-47.0); Hemoglobin 11.4 g/dL (12.0-15.0); Immature Granulocyte Percent A 3.8 % (0-0.5); Lymphocytes Absolute Auto 2.58 K/mm3 (0.9-3.2); Mean Corpuscular HGB Conc 32.9 g/dl (32-36); Mean Corpuscular Hemoglobin 28.0 pg (26-34); Mean Corpuscular Volume 85.3 fl (80-100); Nucleated Red Blood Cells Absolute Auto 0.000 K/mm3 (0.0-0.012); Nucleated Red Blood Cells Perc 0.0 % (0.0-0.2); Platelet Count Result 207 k/mm3 (150-375); Red Blood Count 4.07 M/mm3 (4.2-5.4); White Blood Count 12.3 K/mm3 (4.5-10.0)
[2025-11-21 06:22] LABS: Albumin Level 2.9 g/dL (3.5-5.1); Anion Gap 8 mmol/L (4-12); Blood Urea Nitrogen 47 mg/dL (7-17); Calcium 7.5 mg/dL (8.4-10.2); Carbon Dioxide 22 mmol/L (22-30); Chloride 111 mmol/L (98-107); Estimated CRCL calculation 11 ml/min; Estimated Glomerular Filt Rate 7; Glucose 160 mg/dL (65-110); Potassium 2.8 mmol/L (3.4-5.0); Sodium 141 mmol/L (137-145)
[2025-11-21 09:35] VITALS: RESP 12; O2SAT 99
[2025-11-21] MEDS: KCL 40 MEQ/WATER 100 ML 100 ML 25 ML IVPB (09:43)
[2025-11-21] MEDS: POTASSIUM CHLORIDE 20 MEQ PACKET (FOR LIQUID) 40 MEQ PO (09:44)
[2025-11-21] MEDS: DULoxetine HCL 60 MG CAPSULE.DR PO (09:45)
[2025-11-21] MEDS: SODIUM BICARBONATE TAB 650 MG TABLET 1300 MG PO ×2 (09:45→17:42)
[2025-11-21] MEDS: PANTOPRAZOLE 40 MG TABLET PO (09:45)
[2025-11-21] MEDS: ROSUVASTATIN 20 MG TABLET 40 MG PO (09:45)
[2025-11-21] MEDS: INSULIN GLARGINE (*BKC) 100 UNITS/ML 25 UNITS SUB-Q ×2 (09:50→22:42)
[2025-11-21] MEDS: INSULIN ASPART (*BKC) 100 UNITS/ML 6 UNITS SUB-Q ×3 (09:52→17:43)
[2025-11-21] MEDS: INSULIN ASPART (*BKC) 100 UNITS/ML SUB-Q ×3 (12:42→22:43)
[2025-11-21 13:00] VITALS: BP 126/65; PULSE 85; RESP 12; TEMP 36.2; O2SAT 99
--- NOTE | 2025-11-21 13:07 | P.PNNP_ITS ---
Progress Note: A&P Assessment and Plan (1) Acute renal failure: Qualifiers: Acute renal failure type: with acute tubular necrosis Qualified Code(s): N17.0 - Acute kidney failure with tubular necrosis Code(s): N17.9 - Acute kidney failure, unspecified Status: Acute Assessment and Plan: * only mild improvement noted since admission * protracted ATN? * another issue playing a role? * normal baseline kidney function from available records * suspect multifactorial: * prerenal factors * DKA * urinary retention * relative hypotension * valsartan use [employer] * other(?) * evaluation to date: * renal ultrasound unremarkable * urine electrolytes non-prerenal * CPK normal * 2.3 grams of protein * UA w/o evidence of infection * reasonable urine output noted * given poorly controlled DM and proteinuria, suspect a degree/component of diabetic nephropathy * checking serologies given minimal improvement in renal function * check renal scan * follow trend of repeat labs and UOP (2) Colitis: Code(s): K52.9 - Noninfective gastroenteritis and colitis, unspecified Status: Acute Assessment and Plan: * as noted by admission CT scan * completed course of antibiotics (3) Acute urinary retention: Code(s): R33.8 - Other retention of urine Status: Acute Assessment and Plan: * as noted by bladder scan in ER * hunt catheter in place * continue supportive therapy (4) Hypertension: Code(s): I10 - Essential (primary) hypertension Status: Chronic Assessment and Plan: * soft BPs on admission * holding antihypertensive medications at this time * restart as needed * follow trend of hemodynamics (5) Constipation: Code(s): K59.00 - Constipation, unspecified Status: Acute Assessment and Plan: * reported on admission and currently * on aggressive bowel regiment * continue current therapy (6) DKA (diabetic ketoacidosis): Code(s): E11.10 - Type 2 diabetes mellitus with ketoacidosis without coma Status: Acute Assessment and Plan: * resolved * as noted by admission testing * off IVFs and insulin gtt * follow trend of accu-checks * on Lantus and SSI * glycemic control per hospitalist Will continue to follow. L Subjective Date/time seen: 11/21/25 13:07 Interval history: Follow-up for acute kidney injury/acute renal failure. Renal function/creatinine continues to improve albeit extremely slowly; continue to make good urine output as well; no further issues with diarrhea at this time; no other issues/events overnight or earlier this morning. Exam 2 Narrative: General: large female in NAD Heart: normal S1 and S2; no rub Lungs: clear anteriorly Abdomen: soft, mild TTP, nondistended, positive bowel sounds Extremities: no cyanosis or clubbing; 1+ edema Skin: warm and dry Objective Data Vital Signs Vital Signs: Vital Signs Temp Pulse Resp BP Pulse Ox O2 Del Method 11/21/25 13:00 97.2 F L 85 12 126/65 99 11/21/25 09:35 12 99 Room Air 11/21/25 06:00 98.4 F 79 18 125/71 95 11/20/25 22:00 98.8 F 74 18 125/64 96 11/20/25 21:44 95 Room Air 11/20/25 20:00 Room Air Intake/Output Intake/Output: Intake & Output 11/18/25 11/19/25 11/20/25 11/21/25 23:59 23:59 23:59 23:59 Intake Total 3058.0 1160 990 580 Output Total 2425 2800 2900 1200 Balance 633.0 -1640 -1910 -620 Meds/Results Medications: Active Medications Generic Name Dose Route Start Last Admin Trade Name Freq PRN Reason Stop Dose Admin Acetaminophen 1,000 mg 11/18/25 05:41 11/18/25 05:40 Acetaminophen 500 Mg Tablet PO 1,000 mg Q6H PRN Administration Pain or Fever Dextrose 12.5 gm 11/16/25 07:49 Dextrose 50% 25 Gm/50 Ml Syringe IV PUSH PRN PRN Hypoglycemia Protocol Duloxetine HCl 60 mg 11/17/25 09:00 11/21/25 09:45 Duloxetine Hcl 60 Mg Capsule.Dr PO 60 mg DAILY JACINTO Administration Glucagon 1 mg 11/16/25 07:49 Glucagon For Inj 1 Mg Vial IM PRN PRN Hypoglycemia Protocol Glucose 15 gm 11/16/25 07:49 Glucose Oral Gel 15 Gm Of Glucse In 37.5 Gm Tube PO PRN PRN Hypoglycemia Protocol Heparin Sodium (Porcine) 5,000 units 11/20/25 21:00 11/21/25 09:45 Heparin Sodium 5,000 Units/Ml Vial SUB-Q 5,000 units Q12HR JACINTO Administration Insulin Aspart 4 - 8 units 11/18/25 17:00 11/21/25 12:42 Insulin Aspart (*Bkc) 100 Units/Ml SUB-Q 4 units TIDWM JACINTO Administration Protocol Insulin Aspart 2 - 4 units 11/18/25 21:00 11/20/25 21:33 Insulin Aspart (*Bkc) 100 Units/Ml SUB-Q 2 units HS JACINTO Administration Protocol Insulin Aspart 6 units 11/19/25 12:00 11/21/25 12:42 Insulin Aspart (*Bkc) 100 Units/Ml SUB-Q 6 units TIDWM JACINTO Administration Insulin Glargine 25 units 11/19/25 09:00 11/21/25 09:50 Insulin Glargine (*Bkc) 100 Units/Ml SUB-Q 25 units Q12HR JACINTO Administration Ondansetron HCl 4 mg 11/18/25 18:58 Ondansetron Inj 4 Mg/2 Ml Vial IV PUSH Q6H PRN Nausea And Vomiting Pantoprazole Sodium 40 mg 11/18/25 09:00 11/21/25 09:45 Pantoprazole 40 Mg Tablet PO 40 mg QAM JACINTO Administration Ropinirole HCl 0.25 mg 11/16/25 21:00 11/20/25 21:33 Ropinirole Hcl 0.25 Mg Tablet PO 0.25 mg HS JACINTO Administration Rosuvastatin Calcium 40 mg 11/17/25 09:00 11/21/25 09:45 Rosuvastatin 20 Mg Tablet PO 40 mg DAILY JACINTO Administration Sodium Bicarbonate 1,300 mg 11/18/25 09:00 11/21/25 09:45 Sodium Bicarbonate Tab 650 Mg Tablet PO 1,300 mg BID JACINTO Administration Radiology Results: ITS Impressions Abdomen/Pelvis CT 11/16/25 07:54 IMPRESSION: 1. Wall thickening of the transverse and descending colon, consistent with colitis. Renal Ultrasound 11/16/25 19:28 Impression: 1: Unremarkable renal ultrasound. No stones, masses or hydronephrosis. Venous Doppler Study 11/17/25 10:13 IMPRESSION: 1. No deep venous thrombosis in either lower limb. Labs Labs: Laboratory Tests 11/21/25 05:52 11/21/25 05:52 Calcium 7.5 L Phosphorus 6.2 H Magnesium 1.6 Albumin 2.9 L
[2025-11-21 13:22] LABS: Magnesium 1.6 mg/dL (1.6-2.3)
[2025-11-21] MEDS: POTASSIUM CHLORIDE 20 MEQ ER TABLET 40 MEQ PO (13:51)
--- NOTE | 2025-11-21 15:04 | PM.IMPN2 ---
Assessment and Plan Assessment and Plan (1) Obesity: Code(s): E66.9 - Obesity, unspecified Status: Acute (2) Colitis: Code(s): K52.9 - Noninfective gastroenteritis and colitis, unspecified Status: Acute (3) Constipation: Code(s): K59.00 - Constipation, unspecified Status: Acute (4) Acute kidney injury: Code(s): N17.9 - Acute kidney failure, unspecified Status: Acute (5) Uncontrolled type 2 diabetes mellitus with hyperglycemia: Code(s): E11.65 - Type 2 diabetes mellitus with hyperglycemia Status: Acute (6) Hypokalemia: Code(s): E87.6 - Hypokalemia Status: Acute Plan A pleasant 60-year-old female with [facility] obesity class 3, insulin-dependent diabetes mellitus, chronic depression, fibromyalgia, hypercholesterolemia, hypertension, overactive urinary bladder, admitted to [facility] on 11/16/2025 complaining of severe constipation with no bowel movements for about a week. Presented with a distended and tender abdomen. CT of abdomen and pelvis showed thickening of the colonic wall possibly consistent with colitis. Patient on no vomiting. She had urinary retention and a Dickinson catheter was placed and her serum creatinine 6.95 with a BUN 72. Bicarb level 16. Hydroxybutyrate level 2.4. Patient admitted to ICU, treated for DKA. ----- Blood sugars improved. Relatively at goal. She is receiving glargine 25 units q.12 hours and aspart 6 units t.i.d. with meals with sliding scale. Continue Accu-Cheks a.c. HS. Acute renal failure. Urinary retention on admission. History of overactive bladder, tolterodine was continued. Discontinue that on 11/20/2025. Nephrology following. Received Lasix. Patient has adequate urine output but serum creatinine has not improved below 6. Continue to monitor and appreciate Nephrology recommendations. Patient is amenable to dialysis if needed. Currently on sodium bicarb 1300 mg p.o. b.i.d.. Patient is now having diarrhea, on 11/20/2025 discontinue lactulose 20 g p.o. t.i.d., MiraLax 17 g p.o. b.i.d. and bisacodyl 10 mg rectal daily. Monitor frequency of bowel movements. Received antibiotics as colitis was seen on presentation. Was possibly stercolal colitis. On 11/21/2025 no bowel movements/diarrhea. Continue to monitor off of laxatives. Significant hypokalemia. Replace with IV NPO, replace magnesium since 1.8 on the lower end. Recheck electrolytes today. Diarrhea has resolved, should improve. Antihypertensives on hold, monitor blood pressure and restart as needed. ----- Dickinson placed on 11/16/2025. Patient wishes to be full code. Decreased heparin from 5000 units t.i.d. to 5000 units b.i.d. on 11/20/2025. Time Spent With Patient Time with patient: Greater than 35 minutes Subjective Date/time seen: 11/21/25 15:04 Interval history: No major acute overnight events. Patient reports no complaints. She has not had diarrhea/bowel movement today. Review of Systems Review of Systems: All systems reviewed & are unremarkable except as noted in HPI and below (Subjective) Exam Const: General: comfortable and no acute distress HENMT: Mouth: Yes moist mucous membranes Eyes: Pupils: Equal, round and reactive pupils present Neck: Neck: supple Resp: Effort & Inspection: normal respiratory effort Auscultation: clear to auscultation bilaterally Cardio: Rate: regular rate Rhythm: regular rhythm GI: Inspection: non-distended GI Palp: Yes Soft to palpation Auscultation: normal bowel sounds Neuro: Motor exam (neuro): 5/5 motor strength present throughout Extrem: Other: 1+ pitting edema bilateral lower extremities below the knees Objective Data Vital Signs Vital Signs: Vital Signs - 24 hr 11/20/25 20:00 11/20/25 21:44 11/20/25 22:00 Temperature 98.8 F Pulse Rate 74 Respiratory Rate 18 Blood Pressure 125/64 Pulse Oximetry 95 96 Oxygen Delivery Room Air Room Air 11/21/25 06:00 11/21/25 13:00 Temperature 98.4 F 97.2 F L Pulse Rate 79 85 Respiratory Rate 18 12 Blood Pressure 125/71 126/65 Pulse Oximetry 95 99 Oxygen Delivery Intake/Output Intake/Output: Intake & Output 11/18/25 11/19/25 11/20/25 11/21/25 23:59 23:59 23:59 23:59 Intake Total 3058.0 1160 990 580 Output Total 2425 2800 2900 1200 Balance 633.0 -1640 -1910 -620 Meds/Results Medications: Active Medications Generic Name Dose Route Start Last Admin Trade Name Freq PRN Reason Stop Dose Admin Acetaminophen 1,000 mg 11/18/25 05:41 11/18/25 05:40 Acetaminophen 500 Mg Tablet PO 1,000 mg Q6H PRN Administration Pain or Fever Dextrose 12.5 gm 11/16/25 07:49 Dextrose 50% 25 Gm/50 Ml Syringe IV PUSH PRN PRN Hypoglycemia Protocol Duloxetine HCl 60 mg 11/17/25 09:00 11/21/25 09:45 Duloxetine Hcl 60 Mg Capsule.Dr PO 60 mg DAILY JACINTO Administration Glucagon 1 mg 11/16/25 07:49 Glucagon For Inj 1 Mg Vial IM PRN PRN Hypoglycemia Protocol Glucose 15 gm 11/16/25 07:49 Glucose Oral Gel 15 Gm Of Glucse In 37.5 Gm Tube PO PRN PRN Hypoglycemia Protocol Heparin Sodium (Porcine) 5,000 units 11/20/25 21:00 11/21/25 09:45 Heparin Sodium 5,000 Units/Ml Vial SUB-Q 5,000 units Q12HR JACINTO Administration Magnesium Sulfate 2 gm in 50 mls @ 25 mls/hr 11/21/25 15:03 Magnesium Sulf 2 Gm/Water 50ml IVPB 11/21/25 17:02 ONCE ONE Insulin Aspart 4 - 8 units 11/18/25 17:00 11/21/25 12:42 Insulin Aspart (*Bkc) 100 Units/Ml SUB-Q 4 units TIDWM JACINTO Administration Protocol Insulin Aspart 2 - 4 units 11/18/25 21:00 11/20/25 21:33 Insulin Aspart (*Bkc) 100 Units/Ml SUB-Q 2 units HS JACINTO Administration Protocol Insulin Aspart 6 units 11/19/25 12:00 11/21/25 12:42 Insulin Aspart (*Bkc) 100 Units/Ml SUB-Q 6 units TIDWM JACINTO Administration Insulin Glargine 25 units 11/19/25 09:00 11/21/25 09:50 Insulin Glargine (*Bkc) 100 Units/Ml SUB-Q 25 units Q12HR JACINTO Administration Ondansetron HCl 4 mg 11/18/25 18:58 Ondansetron Inj 4 Mg/2 Ml Vial IV PUSH Q6H PRN Nausea And Vomiting Pantoprazole Sodium 40 mg 11/18/25 09:00 11/21/25 09:45 Pantoprazole 40 Mg Tablet PO 40 mg QAM JACINTO Administration Ropinirole HCl 0.25 mg 11/16/25 21:00 11/20/25 21:33 Ropinirole Hcl 0.25 Mg Tablet PO 0.25 mg HS JACINTO Administration Rosuvastatin Calcium 40 mg 11/17/25 09:00 11/21/25 09:45 Rosuvastatin 20 Mg Tablet PO 40 mg DAILY JACINTO Administration Sodium Bicarbonate 1,300 mg 11/18/25 09:00 11/21/25 09:45 Sodium Bicarbonate Tab 650 Mg Tablet PO 1,300 mg BID JACINTO Administration Radiology Results: ITS Impressions Abdomen/Pelvis CT 11/16/25 07:54 IMPRESSION: 1. Wall thickening of the transverse and descending colon, consistent with colitis. Renal Ultrasound 11/16/25 19:28 Impression: 1: Unremarkable renal ultrasound. No stones, masses or hydronephrosis. Venous Doppler Study 11/17/25 10:13 IMPRESSION: 1. No deep venous thrombosis in either lower limb. Labs Labs: Laboratory Results - last 24 hr 11/20/25 11/20/25 11/21/25 16:49 20:49 05:52 WBC 12.3 H RBC 4.07 L Hgb 11.4 L Hct 34.7 L MCV 85.3 MCH 28.0 MCHC 32.9 RDW 17.5 H Plt Count 207 MPV 11.4 H Immature Gran % (Auto) 3.8 H Neut % (Auto) 63.8 Lymph % (Auto) 21.0 [place] % (Auto) 10.3 H Eos % (Auto) 0.8 Baso % (Auto) 0.3 Lymph # (Auto) 2.58 [place] # (Auto) 1.3 H Eos # (Auto) 0.1 Baso # (Auto) 0.0 Abs Immat Gran (auto) 0.46 H Absolute Neuts (auto) 7.8 H Absolute Nucleated RBC 0.000 Nucleated RBC % 0.0 Sodium 141 Potassium 2.8 L* Chloride 111 H Carbon Dioxide 22 Anion Gap 8 BUN 47 H Creatinine 6.16 H Estim Creat Clear Calc 11 Estimated GFR 7 L Glucose 160 H POC Capillary Glucose 258 H 213 H Calcium 7.5 L Phosphorus 6.2 H Magnesium 1.6 Albumin 2.9 L Cryoglobulin % Cancelled Cryoglobulin Qualit Cancelled FEMI Screen Cancelled FEMI Titer Cancelled FEMI Titer 2 Cancelled FEMI Titer 3 Cancelled FEMI Pattern Cancelled FEMI Pattern 2 Cancelled FEMI Pattern 3 Cancelled FEMI Comment Cancelled Complement C3 112 Complement C4 29.3 11/21/25 11/21/25 07:34 11:42 WBC RBC Hgb Hct MCV MCH MCHC RDW Plt Count MPV Immature Gran % (Auto) Neut % (Auto) Lymph % (Auto) [place] % (Auto) Eos % (Auto) Baso % (Auto) Lymph # (Auto) [place] # (Auto) Eos # (Auto) Baso # (Auto) Abs Immat Gran (auto) Absolute Neuts (auto) Absolute Nucleated RBC Nucleated RBC % Sodium Potassium Chloride Carbon Dioxide Anion Gap BUN Creatinine Estim Creat Clear Calc Estimated GFR Glucose POC Capillary Glucose 164 H 233 H Calcium Phosphorus Magnesium Albumin Cryoglobulin % Cryoglobulin Qualit FEMI Screen FEMI Titer FEMI Titer 2 FEMI Titer 3 FEMI Pattern FEMI Pattern 2 FEMI Pattern 3 FEMI Comment Complement C3 Complement C4
[2025-11-21] MEDS: MAGNESIUM SULF 2 GM/WATER 50ML 2 GM/50 ML BAG IVPB (17:43)
[2025-11-21 20:56] VITALS: BP 126/76; PULSE 69; RESP 18; TEMP 36.8; O2SAT 99
[2025-11-21 21:48] LABS: Anion Gap 5 mmol/L (4-12); Blood Urea Nitrogen 42 mg/dL (7-17); Calcium 7.1 mg/dL (8.4-10.2); Carbon Dioxide 24 mmol/L (22-30); Chloride 108 mmol/L (98-107); Estimated CRCL calculation 14 ml/min; Estimated Glomerular Filt Rate 9; Glucose 308 mg/dL (65-110); Magnesium 2.2 mg/dL (1.6-2.3); Potassium 3.7 mmol/L (3.4-5.0); Sodium 137 mmol/L (137-145)
[2025-11-22 06:00] VITALS: BP 122/60; PULSE 67; RESP 16; TEMP 36.8; O2SAT 97
[2025-11-22 06:11] LABS: Hematocrit 32.1 % (37.0-47.0); Hemoglobin 10.4 g/dL (12.0-15.0); Immature Granulocyte Percent A 3.6 % (0-0.5); Lymphocytes Absolute Auto 2.30 K/mm3 (0.9-3.2); Mean Corpuscular HGB Conc 32.4 g/dl (32-36); Mean Corpuscular Hemoglobin 28.0 pg (26-34); Mean Corpuscular Volume 86.3 fl (80-100); Nucleated Red Blood Cells Absolute Auto 0.000 K/mm3 (0.0-0.012); Nucleated Red Blood Cells Perc 0.0 % (0.0-0.2); Platelet Count Result 158 k/mm3 (150-375); Red Blood Count 3.72 M/mm3 (4.2-5.4); White Blood Count 10.0 K/mm3 (4.5-10.0)
[2025-11-22 06:40] LABS: Albumin Level 2.6 g/dL (3.5-5.1); Anion Gap 6 mmol/L (4-12); Blood Urea Nitrogen 40 mg/dL (7-17); Calcium 7.3 mg/dL (8.4-10.2); Carbon Dioxide 23 mmol/L (22-30); Chloride 110 mmol/L (98-107); Estimated CRCL calculation 15 ml/min; Estimated Glomerular Filt Rate 9; Glucose 232 mg/dL (65-110); Magnesium 1.9 mg/dL (1.6-2.3); Potassium 3.5 mmol/L (3.4-5.0); Sodium 139 mmol/L (137-145)
--- NOTE | 2025-11-22 08:28 | P.PNNP_ITS ---
Progress Note: A&P Assessment and Plan (1) Acute renal failure: Qualifiers: Acute renal failure type: with acute tubular necrosis Qualified Code(s): N17.0 - Acute kidney failure with tubular necrosis Code(s): N17.9 - Acute kidney failure, unspecified Status: Acute Assessment and Plan: * only mild improvement noted since admission * protracted ATN? * another issue playing a role? * normal baseline kidney function from available records * suspect multifactorial: * prerenal factors * DKA * urinary retention * relative hypotension * valsartan use [employer] * other(?) * evaluation to date: * renal ultrasound unremarkable * urine electrolytes non-prerenal * CPK normal * 2.3 grams of protein * UA w/o evidence of infection * urine output 4508-6004 * given poorly controlled DM and proteinuria, suspect a degree/component of diabetic nephropathy * checking serologies given minimal improvement in renal function * renal scan ordered * follow trend of repeat labs and UOP (2) Colitis: Code(s): K52.9 - Noninfective gastroenteritis and colitis, unspecified Status: Acute Assessment and Plan: * as noted by admission CT scan * completed course of antibiotics (3) Acute urinary retention: Code(s): R33.8 - Other retention of urine Status: Acute Assessment and Plan: * as noted by bladder scan in ER * hunt catheter in place * continue supportive therapy (4) Hypertension: Code(s): I10 - Essential (primary) hypertension Status: Chronic Assessment and Plan: * soft BPs on admission * holding antihypertensive medications at this time * restart as needed * systolic still in the 120s (5) Constipation: Code(s): K59.00 - Constipation, unspecified Status: Acute Assessment and Plan: * reported on admission and currently * on aggressive bowel regimen * continue current therapy (6) DKA (diabetic ketoacidosis): Code(s): E11.10 - Type 2 diabetes mellitus with ketoacidosis without coma Status: Acute Assessment and Plan: * DKA is resolved * glycemic control per hospitalist Subjective Date/time seen: 11/22/25 08:28 Interval history: Romina is feeling about the same. Off IV fluids. He eating well. Making some urine. Exam Narrative: General: large female in NAD Heart: normal S1 and S2; no rub Lungs: clear Bilaterally Abdomen: soft, mild TTP, nondistended, positive bowel sounds Extremities: no cyanosis or clubbing; 1+ edema Skin: no rash Objective Data Vital Signs Vital Signs: Vital Signs - 24 hr 11/21/25 09:35 11/21/25 13:00 11/21/25 20:00 Temperature 97.2 F L Pulse Rate 85 Respiratory Rate 12 12 Blood Pressure 126/65 Pulse Oximetry 99 99 Oxygen Delivery Room Air Room Air 11/21/25 20:56 11/22/25 06:00 Temperature 98.2 F 98.2 F Pulse Rate 69 67 Respiratory Rate 18 16 Blood Pressure 126/76 122/60 Pulse Oximetry 99 97 Oxygen Delivery Intake/Output Intake/Output: Intake & Output 11/19/25 11/20/25 11/21/25 11/22/25 23:59 23:59 23:59 23:59 Intake Total 5494 626 0981 360 Output Total 2800 2900 1750 900 Balance -1640 -1910 120 -540 Meds/Results Medications: Active Medications Generic Name Dose Route Start Last Admin Trade Name Freq PRN Reason Stop Dose Admin Acetaminophen 1,000 mg 11/18/25 05:41 11/18/25 05:40 Acetaminophen 500 Mg Tablet PO 1,000 mg Q6H PRN Administration Pain or Fever Dextrose 12.5 gm 11/16/25 07:49 Dextrose 50% 25 Gm/50 Ml Syringe IV PUSH PRN PRN Hypoglycemia Protocol Duloxetine HCl 60 mg 11/17/25 09:00 11/21/25 09:45 Duloxetine Hcl 60 Mg Capsule.Dr PO 60 mg DAILY JACINTO Administration Glucagon 1 mg 11/16/25 07:49 Glucagon For Inj 1 Mg Vial IM PRN PRN Hypoglycemia Protocol Glucose 15 gm 11/16/25 07:49 Glucose Oral Gel 15 Gm Of Glucse In 37.5 Gm Tube PO PRN PRN Hypoglycemia Protocol Heparin Sodium (Porcine) 5,000 units 11/20/25 21:00 11/21/25 22:42 Heparin Sodium 5,000 Units/Ml Vial SUB-Q 5,000 units Q12HR JACITNO Administration Insulin Aspart 4 - 8 units 11/18/25 17:00 11/21/25 17:42 Insulin Aspart (*Bkc) 100 Units/Ml SUB-Q 5 units TIDWM JACINTO Administration Protocol Insulin Aspart 2 - 4 units 11/18/25 21:00 11/21/25 22:43 Insulin Aspart (*Bkc) 100 Units/Ml SUB-Q 2 units HS JACINTO Administration Protocol Insulin Aspart 6 units 11/19/25 12:00 11/21/25 17:43 Insulin Aspart (*Bkc) 100 Units/Ml SUB-Q 6 units TIDWM JACINTO Administration Insulin Glargine 25 units 11/19/25 09:00 11/21/25 22:42 Insulin Glargine (*Bkc) 100 Units/Ml SUB-Q 25 units Q12HR JACINTO Administration Ondansetron HCl 4 mg 11/18/25 18:58 Ondansetron Inj 4 Mg/2 Ml Vial IV PUSH Q6H PRN Nausea And Vomiting Pantoprazole Sodium 40 mg 11/18/25 09:00 11/21/25 09:45 Pantoprazole 40 Mg Tablet PO 40 mg QAM JACINTO Administration Ropinirole HCl 0.25 mg 11/16/25 21:00 11/21/25 22:42 Ropinirole Hcl 0.25 Mg Tablet PO 0.25 mg HS JACINTO Administration Rosuvastatin Calcium 40 mg 11/17/25 09:00 11/21/25 09:45 Rosuvastatin 20 Mg Tablet PO 40 mg DAILY JACINTO Administration Sodium Bicarbonate 1,300 mg 11/18/25 09:00 11/21/25 17:42 Sodium Bicarbonate Tab 650 Mg Tablet PO 1,300 mg BID JACINTO Administration Radiology Results: ITS Impressions Abdomen/Pelvis CT 11/16/25 07:54 IMPRESSION: 1. Wall thickening of the transverse and descending colon, consistent with colitis. Renal Ultrasound 11/16/25 19:28 Impression: 1: Unremarkable renal ultrasound. No stones, masses or hydronephrosis. Venous Doppler Study 11/17/25 10:13 IMPRESSION: 1. No deep venous thrombosis in either lower limb. Labs Labs: Laboratory Results - last 24 hr 11/21/25 11/21/25 11/21/25 05:52 11:42 16:51 WBC RBC Hgb Hct MCV MCH MCHC RDW Plt Count MPV Immature Gran % (Auto) Neut % (Auto) Lymph % (Auto) [place] % (Auto) Eos % (Auto) Baso % (Auto) Lymph # (Auto) [place] # (Auto) Eos # (Auto) Baso # (Auto) Abs Immat Gran (auto) Absolute Neuts (auto) Absolute Nucleated RBC Nucleated RBC % Sodium Potassium Chloride Carbon Dioxide Anion Gap BUN Creatinine Estim Creat Clear Calc Estimated GFR Glucose POC Capillary Glucose 233 H 271 H Calcium Phosphorus Magnesium 1.6 Albumin 11/21/25 11/21/25 11/22/25 20:22 21:15 05:42 WBC 10.0 RBC 3.72 L Hgb 10.4 L Hct 32.1 L MCV 86.3 MCH 28.0 MCHC 32.4 RDW 17.1 H Plt Count 158 MPV 11.4 H Immature Gran % (Auto) 3.6 H Neut % (Auto) 60.7 Lymph % (Auto) 22.9 [place] % (Auto) 10.8 H Eos % (Auto) 1.4 Baso % (Auto) 0.6 Lymph # (Auto) 2.30 [place] # (Auto) 1.1 H Eos # (Auto) 0.1 Baso # (Auto) 0.1 Abs Immat Gran (auto) 0.36 H Absolute Neuts (auto) 6.1 Absolute Nucleated RBC 0.000 Nucleated RBC % 0.0 Sodium 137 139 Potassium 3.7 3.5 Chloride 108 H 110 H Carbon Dioxide 24 23 Anion Gap 5 6 BUN 42 H 40 H Creatinine 5.00 H 4.70 H Estim Creat Clear Calc 14 15 Estimated GFR 9 L 9 L Glucose 308 H 232 H POC Capillary Glucose 328 H Calcium 7.1 L 7.3 L Phosphorus 5.0 H Magnesium 2.2 1.9 Albumin 2.6 L
[2025-11-22] MEDS: PANTOPRAZOLE 40 MG TABLET PO (09:02)
[2025-11-22] MEDS: SODIUM BICARBONATE TAB 650 MG TABLET 1300 MG PO ×2 (09:02→17:27)
[2025-11-22] MEDS: ROSUVASTATIN 20 MG TABLET 40 MG PO (09:02)
[2025-11-22] MEDS: DULoxetine HCL 60 MG CAPSULE.DR PO (09:02)
[2025-11-22] MEDS: INSULIN ASPART (*BKC) 100 UNITS/ML 6 UNITS SUB-Q ×2 (09:03→12:58)
[2025-11-22] MEDS: INSULIN ASPART (*BKC) 100 UNITS/ML SUB-Q ×4 (09:04→20:32)
[2025-11-22] MEDS: INSULIN GLARGINE (*BKC) 100 UNITS/ML 25 UNITS SUB-Q (09:05)
--- NOTE | 2025-11-22 10:25 | PCOTNOTE ---
Patient independent in room per RN Laura and per patient. Patient expressed not needing anything from occupational therapy at this time.
[2025-11-22 13:00] VITALS: BP 159/75; PULSE 75; RESP 18; TEMP 36.5; O2SAT 99
[2025-11-22 13:08] LABS: ANA by IFA Rfx Titer/Pattern Negative (.)
--- NOTE | 2025-11-22 16:55 | PM.IMPN2 ---
Assessment and Plan Assessment and Plan (1) Obesity: Code(s): E66.9 - Obesity, unspecified Status: Acute (2) Colitis: Code(s): K52.9 - Noninfective gastroenteritis and colitis, unspecified Status: Acute (3) Constipation: Code(s): K59.00 - Constipation, unspecified Status: Acute (4) Acute kidney injury: Code(s): N17.9 - Acute kidney failure, unspecified Status: Acute (5) Uncontrolled type 2 diabetes mellitus with hyperglycemia: Code(s): E11.65 - Type 2 diabetes mellitus with hyperglycemia Status: Acute (6) Hypokalemia: Code(s): E87.6 - Hypokalemia Status: Acute Plan A pleasant 60-year-old female with [facility] obesity class 3, insulin-dependent diabetes mellitus, chronic depression, fibromyalgia, hypercholesterolemia, hypertension, overactive urinary bladder, admitted to [facility] on 11/16/2025 complaining of severe constipation with no bowel movements for about a week. Presented with a distended and tender abdomen. CT of abdomen and pelvis showed thickening of the colonic wall possibly consistent with colitis. Patient on no vomiting. She had urinary retention and a Dickinson catheter was placed and her serum creatinine 6.95 with a BUN 72. Bicarb level 16. Hydroxybutyrate level 2.4. Patient admitted to ICU, treated for DKA. ----- Blood sugars are on average higher than goal. She takes large amount of insulin at home which appears to be 30 units q.h.s. of glargine, insulin regular U 500 concentrate 3 times daily 80, 60, 60. At this time we will increase her regimen in-hospital to 30 units q.h.s., aspart 12 units t.i.d. and continue to monitor. Acute renal failure, urinary retention on admission. History of overactive bladder, tolterodine was continued but now discontinued on 11/20/2025. Nephrology following, currently receiving sodium bicarbonate 1300 mg p.o. b.i.d.. She did receive Lasix as well previously. On 11/22/2025 her serum creatinine is improving, she is making adequate urine output. Further management per Nephrology, renal scan today. Patient is now having diarrhea, on 11/20/2025 discontinue lactulose 20 g p.o. t.i.d., MiraLax 17 g p.o. b.i.d. and bisacodyl 10 mg rectal daily. Monitor frequency of bowel movements. Received antibiotics as colitis was seen on presentation. Was possibly stercolal colitis. On 11/21/2025 no bowel movements/diarrhea. Continue to monitor off of laxatives. Between 11/21 and 11/22 she had 1 large loose bowel movement. No fever, no abdominal pain, no nausea, no vomiting. We will continue to monitor off of laxatives. Significant hypokalemia likely related to diarrhea. Magnesium and potassium replaced. Both levels acceptable now. Continue to monitor daily. Antihypertensives on hold, monitor blood pressure and restart as needed. ----- Dickinson placed on 11/16/2025. Patient wishes to be full code. Decreased heparin from 5000 units t.i.d. to 5000 units b.i.d. on 11/20/2025. Time Spent With Patient Time with patient: Greater than 35 minutes Subjective Date/time seen: 11/22/25 16:55 Interval history: Patient had 1 large loose brown bowel movement today. This is the 1st time in 48 hours. She rest comfortably in a chair as usual, she has no complaints. She has her usual lower extremity swelling. Review of Systems Review of Systems: All systems reviewed & are unremarkable except as noted in HPI and below (Subjective) Exam Const: General: comfortable and no acute distress HENMT: Mouth: Yes moist mucous membranes Eyes: Pupils: Equal, round and reactive pupils present Neck: Neck: supple Resp: Effort & Inspection: normal respiratory effort Auscultation: clear to auscultation bilaterally Cardio: Rate: regular rate Rhythm: regular rhythm GI: Inspection: non-distended GI Palp: Yes Soft to palpation Auscultation: normal bowel sounds Neuro: Motor exam (neuro): 5/5 motor strength present throughout Extrem: Other: 1+ pitting edema bilateral lower extremities below the knees Objective Data Vital Signs Vital Signs: Vital Signs - 24 hr 11/21/25 20:00 11/21/25 20:56 11/22/25 06:00 Temperature 98.2 F 98.2 F Pulse Rate 69 67 Respiratory Rate 18 16 Blood Pressure 126/76 122/60 Pulse Oximetry 99 97 Oxygen Delivery Room Air 11/22/25 09:15 11/22/25 13:00 Temperature 97.7 F Pulse Rate 75 Respiratory Rate 18 Blood Pressure 159/75 H Pulse Oximetry 99 Oxygen Delivery Room Air Intake/Output Intake/Output: Intake & Output 11/19/25 11/20/25 11/21/25 11/22/25 23:59 23:59 23:59 23:59 Intake Total 5583 751 2621 840 Output Total 2800 2900 1750 900 Balance -1640 -1910 120 -60 Meds/Results Medications: Active Medications Generic Name Dose Route Start Last Admin Trade Name Freq PRN Reason Stop Dose Admin Acetaminophen 1,000 mg 11/18/25 05:41 11/18/25 05:40 Acetaminophen 500 Mg Tablet PO 1,000 mg Q6H PRN Administration Pain or Fever Dextrose 12.5 gm 11/16/25 07:49 Dextrose 50% 25 Gm/50 Ml Syringe IV PUSH PRN PRN Hypoglycemia Protocol Duloxetine HCl 60 mg 11/17/25 09:00 11/22/25 09:02 Duloxetine Hcl 60 Mg Capsule.Dr PO 60 mg DAILY JACINTO Administration Glucagon 1 mg 11/16/25 07:49 Glucagon For Inj 1 Mg Vial IM PRN PRN Hypoglycemia Protocol Glucose 15 gm 11/16/25 07:49 Glucose Oral Gel 15 Gm Of Glucse In 37.5 Gm Tube PO PRN PRN Hypoglycemia Protocol Heparin Sodium (Porcine) 5,000 units 11/20/25 21:00 11/22/25 09:02 Heparin Sodium 5,000 Units/Ml Vial SUB-Q 5,000 units Q12HR JACINTO Administration Insulin Aspart 4 - 8 units 11/18/25 17:00 11/22/25 12:57 Insulin Aspart (*Bkc) 100 Units/Ml SUB-Q 6 units TIDWM JACINTO Administration Protocol Insulin Aspart 2 - 4 units 11/18/25 21:00 11/21/25 22:43 Insulin Aspart (*Bkc) 100 Units/Ml SUB-Q 2 units HS JACINTO Administration Protocol Insulin Aspart 6 units 11/19/25 12:00 11/22/25 12:58 Insulin Aspart (*Bkc) 100 Units/Ml SUB-Q 6 units TIDWM JACINTO Administration Insulin Glargine 25 units 11/19/25 09:00 11/22/25 09:05 Insulin Glargine (*Bkc) 100 Units/Ml SUB-Q 25 units Q12HR JACINTO Administration Ondansetron HCl 4 mg 11/18/25 18:58 Ondansetron Inj 4 Mg/2 Ml Vial IV PUSH Q6H PRN Nausea And Vomiting Pantoprazole Sodium 40 mg 11/18/25 09:00 11/22/25 09:02 Pantoprazole 40 Mg Tablet PO 40 mg QAM JACINTO Administration Ropinirole HCl 0.25 mg 11/16/25 21:00 11/21/25 22:42 Ropinirole Hcl 0.25 Mg Tablet PO 0.25 mg HS JACINTO Administration Rosuvastatin Calcium 40 mg 11/17/25 09:00 11/22/25 09:02 Rosuvastatin 20 Mg Tablet PO 40 mg DAILY JACINTO Administration Sodium Bicarbonate 1,300 mg 11/18/25 09:00 11/22/25 09:02 Sodium Bicarbonate Tab 650 Mg Tablet PO 1,300 mg BID JACINTO Administration Radiology Results: ITS Impressions Abdomen/Pelvis CT 11/16/25 07:54 IMPRESSION: 1. Wall thickening of the transverse and descending colon, consistent with colitis. Renal Ultrasound 11/16/25 19:28 Impression: 1: Unremarkable renal ultrasound. No stones, masses or hydronephrosis. Venous Doppler Study 11/17/25 10:13 IMPRESSION: 1. No deep venous thrombosis in either lower limb. Renal Scan Nuclear Medicine 11/22/25 14:11 IMPRESSION: 1. Asymmetric renal function with left kidney contributing 59% and right kidney 41% to total renal function. 2. Delayed activity clearance from both kidneys without evident hydronephrosis likely related to poor renal function in both kidneys. Labs Labs: Laboratory Results - last 24 hr 11/21/25 11/21/25 11/21/25 05:44 05:52 16:51 WBC RBC Hgb Hct MCV MCH MCHC RDW Plt Count MPV Immature Gran % (Auto) Neut % (Auto) Lymph % (Auto) [place] % (Auto) Eos % (Auto) Baso % (Auto) Lymph # (Auto) [place] # (Auto) Eos # (Auto) Baso # (Auto) Abs Immat Gran (auto) Absolute Neuts (auto) Absolute Nucleated RBC Nucleated RBC % Sodium Potassium Chloride Carbon Dioxide Anion Gap BUN Creatinine Estim Creat Clear Calc Estimated GFR Glucose POC Capillary Glucose 271 H Calcium Phosphorus Magnesium Albumin FEMI Screen Negative c-ANCA Antibody <1:20 Atypical p-ANCA <1:20 p-ANCA Antibody <1:20 Double Strand DNA Ab 1 11/21/25 11/21/25 11/22/25 20:22 21:15 05:42 WBC 10.0 RBC 3.72 L Hgb 10.4 L Hct 32.1 L MCV 86.3 MCH 28.0 MCHC 32.4 RDW 17.1 H Plt Count 158 MPV 11.4 H Immature Gran % (Auto) 3.6 H Neut % (Auto) 60.7 Lymph % (Auto) 22.9 [place] % (Auto) 10.8 H Eos % (Auto) 1.4 Baso % (Auto) 0.6 Lymph # (Auto) 2.30 [place] # (Auto) 1.1 H Eos # (Auto) 0.1 Baso # (Auto) 0.1 Abs Immat Gran (auto) 0.36 H Absolute Neuts (auto) 6.1 Absolute Nucleated RBC 0.000 Nucleated RBC % 0.0 Sodium 137 139 Potassium 3.7 3.5 Chloride 108 H 110 H Carbon Dioxide 24 23 Anion Gap 5 6 BUN 42 H 40 H Creatinine 5.00 H 4.70 H Estim Creat Clear Calc 14 15 Estimated GFR 9 L 9 L Glucose 308 H 232 H POC Capillary Glucose 328 H Calcium 7.1 L 7.3 L Phosphorus 5.0 H Magnesium 2.2 1.9 Albumin 2.6 L FEMI Screen c-ANCA Antibody Atypical p-ANCA p-ANCA Antibody Double Strand DNA Ab 11/22/25 11/22/25 11/22/25 08:24 11:30 16:38 WBC RBC Hgb Hct MCV MCH MCHC RDW Plt Count MPV Immature Gran % (Auto) Neut % (Auto) Lymph % (Auto) [place] % (Auto) Eos % (Auto) Baso % (Auto) Lymph # (Auto) [place] # (Auto) Eos # (Auto) Baso # (Auto) Abs Immat Gran (auto) Absolute Neuts (auto) Absolute Nucleated RBC Nucleated RBC % Sodium Potassium Chloride Carbon Dioxide Anion Gap BUN Creatinine Estim Creat Clear Calc Estimated GFR Glucose POC Capillary Glucose 259 H 330 H 335 H Calcium Phosphorus Magnesium Albumin FEMI Screen c-ANCA Antibody Atypical p-ANCA p-ANCA Antibody Double Strand DNA Ab
[2025-11-22] MEDS: INSULIN ASPART (*BKC) 100 UNITS/ML 12 UNITS SUB-Q (17:27)
[2025-11-22 20:02] VITALS: BP 144/65; PULSE 70; RESP 18; TEMP 36.6; O2SAT 100
[2025-11-22] MEDS: INSULIN GLARGINE (*BKC) 100 UNITS/ML 30 UNITS SUB-Q (20:31)
[2025-11-23 04:31] VITALS: BP 143/60; PULSE 66; RESP 16; TEMP 36.8; O2SAT 98
[2025-11-23 05:54] LABS: Hematocrit 32.9 % (37.0-47.0); Hemoglobin 10.4 g/dL (12.0-15.0); Immature Granulocyte Percent A 2.3 % (0-0.5); Lymphocytes Absolute Auto 2.30 K/mm3 (0.9-3.2); Mean Corpuscular HGB Conc 31.6 g/dl (32-36); Mean Corpuscular Hemoglobin 27.5 pg (26-34); Mean Corpuscular Volume 87.0 fl (80-100); Nucleated Red Blood Cells Absolute Auto 0.000 K/mm3 (0.0-0.012); Nucleated Red Blood Cells Perc 0.0 % (0.0-0.2); Platelet Count Result 133 k/mm3 (150-375); Red Blood Count 3.78 M/mm3 (4.2-5.4); White Blood Count 11.4 K/mm3 (4.5-10.0)
[2025-11-23 06:21] LABS: Albumin Level 2.7 g/dL (3.5-5.1); Anion Gap 5 mmol/L (4-12); Blood Urea Nitrogen 30 mg/dL (7-17); Calcium 7.3 mg/dL (8.4-10.2); Carbon Dioxide 27 mmol/L (22-30); Chloride 108 mmol/L (98-107); Estimated CRCL calculation 21 ml/min; Estimated Glomerular Filt Rate 14; Glucose 154 mg/dL (65-110); Magnesium 1.7 mg/dL (1.6-2.3); Potassium 3.1 mmol/L (3.4-5.0); Sodium 140 mmol/L (137-145)
[2025-11-23] MEDS: DULoxetine HCL 60 MG CAPSULE.DR PO (09:17)
[2025-11-23] MEDS: SODIUM BICARBONATE TAB 650 MG TABLET 1300 MG PO ×2 (09:17→17:56)
[2025-11-23] MEDS: ROSUVASTATIN 20 MG TABLET 40 MG PO (09:17)
[2025-11-23] MEDS: INSULIN GLARGINE (*BKC) 100 UNITS/ML 30 UNITS SUB-Q ×2 (09:18→21:12)
[2025-11-23] MEDS: PANTOPRAZOLE 40 MG TABLET PO (09:18)
[2025-11-23 09:20] VITALS: PULSE 80; RESP 18; O2SAT 99
[2025-11-23] MEDS: INSULIN ASPART (*BKC) 100 UNITS/ML 12 UNITS SUB-Q (09:21)
--- NOTE | 2025-11-23 09:29 | P.PNNP_ITS ---
Progress Note: A&P Assessment and Plan (1) Acute renal failure: Qualifiers: Acute renal failure type: with acute tubular necrosis Qualified Code(s): N17.0 - Acute kidney failure with tubular necrosis Code(s): N17.9 - Acute kidney failure, unspecified Status: Acute Assessment and Plan: * acute kidney injury. * normal baseline kidney function from available records * suspect multifactorial: * prerenal factors * DKA * urinary retention * relative hypotension * valsartan use [employer] * other(?) * evaluation to date: * renal ultrasound unremarkable * urine electrolytes non-prerenal * CPK normal * 2.3 grams of protein * UA w/o evidence of infection * urine output 900-2500 Over the last few days * given poorly controlled DM and proteinuria, suspect a degree/component of diabetic nephropathy * checking serologies given minimal improvement in renal function * renal scan shows uptake which is a little bit on the slow side but no excretion consistent with ATN * her creatinine did improve today. * Hopefully she will continue improving and end up with normal creatinine again. However as discussed above, with her proteinuria she may have some underlying chronic kidney disease which may result in a higher than normal baseline creatinine. (2) Colitis: Code(s): K52.9 - Noninfective gastroenteritis and colitis, unspecified Status: Acute Assessment and Plan: * as noted by admission CT scan * fevers gone. White count okay. * completed course of antibiotics (3) Acute urinary retention: Code(s): R33.8 - Other retention of urine Status: Acute Assessment and Plan: * as noted by bladder scan in ER * hunt catheter in place * continue supportive therapy (4) Hypertension: Code(s): I10 - Essential (primary) hypertension Status: Chronic Assessment and Plan: * soft BPs on admission * holding antihypertensive medications at this time * restart as needed * systolic still in the 120s (5) Constipation: Code(s): K59.00 - Constipation, unspecified Status: Acute Assessment and Plan: * reported on admission and currently * on aggressive bowel regimen * continue current therapy (6) DKA (diabetic ketoacidosis): Code(s): E11.10 - Type 2 diabetes mellitus with ketoacidosis without coma Status: Acute Assessment and Plan: * DKA is resolved * glycemic control per hospitalist Subjective Date/time seen: 11/23/25 09:29 Interval history: Patient is alert. Feeling okay. No shortness of breath. Sugars up and d Exam Narrative: General: large female in NAD Heart: normal S1 and S2; no rub Lungs: clear Bilaterally Abdomen: soft, mild TTP, nondistended, positive bowel sounds Extremities: no cyanosis or clubbing; 1+ edema Skin: no rash Objective Data Vital Signs Vital Signs: Vital Signs - 24 hr 11/22/25 13:00 11/22/25 20:00 11/22/25 20:02 Temperature 97.7 F 97.8 F Pulse Rate 75 70 Respiratory Rate 18 18 Blood Pressure 159/75 H 144/65 H Pulse Oximetry 99 100 Oxygen Delivery Room Air 11/23/25 04:31 Temperature 98.2 F Pulse Rate 66 Respiratory Rate 16 Blood Pressure 143/60 H Pulse Oximetry 98 Oxygen Delivery Intake/Output Intake/Output: Intake & Output 11/20/25 11/21/25 11/22/25 11/23/25 23:59 23:59 23:59 23:59 Intake Total 990 1870 1630 300 Output Total 2900 1750 900 550 Balance -1910 120 730 -250 Meds/Results Medications: Active Medications Generic Name Dose Route Start Last Admin Trade Name Joanne PRN Reason Stop Dose Admin Acetaminophen 1,000 mg 11/18/25 05:41 11/18/25 05:40 Acetaminophen 500 Mg Tablet PO 1,000 mg Q6H PRN Administration Pain or Fever Dextrose 12.5 gm 11/16/25 07:49 Dextrose 50% 25 Gm/50 Ml Syringe IV PUSH PRN PRN Hypoglycemia Protocol Duloxetine HCl 60 mg 11/17/25 09:00 11/23/25 09:17 Duloxetine Hcl 60 Mg Capsule.Dr PO 60 mg DAILY JACINTO Administration Glucagon 1 mg 11/16/25 07:49 Glucagon For Inj 1 Mg Vial IM PRN PRN Hypoglycemia Protocol Glucose 15 gm 11/16/25 07:49 Glucose Oral Gel 15 Gm Of Glucse In 37.5 Gm Tube PO PRN PRN Hypoglycemia Protocol Heparin Sodium (Porcine) 5,000 units 11/20/25 21:00 11/23/25 09:18 Heparin Sodium 5,000 Units/Ml Vial SUB-Q 5,000 units Q12HR JACINTO Administration Insulin Aspart 4 - 8 units 11/18/25 17:00 11/23/25 09:22 Insulin Aspart (*Bkc) 100 Units/Ml SUB-Q Not Given TIDWM JACINTO Protocol Insulin Aspart 2 - 4 units 11/18/25 21:00 11/22/25 20:32 Insulin Aspart (*Bkc) 100 Units/Ml SUB-Q 3 units HS JACINTO Administration Protocol Insulin Aspart 12 units 11/22/25 17:00 11/23/25 09:21 Insulin Aspart (*Bkc) 100 Units/Ml SUB-Q 12 units TIDWM JACINTO Administration Insulin Glargine 30 units 11/22/25 21:00 11/23/25 09:18 Insulin Glargine (*Bkc) 100 Units/Ml SUB-Q 30 units Q12HR JACINTO Administration Ondansetron HCl 4 mg 11/18/25 18:58 Ondansetron Inj 4 Mg/2 Ml Vial IV PUSH Q6H PRN Nausea And Vomiting Pantoprazole Sodium 40 mg 11/18/25 09:00 11/23/25 09:18 Pantoprazole 40 Mg Tablet PO 40 mg QAM JACINTO Administration Ropinirole HCl 0.25 mg 11/16/25 21:00 11/22/25 20:30 Ropinirole Hcl 0.25 Mg Tablet PO 0.25 mg HS JACINTO Administration Rosuvastatin Calcium 40 mg 11/17/25 09:00 11/23/25 09:17 Rosuvastatin 20 Mg Tablet PO 40 mg DAILY JACINTO Administration Sodium Bicarbonate 1,300 mg 11/18/25 09:00 11/23/25 09:17 Sodium Bicarbonate Tab 650 Mg Tablet PO 1,300 mg BID JACINTO Administration Radiology Results: ITS Impressions Abdomen/Pelvis CT 11/16/25 07:54 IMPRESSION: 1. Wall thickening of the transverse and descending colon, consistent with colitis. Renal Ultrasound 11/16/25 19:28 Impression: 1: Unremarkable renal ultrasound. No stones, masses or hydronephrosis. Venous Doppler Study 11/17/25 10:13 IMPRESSION: 1. No deep venous thrombosis in either lower limb. Renal Scan Nuclear Medicine 11/22/25 14:11 IMPRESSION: 1. Asymmetric renal function with left kidney contributing 59% and right kidney 41% to total renal function. 2. Delayed activity clearance from both kidneys without evident hydronephrosis likely related to poor renal function in both kidneys. Labs Labs: Laboratory Results - last 24 hr 11/21/25 11/21/25 11/22/25 05:44 05:52 11:30 WBC RBC Hgb Hct MCV MCH MCHC RDW Plt Count MPV Immature Gran % (Auto) Neut % (Auto) Lymph % (Auto) [place] % (Auto) Eos % (Auto) Baso % (Auto) Lymph # (Auto) [place] # (Auto) Eos # (Auto) Baso # (Auto) Abs Immat Gran (auto) Absolute Neuts (auto) Absolute Nucleated RBC Nucleated RBC % Sodium Potassium Chloride Carbon Dioxide Anion Gap BUN Creatinine Estim Creat Clear Calc Estimated GFR Glucose POC Capillary Glucose 330 H Calcium Phosphorus Magnesium Albumin FEMI Screen Negative c-ANCA Antibody <1:20 Atypical p-ANCA <1:20 p-ANCA Antibody <1:20 Double Strand DNA Ab 1 11/22/25 11/22/25 11/23/25 16:38 20:05 05:34 WBC 11.4 H RBC 3.78 L Hgb 10.4 L Hct 32.9 L MCV 87.0 MCH 27.5 MCHC 31.6 L RDW 16.8 H Plt Count 133 L MPV 11.2 H Immature Gran % (Auto) 2.3 H Neut % (Auto) 64.7 Lymph % (Auto) 20.2 [place] % (Auto) 11.0 H Eos % (Auto) 1.3 Baso % (Auto) 0.5 Lymph # (Auto) 2.30 [place] # (Auto) 1.3 H Eos # (Auto) 0.2 Baso # (Auto) 0.1 Abs Immat Gran (auto) 0.26 H Absolute Neuts (auto) 7.3 H Absolute Nucleated RBC 0.000 Nucleated RBC % 0.0 Sodium 140 Potassium 3.1 L Chloride 108 H Carbon Dioxide 27 Anion Gap 5 BUN 30 H D Creatinine 3.28 H Estim Creat Clear Calc 21 Estimated GFR 14 L Glucose 154 H POC Capillary Glucose 335 H 341 H Calcium 7.3 L Phosphorus 4.6 H Magnesium 1.7 Albumin 2.7 L FEMI Screen c-ANCA Antibody Atypical p-ANCA p-ANCA Antibody Double Strand DNA Ab 11/23/25 08:30 WBC RBC Hgb Hct MCV MCH MCHC RDW Plt Count MPV Immature Gran % (Auto) Neut % (Auto) Lymph % (Auto) [place] % (Auto) Eos % (Auto) Baso % (Auto) Lymph # (Auto) [place] # (Auto) Eos # (Auto) Baso # (Auto) Abs Immat Gran (auto) Absolute Neuts (auto) Absolute Nucleated RBC Nucleated RBC % Sodium Potassium Chloride Carbon Dioxide Anion Gap BUN Creatinine Estim Creat Clear Calc Estimated GFR Glucose POC Capillary Glucose 151 H Calcium Phosphorus Magnesium Albumin FEMI Screen c-ANCA Antibody Atypical p-ANCA p-ANCA Antibody Double Strand DNA Ab
--- NOTE | 2025-11-23 09:42 | PCPTNOTE ---
Attempted patient for PT, per nursing: patient has been independent in her room, and patient reported she has been independent and moving fine. Discussed with patient if she wanted to ambulate and perform stairs, patient felt she was good and does not need to do stairs or need physical therapy anymore.
--- NOTE | 2025-11-23 10:50 | PM.IMPN2 ---
Assessment and Plan Assessment and Plan (1) Obesity: Code(s): E66.9 - Obesity, unspecified Status: Acute (2) Colitis: Code(s): K52.9 - Noninfective gastroenteritis and colitis, unspecified Status: Acute (3) Constipation: Code(s): K59.00 - Constipation, unspecified Status: Acute (4) Acute kidney injury: Code(s): N17.9 - Acute kidney failure, unspecified Status: Acute (5) Uncontrolled type 2 diabetes mellitus with hyperglycemia: Code(s): E11.65 - Type 2 diabetes mellitus with hyperglycemia Status: Acute (6) Hypokalemia: Code(s): E87.6 - Hypokalemia Status: Acute Plan A pleasant 60-year-old female with [facility] obesity class 3, insulin-dependent diabetes mellitus, chronic depression, fibromyalgia, hypercholesterolemia, hypertension, overactive urinary bladder, admitted to [facility] on 11/16/2025 complaining of severe constipation with no bowel movements for about a week. Presented with a distended and tender abdomen. CT of abdomen and pelvis showed thickening of the colonic wall possibly consistent with colitis. Patient on no vomiting. She had urinary retention and a Dickinson catheter was placed and her serum creatinine 6.95 with a BUN 72. Bicarb level 16. Hydroxybutyrate level 2.4. Patient admitted to ICU, treated for DKA. ----- Blood sugars are on average higher than goal. She takes large amount of insulin at home which appears to be 30 units q.h.s. of glargine, insulin regular U 500 concentrate 3 times daily 80, 60, 60. At this time we will increase her regimen in-hospital to 30 units q.h.s., aspart 12 units t.i.d. and continue to monitor. Acute renal failure, urinary retention on admission. History of overactive bladder, tolterodine was continued but now discontinued on 11/20/2025. Nephrology following, currently receiving sodium bicarbonate 1300 mg p.o. b.i.d.. She did receive Lasix as well previously. On 11/22/2025 her serum creatinine is improving, she is making adequate urine output. Further management per Nephrology, renal scan today. Patient is now having diarrhea, on 11/20/2025 discontinue lactulose 20 g p.o. t.i.d., MiraLax 17 g p.o. b.i.d. and bisacodyl 10 mg rectal daily. Monitor frequency of bowel movements. Received antibiotics as colitis was seen on presentation. Was possibly stercolal colitis. On 11/21/2025 no bowel movements/diarrhea. Continue to monitor off of laxatives. Between 11/21 and 11/22 she had 1 large loose bowel movement. No fever, no abdominal pain, no nausea, no vomiting. We will continue to monitor off of laxatives. Significant hypokalemia likely related to diarrhea. Magnesium and potassium replaced. Both levels acceptable now. Continue to monitor daily. Antihypertensives on hold, monitor blood pressure and restart as needed. 11/23/2025: Replace potassium, kidney function improving. Hopefully home tomorrow if kidney function continues to improve, we will decide this in conjunction with Nephrology. Monitor leukocytosis, check procalcitonin, nontoxic-appearing, no evidence of infectious etiology. Increase insulin regimen slightly. ----- Dickinson placed on 11/16/2025. Patient wishes to be full code. Decreased heparin from 5000 units t.i.d. to 5000 units b.i.d. on 11/20/2025. Time Spent With Patient Time with patient: Greater than 35 minutes Subjective Date/time seen: 11/23/25 10:50 Interval history: No bowel movement today. Patient reports no new symptoms, she feels fine. No fever, chills, no abdominal pain, nausea vomiting. Tolerating diet. Review of Systems Review of Systems: All systems reviewed & are unremarkable except as noted in HPI and below (Subjective) Exam Const: General: comfortable and no acute distress HENMT: Mouth: Yes moist mucous membranes Eyes: Pupils: Equal, round and reactive pupils present Neck: Neck: supple Resp: Effort & Inspection: normal respiratory effort Auscultation: clear to auscultation bilaterally Cardio: Rate: regular rate Rhythm: regular rhythm GI: Inspection: non-distended GI Palp: Yes Soft to palpation Auscultation: normal bowel sounds Neuro: Motor exam (neuro): 5/5 motor strength present throughout Extrem: General: edema Objective Data Vital Signs Vital Signs: Vital Signs - 24 hr 11/22/25 13:00 11/22/25 20:00 11/22/25 20:02 Temperature 97.7 F 97.8 F Pulse Rate 75 70 Respiratory Rate 18 18 Blood Pressure 159/75 H 144/65 H Pulse Oximetry 99 100 Oxygen Delivery Room Air 11/23/25 04:31 Temperature 98.2 F Pulse Rate 66 Respiratory Rate 16 Blood Pressure 143/60 H Pulse Oximetry 98 Oxygen Delivery Intake/Output Intake/Output: Intake & Output 11/20/25 11/21/25 11/22/25 11/23/25 23:59 23:59 23:59 23:59 Intake Total 990 1870 1630 540 Output Total 2900 1750 900 550 Balance -1910 120 730 -10 Meds/Results Medications: Active Medications Generic Name Dose Route Start Last Admin Trade Name Freq PRN Reason Stop Dose Admin Acetaminophen 1,000 mg 11/18/25 05:41 11/18/25 05:40 Acetaminophen 500 Mg Tablet PO 1,000 mg Q6H PRN Administration Pain or Fever Dextrose 12.5 gm 11/16/25 07:49 Dextrose 50% 25 Gm/50 Ml Syringe IV PUSH PRN PRN Hypoglycemia Protocol Duloxetine HCl 60 mg 11/17/25 09:00 11/23/25 09:17 Duloxetine Hcl 60 Mg Capsule.Dr PO 60 mg DAILY JACINTO Administration Glucagon 1 mg 11/16/25 07:49 Glucagon For Inj 1 Mg Vial IM PRN PRN Hypoglycemia Protocol Glucose 15 gm 11/16/25 07:49 Glucose Oral Gel 15 Gm Of Glucse In 37.5 Gm Tube PO PRN PRN Hypoglycemia Protocol Heparin Sodium (Porcine) 5,000 units 11/20/25 21:00 11/23/25 09:18 Heparin Sodium 5,000 Units/Ml Vial SUB-Q 5,000 units Q12HR JACINTO Administration Insulin Aspart 4 - 8 units 11/18/25 17:00 11/23/25 09:22 Insulin Aspart (*Bkc) 100 Units/Ml SUB-Q Not Given TIDWM [facility] Protocol Insulin Aspart 2 - 4 units 11/18/25 21:00 11/22/25 20:32 Insulin Aspart (*Bkc) 100 Units/Ml SUB-Q 3 units HS JACINTO Administration Protocol Insulin Aspart 15 units 11/23/25 12:00 Insulin Aspart (*Bkc) 100 Units/Ml SUB-Q TIDWM JACINTO Insulin Glargine 30 units 11/22/25 21:00 11/23/25 09:18 Insulin Glargine (*Bkc) 100 Units/Ml SUB-Q 30 units Q12HR JACINTO Administration Ondansetron HCl 4 mg 11/18/25 18:58 Ondansetron Inj 4 Mg/2 Ml Vial IV PUSH Q6H PRN Nausea And Vomiting Pantoprazole Sodium 40 mg 11/18/25 09:00 11/23/25 09:18 Pantoprazole 40 Mg Tablet PO 40 mg QAM JACINTO Administration Potassium Chloride 40 meq 11/23/25 10:48 Potassium Chloride 20 Meq Er Tablet PO 11/23/25 10:49 ONCE ONE Ropinirole HCl 0.25 mg 11/16/25 21:00 11/22/25 20:30 Ropinirole Hcl 0.25 Mg Tablet PO 0.25 mg HS JACINTO Administration Rosuvastatin Calcium 40 mg 11/17/25 09:00 11/23/25 09:17 Rosuvastatin 20 Mg Tablet PO 40 mg DAILY JACINTO Administration Sodium Bicarbonate 1,300 mg 11/18/25 09:00 11/23/25 09:17 Sodium Bicarbonate Tab 650 Mg Tablet PO 1,300 mg BID JACINTO Administration Radiology Results: ITS Impressions Abdomen/Pelvis CT 11/16/25 07:54 IMPRESSION: 1. Wall thickening of the transverse and descending colon, consistent with colitis. Renal Ultrasound 11/16/25 19:28 Impression: 1: Unremarkable renal ultrasound. No stones, masses or hydronephrosis. Venous Doppler Study 11/17/25 10:13 IMPRESSION: 1. No deep venous thrombosis in either lower limb. Renal Scan Nuclear Medicine 11/22/25 14:11 IMPRESSION: 1. Asymmetric renal function with left kidney contributing 59% and right kidney 41% to total renal function. 2. Delayed activity clearance from both kidneys without evident hydronephrosis likely related to poor renal function in both kidneys. Labs Labs: Laboratory Results - last 24 hr 11/21/25 11/21/25 11/22/25 05:44 05:52 11:30 WBC RBC Hgb Hct MCV MCH MCHC RDW Plt Count MPV Immature Gran % (Auto) Neut % (Auto) Lymph % (Auto) [place] % (Auto) Eos % (Auto) Baso % (Auto) Lymph # (Auto) [place] # (Auto) Eos # (Auto) Baso # (Auto) Abs Immat Gran (auto) Absolute Neuts (auto) Absolute Nucleated RBC Nucleated RBC % Sodium Potassium Chloride Carbon Dioxide Anion Gap BUN Creatinine Estim Creat Clear Calc Estimated GFR Glucose POC Capillary Glucose 330 H Calcium Phosphorus Magnesium Albumin FEMI Screen Negative c-ANCA Antibody <1:20 Atypical p-ANCA <1:20 p-ANCA Antibody <1:20 Double Strand DNA Ab 1 11/22/25 11/22/25 11/23/25 16:38 20:05 05:34 WBC 11.4 H RBC 3.78 L Hgb 10.4 L Hct 32.9 L MCV 87.0 MCH 27.5 MCHC 31.6 L RDW 16.8 H Plt Count 133 L MPV 11.2 H Immature Gran % (Auto) 2.3 H Neut % (Auto) 64.7 Lymph % (Auto) 20.2 [place] % (Auto) 11.0 H Eos % (Auto) 1.3 Baso % (Auto) 0.5 Lymph # (Auto) 2.30 [place] # (Auto) 1.3 H Eos # (Auto) 0.2 Baso # (Auto) 0.1 Abs Immat Gran (auto) 0.26 H Absolute Neuts (auto) 7.3 H Absolute Nucleated RBC 0.000 Nucleated RBC % 0.0 Sodium 140 Potassium 3.1 L Chloride 108 H Carbon Dioxide 27 Anion Gap 5 BUN 30 H D Creatinine 3.28 H Estim Creat Clear Calc 21 Estimated GFR 14 L Glucose 154 H POC Capillary Glucose 335 H 341 H Calcium 7.3 L Phosphorus 4.6 H Magnesium 1.7 Albumin 2.7 L FEMI Screen c-ANCA Antibody Atypical p-ANCA p-ANCA Antibody Double Strand DNA Ab 11/23/25 08:30 WBC RBC Hgb Hct MCV MCH MCHC RDW Plt Count MPV Immature Gran % (Auto) Neut % (Auto) Lymph % (Auto) [place] % (Auto) Eos % (Auto) Baso % (Auto) Lymph # (Auto) [place] # (Auto) Eos # (Auto) Baso # (Auto) Abs Immat Gran (auto) Absolute Neuts (auto) Absolute Nucleated RBC Nucleated RBC % Sodium Potassium Chloride Carbon Dioxide Anion Gap BUN Creatinine Estim Creat Clear Calc Estimated GFR Glucose POC Capillary Glucose 151 H Calcium Phosphorus Magnesium Albumin FEMI Screen c-ANCA Antibody Atypical p-ANCA p-ANCA Antibody Double Strand DNA Ab
[2025-11-23 11:09] LABS: Albumin 2.3 g/dL (2.9-4.4); Alpha-1-Globulin 0.3 g/dL (0.0-0.4); Alpha-2-Globulin 1.1 g/dL (0.4-1.0); Gamma Globulin 0.7 g/dL (0.4-1.8)
[2025-11-23 12:08] LABS: Immunofixation (IFE), Urine Comment: (.)
[2025-11-23] MEDS: POTASSIUM CHLORIDE 20 MEQ ER TABLET 40 MEQ PO (12:43)
[2025-11-23] MEDS: INSULIN ASPART (*BKC) 100 UNITS/ML 15 UNITS SUB-Q ×2 (12:44→17:57)
[2025-11-23 15:08] VITALS: BP 139/62; PULSE 80; RESP 18; TEMP 37; O2SAT 99
[2025-11-23] MEDS: INSULIN ASPART (*BKC) 100 UNITS/ML SUB-Q ×2 (17:56→21:12)
[2025-11-23 18:08] LABS: Anti-GBM Antibodies <0.2 units (0.0-0.9)
[2025-11-23 22:00] VITALS: BP 149/53; PULSE 61; RESP 18; TEMP 36.6; O2SAT 100
[2025-11-24 06:00] VITALS: BP 124/42; PULSE 60; RESP 18; TEMP 36.2; O2SAT 97
[2025-11-24 06:07] LABS: Hematocrit 33.0 % (37.0-47.0); Hemoglobin 10.5 g/dL (12.0-15.0); Immature Granulocyte Percent A 2.9 % (0-0.5); Immature Platelet Fraction Pct 7.1 % (0.9-11.2); Lymphocytes Absolute Auto 2.76 K/mm3 (0.9-3.2); Mean Corpuscular HGB Conc 31.8 g/dl (32-36); Mean Corpuscular Hemoglobin 28.2 pg (26-34); Mean Corpuscular Volume 88.5 fl (80-100); Nucleated Red Blood Cells Absolute Auto 0.000 K/mm3 (0.0-0.012); Nucleated Red Blood Cells Perc 0.0 % (0.0-0.2); Platelet Count Result 141 k/mm3 (150-375); Red Blood Count 3.73 M/mm3 (4.2-5.4); White Blood Count 11.0 K/mm3 (4.5-10.0)
[2025-11-24 06:27] LABS: Albumin Level 2.8 g/dL (3.5-5.1); Anion Gap 4 mmol/L (4-12); Blood Urea Nitrogen 23 mg/dL (7-17); Calcium 7.5 mg/dL (8.4-10.2); Carbon Dioxide 28 mmol/L (22-30); Chloride 108 mmol/L (98-107); Estimated CRCL calculation 26 ml/min; Estimated Glomerular Filt Rate 18; Glucose 112 mg/dL (65-110); Magnesium 1.5 mg/dL (1.6-2.3); Potassium 3.0 mmol/L (3.4-5.0); Sodium 140 mmol/L (137-145)
[2025-11-24 06:34] LABS: Procalcitonin 0.4 ng/mL
[2025-11-24] MEDS: INSULIN ASPART (*BKC) 100 UNITS/ML 15 UNITS SUB-Q ×2 (09:15→12:43)
[2025-11-24] MEDS: DULoxetine HCL 60 MG CAPSULE.DR PO (09:16)
[2025-11-24] MEDS: ROSUVASTATIN 20 MG TABLET 40 MG PO (09:16)
[2025-11-24] MEDS: PANTOPRAZOLE 40 MG TABLET PO (09:16)
[2025-11-24] MEDS: SODIUM BICARBONATE TAB 650 MG TABLET 1300 MG PO (09:16)
[2025-11-24] MEDS: INSULIN GLARGINE (*BKC) 100 UNITS/ML 30 UNITS SUB-Q (09:20)
--- NOTE | 2025-11-24 11:02 | P.PNNP_ITS ---
Progress Note: A&P Assessment and Plan (1) Acute renal failure: Qualifiers: Acute renal failure type: with acute tubular necrosis Qualified Code(s): N17.0 - Acute kidney failure with tubular necrosis Code(s): N17.9 - Acute kidney failure, unspecified Status: Acute Assessment and Plan: * acute kidney injury. * normal baseline kidney function from available records * suspect multifactorial: * prerenal factors * DKA * urinary retention * relative hypotension * valsartan use [employer]ER * other(?) * evaluation to date: * renal ultrasound unremarkable * urine electrolytes non-prerenal * CPK normal * 2.3 grams of protein * UA w/o evidence of infection * urine output has been about 900-1300 cc per day. * She does have a large amount of swelling. This is probably leftovers from her acute kidney injury plus her proteinuria. * renal scan shows uptake which is a little bit on the slow side but no excretion consistent with ATN * her creatinine did improve again today. * Hopefully renal function will continue to improve. It did take a substantial step in the right direction in the last 24hours. She does have some swelling. We could probably follow this for few days as an outpatient and her improvement in renal function will probably lead to getting rid of the excess fluid. However, if not better, we can start her on some diuretics. If she does not go home today we can give her a 1 time dose of Bumex. If she does then she can get some blood work done on Saturday and call us for the results and let us know how the swelling is. (2) Colitis: Code(s): K52.9 - Noninfective gastroenteritis and colitis, unspecified Status: Acute Assessment and Plan: * as noted by admission CT scan * fevers gone. White count okay. * completed course of antibiotics (3) Acute urinary retention: Code(s): R33.8 - Other retention of urine Status: Acute Assessment and Plan: * as noted by bladder scan in ER * hunt catheter in place * Possibly remove catheter and see if she urinates on her own before discharge? (4) Hypertension: Code(s): I10 - Essential (primary) hypertension Status: Chronic Assessment and Plan: * soft BPs on admission * holding antihypertensive medications at this time * restart as needed * systolic still in the 120s (5) Constipation: Code(s): K59.00 - Constipation, unspecified Status: Acute Assessment and Plan: * reported on admission and currently * on aggressive bowel regimen * continue current therapy (6) DKA (diabetic ketoacidosis): Code(s): E11.10 - Type 2 diabetes mellitus with ketoacidosis without coma Status: Acute Assessment and Plan: * DKA is resolved * glycemic control per hospitalist Subjective Date/time seen: 11/24/25 11:02 Interval history: Patient is alert. She feels okay. She ate well this morning Exam Narrative: General: large female in NAD Heart: normal S1 and S2; no rub Lungs: clear Bilaterally Abdomen: soft, mild TTP, nondistended, positive bowel sounds Extremities: no cyanosis or clubbing; 1-2+ edema Skin: no rash Objective Data Vital Signs Vital Signs: Vital Signs - 24 hr 11/23/25 15:08 11/23/25 20:00 11/23/25 22:00 Temperature 98.6 F 97.9 F Pulse Rate 80 61 Respiratory Rate 18 18 Blood Pressure 139/62 149/53 H Pulse Oximetry 99 100 Oxygen Delivery Room Air 11/24/25 06:00 11/24/25 09:15 Temperature 97.2 F L Pulse Rate 60 Respiratory Rate 18 Blood Pressure 124/42 L Pulse Oximetry 97 Oxygen Delivery Room Air Intake/Output Intake/Output: Intake & Output 11/21/25 11/22/25 11/23/25 11/24/25 23:59 23:59 23:59 23:59 Intake Total 1870 1630 1380 300 Output Total 2868 628 2197 1000 Balance 120 730 80 -700 Meds/Results Medications: Active Medications Generic Name Dose Route Start Last Admin Trade Name Freq PRN Reason Stop Dose Admin Acetaminophen 1,000 mg 11/18/25 05:41 11/18/25 05:40 Acetaminophen 500 Mg Tablet PO 1,000 mg Q6H PRN Administration Pain or Fever Dextrose 12.5 gm 11/16/25 07:49 Dextrose 50% 25 Gm/50 Ml Syringe IV PUSH PRN PRN Hypoglycemia Protocol Duloxetine HCl 60 mg 11/17/25 09:00 11/24/25 09:16 Duloxetine Hcl 60 Mg Capsule.Dr PO 60 mg DAILY JACINTO Administration Glucagon 1 mg 11/16/25 07:49 Glucagon For Inj 1 Mg Vial IM PRN PRN Hypoglycemia Protocol Glucose 15 gm 11/16/25 07:49 Glucose Oral Gel 15 Gm Of Glucse In 37.5 Gm Tube PO PRN PRN Hypoglycemia Protocol Heparin Sodium (Porcine) 5,000 units 11/20/25 21:00 11/24/25 09:16 Heparin Sodium 5,000 Units/Ml Vial SUB-Q 5,000 units Q12HR JACINTO Administration Insulin Aspart 4 - 8 units 11/18/25 17:00 11/24/25 09:22 Insulin Aspart (*Bkc) 100 Units/Ml SUB-Q Not Given TIDWM JACINTO Protocol Insulin Aspart 2 - 4 units 11/18/25 21:00 11/23/25 21:12 Insulin Aspart (*Bkc) 100 Units/Ml SUB-Q 2 units HS JACINTO Administration Protocol Insulin Aspart 15 units 11/23/25 12:00 11/24/25 09:15 Insulin Aspart (*Bkc) 100 Units/Ml SUB-Q 15 units TIDWM JACINTO Administration Insulin Glargine 30 units 11/22/25 21:00 11/24/25 09:20 Insulin Glargine (*Bkc) 100 Units/Ml SUB-Q 30 units Q12HR JACINTO Administration Ondansetron HCl 4 mg 11/18/25 18:58 Ondansetron Inj 4 Mg/2 Ml Vial IV PUSH Q6H PRN Nausea And Vomiting Pantoprazole Sodium 40 mg 11/18/25 09:00 11/24/25 09:16 Pantoprazole 40 Mg Tablet PO 40 mg QAM JACINTO Administration Ropinirole HCl 0.25 mg 11/16/25 21:00 11/23/25 21:11 Ropinirole Hcl 0.25 Mg Tablet PO 0.25 mg HS JACINTO Administration Rosuvastatin Calcium 40 mg 11/17/25 09:00 11/24/25 09:16 Rosuvastatin 20 Mg Tablet PO 40 mg DAILY JACINTO Administration Sodium Bicarbonate 1,300 mg 11/18/25 09:00 11/24/25 09:16 Sodium Bicarbonate Tab 650 Mg Tablet PO 1,300 mg BID JACINTO Administration Radiology Results: ITS Impressions Abdomen/Pelvis CT 11/16/25 07:54 IMPRESSION: 1. Wall thickening of the transverse and descending colon, consistent with colitis. Renal Ultrasound 11/16/25 19:28 Impression: 1: Unremarkable renal ultrasound. No stones, masses or hydronephrosis. Venous Doppler Study 11/17/25 10:13 IMPRESSION: 1. No deep venous thrombosis in either lower limb. Renal Scan Nuclear Medicine 11/22/25 14:11 IMPRESSION: 1. Asymmetric renal function with left kidney contributing 59% and right kidney 41% to total renal function. 2. Delayed activity clearance from both kidneys without evident hydronephrosis likely related to poor renal function in both kidneys. Labs Labs: Laboratory Results - last 24 hr 11/20/25 11/21/25 11/23/25 18:32 05:52 11:34 WBC RBC Hgb Hct MCV MCH MCHC RDW Plt Count MPV Immature Gran % (Auto) Neut % (Auto) Lymph % (Auto) [place] % (Auto) Eos % (Auto) Baso % (Auto) Lymph # (Auto) [place] # (Auto) Eos # (Auto) Baso # (Auto) Abs Immat Gran (auto) Absolute Neuts (auto) Absolute Nucleated RBC Nucleated RBC % % Immature Plt Fraction Sodium Potassium Chloride Carbon Dioxide Anion Gap BUN Creatinine Estim Creat Clear Calc Estimated GFR Glucose POC Capillary Glucose 191 H Calcium Phosphorus Magnesium Total Protein (PEP) 5.1 L Albumin Albumin (PEP) 2.3 L Globulin (PEP) 2.8 Albumin/Globulin Ratio 0.8 Gjlgo-8-Ztkognean 0.3 Zmobv-6-Ciofpyoxn 1.1 H Beta Globulins 0.7 Gamma Globulins 0.7 PEP Comment Comment Procalcitonin Pr Electrophoresis MSpike Not observed Urine Immunofixation Comment: Glomerular Base Memb Ab <0.2 11/23/25 11/23/25 11/24/25 16:39 21:07 05:29 WBC 11.0 H RBC 3.73 L Hgb 10.5 L Hct 33.0 L MCV 88.5 MCH 28.2 MCHC 31.8 L RDW 16.7 H Plt Count 141 L MPV 11.3 H Immature Gran % (Auto) 2.9 H Neut % (Auto) 59.6 Lymph % (Auto) 25.2 [place] % (Auto) 10.7 H Eos % (Auto) 1.2 Baso % (Auto) 0.4 Lymph # (Auto) 2.76 [place] # (Auto) 1.2 H Eos # (Auto) 0.1 Baso # (Auto) 0.0 Abs Immat Gran (auto) 0.32 H Absolute Neuts (auto) 6.5 Absolute Nucleated RBC 0.000 Nucleated RBC % 0.0 % Immature Plt Fraction 7.1 Sodium 140 Potassium 3.0 L Chloride 108 H Carbon Dioxide 28 Anion Gap 4 BUN 23 H Creatinine 2.64 H Estim Creat Clear Calc 26 Estimated GFR 18 L Glucose 112 H POC Capillary Glucose 238 H 236 H Calcium 7.5 L Phosphorus 4.3 Magnesium 1.5 L Total Protein (PEP) Albumin 2.8 L Albumin (PEP) Globulin (PEP) Albumin/Globulin Ratio Fzfeq-4-Exmpqptqz Agaol-4-Jqjnckdfj Beta Globulins Gamma Globulins PEP Comment Procalcitonin 0.4 Pr Electrophoresis MSpike Urine Immunofixation Glomerular Base Memb Ab 11/24/25 08:03 WBC RBC Hgb Hct MCV MCH MCHC RDW Plt Count MPV Immature Gran % (Auto) Neut % (Auto) Lymph % (Auto) [place] % (Auto) Eos % (Auto) Baso % (Auto) Lymph # (Auto) [place] # (Auto) Eos # (Auto) Baso # (Auto) Abs Immat Gran (auto) Absolute Neuts (auto) Absolute Nucleated RBC Nucleated RBC % % Immature Plt Fraction Sodium Potassium Chloride Carbon Dioxide Anion Gap BUN Creatinine Estim Creat Clear Calc Estimated GFR Glucose POC Capillary Glucose 110 H Calcium Phosphorus Magnesium Total Protein (PEP) Albumin Albumin (PEP) Globulin (PEP) Albumin/Globulin Ratio Fypgy-4-Yxtsmljxq Mflbb-1-Nnzgfcwim Beta Globulins Gamma Globulins PEP Comment Procalcitonin Pr Electrophoresis MSpike Urine Immunofixation Glomerular Base Memb Ab
[2025-11-24 13:00] VITALS: BP 116/50; PULSE 80; RESP 18; TEMP 36.4; O2SAT 97
[2025-11-24] MEDS: POTASSIUM CHLORIDE 20 MEQ ER TABLET 40 MEQ PO (13:23)
[2025-11-24] MEDS: MAGNESIUM SULF 2 GM/WATER 50ML 2 GM/50 ML BAG IVPB (13:24)
--- NOTE | 2025-11-24 13:53 | PM.DS ---
DS: Admitting Diagnosis Discharge Date 11/24/2025 Admitting Diagnosis Constipation DS: Discharge Diagnosis Discharge Diagnosis (1) Hypertension: Code(s): I10 - Essential (primary) hypertension Status: Chronic (2) DKA (diabetic ketoacidosis): Code(s): E11.10 - Type 2 diabetes mellitus with ketoacidosis without coma Status: Acute (3) Uncontrolled type 2 diabetes mellitus with hyperglycemia: Code(s): E11.65 - Type 2 diabetes mellitus with hyperglycemia Status: Acute (4) Obesity: Code(s): E66.9 - Obesity, unspecified Status: Acute (5) Acute renal failure: Qualifiers: Acute renal failure type: with acute tubular necrosis Qualified Code(s): N17.0 - Acute kidney failure with tubular necrosis Code(s): N17.9 - Acute kidney failure, unspecified Status: Acute (6) Hypokalemia: Code(s): E87.6 - Hypokalemia Status: Acute (7) UTI (urinary tract infection): Code(s): N39.0 - Urinary tract infection, site not specified Status: Acute (8) Constipation: Code(s): K59.00 - Constipation, unspecified Status: Acute (9) Colitis: Code(s): K52.9 - Noninfective gastroenteritis and colitis, unspecified Status: Acute DS: Summary Hospital Course Hospital Course: A pleasant 60-year-old female with [facility] obesity class 3, insulin-dependent diabetes mellitus, chronic depression, fibromyalgia, hypercholesterolemia, hypertension, overactive urinary bladder, admitted to [facility] on 11/16/2025 complaining of severe constipation with no bowel movements for about a week. Presented with a distended and tender abdomen. CT of abdomen and pelvis showed thickening of the colonic wall possibly consistent with colitis. Patient on no vomiting. She had urinary retention and a Dickinson catheter was placed and her serum creatinine 6.95 with a BUN 72. Bicarb level 16. Hydroxybutyrate level 2.4. Patient admitted to ICU, treated for DKA. ----- Patient treated for DKA successfully. At home, the patient appears to take 30 units of glargine q.h.s., insulin regular U 500 concentrate 3 times daily 80, 60, 60. She is discharged on glargine 30 units and a reduced dose of insulin regular at 50 units 3 times daily. Advised to keep a log of blood sugars and increase cautiously/as directed by PCP. Acute renal failure has improved. Presented with serum creatinine in the sevens. Continues to downtrend, serum creatinine 2.64 on discharge. She has a Dickinson catheter, she is urinating adequately. She is followed by Nephrology here. She will see Nephrology in the outpatient setting within 7 days. She will have a repeat renal function panel in 2 days. At this moment, Dickinson catheter removed for voiding trial. If still has retention she will be discharged with Dickinson catheter and have a follow-up with Urology. Her potassium and magnesium are low. They are being replaced. Her white count is mildly high still but she appears nontoxic. She wants to have the magnesium and potassium replacements on the day of discharge but does not want to stay for repeat. As such, these will be reviewed in 2 days with the renal function. We have discussed the risk of not having complete monitoring including arrhythmias and deterioration. We have discussed adverse effects, risks and benefits of medications, she understands all of the above. She had no further questions. Patient presented with severe constipation and CT scan demonstrated colitis. Possibly stercoral colitis. She was on aggressive bowel regimen and she began to have diarrhea. At the time of discharge she has not had laxatives in 3 days, she has had a bowel movement once every 2 days. She will be discharged on p.r.n. MiraLax and Senokot S. we discussed the appropriate use of these medications. Her blood pressure has been on the lower side, holding [employer] antihypertensives. Tolterodine discontinued. She is discharged in stable condition to home with home health on 11/24/2025. She was full code during the admission. Status at Discharge Overall status at discharge: patient is progressing back to baseline Time Spent with Patient Time attestation: Total time spent providing and/or coordinating discharge services: Time spent: Greater than 30 minutes Exam Const: General: comfortable and no acute distress HENMT: Mouth: Yes moist mucous membranes Eyes: Pupils: Equal, round and reactive pupils present Neck: Neck: supple Resp: Effort & Inspection: normal respiratory effort Auscultation: clear to auscultation bilaterally Cardio: Rate: regular rate Rhythm: regular rhythm GI: Inspection: non-distended GI Palp: Yes Soft to palpation Neuro: Motor exam (neuro): 5/5 motor strength present throughout Extrem: General: edema DS: Data Data Completed and Pending Labs on day of discharge: Labs from last 24 hours 11/24/25 11/24/25 11/24/25 12:14 08:03 05:29 WBC 11.0 H RBC 3.73 L Hgb 10.5 L Hct 33.0 L MCV 88.5 MCH 28.2 MCHC 31.8 L RDW 16.7 H Plt Count 141 L MPV 11.3 H Immature Gran % (Auto) 2.9 H Neut % (Auto) 59.6 Lymph % (Auto) 25.2 [place] % (Auto) 10.7 H Eos % (Auto) 1.2 Baso % (Auto) 0.4 Lymph # (Auto) 2.76 [place] # (Auto) 1.2 H Eos # (Auto) 0.1 Baso # (Auto) 0.0 Abs Immat Gran (auto) 0.32 H Absolute Neuts (auto) 6.5 Absolute Nucleated RBC 0.000 Nucleated RBC % 0.0 % Immature Plt Fraction 7.1 Sodium 140 Potassium 3.0 L Chloride 108 H Carbon Dioxide 28 Anion Gap 4 BUN 23 H Creatinine 2.64 H Estim Creat Clear Calc 26 Estimated GFR 18 L Glucose 112 H POC Capillary Glucose 103 110 H Calcium 7.5 L Phosphorus 4.3 Magnesium 1.5 L Albumin 2.8 L Procalcitonin 0.4 Glomerular Base Memb Ab 11/23/25 11/23/25 11/21/25 21:07 16:39 05:52 WBC RBC Hgb Hct MCV MCH MCHC RDW Plt Count MPV Immature Gran % (Auto) Neut % (Auto) Lymph % (Auto) [place] % (Auto) Eos % (Auto) Baso % (Auto) Lymph # (Auto) [place] # (Auto) Eos # (Auto) Baso # (Auto) Abs Immat Gran (auto) Absolute Neuts (auto) Absolute Nucleated RBC Nucleated RBC % % Immature Plt Fraction Sodium Potassium Chloride Carbon Dioxide Anion Gap BUN Creatinine Estim Creat Clear Calc Estimated GFR Glucose POC Capillary Glucose 236 H 238 H Calcium Phosphorus Magnesium Albumin Procalcitonin Glomerular Base Memb Ab <0.2 Discharge Plan Discharge Attending physician on discharge: Magda Bowen Consulting providers: Sidney Gil; Cole Aguilar Discharging Clinician: Magda Bowen Patient Disposition: Home with Home Health Service Activity: march shower Diet: diabetic Discharge Instructions: Care Coordination: [facility] to follow pt for PT/OT/RN. [facility] #[phone] Patient Instructions: Antibiotic Form, Basic Carbohydrate Counting (DC) Patient Language: Slovenian Stand Alone Forms: General Discharge Information Follow-up/Referrals: Sam Shine M.D. [Primary Care Provider, Family Practice] Cole Aguilar MD [Physician, Nephrology] - 12/02/25 Discharge Medications: New polyethylene glycol 3350 [Miralax] 17 gram/dose powder 17 g PO DAILY PRN (Reason: constipation) Qty: 119 0RF sennosides-docusate sodium [Senokot-S] 8.6-50 mg tablet 1 tab-cap PO BID PRN (Reason: constipation) Qty: 30 0RF Continued Ozempic 2 mg/dose (8 mg/3 mL) pen injector 2 mg subcut WEEKLY Qty: 6 1RF Patient Comments: THURSDAYS (DME) Dexcom G6 Transmitter Device See Rx Instructions .ROUTE .COMPLEX Qty: 1 3RF Dose Instruction: USE DIRECTED Rx Instructions: USE DIRECTED (DME) Dexcom G6 Sensor Device See Rx Instructions .ROUTE .COMPLEX Qty: 9 1RF Dose Instruction: USE DIRECTED Rx Instructions: USE DIRECTED insulin glargine U-300 conc [Toujeo Max U-300 SoloStar] 300 unit/mL (3 mL) insulin pen 30 unit subcut HS Rx Instructions: sliding Scale rosuvastatin 40 mg tablet 40 mg PO DAILY Qty: 90 1RF omeprazole 40 mg capsule,delayed release(DR/EC) 40 mg PO BID ropinirole 0.25 mg tablet 0.25 mg PO HS duloxetine 60 mg capsule,delayed release(DR/EC) 60 mg PO DAILY aspirin 81 mg capsule 81 mg PO DAILY Held Humulin R U-500 (Conc) Kwikpen 500 unit/mL (3 mL) insulin pen See Rx Instructions .ROUTE .COMPLEX Hold Instructions: Take at lower dose 15 units 3 times daily. Keep log of blood sugars, increased cautiously/as advised by PCP Dose Instruction: INJECT 80 UNITS UNDER THE SKIN BEFORE BREAKFAST, 60 UNITS BEFORE LUNCH AND 60 UNITS BEFORE DINNER Rx Instructions: INJECT 30 UNITS UNDER THE SKIN BEFORE BREAKFAST AND 30 UNITS BEFORE DINNER pregabalin 200 mg capsule 200 mg PO BID Hold Instructions: Discuss re-initiation of this medication with primary care Discontinued valsartan 80 mg tablet 80 mg PO DAILY tolterodine 4 mg capsule,extended release 24hr 4 mg PO Q24H Other Ambulatory Orders: Basic Metabolic Panel (Routine) Timeframe: 2 Days Location: Determined by Patient Ordered By: Magda Bowen Complete Blood Count with Diff (Routine) Timeframe: 2 Days Location: Determined by Patient Ordered By: Magda Bowen Magnesium (Routine) Timeframe: 2 Days Location: Determined by Patient Ordered By: Magda Bowen Date of admission: 11/17/25 09:46 Primary Care Provider: Sam Shine Admitting Provider: Jose Mancera Attending physician on admission: Jose Mancera Condition: Stable Hospitalist MIPS Heart Failure (Exclusion) Patient has history of Heart Transplant or Left Ventricular Assistive Device?: No IF YES, STOP HERE Heart Failure (Qualifier) Patient has current or prior documentation of LVEF less than or equal to 40%, or mod/servere depressed LVSF?: No IF NO, STOP HERE
[2025-11-24 14:08] LABS: Immunoglobulin A, Qn 232 mg/dL (87-352); Immunoglobulin G, Qn 822 mg/dL (586-1602); Immunoglobulin M, Qn 91 mg/dL (26-217)
[2025-11-24 16:57] LABS: Anion Gap 5 mmol/L (4-12); Blood Urea Nitrogen 20 mg/dL (7-17); Calcium 7.7 mg/dL (8.4-10.2); Carbon Dioxide 27 mmol/L (22-30); Chloride 109 mmol/L (98-107); Estimated CRCL calculation 29 ml/min; Estimated Glomerular Filt Rate 21; Glucose 187 mg/dL (65-110); Magnesium 2.3 mg/dL (1.6-2.3); Potassium 3.6 mmol/L (3.4-5.0); Sodium 141 mmol/L (137-145)
--- NOTE | 2025-11-29 13:37 | PCCDE ---
11/29/25: Attempted DM educator courtesy follow up call. Outgoing message stating your call cannot be completed.....
== END 2025-11-24 17:42 | disposition home health service (06) | DRG 682 ==
LOC: ANHED 11-16 09:31 → ANHICU 11-16 09:48 → ANH3MED 11-19 15:06
PROVIDERS: Emergency Medicine; Internal Medicine; Internal Medicine Critical Care Medicine; Internal Medicine Nephrology; Admitting Provider Internal Medicine; Emergency Provider Emergency Medicine; PCP Family Medicine; Visit Provider General Practice
DX: N17.9 Acute kidney failure, unspecified (principal); E11.10 Type 2 diabetes mellitus with ketoacidosis without coma; E87.1 Hypo-osmolality and hyponatremia; N39.0 Urinary tract infection, site not specified; Z68.43 Body mass index [BMI] 50.0-59.9, adult; K52.9 Noninfective gastroenteritis and colitis, unspecified; E78.5 Hyperlipidemia, unspecified; M79.7 Fibromyalgia; R33.8 Other retention of urine; I25.10 Atherosclerotic heart disease of native coronary artery without angina pectoris; E11.65 Type 2 diabetes mellitus with hyperglycemia; G47.33 Obstructive sleep apnea (adult) (pediatric); I10 Essential (primary) hypertension; K59.00 Constipation, unspecified; G25.81 Restless legs syndrome; E55.9 Vitamin D deficiency, unspecified; E87.6 Hypokalemia; I25.2 Old myocardial infarction; Z86.73 Personal history of transient ischemic attack (TIA), and cerebral infarction without residual deficits; E66.813 Obesity, class 3
CPT/HCPCS: 36415; 36600; 74176; 76770; 78707; 80048; 80053; 80069; 81001; 82010; 82550; 82570; 82595; 82784; 82805; 82948; 83036; 83605; 83690; 83735; 84100; 84145; 84155; 84156; 84165; 84300; 84540; 85018; 85025; 85027; 85055; 86037; 86038; 86160; 86225; 86334; 86335; 86364; 87040; 87641; 93005; 93970; 96361; 96365; 96366; 96367; 96375; 97162; 99285; A9270; A9562; C8929; G0378; J0696; J1644; J1815; J1836; J1938; J3475; J3480; J7030; J7042; Q9957